=== PATIENT | male | born 1940 | race Caucasian/White ===

== ENCOUNTER 2023-05-05 18:29 | Emergency (ER) | payer MEDICARE, OTHER, SELFPAY ==
[2023-05-05 18:33] VITALS: BP 154/89; PULSE 79; RESP 18; TEMP 37.2; O2SAT 96; BMI 24.7
--- NOTE | 2023-05-05 18:52 | ED_ITS ---
HPI - General Adult General Time Seen by Provider: 18:52 Date Seen: 05/05/23 Chief complaint: Chest Pain Stated complaint: Burning in chest Time Seen by Provider: 05/05/23 18:51 Source: patient Mode of arrival: ambulatory Limitations: no limitations History of Present Illness HPI narrative: Frank is a 82 year old male with past history of heartburn, gout, hypertension and depression presents emergency department via private car with chest pain Related Data Home Medications Medication Instructions Recorded Confirmed allopurinol .ROUTE 05/05/23 famotidine PO 05/05/23 lisinopril .ROUTE 05/05/23 montelukast .ROUTE 05/05/23 rosuvastatin .ROUTE 05/05/23 sertraline .ROUTE 05/05/23 Allergies Allergy/AdvReac Type Severity Reaction Status Date / Time No Known Drug Allergies Allergy Verified 05/05/23 18:37 Exam Const: Vital Signs, click to edit/add: Vital Signs - 24 hr 05/05/23 18:33 Temperature 98.9 F Pulse Rate [Pulse Oximeter] 79 Respiratory Rate 18 Blood Pressure [Ri ght Upper Arm] 154/89 H Pulse Oximetry 96 Oxygen Delivery Me thod Room Air Course Vital Signs Vital signs: Initial Vital Signs Temperature 98.9 F 05/05/23 18:33 Temperature Source Temporal Artery Scan 05/05/23 18:33 Pulse Rate 79 05/05/23 18:33 Pulse Rhythm Regular 05/05/23 18:33 Respiratory Rate 18 05/05/23 18:33 Blood Pressure 154/89 H 05/05/23 18:33 Blood Pressure Mean 110 H 05/05/23 18:33 Blood Pressure Position Sitting 05/05/23 18:33 Pulse Oximetry 96 05/05/23 18:33 Oxygen Delivery Method Room Air 05/05/23 18:33 Vital Signs Temperature 98.9 F 05/05/23 18:33 Pulse Rate 79 05/05/23 18:33 Respiratory Rate 18 05/05/23 18:33 Blood Pressure 154/89 H 05/05/23 18:33 Pulse Oximetry 96 05/05/23 18:33 Oxygen Delivery Method Room Air 05/05/23 18:33 Temperature 98.9 F 05/05/23 18:33 Pulse Rate 79 05/05/23 18:33 Respiratory Rate 18 05/05/23 18:33 Blood Pressure 154/89 H 05/05/23 18:33 Pulse Oximetry 96 05/05/23 18:33 Oxygen Delivery Method Room Air 05/05/23 18:33 Discharge Plan Discharge Prescriptions: No Action rosuvastatin .ROUTE famotidine [Acid Strategic Partnership Specialist (famotidine)] PO allopurinol .ROUTE sertraline .ROUTE montelukast .ROUTE lisinopril .ROUTE
[2023-05-05 19:14] LABS: Hematocrit 42.5 % (37.0-53.0); Hemoglobin* 13.4 gm/dL (13.5-17.5); Lymphocytes Percent Auto 15.8 % (20-44); Mean Corpuscular HGB Conc 32 gm/dL (32-36); Mean Corpuscular Hemoglobin 29 pg (26-34); Mean Corpuscular Volume 91 fL (80-100); Neutrophils Percent Auto 70.3 % (42.0-72.0); Platelet Count* 224 K/uL (140-440); RDW Coefficient of Variation % 14.3 % (11.5-15.5); Red Blood Count 4.69 m/uL (4.30-5.90); White Blood Count* 5.05 K/uL (4.50-11.00)
[2023-05-05 19:15] LABS: Basophils Absolute Auto 0.01 K/uL (0.00-0.30); Basophils Percent Auto 0.2 % (0.0-3.0); Eosinophils Absolute Auto 0.14 K/uL (0.00-0.50); Eosinophils Percent Auto 2.8 % (0.0-7.0); Monocytes Percent Auto 10.9 % (0.0-11.0); Neutrophils Absolute Auto 3.55 K/uL (1.7-7.0)
[2023-05-05 19:17] LABS: Slide Review Reflex No
[2023-05-05 19:30] LABS: Albumin* 4.2 g/dL (3.3-5.0); Chloride* 106 mmol/L (96-114); Sodium* 140 mmol/L (135-149)
[2023-05-05 19:31] LABS: Potassium* 4.3 mmol/L (3.6-5.1)
[2023-05-05 19:33] LABS: Creatinine* 1.4 mg/dL (0.5-1.5); Est. Creatinine Clearance* 43.45; Estimated Glomerular Filt Rate 51 ml/min
[2023-05-05 19:34] LABS: Alanine Aminotransferase* 18 U/L (4-50); Alkaline Phosphatase* 140 U/L (40-150); Anion Gap 8 mEq/L (7-15); Aspartate Amino Transferase* 25 U/L (12-35); Bilirubin Total* 0.5 mg/dL (0.1-1.5); Blood Urea Nitrogen* 25 mg/dL (7-30); Calcium* 8.7 mg/dL (8.4-10.6); Carbon Dioxide* 26 mmol/L (20-32); Glucose* 118 mg/dL (60-115); Lipase* 66 U/L (23-300); Total Protein* 7.7 g/dL (6.0-8.3)
[2023-05-05 19:37] LABS: C Reactive Protein* 1.1 mg/dL (0.5-1.0)
--- NOTE | 2023-05-05 19:46 | ED_ITS ---
HPI - General Adult General Chief complaint: Chest Pain Stated complaint: Burning in chest Time Seen by Provider: 05/05/23 18:51 Source: patient Mode of arrival: ambulatory Limitations: no limitations History of Present Illness HPI narrative: This 82-year-old male comes in reporting an episode of intense burning type pain that extended to much of his body from his neck on down. This started about an hour prior to arrival and now has almost completely dissipated. He states that he has been having some much more mild similar symptoms over the past few weeks. He feels that he can trigger these symptoms if he happens to move into a certain position. He wonders if it might be coming from his back. He is a from the [place] and states that he had a low back injury that he continues to seek treatment from the [facility]. He states that he is very active and is not taking medication for this. He does incidentally report that he has an itchy back at times and has had some moles removed. He is applying a cream to his back and has generally dry skin. Related Data Home Medications Medication Instructions Recorded Confirmed allopurinol .ROUTE 05/05/23 famotidine PO 05/05/23 lisinopril .ROUTE 05/05/23 montelukast .ROUTE 05/05/23 rosuvastatin .ROUTE 05/05/23 sertraline .ROUTE 05/05/23 Previous Rx's Medication Instructions Recorded methylprednisolone 4 mg tablets in See Rx Instructions PO .COMPLEX 05/05/23 a dose pack (Medrol (Luis E)) #21 ea triamcinolone acetonide 0.1 % 1 applic topical BID #30 grams 05/05/23 topical cream Allergies Allergy/AdvReac Type Severity Reaction Status Date / Time No Known Drug Allergies Allergy Verified 05/05/23 18:37 Review of Systems Status of ROS: Reports: 10 or more systems reviewed and unremarkable except as noted in History and below Narrative: Constitutional: No fevers, no weight gain or loss. Eyes: No discharge. No vision changes. HENT: No congestion, no sore throat, no ear pain. Cardiovascular: No chest pain, no palpitations. Respiratory: No shortness of breath, no wheezes, no cough. Gastrointestinal: No abdominal pain, no vomiting, no diarrhea. Genitourinary: No dysuria, no hematuria. Musculoskeletal: Normal range of motion. Skin: No rashes. He reports dry skin which can be pruritic especially on his back. Neurological: No dizziness, weakness, sensory change, speech change. Endo/Heme/Allergies: No bruising or bleeding. No polydipsia. Pysch: no suicidality, no anxiety, no insomnia. All other systems reviewed and are negative. [facility] Social History Smoking Status: Former smoker How often do you have a drink containing alcohol: 2-3 times a week How many standard drinks containing alcohol do you have on a typical day: 1 or 2 How often do you have six or more drinks on one occasion: Never AUDIT-C Alcohol total score: 3 Non-prescribed substance use: denies use Exam Narrative: Exam Narrative: Constitutional: Well-developed, well-nourished, no acute distress. HEENT: Normocephalic, atraumatic. Neck: Normal range of motion. Nontender. Supple. Heart: Regular. No murmurs. Normal rate. Intact distal pulses. Lungs: Clear to auscultation. No chest discomfort. No wheezes, rhonchi, or rales. Abdomen: Normal bowel sounds. Nontender. No rebound tenderness. Genitalia: Deferred. Back: No midline tenderness. Normal range of motion. Extremities: Normal range of motion. No injury. Skin: Intact. No rash. Warm. No erythema or pallor. Neurologic: No altered sensation. No weakness. Alert and oriented. Psychiatric: No suicidality. No anxiety or depression. No insomnia. Nursing notes and vitals signs are reviewed. Const: Vital Signs, click to edit/add: Vital Signs - 24 hr 05/05/23 18:33 Temperature 98.9 F Pulse Rate [Pulse Oximeter] 79 Respiratory Rate 18 Blood Pressure [Ri ght Upper Arm] 154/89 H Pulse Oximetry 96 Oxygen Delivery Me thod Room Air Course Vital Signs Vital signs: Initial Vital Signs Temperature 98.9 F 05/05/23 18:33 Temperature Source Temporal Artery Scan 05/05/23 18:33 Pulse Rate 79 05/05/23 18:33 Pulse Rhythm Regular 05/05/23 18:33 Respiratory Rate 18 05/05/23 18:33 Blood Pressure 154/89 H 05/05/23 18:33 Blood Pressure Mean 110 H 05/05/23 18:33 Blood Pressure Position Sitting 05/05/23 18:33 Pulse Oximetry 96 05/05/23 18:33 Oxygen Delivery Method Room Air 05/05/23 18:33 Vital Signs Temperature 98.9 F 05/05/23 18:33 Pulse Rate 79 05/05/23 18:33 Respiratory Rate 18 05/05/23 18:33 Blood Pressure 154/89 H 05/05/23 18:33 Pulse Oximetry 96 05/05/23 18:33 Oxygen Delivery Method Room Air 05/05/23 18:33 Temperature 98.9 F 05/05/23 18:33 Pulse Rate 79 05/05/23 18:33 Respiratory Rate 18 05/05/23 18:33 Blood Pressure 154/89 H 05/05/23 18:33 Pulse Oximetry 96 05/05/23 18:33 Oxygen Delivery Method Room Air 05/05/23 18:33 Medical Decision Making MDM Narrative Medical decision making narrative: This patient comes in because of the sudden onset of an episode of burning type pain that extended through his arms and chest and down into his legs and groin, even to his feet. He has had much more mild symptoms like this in the past recently but this 1 was very intense such that he thought he better come into the hospital. Upon arrival here he is doing much better and at the time of my visit he is not showing any sign of distress or discomfort. He states that he feels that he can move in a certain position even with rolling over in bed or shifting his position when sitting in a chair and this can trigger some of these same symptoms. The patient did have an EKG and labs done here and these returned with reassuring findings. I did discuss other lab and imaging options but indicated that an emergency department is not likely to unpack sensory symptoms that are transient like this. I did throw up the possibility that he may be experiencing some spinal stenosis. I advised him to follow-up with his b k doctors in the [facility] facility. He was agreeable to this plan. He did receive a prescription for Medrol Dosepak and triamcinolone cream. Lab Data Labs: Lab Results 05/05/23 05/05/23 Range/Units 18:54 19:05 WBC 5.05 (4.50-11.00) K/uL RBC 4.69 (4.30-5.90) m/uL Hgb 13.4 L (13.5-17.5) gm/dL Hct 42.5 (37.0-53.0) % MCV 91 (80-100) fL MCH 29 (26-34) pg MCHC 32 (32-36) gm/dL RDW Coeff of Reji 14.3 (11.5-15.5) % Plt Count 224 (140-440) K/uL Neut % (Auto) 70.3 (42.0-72.0) % Lymph % (Auto) 15.8 L (20-44) % Branch % (Auto) 10.9 (0.0-11.0) % Eos % (Auto) 2.8 (0.0-7.0) % Baso % (Auto) 0.2 (0.0-3.0) % Neut # (Auto) 3.55 (1.7-7.0) K/uL Lymph # (Auto) 0.80 L (0.90-2.90) K/uL Branch # (Auto) 0.60 (0.00-0.90) K/UL Eos # (Auto) 0.14 (0.00-0.50) K/uL Baso # (Auto) 0.01 (0.00-0.30) K/uL Abs Immat Gran (auto) 0.00 (0.00-0.30) K/uL Imm/Tot Granulo (auto) 0.0 % Sodium 140 (135-149) mmol/L Potassium 4.3 (3.6-5.1) mmol/L Chloride 106 (96-114) mmol/L Carbon Dioxide 26 (20-32) mmol/L Anion Gap 8 (7-15) mEq/L BUN 25 (7-30) mg/dL Creatinine 1.4 (0.5-1.5) mg/dL Estimated Creat Clear 43.45 Estimated GFR 51 ml/min Glucose 118 H (60-115) mg/dL Calcium 8.7 (8.4-10.6) mg/dL Total Bilirubin 0.5 (0.1-1.5) mg/dL AST 25 (12-35) U/L ALT 18 (4-50) U/L Alkaline Phosphatase 140 (40-150) U/L C-Reactive Protein 1.1 H (0.5-1.0) mg/dL Total Protein 7.7 (6.0-8.3) g/dL Albumin 4.2 (3.3-5.0) g/dL Lipase 66 (23-300) U/L POC Troponin I 0.00 L (0.01-0.04) ng/ml ECG Data Attestation: I personally reviewed and interpreted this ECG as follows: Interpretation: Normal sinus rhythm. Rate is 75 beats per minute. There are no ST or T-wave abnormalities. Discharge Plan Discharge Clinical Impression: Generalized pain Patient Disposition: Home, Self-Care Condition: Improved Additional Instructions: Take medication as needed and indicated. Follow up with alternative financing specialist at the [place]. For dry skin consider using Amlactin. Return if worsening. Prescriptions: New triamcinolone acetonide 0.1 % cream 1 applic topical BID Qty: 30 0RF methylprednisolone [Medrol (Luis E)] 4 mg tablets,dose pack See Rx Instructions .ROUTE .COMPLEX Qty: 21 0RF Rx Instructions: orally per package directions No Action rosuvastatin .ROUTE famotidine [Acid General Production Manager (famotidine)] PO allopurinol .ROUTE sertraline .ROUTE montelukast .ROUTE lisinopril .ROUTE Stand Alone Forms: [facility] Info Instructions
== END 2023-05-05 20:05 | disposition home or self-care (01) ==
LOC: ED 20:05
PROVIDERS: Student in an Organized Health Care Education/Training Program; Emergency Provider Emergency Medicine Emergency Medical Services
DX: R52 Pain, unspecified (principal)
CPT/HCPCS: 36415; 80053; 83690; 84443; 84484; 85025; 86140; 99283; 99284

== ENCOUNTER 2024-08-05 04:31 | Emergency (ER) | payer MEDICARE, OTHER, SELFPAY ==
[2024-08-05] VITALS (7 sets, daily range): BP systolic 152–188; BP diastolic 74–111; PULSE 62–79; RESP 17–22; TEMP 36.6; O2SAT 93–97; BMI 23.7
--- NOTE | 2024-08-05 04:33 | ED.GENADULT ---
HPI - General Adult General Time Seen by Provider: 04:33 Date Seen: 08/05/24 Chief complaint: Chest Pain Stated complaint: chest pain, confusion Time Seen by Provider: 08/05/24 04:32 Source: patient and family Mode of arrival: ambulatory Limitations: no limitations History of Present Illness HPI narrative: 83-year-old male who presents today with chest pain. Patient's daughter provides additional history. Patient reports today was driving experience substernal chest pain, nonradiating, no shortness of breath, no nausea or vomiting. Unable to relate how long this lasted a becomes quite distressed when trying to figure out the answer the question. Also reports being unable to sleep tonight, vague about why this once. Poor appetite. No nausea, vomiting, abdominal pain, urinary symptoms. Says he feels confused but is vague about what this means. Related Data Home Medications ?Medication ?Instructions ?Recorded ?Confirmed allopurinol 100 mg PO DAILY 05/05/23 08/05/24 famotidine 20 mg PO DAILY 05/05/23 08/05/24 lisinopril 20 mg PO DAILY 05/05/23 08/05/24 montelukast 10 mg PO DAILY 05/05/23 08/05/24 rosuvastatin 40 mg PO DAILY 05/05/23 08/05/24 aspirin 81 mg capsule 81 mg PO DAILY 08/05/24 08/05/24 ferrous sulfate 325 mg (65 mg 325 mg PO DAILY 08/05/24 08/05/24 iron) tablet (iron) fluticasone propionate 50 1 spray intranasal BID PRN 08/05/24 08/05/24 mcg/actuation nasal spray,suspension (Allergy Relief (fluticasone)) loratadine 10 mg tablet (Allergy 10 mg PO DAILY 08/05/24 08/05/24 Relief (loratadine)) potassium 20 meq PO DAILY 08/05/24 08/05/24 vit C 250 mg-vit E 200 unit-zinc 1 cap PO DAILY 08/05/24 08/05/24 ox 12.5 uf-jaicuz-emoeah-zeax capsule Previous Rx's ?Medication ?Instructions ?Recorded trazodone 50 mg tablet 25 mg (1/2 x 50 mg) PO QHS PRN #10 08/05/24 tabs Allergies Allergy/AdvReac Type Severity Reaction Status Date / Time No Known Drug Allergies Allergy Verified 08/05/24 05:12 PFSH PFSH Social History Smoking Status: Former smoker Second hand tobacco smoke exposure: No How often do you have a drink containing alcohol: 2-3 times a week How many standard drinks containing alcohol do you have on a typical day: 1 or 2 How often do you have six or more drinks on one occasion: Never AUDIT-C Alcohol total score: 3 Non-prescribed substance use: denies use Exam Narrative: Exam Narrative: General: Well-developed and well-nourished, no acute distress Head: Atraumatic and normocephalic Eyes: Pupils are equal reactive, extraocular motions intact, conjunctiva clear ENT: External nose and ears are normal, posterior pharynx without erythema or exudate Neck: No midline cervical tenderness, full spontaneous range of motion the neck, trachea midline, no adenopathy Heart: Regular rate and rhythm no murmurs or thrills Lungs: Clear to auscultation bilaterally without wheezes or crackles Abdomen: Soft, nontender, nondistended with active bowel sounds Musculoskeletal: No tenderness, deformity, or edema Neurologic: Awake, alert, and oriented x3, no gross focal neurologic deficits, cranial nerves intact as tested. Occasional difficulty insert questions, becomes distracted easily. Psych: Occasionally tearful, appears distressed and anxious Skin: No rashes Const: Vital Signs, click to edit/add: Vital Signs - 24 hr 08/05/24 04:44 08/05/24 04:59 08/05/24 05:22 Temperature 97.8 F Pulse Rate 68 Pulse Rate [Pulse Oximeter] 77 Respiratory Rate 18 22 Blood Pressure 152/97 H Blood Pressure [Ri ght Upper Arm] 188/111 H Pulse Oximetry 97 97 95 Oxygen Delivery Me thod Room Air 08/05/24 05:32 08/05/24 06:02 08/05/24 06:23 Temperature 97.8 F Pulse Rate 65 62 Pulse Rate [Pulse Oximeter] 79 Respiratory Rate 19 17 17 Blood Pressure 160/108 H 155/90 H Blood Pressure [Ri ght Upper Arm] 154/74 H Pulse Oximetry 97 93 93 Oxygen Delivery Me thod Room Air Course Course ED Course: Reviewed prior emergency department visit from 05/05/2023, patient seen with generalized pain, no focal findings on exam a.m., limited emergency department evaluation was performed including CBC and basic panel, troponin and hepatic panel, all negative. Slight elevation in the CRP noted. EKG independently interpreted by me performed at 4:39 a.m. demonstrates sinus rhythm rate 73, left axis deviation, nonspecific ST changes with slight ST depression in V2, NV 140, QTC 471. Compared to prior April 2023, nonspecific ST changes are new. Patient presents today with a complaint of some chest pain yesterday afternoon, vague about duration, no associated symptoms. No history of coronary disease. Initial EKG with some nonspecific changes, labs are ordered along with chest x-ray. Patient also notes confusion poor sleep, no focal neurologic deficits, no numbness or tingling the arms or legs, no difficulty walking. This been going on for couple of days. Labs and head CT are ordered. Suspect there may be a component of anxiety and grief reaction, along with sleep deprivation. Reevaluation(s) Time of Reevaluation #1: 05:21 Reevaluation #1: Chest x-ray independently interpreted by me bibasilar scarring on the left, pleural effusion. Time of Reevaluation #2: 05:51 Reevaluation #2: Chest xray: 1. Left pleural thickening with significant left base distortion and opacification is probably chronic scarring. Suspect there are similar but less severe reticular/fibrotic opacities in the right lower lobe. 2. Comparison to any available prior exams would be helpful. CT scan of the head: Senescent changes. Prior left vertebral artery stenting. No acute appearing intracranial findings. Labs independently interpreted by me with normal CBC, normal basic panel, normal magnesium, negative troponin, positive COVID test, negative alcohol. Time of Reevaluation #3: 06:26 Reevaluation #3: Updated patient and family with findings and plan, stable for discharge. Symptoms today are likely multifactorial including grief, insomnia, COVID infection. Vital Signs Vital signs: Initial Vital Signs Temperature 97.8 F 08/05/24 04:44 Temperature Source Temporal Artery Scan 08/05/24 04:44 Pulse Rate 77 08/05/24 04:44 Respiratory Rate 18 08/05/24 04:44 Blood Pressure 188/111 H 08/05/24 04:44 Blood Pressure Mean 136 H 08/05/24 04:44 Blood Pressure Position Sitting 08/05/24 04:44 Pulse Oximetry 97 08/05/24 04:44 Oxygen Delivery Method Room Air 08/05/24 04:44 Vital Signs Temperature 97.8 F 08/05/24 04:44 Pulse Rate 77 08/05/24 04:44 Respiratory Rate 18 08/05/24 04:44 Blood Pressure 188/111 H 08/05/24 04:44 Pulse Oximetry 97 08/05/24 04:44 Oxygen Delivery Method Room Air 08/05/24 04:44 Temperature 97.8 F 08/05/24 06:23 Pulse Rate 79 08/05/24 06:23 Respiratory Rate 17 08/05/24 06:23 Blood Pressure 154/74 H 08/05/24 06:23 Pulse Oximetry 93 08/05/24 06:23 Oxygen Delivery Method Room Air 08/05/24 06:23 Medical Decision Making Lab Data Labs: Lab Results 08/05/24 08/05/24 08/05/24 Range/Units 05:02 05:03 05:15 WBC 4.68 (4.50-11.00) K/uL RBC 4.90 (4.30-5.90) m/uL Hgb 14.5 (13.5-17.5) gm/dL Hct 45.2 (37.0-53.0) % MCV 92 (80-100) fL MCH 30 (26-34) pg MCHC 32 (32-36) gm/dL RDW Coeff of Reji 14.2 (11.5-15.5) % Plt Count 174 (140-440) K/uL Neut % (Auto) 72.9 H (42.0-72.0) % Lymph % (Auto) 16.2 L (20-44) % [place] % (Auto) 8.8 (0.0-11.0) % Eos % (Auto) 1.5 (0.0-7.0) % Baso % (Auto) 0.6 (0.0-3.0) % Neut # (Auto) 3.40 (1.7-7.0) K/uL Lymph # (Auto) 0.80 L (0.90-2.90) K/uL [place] # (Auto) 0.40 (0.00-0.90) K/UL Eos # (Auto) 0.07 (0.00-0.50) K/uL Baso # (Auto) 0.03 (0.00-0.30) K/uL Abs Immat Gran (auto) 0.00 (0.00-0.30) K/uL Imm/Tot Granulo (auto) 0.0 % VBG pH 7.501 H (7.32-7.43) VBG pCO2 33 L (40-50) mmHG VBG pO2 37.4 (25-47) mmHG VBG HCO3 26 (21-28) mmol/L Sodium 137 (135-149) mmol/L Potassium 3.9 (3.6-5.1) mmol/L Chloride 105 (96-114) mmol/L Carbon Dioxide 24 (20-32) mmol/L Anion Gap 8 (7-15) mEq/L BUN 19 (7-30) mg/dL Creatinine 0.9 (0.5-1.5) mg/dL Estimated Creat Clear 63.59 Estimated GFR 86 ml/min Glucose 105 (60-115) mg/dL Calcium 9.5 (8.4-10.6) mg/dL Magnesium 2.0 (1.5-2.6) mg/dL NT-Pro-B Natriuret Pep 246 pg/mL Urine Color Yellow (Yellow) Urine Appearance Clear (Clear) Urine pH 7.5 (5.0-8.5) Ur Specific [place] 1.025 (1.000-1.030) Urine Protein 2+ A (Negative) Urine Glucose (UA) Negative (Negative) Urine Ketones Negative (Negative) Urine Blood Trace-lysed A (Negative) Urine Nitrite Negative (Negative) Urine Bilirubin Negative (Negative) Urine Urobilinogen 0.2 (0.2-1.0) Ur Leukocyte Esterase Negative (Negative) Urine RBC 0-2 (0-2) Urine WBC 0-2 (0-5) Ur Squamous Epith Cells Few (None-Few) Urine Bacteria None (None) Ethyl Alcohol < 0.00 L (0.01-0.03) % SARS-CoV-2 (PCR) POSITIVE SARS-CoV-2 A (Negative) Influenza Type A (PCR) Negative PCR FLU A (Negative) Influenza Type B (PCR) Negative PCR FLU B (Negative) RSV (PCR) Negative PCR RSV (Negative) Lab Acknowledgement Test Added POC Troponin I 0.00 L (0.01-0.04) ng/ml Discharge Plan Discharge Clinical Impression: COVID-19, Grief Patient Disposition: Home, Self-Care Condition: Stable Instructions: COVID-19 (Coronavirus Disease 2019) (ED) Additional Instructions: Continue current medication Make sure your getting plenty of fluids and rest Tylenol and ibuprofen as needed Activity Level: Activity as Tolerated Discharge Diet: Regular Prescriptions: New trazodone 50 mg tablet 25 mg PO QHS PRNQty: 10 0RF No Action aspirin 81 mg capsule 81 mg PO DAILY fluticasone propionate [Allergy Relief (fluticasone)] 50 mcg/actuation spray,suspension 1 spray intranasal BID PRN Rx Instructions: administer into each nostril ferrous sulfate [iron] 325 mg (65 mg iron) tablet 325 mg PO DAILY potassium 20 meq PO DAILY loratadine [Allergy Relief (loratadine)] 10 mg tablet 10 mg PO DAILY vit C-E-zinc dc-zhiw-esh-zeax 250 mg-200 unit -12.5 mg-1 mg capsule 1 cap PO DAILY rosuvastatin 40 mg PO DAILY famotidine [Acid [facility] (famotidine)] 20 mg PO DAILY allopurinol 100 mg PO DAILY montelukast 10 mg PO DAILY lisinopril 20 mg PO DAILY Follow Up/Referrals: Provider,Not a Local [Primary Care Provider] - Stand Alone Forms: [facility] Info Instructions
--- OUTSIDE RECORDS SUMMARY | 2024-08-05 04:34 | XMS_ITS | Encounter Summary ---
Author Name [facility] [place] [facility] [place] [facility] [facility] [place] Address [address] [place] [address] Care Team Providers Care Pr Manager Name Role Phone DARIN BURGESS Primary Care Provider Unav ailable FRIDA JO Primary Care Provider Unav ailable Insurance Providers: All historical and current Section Date Range: From patient's date of to the date document was created. This section includes the names of all active insurance providers for the patient. Insurance Provider Type of Coverage Plan Name Start of Policy Coverage End of Policy Coverage Group Number Member ID Insurance Provider's Telephone Number Policy Murillo's Name Patient's Relationship to Policy Murillo [employer] PRESCRIPT ION DODA Nov 13, 2004 DODA [id number] PARRISH LANGE PATIENT [employer] (WNR) PRESCRIPT ION TRICA RE (WNR) Nov 13, 2004 (WNR) [id number] PARRISH LANGE PATIENT MEDICARE (WNR) MEDICARE (M) PART A Sep 14, 2007 PART A [id number] NAZARIO,DA JUAN PATIENT MEDICARE (WNR) MEDICARE (M) PART B Sep 14, 2007 PART B [id number] NAZARIO,DA JUAN PATIENT MEDICARE (WNR) MEDICARE (M) PART A Sep 14, 2007 PART A [id number] [phone] NAZARIO,DA JUAN PATIENT MEDICARE (WNR) MEDICARE (M) PART B Sep 14, 2007 PART B [id number] NAZARIO,DA JUAN PATIENT MEDICARE (WNR) MEDICARE (M) PART A Sep 14, 2007 PART A [id number] [phone] NAZARIO,DA JUAN PATIENT MEDICARE (WNR) MEDICARE (M) PART B Sep 14, 2007 PART B [id number] NAZARIO,DA JUAN PATIENT MEDICARE (WNR) MEDICARE (M) PART A Sep 14, 2007 PART A [id number] NAZARIO,DA JUAN PATIENT MEDICARE (WNR) MEDICARE (M) PART B Sep 14, 2007 PART B [id number] NAZARIO,DA JUAN PATIENT MEDICARE (WNR) MEDICARE (M) PART A Sep 14, 2007 PART A [id number] [phone] NAZARIO,DA JUAN PATIENT MEDICARE (WNR) MEDICARE (M) PART B Sep 14, 2007 PART B [id number] [phone] NAZARIO,DA JUAN PATIENT FOR LIFE TRICA RE FOR LIFE Mar 15, 2004 FOR LIFE [id number] NAZARIO,DA JUAN PATIENT [facility] 2024 SELEC T WNR Jun 15, 2024 [facility] [id number] KOEING,DA JUAN PATIENT -FO R-LIFE TRICA RE FOR LIFE WNR Nov 27, 2015 FOR LIFE [id number] NAZARIO,DA JUAN PATIENT -FO R-LIFE TRICA RE FOR LIFE WNR Nov 23, 2015 FOR LIFE [id number] PARRISH LANGE PATIENT Selected Encounter This section includes the information on record at [place] for the Encounter. Date/Time Encounter Type Encounter Description Reason Pro vider Source Feb 10, 2024 01:00 PM OFFICE O/P EST MOD 30 MIN GASTROENTEROLOGY ICD-10-CM K86.2 Cyst of pancreas BILAL,ADÁN Teto Evelyn Encounter Template Text not used by [place] Assessments - Encounter Diagnoses This section includes the primary and secondary diagnoses documented for the Encounter. Date/Time Primary/Secondary Diagnosis Diagnosis Name Provider Source Feb 17, 2024 10:13 AM PRIMARY Cyst of pancreas COLTEN LEMUS [facility] Plan of Treatment: Future Appointments (+ 6 months) and Future Tests (+/- 45 days) The Plan of Treatment section includes future care activities for the patient [facility] [place] [facility] This section includes future appointments and future orders which are active, pending or scheduled. Future Appointments This section includes appointments that were scheduled to occur 6 months from the date of the Encounter, up to a maximum of 20 appointments. The data comes from all [place] treatment facilities. Appointment Date/Time Appointment Type Appointme nt Facility Name Apr 19, 2024 02:00 PM AMBULATORY - NONE [facility] Apr 26, 2024 02:00 PM AMBULATORY - SURGERY [facility] Apr 26, 2024 03:15 PM AMBULATORY - NONE [facility] Social History: Smoking Status (Most current) and Tobacco Use (All prior to encounter date) This section includes the most current, and the historical, smoking and tobacco- related health factors from the [place] facility where the Encounter took place. Current Smoking Status This section includes the most current smoking, or tobacco-related health factor, from the [place] facility where the Encounter took place. Date/Time Current Smoking Status Comment Facil ity May 19, 2023 02:30 PM [place]-TOBACCO FORMER USER [facility] Tobacco Use History This section includes a history of the smoking, or tobacco-related health factors, that were collected on or before the date of the Encounter. The data comes from the [place] facility where the Encounter took place. Date/Time Smoking Status/Tobacco Use Comment F acjerry May 19, 2023 02:30 PM [place]-TO[place] QU[place] 15 YRS OR MORE [facility] May 13, 2022 11:30 AM VA-TOBACCO FORMER USER [facility] May 13, 2022 11:30 AM VA-TOBACCO QUIT 15 YRS OR MORE [facility] Jun 17, 2021 02:00 PM VA-TOBACCO NEVER USED [facility] Advance Directives: All historical and current Section Date Range: From patient's date of to the date document was created. This section includes ALL of a patient's completed or amended [place] Advance and Rescinded Directives. The entries below indicate that a directive exists for the patient, but an actual copy is not included with this document. The data comes from all [place] facilities. Date Advance Directives Provider Source Dec 19, 2022 ADVANCE DIRECTIVE ABRIL BURCH E JARRETT [facility] Dec 19, 2022 ADVANCE DIRECTIVE DISCUSSION TIFF BURCH [facility] Encounter Notes: All associated encounter notes This section contains the clinical notes associated to the Encounter. Date/Time Encounter Note(s) Provider Source Feb 10, 2024 12:00 PM GASTROENTEROLOGY ATTENDING NOTE: LOCAL TITLE: GI CLINIC NOTE STANDARD TITLE: GASTROENTEROLOGY ATTENDING NOTE DATE OF NOTE: FEB 10, 2024@12:00 ENTRY DATE: FEB 10, 2024@12:00:51 AUTHOR: ANA LILIA LEMUS EXP COSIGNER: URGENCY: STATUS: COMPLETED GASTROENTEROLOGY CLINIC FELLOW NOTE HPI: This is a 83 yo who is evaluated in GI clinic through phone visit for pancreas cysts. Patient previously seen by Dr. Kan on 07/2021 for evaluation of chronic diarrhea. At that time, celiac disease ruled out, did not follow-up with stool studies. Recently, evaluated by Neurology, Endocrinology for generalized itching, neuropathic pain. 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 Chronic diarrhea Prior diarrhea work-up: Ttg normal, TSH normal, stool studies not done, 24-hr urine 5-HIAA 7,8. Patient denies any symptoms over the phone besides the chronic neuropathic pain and itching. Has some chronic diarrhea that is well controlled with Imodium. Denies unintentional weight loss. ROS: 10 point ROS otherwise negative, other than what is noted above. PAST MEDICAL HISTORY Active problems - Computerized Problem List is the source for the followin. HTN - Hypertension ([facility] [id number]) 2. Hyperlipidemia ([facility] [id number]) 3. Gout ([facility] [id number]) 4. Intracranial aneurysm - s/p stent/coil proceedure 5. GERD - Gastro-Esophageal Reflux Disease ([facility] [id number]) 6. Depression ([facility] [id number]) 7. Primary malignant neoplasm of prostate 8. Abdominal aortic aneurysm 9. Solitary nodule of lung 10. Insomnia 11. Chronic diarrhea 12. Chronic kidney disease stage 3A 13. COPD - Chronic obstructive pulmonary disease - Moderately severe 05/2022 PFTs 14. CAD - Coronary Artery Disease ([facility] [id number]) 15. History of myocardial infarction - STEMI 16. Low back pain 17. Neck pain 18. Exposure to potentially hazardous substance ([facility] [id number]) - Entered automatically through [facility] Problem List documentation program SURGICAL HISTORY --- SURGERIES - NONE FOUND MEDICATIONS (OUTPATIENT) -- Active Outpatient Medications (excluding Supplies): Outpatient Medications Status 1) ACETAMINOPHEN 500MG TAB TAKE TWO TABLETS BY MOUTH ACTIVE THREE TIMES A DAY NEEDED FOR PAIN 2) ALBUTEROL 90MCG (CFC-F) 200D ORAL INHL INHALE 2 PUFFS ACTIVE BY INHALATION EVERY 4 HOURS NEEDED FOR SHORTNESS OF BREATH 3) CAMPHOR 0.5/MENTHOL 0.5% LOTION APPLY THIN LAYER ACTIVE TOPICALLY THREE TIMES A DAY NEEDED FOR ITCHING 4) FAMOTIDINE 20MG TAB TAKE ONE TABLET BY MOUTH EVERY ACTIVE DAY FOR HEARTBURN 5) GABAPENTIN 300MG CAP TAKE TWO CAPSULES BY MOUTH THREE ACTIVE (S) TIMES A DAY FOR PAIN AND NUMBNESS MAXIMUM DOSE WITH CURRENT KIDNEY FUNCTION 6) KETOCONAZOLE 2% SHAMPOO SHAMPOO SCALP TOPICALLY 3 ACTIVE TIMES EVERY WEEK *LATHER FOR 5 MINUTES THEN RINSE* FOR SEBORRHEIC DERMATITIS 7) LOPERAMIDE HCL 2MG CAP TAKE ONE CAPSULE BY MOUTH ACTIVE THREE TIMES A DAY FOR DIARRHEA 8) LORATADINE 10MG TAB TAKE ONE TABLET BY MOUTH EVERY ACTIVE DAY NEEDED FOR ALLERGIES 9) POTASSIUM CL 20MEQ SA TAB (DISPERSIBLE) TAKE ONE ACTIVE TABLET BY MOUTH EVERY DAY POTASSIUM SUPPLEMENT 10) PRAMOXINE HCL 1% LOTION APPLY THIN LAYER TOPICALLY ACTIVE THREE TIMES A DAY NEEDED FOR ITCHING 11) ROSUVASTATIN CA 40MG TAB TAKE ONE TABLET BY MOUTH AT ACTIVE BEDTIME CHOLESTEROL MEDICATION 12) TRIAMCINOLONE ACETONIDE 0.1% CREAM APPLY A THIN LAYER ACTIVE TOPICALLY TWICE A DAY NEEDED RUB A SMALL AMOUNT INTO ITCHY SCARS 13) VANICREAM TOP CREAM APPLY THIN LAYER TOPICALLY TWICE ACTIVE A DAY FOR DRY SKIN Non-VA Medications Status 1) Non-VA ASPIRIN 81MG EC TAB 81MG MOUTH EVERY DAY ACTIVE 2) Non-VA CURCUMIN CAP 1 CAPSULE MOUTH NEEDED ACTIVE 15 Total Medications Allergies: AMLODIPINE (Jun 17, 2021) Physical Exam BP: 121/78 (12/04/2023 09:52) TEMP: 97.5 F [36.4 C] (12/04/2023 09:52) P: 83 (12/04/2023 09:52) R: 16 (12/04/2023 09:52) PAIN: 10 (12/04/2023 09:52) WT: 192.4 lb [87.27 kg] (12/04/2023 09:52) BMI: 27.7 HT: 70 in [177.8 cm] (12/04/2023 09:52) Gen: NAD, alert and conversant HEENT: anicteric conjunctivae CV: No edema Pulm: Comfortable on room air Abd: Soft, non-distended, non-tender, no hepatomegaly Ext/Skin: No Jaundice Labs: - Complete Blood Count White count: WBC 5.89 (12/04/23) Hemoglobin: HGB 13.4 L (12/04/23) Hematocrit: HCT 42.5 (12/04/23) Platelets: PLT 205 (12/04/23) - Complete Metabolic Panel UREA NITROGEN 21 (12/04/23) CREATININE 1.2 (12/04/23) EGFR (01/16) 06/17/2021@1534 49 L CREATININE EGFR (CKD-EPI) 12/04/2023@0931 61 AST/SGOT 24 (12/04/23) ALT/SGPT 18 (12/04/23) ALK PHOSPHATASE 179 H (12/04/23) ALBUMIN 3.7 (12/04/23) BILIRUBIN, TOTAL 0.6 (12/04/23) Imaging/Studies: PET w DOTATE scan 11/2023 Impression: 1. Small focus of intense tracer uptake pancreatic tail. This is suspicious for a potential small pancreatic neuroendocrine tumor. The differential diagnosis however would include a small accessory spleen within this region. If further imaging workup is desired, follow-up with a CT scan of the abdomen utilizing the pancreas protocol can be considered for further evaluation. 2. Small focus of tracer uptake involving the region of the right posterior elements associated with the L5 vertebral body. The significance of this finding is uncertain. This may represent inflammatory changes associated with an adjacent facet joint. The differential diagnosis would include a small osseous metastasis associated with the right L5 pedicle and transverse process. I would consider this to be less likely. No other potential osseous metastases visualized. If clinically desired, follow-up with MRI of the lumbar spine can be considered. CT abdomen/pelvis 12/2023 Impression: 1. 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 2. Decreased size of the left pleural effusion from the recent chest CT. Rounded atelectasis in the left lower lung and pleural parenchymal scarring bilaterally again noted. 3. Bilateral renal cysts. 4. Other incidental findings stable as above. Endoscopy: None Assessment & Plan This is a 83 yo who is evaluated in GI clinic through phone visit for pancreas cysts. #. Pancreatic tail mass, concern for NE tumor #. Chronic diarrhea Patient previously seen by Dr. Kan on 07/2021 for evaluation of chronic diarrhea. At that time, celiac disease ruled out, did not follow-up with stool studies. Recently, evaluated by Neurology, Endocrinology for generalized itching, neuropathic pain. 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 Chronic diarrhea Prior diarrhea work-up: Ttg normal, TSH normal, stool studies not done, 24-hr urine 5-HIAA 7,8. His chronic diarrhea is currently well controlled, so will hold off any work-up at this time. Consider EPI/Chronic pancreatitis as possible etiology vs IBS-D vs microscopic colitis. 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 5-HIAA levels are only minimally elevated and usually < 10 mg/24h is considered normal, would be > 25 mg/24h to be somewhat significant. RECOMMENDATIONS: - Will discuss possible EUS evaluation with Dr. Barnard. Discussed with staff attending, Dr. Evon Lemus PGY-4 Gastroenterology Fellow /eda/ ANA LILIA LEMUS Fellow Signed: 02/14/2024 07:34 ANA LILIA LEMUS [facility]
--- OUTSIDE RECORDS SUMMARY | 2024-08-05 04:34 | XMS_ITS | Encounter Summary ---
Author Name [facility] [facility] [place] Address [address] [place] [address] Care Team Providers Care Magnetic Healer Name Role Phone DARIN BURGESS Primary Care [...] PRESCRIPT ION DODA Nov 13, 2004 DODA [id number] PARRISH LANGE PATIENT EXPRESS SCRIPTS (WNR) PRESCRIPT ION TRICA RE (WNR) Nov 13, 2004 (WNR) [id number] PARRISH LANGE PATIENT MEDICARE (WNR) MEDICARE (M) PART A Sep 14, 2007 PART A [id number] NAZARIO,DA JUAN PATIENT MEDICARE (WNR) MEDICARE (M) PART B Sep 14, 2007 PART B [id number] NAZARIO,DA JUAN PATIENT MEDICARE (WNR) MEDICARE (M) PART A Sep 14, 2007 PART A [id number] [phone] NAZARIO,DA JUAN PATIENT MEDICARE (WNR) MEDICARE (M) PART B Sep 14, 2007 PART B [id number] [phone] NAZARIO,DA JUAN PATIENT MEDICARE (WNR) MEDICARE (M) PART A Sep 14, 2007 PART A [id number] NAZARIO,DA JUAN PATIENT MEDICARE (WNR) MEDICARE (M) PART B Sep 14, 2007 PART B [id number] NAZARIO,DA JUAN PATIENT MEDICARE (WNR) MEDICARE (M) PART A Sep 14, 2007 PART A [id number] NAZARIO,DA JUAN PATIENT MEDICARE (WNR) MEDICARE (M) PART B Sep 14, 2007 PART B [id number] NAZARIO,DA JUAN PATIENT MEDICARE (WNR) MEDICARE (M) PART A Sep 14, 2007 PART A [id number] NAZARIO,DA JUAN PATIENT MEDICARE (WNR) MEDICARE (M) PART B Sep 14, 2007 PART B [id number] [phone] NAZARIO,DA JUAN PATIENT FOR LIFE TRICA RE FOR LIFE Mar 15, 2004 FOR LIFE [id number] NAZARIO,DA JUAN PATIENT [facility] 2024 SELEC T WNR Jun 15, 2024 SELECT [id number] KOEING,DA JUAN PATIENT -FO R-LIFE TRICA RE FOR LIFE WNR Nov 27, 2015 FOR LIFE [id number] NAZARIO,DA JUAN PATIENT -FO R-LIFE TRICA RE FOR LIFE WNR Nov 23, 2015 FOR LIFE [id number] NAZARIO,DA JUAN PATIENT Selected Encounter This section includes the information on record at [place] for the Encounter. Date/Time Encounter Type Encounter Description Reason Provider Source Dec 04, 2023 10:30 AM OFFICE O/P EST MOD 30 MIN PRIMARY CARE/MEDICINE ICD-10-CM F32.A Depression, unspecified LAMONT JO Evelyn Encounter Template Text not used by [place] Assessments - Encounter Diagnoses This section includes the primary and secondary diagnoses documented for the Encounter. Date/Time Primary/Secondary Diagnosis Diagnosis Name Provider Source Dec 05, 2023 03:49 PM PRIMARY Depression, unspecified [facility] Dec 05, 2023 03:49 PM SECONDARY Athscl heart disease of [place] coronary artery w/o ang pctrs [facility] Dec 05, 2023 03:49 PM SECONDARY Chronic obstructive pulmonary disease, unspecified [facility] Dec 05, 2023 03:49 PM SECONDARY Encounter for immunization [facility] Dec 05, 2023 03:49 PM SECONDARY Essential (primary) [facility] Dec 05, 2023 03:49 PM SECONDARY Hyperlipidemia, unspecified STENSET,[facility] Dec 05, 2023 03:49 PM SECONDARY [facility] Plan of Treatment: Future Appointments (+ 6 months) and Future Tests (+/- 45 days) The Plan of Treatment section includes future care activities for the patient [facility] [place] [facility] This section includes future appointments and future orders which are active, pending or scheduled. Future Appointments This section includes appointments that were scheduled to occur 6 months from the date of the Encounter, up to a maximum of 20 appointments. The data comes from all [facility]. Appointment Date/Time Appointment Type Appointme nt Facility Name Dec 25, 2023 12:15 PM AMBULATORY - NONE [facility] Dec 31, 2023 01:00 PM AMBULATORY - REHAB MEDICIN E [facility] Dec 31, 2023 02:00 PM AMBULATORY - NONE [facility] Feb 10, 2024 01:00 PM AMBULATORY - MEDICINE JARRETT CARPIO [facility] Apr 19, 2024 02:00 PM [facility] Apr 26, 2024 02:00 PM AMBULATORY - SURGERY [place] [facility] Apr 26, 2024 03:15 PM [facility] Lab Results: +/- 30 days of the encounter This section includes the Chemistry and Hematology Lab Results on record with [facility] for the patient. Radiology Reports and Pathology Reports are provided separately, in subsequent sections. Lab Results This section contains the Chemistry/Hematology Results that were resulted 30 days before or 30 daysafter the date of the Encounter. Date/Time Source Result Type Result - Unit Interpretation Reference Range Comment Dec 04, 2023 09:31 AM [facility] TSH W/REFLEX TO FREE T4 Specimen Type: PLASMA No comment entered. Ordering Provider: DENG JO Report Released Date/Time: Nov 17, 2022 02:50 PM Reporting Lab: [facility] [id number] Performing Lab: [facility] [id number] TSH 3.26 u[IU]/mL 0.35-4.94 Dec 04, 2023 09:31 AM [facility] CBC Specimen Type: BLOOD No comment entered. Ordering Provider: DENG JO Report Released Date/Time: Nov 17, 2022 02:50 PM Reporting Lab: [facility] [id number] Performing Lab: [facility] [address] WBC 5.89 10*3/uL 4.0-11.0 RBC 4.66 10*6/uL 4.6-6.2 HGB 13.4 g/dL L 13.5-17.9 HCT 42.5 41-54 MCV 91.2 fL 80-100 MCH 28.8 pg 27-33 MCHC 31.5 g/dL L 32.0-37.5 PLT 205 10*3/uL 150-400 MPV 8.6 fL 7.4-10.4 RDW 15.3 H 11.5-14.5 Dec 04, 2023 09:31 AM [facility] COMPREHENSIVE METABOLIC PANEL+MG Specimen Type: PLASMA No comment entered. Ordering Provider: DENG JO Report Released Date/Time: Nov 17, 2022 02:50 PM Reporting Lab: [facility] [id number] Performing Lab: [facility] [address] CREATININE 1.2 mg/dL 0.7-1.2 UREA NITROGEN 21 mg/dL 8-26 GLUCOSE 86 mg/dL 70-100 SODIUM 142 mmol/L 136-145 POTASSIUM 4.0 mmol/L 3.5-5.1 CHLORIDE 109 mmol/L H 98-107 CO2 27 mmol/L 22-29 CALCIUM 9.2 mg/dL 8.4-10.2 PROTEIN,TOTAL 7.5 g/dL 6.0-8.3 ALBUMIN 3.7 g/dL 3.5-5.2 BILIRUBIN, TOTAL 0.6 mg/dL 0.2-1.2 MAGNESIUM 2.0 mg/dL 1.6-2.6 ANION GAP 6 mmol/L 5-15 ALKALINE PHOSPHATASE 179 U/L H 40-150 ALT/SGPT 18 U/L <55 AST/SGOT 24 U/L <34 .CREAT EGFR(CKD-EPI) 61 >60 Dec 04, 2023 09:31 AM [facility] URIC ACID Specimen Type: PLASMA No comment entered. Ordering Provider: DENG JO Report Released Date/Time: Nov 17, 2022 02:50 PM Reporting Lab: [facility] [id number] Performing Lab: [facility] [address] URIC ACID 4.9 mg/dL 3.5-7.2 Dec 04, 2023 09:31 AM [facility] LIPID PANEL,NON-FASTING Specimen Type: PLASMA No comment entered. Ordering Provider: DENG JO Report Released Date/Time: Nov 17, 2022 02:50 PM Reporting Lab: [facility] [phone] Performing Lab: [facility] [phone] CHOLESTEROL 129 mg/dL <199 .HDL 47 mg/dL >40 LDL CALCULATION 59 mg/dL <99 VLDL CALCULATION 23 mg/dL <29 NON HDL CHOLESTEROL 82 mg/dL <129 TRIG(NON FASTING) 114 mg/dL <149 Dec 04, 2023 09:31 AM [facility] PSA Specimen Type: SERUM No comment entered. Ordering Provider: DENG JO Report Released Date/Time: Nov 17, 2022 02:50 PM Reporting Lab: [facility] [address] Performing Lab: [facility] [phone] PSA 1.09 ng/mL <4.00 Vital Signs: All taken on the encounter date This section contains inpatient and outpatient Vital Signs collected on the date of the Encounter. Date/Time Temperature Pulse Blood Pressure Respiratory Rate SP02 Pain Height Weight Body Mass Index Source Dec 04, 2023 09:52 AM 97.5 83 121/78 16 94 10 70 192.4 28 [place] [facility] Immunizations: All administered on the encounter date This section contains immunizations associated to the Encounter. Immunization Series Date Issued Reaction Comments COVID-19 (PFIZER), MRNA, LNP -S, PF, KIMBER-SUCROSE, 30 MCG/0.3 ML (AGES 12+ YEARS) Dec 04, 2023 Social History: Smoking Status (Most current) and Tobacco Use (All prior to encounter date) This section includes the most current, and the historical, smoking and tobacco- related health factors from the [place] facility where the Encounter took place. Current Smoking Status This section includes the most current smoking, or tobacco-related health factor, from the [place] facility where the Encounter took place. Date/Time Current Smoking Status Comment Facil ity May 19, 2023 02:30 PM VA-TOBACCO FORMER USER [facility] Tobacco Use History This section includes a history of the smoking, or tobacco-related health factors, that were collected on or before the date of the Encounter. The data comes from the [place] facility where the Encounter took place. Date/Time Smoking Status/Tobacco Use Comment F acility May 19, 2023 02:30 PM VA-TOBACCO QUIT 15 YRS OR MORE [facility] May 13, 2022 11:30 AM VA-TOBACCO FORMER USER [facility] May 13, 2022 11:30 AM VA-TOBACCO QUIT 15 YRS OR MORE [facility] Jun 17, 2021 02:00 PM VA-TOBACCO NEVER USED [facility] Advance Directives: All historical and current Section Date Range: From patient's date of to the date document was created. This section includes ALL of a patient's completed or amended [place] Advance and Rescinded Directives. The entries below indicate that a directive exists for the patient, but an actual copy is not included with this document. The data comes from all [place] facilities. Date Advance Directives Provider Source Dec 19, 2022 ADVANCE DIRECTIVE ABRIL BURCH [facility] Dec 19, 2022 ADVANCE DIRECTIVE DISCUSSION TIFF BURHC [facility] Radiology Reports: +/- 30 days of the encounter Radiology Reports For cases when an order for radiology services may have been completed prior to the date of the Encounter, the report list includes the Radiology Reports that were completed up to 30 days before dateof the Encounter. For cases when an order for radiology services may have been completed after the date of the Encounter, the report list also includes the Radiology Reports that were completed up to30 days after date of the Encounter. The data comes from all [place] treatment facilities. Date/Time Radiology Report Provider Source Dec 31, 2023 02:[address] (CAP) CHEST/ABD /PELVIS (P): NENA LANGE [id number] -1940 M Exm Date: DEC 31, 2023@14:04 Req Phys: TRENT PRESCOTT Loc: [facility] N ERCAN-FANG [address] Img Loc: CT IMAGING Service: [place] [address] (Case [id number] COMPLETE) CT (CAP) CHEST W CONTRAST (CT Detailed) CPT:15594 Contrast Media : Non-ionic Iodinated Reason for Study: CT with pancreas protocol (Case [id number] COMPLETE) CT (CAP) ABDOMEN/PELVIS W/O & W C(CT Detailed) CPT:27853 Contrast Media : Non-ionic Iodinated Clinical History: Patient with increased uptake in pancreas at recent dotate PET.Likely PNET. Also has symptoms and signs of Carcionoid. Per Joint Commission Standards, by signing this diagnostic imaging request the ordering provider confirms they have considered patients age and recent imaging history. Defer to radiologist for final CT protocol. Contact number for responsible provider who can be reached for any questions or notifications of critical findings: [phone] Nacide Ercan-Fang LAST 3: Collection DT Specimen Test Name Result Units Ref Range 12/04/2023 09:31 PLASMA CREATININE 1.2 mg/dL 0.7 - 1.2 06/05/2023 11:52 PLASMA CREATININE 1.4 H mg/dL 0.7 - 1.2 05/19/2023 16:02 PLASMA CREATININE 1.2 mg/dL 0.7 - 1.2 12/04/2023 09:31 PLASMA .CREAT EGFR(CKD-E 61 Ref: >=60 06/05/2023 11:52 PLASMA .CREAT EGFR(CKD-E 51 L Ref: >=60 05/19/2023 16:02 PLASMA .CREAT EGFR(CKD-E 61 Ref: >=60 Allergies: (Reading only) AMLODIPINE (Jun 17, 2021) Report Status: Verified Date Reported: DEC 31, 2023 Date Verified: DEC 31, 2023 [employer] E-Sig:/ES/TASHA RICHARD MD Report: DATE/TIME REGISTERED: 12/31/2023 2:04 PM STUDY: CT (CAP) CHEST W CONTRAST, CT (CAP) ABDOMEN/PELVIS W/O & W CONTRAST HISTORY: CT with pancreas protocol Prior CT abdomen 04/16/2022. Prior CT chest 08/05/2022. TECHNIQUE: Helical CT scan of the chest, abdomen and pelvis was performed from the lung apices through the pelvis. IV contrast was administered per dynamic bolus technique. 99 ml of Omnipaque 300 were used. Noncontrast, arterial and venous phases were employed. No oral contrast was given. Sagittal and coronal reconstructions were also reviewed. DLP = 1264 mGy*m. FINDINGS: The current study reveals a 10 mm low-density mass in the tail the pancreas most consistent with a sidebranch IPMN. This is probably present on the prior CT dated 04/16/2022. 9 mm I p.m. and is also seen off the caudal margin of the pancreatic body. Again, this is probably present on the earlier study. There is moderate fatty replacement of the pancreas. The spleen is not enlarged. The liver enhances normally. No mass lesions are appreciated. The stomach is unremarkable. The left pleural effusion is considerably smaller. There are areas of rounded atelectasis posteriorly and laterally in the left lower lobe. Pleural parenchymal scarring in the right lower lung has not changed significantly. The 5 mm right upper lobe nodule is unchanged (series 7, image 82). No acute osseous abnormalities are detected. There is cardiomegaly. The pulmonary arteries and their central branches enhance normally. The aorta is mildly enlarged at 4.2 cm in diameter. There is no pathologic mediastinal or hilar adenopathy. Mild coronary artery calcifications are present. The thyroid gland is small. The kidneys enhance symmetrically. No renal stones or solid masses are identified and there is no evidence of hydronephrosis. There are multiple small bilateral simple cysts. The urinary bladder is normal. The prostate gland is normal size. The abdominal aorta is tortuous though of normal caliber. The adrenal glands are unremarkable. There is no pathologic adenopathy. 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 This has not changed. The large and small bowel are within normal limits. The appendix is normal. Degenerative changes are seen in the spine. Impression: 1. 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 2. Decreased size of the left pleural effusion from the recent chest CT. Rounded atelectasis in the left lower lung and pleural parenchymal scarring bilaterally again noted. 3. Bilateral renal cysts. 4. Other incidental findings stable as above. Primary Interpreting Staff: TASHA RICHARD MD, RADIOLOGIST ([employer]) /TASHA [facility] Dec 25, 2023 12:16 PM MRI-L-SPINE (P): NENA LANGE [id number] -1940 M Exm Date: DEC 25, 2023@12:16 Req Phys: ERCAN-FANG,NACIDE Pat Loc: [facility] N ERCAN-FANG 79 Img Loc: MRI IMAGING Service: [place] [address] (Case [id number] COMPLETE) MRI SPINE LUMBAR W & WITHOUT CONT(MRI Detailed) CPT:74714 Contrast Media : Gadolinium Reason for Study: To evaluate L5 hyperactivity Clinical History: Per Joint Commission Standards, by signing this diagnostic imaging request the ordering provider confirms they have considered patients age and recent imaging history. Patient with increasing low back pain. On doatate PET scan (done for ? NET) he has hyperactivity of L5. Responsible provider name and phone number to notify for critical findings if other than user placing the order and pager listed below: User placing orders pager: [phone] LAST CREATININE 1.4 H (06/05/23) Allergies: AMLODIPINE (Jun 17, 2021) Report Status: Verified Date Reported: DEC 25, 2023 Date Verified: DEC 25, 2023 [employer] E-Sig:/ES/STEVIE GUTIERREZ MD Report: MRI SPINE LUMBAR W & WITHOUT CONTRAST 12/25/2023 12:16 PM HISTORY: Increasing lower back pain; Dotatate PET/CT study performed on 12/01/2023 revealed focal radiotracer uptake in the right L5 posterior elements, raising the possibility of inflammatory changes associated with an adjacent facet joint versus less likely osseous metastasis. TECHNIQUE: MRI of the lumbar spine was performed before and after the administration of intravenous contrast. CONTRAST: Gadavist 7.5 mL. COMPARISON: No prior dedicated MR studies of the lumbar spine are available for comparison. Correlation is made to Dotatate PET/CT study dated 12/01/2023, and to CTA of the abdomen and pelvis dated 04/21/2023. FINDINGS: Mild dextroscoliosis remains centered at L2-L3. There has been no significant interval change in mild right lateral listhesis at L3-L4, and stepwise degenerative grade 1 retrolisthesis at L2-L3, L3-L4, L4-L5, and L5-S1. The vertebral body heights are maintained. Abnormal confluent T1 hypointensity, relative T2 isointensity, moderate STIR hyperintensity, and moderate enhancement are present in the right L5 pedicle, pars interarticularis, superior articular process, inferior articular process, and right transverse process. Minimal edema and enhancement are present in the adjacent right L5 lamina. There is no appreciable expansion of these structures. These areas of right L5 posterior element marrow signal abnormality correspond to focal increased radiotracer uptake on the Dotatate PET/CT study of 12/01/2023. Osseous metastatic disease could have this imaging appearance. Reactive marrow changes cannot be excluded, however, noting that the right L5 transverse process abuts the superior aspect of the adjacent right sacral ala, and osteoarthritis involves the adjacent right L5-S1 facet joint. There are mild to moderate degenerative endplate signal changes at L3-L4. Mild degenerative endplate signal changes are present at L2-L3, L4-L5, and L5-S1. There are minimal degenerative marrow signal changes in the L1 inferior endplate. The remaining visualized marrow signal is unremarkable. The conus medullaris terminates at L1, and appears normal. No abnormal intradural enhancement is identified. Level by level analysis of lumbar spinal degenerative changes: L1-L2: Mild diffuse disc bulge, and mild to moderate bilateral facet arthropathy. No significant central canal or foraminal stenosis. L2-L3: Moderate to severe diffuse disc bulge, moderate generalized endplate osteophytic ridging, moderate left degenerative facet hypertrophy, and mild to moderate right facet arthropathy. Mild to moderate central canal stenosis. Mild bilateral lateral recess stenosis. Left foraminal stenosis is between moderate and moderate to severe. No significant right foraminal stenosis. L3-L4: Moderate to severe diffuse disc bulge, moderate generalized endplate osteophytic ridging, and mild to moderate bilateral degenerative facet hypertrophy. Moderate central canal stenosis. Foraminal stenosis is moderate on the right, and mild on the left. L4-L5: Moderate to severe diffuse disc bulge eccentric to the right, moderate predominantly right-sided endplate osteophytic ridging, right degenerative facet hypertrophy between moderate and moderate to severe, and mild left degenerative facet hypertrophy. Moderate central canal stenosis. Probable slight impingement on the traversing right L5 nerve root in the stenotic right lateral recess. Mild left lateral recess stenosis. Moderate to severe right foraminal stenosis. Minimal left foraminal stenosis. L5-S1: Moderate to severe diffuse disc bulge, moderate generalized endplate osteophytic ridging, moderate degenerative facet hypertrophy, and mild to moderate left degenerative facet hypertrophy. Mild central canal stenosis. Moderate to severe left foraminal stenosis. Right foraminal stenosis is between moderate and moderate to severe. A T2 hyperintense, T1 hypointense, nonenhancing benign renal cyst is present in the anteromedial upper pole of the partially imaged left kidney. This has not significantly changed, previously measuring 3.0 cm on the CTA study of 04/21/2023. A partially calcified thin internal septation demonstrated on that CTA is not well appreciated on this MRI due to differences in imaging modality. Impression: 1. Abnormal marrow signal and enhancement in the right L5 posterior elements, as described, with minimal accompanying marrow edema and enhancement in the adjacent right L5 lamina. Focal increased radiotracer uptake was present in this location on the Dotatate PET/CT study of 12/01/2023. Osseous metastatic disease could have these imaging findings. Reactive marrow changes related to mechanical irritation of the right L5 transverse process by the immediately adjacent right superior sacral ala and to adjacent right L5-S1 facet osteoarthritis cannot be excluded, however. Follow-up lumbar spine MRI without and with contrast in 2 to 3 months should be considered to assess stability. 2. No evidence of metastatic disease elsewhere in the lumbar spinal region. 3. Multilevel spinal degenerative changes, as described in detail in the body of this report. Resulting multilevel central canal stenosis is greatest at L3-L4 and L4-L5 where it is moderate in degree. Probable slight impingement on the traversing right L5 nerve root in the stenotic right lateral recess at L4-L5. Multilevel foraminal stenosis is greatest on the right at L4-L5 and left at L5-S1 where it is moderate to severe. 4. No significant change in mild right lateral listhesis at L3-L4, and stepwise degenerative grade 1 retrolisthesis at L2-L3 through L5-S1 compared to 04/21/2023. 5. Persistent mild dextroscoliosis centered at L2-L3. 6. No evidence of lumbar vertebral compression fracture. THE REPORT OF THE PATIENT'S FINDINGS ENDS HERE. Please note that terms such as disc degeneration, disc bulges, and facet degeneration appear frequently in MRI reports, even in people who do not have back pain. Their presence must be carefully considered in the context of your physical examination and symptoms. MRI findings in people WITHOUT back pain (Olivia, 2015): Disc degeneration: * 5 in 10 people ~30 years old * 8 in 10 people ~50 years old * 9 in 10 people ~70 years old Disc bulge: * 4 in 10 people ~30 years old * 6 in 10 people ~50 years old * 8 in 10 people ~70 years old Facet degeneration: * 1 in 10 people ~30 years old * 3 in 10 people ~50 years old * 7 in 10 people ~70 years old Primary Interpreting Staff: STEVIE GUTIERREZ MD, RADIOLOGIST ([employer]) /[facility] STEVIE GUTIERREZ [facility] Dec 01, 2023 12:12 PM PET/CT SCAN W/ DOT ATATE (P): NAZARIONENA Tucker KELLE [id number] -1940 Ex Date: DEC 01, 2023@12:12 Req Phys: ELENO-RANDI ESCOBAR Pat Loc: [facility] N ERCAN-FANG 79 Img Loc: NUC MED Service: [place] [address] (Case [id number] COMPLETE) SKULL-THIGH PET DOTATATE W/CT (NM Detailed) CPT:50137 Reason for Study: Sarcoid? (Case [id number] COMPLETE) GA-68 DOTATATE (NETSPOT) (NM Detailed) CPT:A9587 Clinical History: Patien t with diarrhea, flushing, pulmonary nodule and elevated 5-hiaa. Report Status: Verified Date Reported: DEC 01, 2023 Date Verified: DEC 01, 2023 [employer] E-Sig:/ES/JESSENIA FELDER MD, FACR, CCD Report: PET/CT SCAN Ga-68 DOTATATE INDICATION: Diarrhea. Flushing. Pulmonary nodule. Elevated 5-HIAA. CLINICAL HISTORY ADDITIONAL: May 22, 2022 left pleural fluid cytology negative for malignancy. COMPARISON: CTA abdomen and pelvis April 21, 2023. CT scan chest August 05, 2022. CT scan chest May 30, 2022. CT scan chest January 30, 2022. TECHNIQUE: Total Exam DLP: 585 mGy-cm. Ga-68 DOTATATE dose: 4.8 mCi. Injection site: Left arm. Injection to scan time: 84 minutes. Contrast: Oral. Scan region: Top of skull to mid thigh. SUVs based on lean body mass. FINDINGS: HEAD AND NECK: No abnormal tracer uptake identified. CHEST: Mild tracer uptake appears to be associated with small bilateral hilar and mediastinal lymph nodes. I would favor that this likely secondary to mild degenerative changes. A small pulmonary nodule is again seen within the right upper lobe posteriorly. This is not as well characterized on the current CT images secondary to a larger 4 mm slice collimation. This pulmonary nodule measures approximately 4 mm on image 84 series 3. This pulmonary nodule appears grossly unchanged when comparison is made to previous CT scans of the chest. A chronic small left pleural effusion again seen at the left posterior costophrenic angle. This appears to have decreased in size from August 05, 2022. Associated areas of round atelectasis again appear to be associated with the left upper lobe and left lower lobe. ABDOMEN AND PELVIS: A small focus of intense tracer uptake is seen associated with the tail of the pancreas. A small calcification is seen within this region. Image 156. This is not well characterized without intravenous contrast. No abnormal tracer uptake identified within abdominal lymph nodes. No abnormal tracer uptake is seen associated with liver metastases. 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 Image 221. The exact location of the uptake is uncertain secondary to potential misregistration on the fused images associated with patient motion. Mild tracer uptake L3-4 disc space compatible with mild inflammatory changes. No other abnormal tracer uptake identified to suggest metastatic disease. Impression: 1. Small focus of intense tracer [...] of the lumbar spine can be considered. Primary Diagnostic Code: SIGNIFICANT ABNORMALITY, ATTN NEEDED Secondary Diagnostic Codes: POSSIBLE MALIGNANCY Primary Interpreting Staff: JESSENIA FELDER MD, FACR, STAFF RADIOLOGIST ([place]) /BSF JESSENIA FELDER [facility] Encounter Notes: All associated encounter notes This section contains the clinical notes associated to the Encounter. Date/Time Encounter Note(s) Provider Source Dec 07, 2023 09:57 AM ADDENDUM: LOCAL TITLE: Addendum STANDARD TITLE: ADDENDUM DATE OF NOTE: DEC 07, 2023@09:57:21 ENTRY DATE: DEC 07, 2023@09:57:23 AUTHOR: JESSENIA ROTHMAN EXP COSIGNER: URGENCY: STATUS: COMPLETED Please place GI consult for pancreatiobiliary service and Dr. Barnard and Trent Prescott NP will review and determine if imaging or EUS is the next step. I would imagine tissue would be desired prior to distal pancreatectomy and splenectomy by surg onc. /eda/ Jessenia Rothman MD Gastroenterology Refrigeration Lead Signed: 12/07/2023 09:58 Receipt Acknowledged By: 12/07/2023 16:18 /eda/ Lamont Jo APRN, MERLENE Family Nurse Practitioner --- Original Document --- 12/05/23 MEDICINE CLINIC NOTE: CC: f/u skin burning HPI: is following with dermatology, neurology, and endocrinology for his bothersome burning sensation in his skin. Has found some benefit with the scheduled twice daily Vanicream regimen, 3 times daily gabapentin 600 Mg regimen, and as needed use of Sarna. Underwent PET scanning from endocrinology with some incidental findings in his pancreatic tail and lumbar spine Denies any interim angina. Mood has been satisfactory of late. Comprehensive review of systems was otherwise negative General NAD WDWN Ambulatory Overweight Conversive, pleasant Cardiac: RRR with normal S1 and S2; without murmur, gallop, rub. Chest/Lungs: Bilaterally clear, Clear to auscultation Extremities: No edema accompanies Assessment/Plan: Endocrinology has requested input from gastroenterology for additional evaluation of incidental pancreatic tail finding Lumbar MRI ordered to further characterize incidental L5 finding PSA relatively similar to last year, marginally higher, ongoing observation Occasional use of as needed albuterol MDI [place] does not smoke cigarettes or use tobacco products. Occasional light alcohol, not exceeding recommended limits. Osteoarthritis-issued handicap parking permit per his request Plan: Return to Clinic in 1 year with labs Labs today Call as needed with problems Medications reconciled /eda/ Lamont Jo APRN, MERLENE Family Nurse Practitioner Signed: 12/05/2023 15:53 JESSENIA ROTHMAN [facility] Dec 05, 2023 03:50 PM INTERNAL MEDICINE NOTE: LOCAL TITLE: MEDICINE CLINIC NOTE STANDARD TITLE: INTERNAL MEDICINE NOTE DATE OF NOTE: DEC 05, 2023@15:50 ENTRY DATE: DEC 05, 2023@15:50:15 AUTHOR: ISABELLA JO EXP COSIGNER: URGENCY: STATUS: COMPLETED MEDICINE CLINIC NOTE Has ADDENDA CC: f/u skin burning HPI: [place] is following with dermatology, neurology, and endocrinology for his bothersome burning sensation in his skin. Has found some benefit with the scheduled twice daily Vanicream regimen, 3 times daily gabapentin 600 Mg regimen, and as needed use of Sarna. Underwent PET scanning from endocrinology with some incidental findings in his pancreatic tail and lumbar spine Denies any interim angina. Mood has been satisfactory of late. Comprehensive review of systems was otherwise negative General NAD WDWN Ambulatory Overweight Conversive, pleasant Cardiac: RRR with normal S1 and S2; without murmur, gallop, rub. Chest/Lungs: Bilaterally clear, Clear to auscultation Extremities: No edema accompanies Assessment/Plan: Endocrinology has requested input from gastroenterology for additional evaluation of incidental pancreatic tail finding Lumbar MRI ordered to further characterize incidental L5 finding PSA relatively similar to last year, marginally higher, ongoing observation Occasional use of as needed albuterol MDI does not smoke cigarettes or use tobacco products. Occasional light alcohol, not exceeding recommended limits. Osteoarthritis-issued handicap parking permit per his request Plan: Return to Clinic in 1 year with labs Labs today Call as needed with problems Medications reconciled /eda/ Lamont Jo APRN, CNP Family Nurse Practitioner Signed: 12/05/2023 15:53 12/07/2023 ADDENDUM STATUS: COMPLETED Please place GI consult for pancreatiobiliary service and Dr. Barnard and Trent Prescott, [place] will review and determine if imaging or EUS is the next step. I would imagine tissue would be desired prior to distal pancreatectomy and splenectomy by surg onc. /eda/ Jessenia Rothman MD Gastroenterology Refrigeration Lead Signed: 12/07/2023 09:58 Receipt Acknowledged By: * AWAITING SIGNATURE * FRIDA JO CHRISTOPHE R [facility] Dec 04, 2023 10:40 AM ADMINISTRATIVE NOTE: LOCAL TITLE: AFTER VISIT SUMMARY NOTE STANDARD TITLE: ADMINISTRATIVE NOTE DICT DATE: DEC 04, 2023@10:40:40 ENTRY DATE: DEC 04, 2023@10:40:40 DICTATED BY: ISABELLA JO EXP COSIGNER: URGENCY: STATUS: COMPLETED The patient was provided with a copy of an after-visit summary at the conclusion of the visit. A copy of the after-visit summary provided to the patient is available in [facility]. SCANNED DOCUMENT SIGNATURE NOT REQUIRED Electronically Filed: 12/04/2023 by: Lamont Jo APRN, CNP Family Nurse Practitioner ISABELLA JO [facility] Dec 04, 2023 09:57 AM INTERNAL MEDICINE OUTPATIENT NOTE: LOCAL TITLE: MEDICINE CLINIC NURSING NOTE STANDARD TITLE: INTERNAL MEDICINE OUTPATIENT NOTE DATE OF NOTE: DEC 04, 2023@09:57 ENTRY DATE: DEC 04, 2023@09:57:39 AUTHOR: OSWALDO TARIQ EXP COSIGNER: URGENCY: STATUS: COMPLETED TYPE OF VISIT: Appointment Check In Type of appointment: In-person appointment REASON FOR VISIT: Annual ALLERGIES: AMLODIPINE (Jun 17, 2021) VITAL SIGNS: Blood Pressure: 121/78 (12/04/2023 09:52) Pulse: 83 (12/04/2023 09:52) Respiration: 16 (12/04/2023 09:52) Temperature: 97.5 F [36.4 C] (12/04/2023 09:52) Weight: 192.4 lb [87.27 kg] (12/04/2023 09:52) Height: 70 in [177.8 cm] (12/04/2023 09:52) BMI: 27.7 O2 Sat: 94% (12/04/2023 09:52) Pain: 10 (12/04/2023 09:52) PAIN SCREEN: Patient is having significant pain that they would like to talk to their provider about today. Old (Chronic) (began more than 6 months ago) Patient states their average pain this past week is 10 Patient states the average number on how the chronic pain affects their enjoyment of life the past week is 10 Patient states during the past week the average number on how the pain has interfered with their general activity is 9 Depression Screening: Perform PHQ-2 A PHQ-2 screen was performed. The score was 0 which is a negative screen for depression. Over the past two weeks, how often have you been bothered by the following problems? 1. Little interest or pleasure in doing things Not at all 2. Feeling down, depressed, or hopeless Not at all Suicide Screen: C-SSRS Screening [place] Suicide Severity Rating Scale (C-SSRS) screener 1. Over the past month, have you wished you were or wished you could go to sleep and not wake up? No 2. Over the past month, have you had any actual thoughts of killing yourself? No 3. Over the past month, have you been thinking about how you might do this? Response not required due to responses to other questions. 4. Over the past month, have you had these thoughts and had some intention of acting on them? Response not required due to responses to other questions. 5. Over the past month, have you started to work out or worked out the details of how to kill yourself? Response not required due to responses to other questions. 6. If yes, at any time in the past month did you intend to carry out this plan? Response not required due to responses to other questions. 7. In your lifetime, have you ever done anything, started to do anything, or prepared to do anything to end your life (for example, collected pills, obtained a gun, gave away valuables, went to the roof but didn't jump)? No 8. If YES, was this within the past 3 months? Response not required due to responses to other questions. COVID-19 Immunization: Pfizer Monovalent (Comirnaty) Administered: COVID-19 (PFIZER), MRNA, LNP-S, PF, KIMBER-SUCROSE, 30 MCG/0.3 ML (AGES 12+ YEARS) Date Administered: Dec 04, 2023 10:02 Cover Mat Machine Operator: [employer] Lot: [id number] Exp Date: Feb 13, 2024 ND: [id number] Admin Route/Site: INTRAMUSCULAR/LEFT DELTOID Dosage: 0.3mL Vaccine Information Statement(s): COVID-19 MRNA VACCINE (12+ YRS) VACCINE VIS Apr 02, 2023 ([place]) Order By: Policy Administered By: Oswaldo Tariq Vaccine administered without complications. /eda/ OSWALDO TARIQ LPN Signed: 12/04/2023 10:02 OSWALDO TARIQ [facility]
--- OUTSIDE RECORDS SUMMARY | 2024-08-05 04:34 | XMS_ITS | Encounter Summary ---
Author Name [facility] Address [address] [place] [address] Care Team Providers Care Hand Buffer Name Role Phone DARIN BURGESS Primary Care [...] PRESCRIPT ION DODA Nov 13, 2004 DODA [id number] [phone] NAZARIO,DA JUAN PATIENT [employer] (WNR) PRESCRIPT ION TRICA RE (WNR) Nov 13, 2004 (WNR) [id number] [phone] NAZARIO,DA JUAN PATIENT MEDICARE (WNR) MEDICARE (M) PART A Sep 14, 2007 PART A [id number] NAZARIO,DA JUAN PATIENT MEDICARE (WNR) MEDICARE (M) PART B Sep 14, 2007 PART B [id number] NAZARIO,DA JUAN PATIENT MEDICARE (WNR) MEDICARE () PART A Sep 14, 2007 PART A [id number] [phone] NAZARIO,DA JUAN PATIENT MEDICARE (WNR) MEDICARE (M) PART B Sep 14, 2007 PART B [id number] [phone] NAZARIO,DA JUAN PATIENT MEDICARE (WNR) MEDICARE (M) PART A Sep 14, 2007 PART A [id number] NAZARIO,DA JUAN PATIENT MEDICARE (WNR) MEDICARE (M) PART B Sep 14, 2007 PART B [id number] NAZARIO,DA JUAN PATIENT MEDICARE (WNR) MEDICARE (M) PART A Sep 14, 2007 PART A [id number] NAZARIO,DA JUAN PATIENT MEDICARE (WNR) MEDICARE () PART B Sep 14, 2007 PART B [id number] NAZARIO,DA JUAN PATIENT MEDICARE (WNR) MEDICARE () PART A Sep 14, 2007 PART A [id number] NAZARIO,DA JUAN PATIENT MEDICARE (WNR) MEDICARE () PART B Sep 14, 2007 PART B [id number] [phone] NAZARIO,DA JUAN PATIENT FOR LIFE TRICA RE FOR LIFE Mar 15, 2004 FOR LIFE [id number] NAZARIO,DA JUAN PATIENT [facility] 2024 SELEC T WNR Jun 15, 2024 SELECT [id number] KOEING,DA JUAN PATIENT -FO R-LIFE TRICA RE FOR LIFE WNR Nov 27, 2015 FOR LIFE [id number] NAZARIO,DA JUAN PATIENT -FO R-LIFE TRICA RE FOR LIFE WNR Nov 23, 2015 FOR LIFE [id number] NAZARIO,DA JUAN PATIENT Selected Encounter This section includes the information on record at [place] for the Encounter. Date/Time Encounter Type Encounter Description Reason Pro vider Source IHE Encounter Template Text not used by [place] Advance Directives: All historical and current Section Date Range: From patient's date of to the date document was created. This section includes ALL of a patient's completed or amended [place] Advance and Rescinded Directives. The entries below indicate that a directive exists for the patient, but an actual copy is not included with this document. The data comes from all [place] facilities. Date Advance Directives Provider Source Dec 19, 2022 ADVANCE DIRECTIVE ABRIL B[facility]CH [facility] Dec 19, 2022 ADVANCE DIRECTIVE DISCUSSION TIFF B[facility]
--- OUTSIDE RECORDS SUMMARY | 2024-08-05 04:34 | XMS_ITS | Clinical Summary ---
Author Organization [facility] Address [address] [place] [address] Care Team Providers Care Bead Wire Taper Name Role Phone Unavailable Primary Care Provider Unavailabl e Source Comments Patient records contain information from all sites at [facility]. For routine questions regarding patient records, call [phone] during business hours, M-F 8:00 AM - 5:00 PM Central Time. Record requests for emergency care only can be directed to [phone] at any time.[facility] Allergies Active Allergy Reactions Criticality Noted Date Comments Amlodipine Edema (Reselect Reaction) 06/17/2021 Medications * This document contains information received from the source organization and may not represent a complete record from that organization. aspirin [address] tablet Take 1 tablet by mouth daily. 6 Active loperamide (IMODIUM A-D) 2 mg capsule 8 mg. 2 Active rosuvastatin (CRESTOR) 40 mg tablet 40 mg. 2 Active lisinopriL (PRINIVIL,ZESTR IL) 20 mg tablet Take 1 tablet by mouth daily. 3 Active albuterol 90 mcg/actuation inhaler INHALE 2 PUFFS BY INHALATION EVERY 4 HOURS NEEDED FOR SHORTNESS OF BREATH 3 Active metoprolol succinate (TOPROL-XL) 25 mg 24 hr tablet Take 1 tablet by mouth daily. 3 Active famotidine (PEPCID) 20 mg tablet 20 mg. 3 Active allopurinoL (ZYLOPRIM) 100 mg tablet 100 mg daily. 2 Active montelukast (SINGULAIR) 10 mg tablet 10 mg daily. 2 Active potassium chloride (KLOR-CON M/KDUR) 20 mEq ER tablet 20 mEq daily. 3 Active sertraline (ZOLOFT) 100 mg tablet 150 mg daily. 4 Active traZODone (DESYREL) 100 mg tablet Take 1 tablet by mouth at bedtime. 0 Active hydroCHLOROthia zide (HYDRODIURIL) 25 mg tablet 12.5 mg daily. Take 1/2 tab daily 3 Active ferrous sulfate (Iron, ferrous sulfate,) 325 mg (65 mg iron) tablet Take 325 mg by mouth daily. Active TURMERIC ORAL Take 1,000 mg by mouth. Turmeric 1000 mg with black pepper 10 mg Active vit C,L-Qt-hacrf-emory tein-zeaxan (PreserVision AREDS-2) 250-90-40-1 mg per capsule Take 1 capsule by mouth daily. Active budesonide (ENTOCORT EC) 3 mg 24 hr capsule Take 1 capsule (3 mg total) by mouth 3 (three) times a day. 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 Overview (08/14/2022): May 22, 2014 Entered By: ELVIS CHAPPELL Comment: Small reeval in 1 year Diarrhea 08/14/2022 Depression Major 08/14/2022 Chronic Kidney Disease (CKD) , Stage 3a Glomerular Filtration Rate (GFR) 45 To 59 08/14/2022 Hyperlipidemia 08/14/2022 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 Overview (08/14/2022): Feb 24, 2005 Entered By: AMEYA COBB Comment: s/p RT, completed on 02/13/05 Immunizations Immunization Administration Dates Next Due HZV (ZOSTAVAX) 08/13/2010 Influenza TIV (IM) 03/15/2019,03/15/2018, 017 Influenza Whole 03/24/2003 Influenza high dose QV(65 ye ars or older) (PF) 04/23/2022 Influenza, Quadrivalent, Adj uvanted, Preservative Free 03/14/2021 Influenza, Unspecified 04/25/2022,2020,05/27/2020,2015,05/22/2014,03/15/2013,02/03/2013,1 ,03/09/2010,02/13/2009, 009,05/09/2007,04/24/2005,03/15/2005, PPSV23 05/09/2020,07/16/2011,03/24/2003 Pneumococcal, Unspecified 06/19/2005 RZV (SHINGRIX) 03/12/2022,12/27/2021 SARS-COV-2 (COVID-19) - MODE RNA BIVALENT(Discontinued) 04/23/2022 SARS-COV-2 (COVID-19) - PFIZ ER (Discontinued)(12 years or older) 03/14/2021,07/31/2020,07/10/2020 Td, (Adult) Unspecified 06/15/2008,01/21,03/24/2003,2002 Td, Not Adsorbed (discontinued) 06/15/2008 Tdap 07/22/2022 Family History Medical History Relation Name Comments Alcohol abuse Father Manas Lange Coronary artery disease Father Manas Lange Dementia Father Manas Lange Prostate cancer Father Manas Lange Dementia Mother Christie Lange Depression Mother Christie Lange Relation Name Status Comments Father Manas Lange Mother Christie Lange Social History Tobacco Use Types Packs/Day Years Used Date Smoking Tobacco: Former Cigarettes 2 23.5 0 11/27/1960 - 06/15/1984 Smokeless Tobacco: Never Tobacco Cessation:Counseling Given: Not Answered Alcohol Use Standard Drinks/Week Comments Yes 7 (1 standard drink = 0.6 oz pur e alcohol) Humiliation, Afraid, Rape, and Kick questionnair e Answer Date Recorded Within the last year, have y ou been afraid of your partner or ex-partner? No 08/13/2022 Within the last year, have y ou been humiliated or emotionally abused in other ways by your partner or ex-partner? No Within the last year, have y ou been kicked, hit, slapped, or otherwise physically hurt by your partner or ex-partner? No 08/13/2022 Within the last year, have y ou been raped or forced to have any kind of sexual activity by your partner or ex-partner? No 08/13/2022 Social Connection and Isolat ion Panel [NHANES] Answer Date Recorded In a typical week, how many times do you talk on the phone with family, friends, or neighbors? More than three times a week 08/13/2022 How often do you get togethe r with friends or relatives? Twice a week 08/13/2022 How often do you attend [facility] or baptist services? Never 08/13/2022 Do you belong to any clubs o r organizations such as protestant groups, unions, fraternal or athletic groups, or school groups? Yes 08/13/2022 How often do you attend meet ings of the clubs or organizations you belong to? More than 4 times per year 08/13/2022 Are you , , di vorced, , never , or living with a partner? 08/13/2022 AUDIT-C Answer Date Recorded Q1: How often do you have a drink containing alc ohol? 2-3 times a week 08/13/2022 Q2: How many drinks containi ng alcohol do you have on a typical day when you are drinking? 1 or 2 08/13/2022 Q3: How often do you have si x or more drinks on one occasion? Never 08/13/2022 Overall Financial Resource Strain (CARDIA) Answe r Date Recorded How hard is it for you to pa y for the very basics like food, housing, medical care, and heating? Not hard at all 08/13/2022 PHQ-2 Answer Date Recorded PHQ-2 Score 0 10/02/2022 [facility] - Occupational Stress Questionnaire Answer Date Recorded Do you feel stress - tense, restless, nervous, or anxious, or unable to sleep at night because your mind is troubled all the time - these days? To some extent 08/13/2022 Exercise Vital Sign Answer Date Recorde d On average, how many days pe r week do you engage in moderate to strenuous exercise (like a brisk walk)? 0 days Minutes of Exercise per Session Not on file 08/13/2022 Hunger Vital Sign Answer Date Recorded Within the past 12 months, y ou worried that your food would run out before you got the money to buy more. Never true 08/14/19 23 Within the past 12 months, t he food you bought just didn't last and you didn't have money to get more. Never true 08/13/2022 PRAPARE - Transportation Answer Date Re corded In the past 12 months, has l ack of transportation kept you from medical appointments or from getting medications? No 06/2022 In the past 12 months, has l ack of transportation kept you from meetings, work, or from getting things needed for daily living? No 08/13/2022 Housing Stability Vital Sign Answer Omid e Recorded In the last 12 months, was t here a time when you were not able to pay the mortgage or rent on time? No 08/13/2022 In the last 12 months, how many places have you lived? 1 08/13/2022 In the last 12 months, was t here a time when you did not have a steady place to sleep or slept in a long-term (including now)? No 08/13/2022 Depression Answer Date Recor ded PHQ-9 Total Score (max 27) 1 10/02 Nutrition Answer Date Recorded Nutrition: EVOO Fat Source No 08/13 On average, how many serving s of fruits and vegetables do you eat per day (serving size is equal to 1 cup or approximately the size of a tennis ball)? 2-3 08/13/2022 Dental Answer Date Recorded Dental: Regular Dentist Yes 08/14/19 Employment Answer Date Recorded Employment status Retired 08/13/2022 Education Answer Date Recorded What is the highest level of school you have completed or the highest degree you have received? Bachelor's degree (e.g., BA, AB, BS) 08/13/2022 Sex and Gender Information Value Date Recorded Sex Assigned at Male 08/13/2022 6:23 PM DOCUMENTATION SUPERVISOR Legal Sex Male 7:03 PM DOCUMENTATION SUPERVISOR Gender Identity Male 08/13/2022 6:23 PM DOCUMENTATION SUPERVISOR Sexual Orientation Straight 08/13/2022 6: 23 PM DOCUMENTATION SUPERVISOR Last Filed Vital Signs Vital Sign Reading Time Taken Comments Blood Pressure 111/68 09/04/2022 2:29 PM CDT Pulse 90 09/04/2022 2:29 PM CDT Temperature 36.6 C (97.9 F) 09/04/2022 2:21 PM CDT Respiratory Rate 17 09/04/2022 2:29 PM CDT Oxygen Saturation 96% 09/04/2022 2:29 PM CDT Inhaled Oxygen Concentration - - Weight 78.3 kg (172 lb 9.9 oz) 09/04/2022 12:06 PM CDT Height 178.6 cm (5' 10.32) 09/04/2022 12:06 PM CDT Body Mass Index 24.55 09/04/2022 12:06 PM CDT Plan of Treatment Health Maintenance Due Date Last Done Comments RSV vaccine - (32-36 weeks) or 60+ years (1 - 1-dose 75+ series) 2017 Creatinine Level (Kidney Function Test) 08/16/2023 08/15/2022 Potassium Level 08/16/2023 08/15/2022 Sodium Level 08/16/2023 08/15/2022 COVID-19 Vaccine ( season) 2024 12/04/2023, 05/19/2023, 04/23/2022, Additional history exists Influenza Vaccine (#1) 2024 3, 04/25/2022, 04/23/2022, Additional history exists Fall Risk Screen (Annual) 06/15/2024 DTaP,Tdap,and Td Vaccines (2 - Td or Tdap) 07/22/2032 07/22/2022, 06/15/2008, 06/15/2008, Additional history exists Zoster Vaccines Completed 03/12/2022, 12/13, 08/13/2010 Pneumococcal vaccine (50+ years) Completed 11/17/2022, 05/09/2020, 07/16/2011, Additional history exists IPV Vaccines Aged Out No longer eligi ble based on patient's age to complete this topic Medical Devices Implanted Type Area Early Childhood Education Instructor Device Identifier Shelf Expiration Date Model / Serial / Lot Hardware E.G. Pins/Screws/R ods Hardware e.g. pins/screws/ rods Right: Mouth Stent Other Stent Other Brain Procedures Procedure Name Priority Date/Time Associated Diagnosis Comments COMPREHENSIVE METABOLIC PANEL, S/P Routine 08/15/2022 7:05 AM DOCUMENTATION SUPERVISOR Loss Memory Diarrhea from Last 3 Months or Most Recently Relevant to Health Maintenance Results * (ABNORMAL) Comprehensive Metabolic Panel (08/15/2022 7:05 AM DOCUMENTATION SUPERVISOR) Potassium, S 4.2 3.6 - 5.2 mmol/L 08/15/2022 8:11 AM DOCUMENTATION SUPERVISOR DTL Sodium, S 143 135 - 145 mmol/L 08/15/2022 8:11 AM DOCUMENTATION SUPERVISOR DTL Chloride, S 106 98 - 107 mmol/L 08/15/2022 8:11 AM DOCUMENTATION SUPERVISOR DTL Bicarbonate, S 28 22 - 29 mmol/L 08/15/2022 8:11 AM DOCUMENTATION SUPERVISOR DTL Anion Gap 9 7 - 15 08/15/2022 8:11 AM DOCUMENTATION SUPERVISOR DTL BUN (Blood Urea Nitrogen), S 26(H) 8 - 24 mg/dL 08/15/2022 8:11 AM DOCUMENTATION SUPERVISOR DTL Creatinine 1.39(H) 0.74 - 1.35 mg/dL 08/15/2022 8:11 AM DOCUMENTATION SUPERVISOR DTL Estimated GFR (eGFR) 52(L) >=60 mL/min/BS A 08/15/2022 8:11 AM DOCUMENTATION SUPERVISOR DTL Comment: Estimated GFR calculated using the 2020 CKD_EPI creatinine equation. Calcium, Total, S 9.4 8.8 - 10.2 mg/dL 08/15/2022 8:11 AM DOCUMENTATION SUPERVISOR DTL Glucose, S 101 70 - 140 mg/dL 08/15/2022 8:11 AM DOCUMENTATION SUPERVISOR DTL Protein, Total, S 7.3 6.3 - 7.9 g/dL 08/15/2022 8:11 AM DOCUMENTATION SUPERVISOR DTL Albumin, S 3.9 3.5 - 5.0 g/dL 08/15/2022 8:11 AM DOCUMENTATION SUPERVISOR DTL Aspartate Aminotransferase (AST), S 23 8 - 48 U/L 08/15/2022 8:11 AM DOCUMENTATION SUPERVISOR DTL Alkaline Phosphatase, S 162(H) 40 - 129 U/L 08/15/2022 8:11 AM DOCUMENTATION SUPERVISOR DTL Alanine Aminotransferase (ALT), S 21 7 - 55 U/L 08/15/2022 8:11 AM DOCUMENTATION SUPERVISOR DTL Bilirubin, Total, S 0.4 <=1.2 mg/dL 08/15/2022 8:11 AM DOCUMENTATION SUPERVISOR DTL Blood (Blood, Venous) 08/15/2022 7:05 AM DOCUMENTATION SUPERVISOR 08/15/2022 7:47 AM DOCUMENTATION SUPERVISOR Santosh Dnun M.D., M.S. LAB BLOOD ADD-ON F inal Result [facility] [address] [place] [address], [facility] DTL [facility] [address] [place] [address] from Last 3 Months or Most Recently Relevant to Health Maintenance Insurance MEDICARE [facility]
--- OUTSIDE RECORDS SUMMARY | 2024-08-05 04:35 | XMS_ITS | Encounter Summary ---
Author Name [facility] [place] [facility] [place] Address [address] [place] [address] Care Team Providers Care Spouting Installer Name Role Phone DARIN BURGESS Primary Care [...] PRESCRIPT ION DODA Nov 13, 2004 DODA [id number] NAZARIO,DA JUAN PATIENT EXPRESS SCRIPTS (WNR) PRESCRIPT ION TRICA RE (WNR) Nov 13, 2004 (WNR) [id number] [phone] NAZARIOPARRISH JUAN PATIENT MEDICARE (WNR) MEDICARE (M) PART A Sep 14, 2007 PART A [id number] NAZARIO,DA JUAN PATIENT MEDICARE (WNR) MEDICARE (M) PART B Sep 14, 2007 PART B [id number] NAZARIO,DA JUAN PATIENT MEDICARE (WNR) MEDICARE (M) PART A Sep 14, 2007 PART A [id number] [phone] NAZARIO,DA JUAN PATIENT MEDICARE (WNR) MEDICARE (M) PART B Sep 14, 2007 PART B [id number] NAZARIO,DA JUAN PATIENT MEDICARE (WNR) MEDICARE (M) PART A Sep 14, 2007 PART A [id number] NAZARIO,DA JUAN PATIENT MEDICARE (WNR) MEDICARE (M) PART B Sep 14, 2007 PART B [id number] NAZARIO,DA JUAN PATIENT MEDICARE (WNR) MEDICARE (M) PART A Sep 14, 2007 PART A [id number] NAZARIO,DA JUAN PATIENT MEDICARE (WNR) MEDICARE () PART B Sep 14, 2007 PART B [id number] NAZARIO,DA JUAN PATIENT MEDICARE (WNR) MEDICARE () PART A Sep 14, 2007 PART A [id number] NAZARIO,DA JUAN PATIENT MEDICARE (WNR) MEDICARE () PART B Sep 14, 2007 PART B [id number] NAZARIO,DA JUAN PATIENT FOR LIFE TRICA RE FOR LIFE Mar 15, 2004 FOR LIFE [id number] NAZARIO,DA JUAN PATIENT [facility] 2024 SELEC T WNR Jun 15, 2024 [facility] [id number] KOEING,DA JUAN PATIENT -FO R-LIFE TRICA RE FOR LIFE WNR Nov 27, 2015 FOR LIFE [id number] NAZARIO,DA JUAN PATIENT -FO R-LIFE TRICA RE FOR LIFE WNR Nov 23, 2015 FOR LIFE [id number] NAZARIO,DA JUAN PATIENT Selected Encounter This section includes the information on record at [place] for the Encounter. Date/Time Encounter Type Encounter Description Reason Pro vider Source Dec 10, 2023 08:26 AM Outpatient Encounter GASTROENTEROLOGY ICD-10-CM K86.9 Disease of pancreas, unspecified EYAD PRESCOTT NDA R IHE Encounter Template Text not used by [place] Assessments - Encounter Diagnoses This section includes the primary and secondary diagnoses documented for the Encounter. Date/Time Primary/Secondary Diagnosis Diagnosis Name Provider Source Dec 10, 2023 08:33 AM PRIMARY Disease of pancreas, unspecified RYLEY PRESCOTT A R [facility] Plan of Treatment: Future Appointments (+ 6 months) and Future Tests (+/- 45 days) The Plan of Treatment section includes future care activities for the patient [facility] This section includes future appointments and future orders which are active, pending or scheduled. Future Appointments This section includes appointments that were scheduled to occur 6 months from the date of the Encounter, up to a maximum of 20 appointments. The data comes from all [place] treatment facilities. Appointment Date/Time Appointment Type Appointme nt Facility Name Dec 25, 2023 12:15 PM AMBULATORY - NONE [facility] Dec 31, 2023 01:00 PM AMBULATORY - REHAB MEDICIN E [facility] Dec 31, 2023 02:00 PM AMBULATORY - NONE [facility] Feb 10, 2024 01:00 PM AMBULATORY - [place]ICINE [place] [facility] Apr 19, 2024 02:00 PM AMBULATORY - NONE [facility] Apr 26, 2024 02:00 PM AMBULATORY - SURGERY [place] [facility] Apr 26, 2024 03:15 PM AMBULATORY - NONE [facility] Lab Results: +/- 30 days of the encounter This section includes the Chemistry and Hematology Lab Results on record with [place] for the patient. Radiology Reports and Pathology Reports are provided separately, in subsequent sections. Lab Results This section contains the Chemistry/Hematology Results that were resulted 30 days before or 30 daysafter the date of the Encounter. Date/Time Source Result Type Result - Unit Interpretation Reference Range Comment Dec 04, 2023 09:31 AM [facility] TSH W/REFLEX TO FREE T4 Specimen Type: PLASMA No comment entered. Ordering Provider: DENG JO Report Released Date/Time: Nov 17, 2022 02:50 PM Reporting Lab: [facility] [id number] Performing Lab: [facility] [id number] TSH 3.26 u[IU]/mL 0.35-4.94 Dec 04, 2023 09:31 AM [facility] CBC Specimen Type: BLOOD No comment entered. Ordering Provider: DENG JO Report Released Date/Time: Nov 17, 2022 02:50 PM Reporting Lab: [facility] [id number] Performing Lab: [facility] [id number] WBC 5.89 10*3/uL 4.0-11.0 RBC 4.66 10*6/uL 4.6-6.2 HGB 13.4 g/dL L 13.5-17.9 HCT 42.5 41-54 MCV 91.2 fL 80-100 MCH 28.8 pg 27-33 MCHC 31.5 g/dL L 32.0-37.5 PLT 205 10*3/uL 150-400 MPV 8.6 fL 7.4-10.4 RDW 15.3 H 11.5-14.5 Dec 04, 2023 09:31 AM [facility] LIPID PANEL,NON-FASTING Specimen Type: PLASMA No comment entered. Ordering Provider: DENG JO Report Released Date/Time: Nov 17, 2022 02:50 PM Reporting Lab: [facility] [id number] Performing Lab: [facility] [id number] CHOLESTEROL 129 mg/dL <199 .HDL 47 mg/dL >40 LDL CALCULATION 59 mg/dL <99 VLDL CALCULATION 23 mg/dL <29 NON HDL CHOLESTEROL 82 mg/dL <129 TRIG(NON FASTING) 114 mg/dL <149 Dec 04, 2023 09:31 AM [facility] COMPREHENSIVE METABOLIC PANEL+MG Specimen Type: PLASMA No comment entered. Ordering Provider: DENG JO Report Released Date/Time: Nov 17, 2022 02:50 PM Reporting Lab: [facility] [id number] Performing Lab: [facility] [address] CREATININE 1.2 mg/dL 0.7-1.2 UREA NITROGEN 21 [...] 61 >60 Dec 04, 2023 09:31 AM [facility] URIC ACID Specimen Type: PLASMA No comment entered. Ordering Provider: DENG JO Report Released Date/Time: Nov 17, 2022 02:50 PM Reporting Lab: [facility] [phone] Performing Lab: [facility] [id number] URIC ACID 4.9 mg/dL 3.5-7.2 Dec 04, 2023 09:31 AM [facility] PSA Specimen Type: SERUM No comment entered. Ordering Provider: DENG JO Report Released Date/Time: Nov 17, 2022 02:50 PM Reporting Lab: [facility] [phone] Performing Lab: [facility] [address] PSA 1.09 ng/mL <4.00 Social History: Smoking Status (Most current) and Tobacco Use (All prior to encounter date) This section includes the most current, and the historical, smoking and tobacco- related health factors from the [facility] where the Encounter took place. Current Smoking Status This section includes the most current smoking, or tobacco-related health factor, from the [place] facility where the Encounter took place. Date/Time Current Smoking Status Comment Jack chavez May 19, 2023 02:30 PM VA-TOBACCO FORMER USER [facility] Tobacco Use History This section includes a history of the smoking, or tobacco-related health factors, that were collected on or before the date of the Encounter. The data comes from the [place] facility where the Encounter took place. Date/Time Smoking Status/Tobacco Use Comment F acility May 19, 2023 02:30 PM CO-TOBACCO QUIT 15 YRS OR MORE [facility] May 13, 2022 11:30 AM CO-TOBACCO FORMER USER [facility] May 13, 2022 11:30 AM CO-TOBACCO QUIT 15 YRS OR MORE [facility] Jun 17, 2021 02:00 PM VA-TOBACCO NEVER USED [facility] Advance Directives: All historical and current Section Date Range: From patient's date of to the date document was created. This section includes ALL of a patient's completed or amended [place] Advance and Rescinded Directives. The entries below indicate that a directive exists for the patient, but an actual copy is not included with this document. The data comes from all [place] facilities. Date Advance Directives Provider Source Dec 19, 2022 ADVANCE DIRECTIVE DISCUSSION TIFF BURCH [facility] Dec 19, 2022 ADVANCE DIRECTIVE ABRIL BURCH [facility] Radiology Reports: +/- 30 days of [...] the Encounter. The data comes from all [facility] facilities. Date/Time Radiology Report Provider Source Dec 31, 2023 02:[address] (CAP) CHEST/ABD /PELVIS (P): NENA LANGE [id number] -1940 M Exm Date: DEC 31, 2023@14:04 Req Phys: TRENT PRESCOTT Pat Loc: [facility] N ERCAN-FANG 81 Img Loc: CT IMAGING Service: [place] [address] (Case [id number] COMPLETE) CT (CAP) CHEST W CONTRAST (CT Detailed) CPT:78372 Contrast Media : Non-ionic Iodinated Reason for Study: CT with pancreas protocol (Case [id number] COMPLETE) CT (CAP) ABDOMEN/PELVIS W/O & W C(CT Detailed) CPT:97621 Contrast Media : Non-ionic Iodinated Clinical History: [...] any questions or notifications of critical findings: [id number] Nacreji Ercan-Fang LAST 3: Collection DT Specimen Test [...] PLASMA .CREAT EGFR(CKD-E 61 Ref: >=60 Allergies: ([place] only) AMLODIPINE (Jun 17, 2021) Report Status: Verified Date Reported: DEC 31, 2023 Date Verified: DEC 31, 2023 Crap Game Box Person E-Sig:/ES/TASHA RICHARD MD Report: DATE/TIME REGISTERED: 12/31/2023 [...] Primary Interpreting Staff: TASHA RICHARD MD, RADIOLOGIST (Crap Game Box Person) /TASHA MCCOY [facility] Dec 25, 2023 12:16 PM MRI-L-SPINE (P): NENA LANGE [id number] -1940 M Exm Date: DEC 25, 2023@12:16 Req Phys: RANDI RUFF Loc: [facility] ERCKIMBERLEY-LUZ 79 Img Loc: MRI IMAGING Service: [place] [address] (Case [id number] COMPLETE) MRI SPINE LUMBAR W & WITHOUT CONT(MRI Detailed) CPT:63896 Contrast Media : Gadolinium Reason for Study: [...] pager listed below: User placing orders pager: [phone] LAST CREATININE 1.4 H (06/05/23) Allergies: AMLODIPINE (Jun 17, 2021) Report Status: Verified Date Reported: DEC 25, 2023 Date Verified: DEC 25, 2023 Crap Game Box Person E-Sig:/ES/STEVIE GUTIERREZ MD Report: MRI SPINE LUMBAR [...] Primary Interpreting Staff: STEVIE GUTIERREZ MD, RADIOLOGIST (Crap Game Box Person) /[facility] STEVIE GUTIERREZ [facility] Dec 01, 2023 12:12 PM PET/CT SCAN W/ DOT ATATE (P): NENA LANGE [id number] -1940 M Exm Date: DEC 01, 2023@12:12 Req Phys: ERCAN-FANG,NACIDE Pat Loc: [facility] ERCAN[facility]FANG 79 Img Loc: NUC MED Service: [place] [address] (Case [id number] COMPLETE) SKULL-THIGH PET DOTATATE W/CT (NM Detailed) CPT:83298 Reason for Study: Sarcoid? (Case [id number] COMPLETE) GA-68 DOTATATE (NETSPOT) (NM Detailed) CPT:A9587 Clinical History: Patien t with diarrhea, flushing, pulmonary nodule and elevated 5-hiaa. Report Status: Verified Date Reported: DEC 01, 2023 Date Verified: DEC 01, 2023 Crap Game Box Person E-Sig:/ES/JESSENIA FELDER MD, FACR, CCD Report: PET/CT [...] Staff: JESSENIA FELDER MD, FACR, STAFF RADIOLOGIST (Crap Game Box Person) /[facility] JESSENIA FELDER [facility] Encounter Notes: All associated encounter notes This section contains the clinical notes associated to the Encounter. Date/Time Encounter Note(s) Provider Source Dec 10, 2023 08:26 AM GASTROENTEROLOGY C ONSULT: LOCAL TITLE: GASTROENTEROLOGY CONSULT STANDARD TITLE: GASTROENTEROLOGY CONSULT DATE OF NOTE: DEC 10, 2023@08:26 ENTRY DATE: DEC 10, 2023@08:26:10 AUTHOR: TRENT PRESCOTT EXP COSIGNER: URGENCY: STATUS: COMPLETED RFC: potential neuroendocrine tumor E- Consult response: 83 year old had PET CT Scan due to symptoms or diarrhea, flushing, pulmonary nodule and elevated 5-HIAA. The PET CT revealed a small focus of intense tracer uptake on the pancreatic tail. LFTs are WNL except mild elevation of alk phos. Assessment/Plan: Small focus of intense tracer uptake pancreatic tail, suspicious for neuroendocrine tumor - CT pancreas protocol - additional evaluation pending CT results Total time of 12 minutes spent reviewing patient's records, assessing patient, and documenting in patient's chart. /eda/ TRENT PRESCOTT ELECTRICAL PROSPECTING OPERATOR, AAHIVS Signed: 12/10/2023 08:33 TRENT PRESCOTT [facility]
--- OUTSIDE RECORDS SUMMARY | 2024-08-05 04:35 | XMS_ITS | Clinical Summary ---
Author Organization [facility] Address [address] [place] [id number] Care Team Providers Care Director Staffing Name Role Phone Unavailable Primary Care Provider Unavailabl e Social History Tobacco Use Types Packs/Day Years Used Date Smoking Tobacco: Never Assessed Adolescent Education Answer Date Record ed Getting School Help Needed Not on file 03/07 Sex and Gender Information Value Date Recorded Sex Assigned at Not on file Legal Sex Male 9:26 AM CDT Gender Identity Not on file Sexual Orientation Not on file Plan of Treatment Health Maintenance Due Date Last Done Comments ADVANCE CARE PLANNING 1940 ANNUAL REVIEW OF HM ORDERS 1940 FALL RISK ASSESSMENT 10/06/2007 MEDICARE ANNUAL WELLNESS VISIT 10/06/2007 RSV VACCINE (1 - 1-dose 75+ series) 2017 COVID-19 Vaccine ( season) 2024 05/19/2023, 04/23/2022, 03/14/2021, Additional history exists INFLUENZA VACCINE (#1) 2024 , 04/25/2022, 04/23/2022, Additional history exists PHQ-2 (once per calendar year) 2024 DTAP/TDAP/TD IMMUNIZATION (7 - Td or Tdap) 07/22/2032 07/22/2022, 06/15/2008, 06/15/2008, Additional history exists ZOSTER IMMUNIZATION Completed 03/12/2022, 12/27/2021, 08/13/2010 Pneumococcal Vaccine: 50+ Years Completed 11/17/2022, 05/09/2020, 07/16/2011, Additional history exists HPV IMMUNIZATION Aged Out No longer e ligible based on patient's age to complete this topic MENINGITIS IMMUNIZATION Aged Out No l onger eligible based on patient's age to complete this topic RSV MONOCLONAL ANTIBODY Aged Out No l onger eligible based on patient's age to complete this topic Insurance [facility]
--- OUTSIDE RECORDS SUMMARY | 2024-08-05 04:35 | XMS_ITS | Encounter Summary ---
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 Name Role Phone DARIN BURGESS Primary Care [...] PRESCRIPT ION DODA Nov 13, 2004 DODA [id number] PARRISH LANGE PATIENT EXPRESS SCRIPTS (WNR) PRESCRIPT ION TRICA RE (WNR) Nov 13, 2004 (WNR) [id number] [phone] PARRISH LANGE PATIENT MEDICARE (WNR) MEDICARE (M) PART A Sep 14, 2007 PART A [id number] NAZARIO,DA JUAN PATIENT MEDICARE (WNR) MEDICARE (M) PART B Sep 14, 2007 PART B [id number] NAZARIO,DA JUAN PATIENT MEDICARE (WNR) MEDICARE (M) PART A Sep 14, 2007 PART A [id number] [phone] NAZARIO,DA JUAN PATIENT MEDICARE (WNR) MEDICARE (M) PART B Sep 14, 2007 PART B [id number] [phone] NAZARIO,DA JUAN PATIENT MEDICARE (WNR) MEDICARE (M) PART A Sep 14, 2007 PART A [id number] NAZARIO,DA JUAN PATIENT MEDICARE (WNR) MEDICARE (M) PART B Sep 14, 2007 PART B [id number] NAZARIO,DA JUAN PATIENT MEDICARE (WNR) MEDICARE (M) PART A Sep 14, 2007 PART A [id number] [phone] NAZARIO,DA JUAN PATIENT MEDICARE (WNR) MEDICARE (M) PART B Sep 14, 2007 PART B [id number] [phone] NAZARIO,DA JUAN PATIENT MEDICARE (WNR) MEDICARE (M) PART A Sep 14, 2007 PART A [id number] [phone] NAZARIO,DA JUAN PATIENT MEDICARE (WNR) MEDICARE (M) PART B Sep 14, 2007 PART B [id number] [phone] NAZARIO,DA JUAN PATIENT FOR LIFE TRICA RE FOR LIFE Mar 15, 2004 FOR LIFE [id number] NAZARIO,DA JUAN PATIENT [facility] 2024 SELEC T WNR Jun 15, 2024 [facility] [id number] KOEING,DA JUAN PATIENT -FO R-LIFE TRICA RE FOR LIFE WNR Nov 27, 2015 FOR LIFE [id number] NAZARIO,DA JUAN PATIENT -FO R-LIFE TRICA RE FOR LIFE WNR Nov 23, 2015 FOR LIFE [id number] NAZARIO,DA JUAN PATIENT Selected Encounter This section includes the information on record at [place] for the Encounter. Date/Time Encounter Type Encounter Description Reason Provider Source November 11, 2023 03:30 PM OFFICE O/P EST MOD 30 MIN NEUROLOGY ICD-10-CM R94.7 Abnormal results of other endocrine function studies ALEKS GILBERT Evelyn Encounter Template Text not used by [place] Assessments - Encounter Diagnoses This section includes the primary and secondary diagnoses documented for the Encounter. Date/Time Primary/Secondary Diagnosis Diagnosis Name Provider Source November 12, 2023 01:01 PM PRIMARY Abnormal results of other endocrine function studies LAURE RYAN [facility] Plan of Treatment: Future Appointments (+ 6 months) and Future Tests (+/- 45 days) The Plan of Treatment section includes future care activities for the [facility] [place] [facility] This section includes future appointments and future orders which are active, pending or scheduled. Future Appointments This section includes appointments that were scheduled to occur 6 months from the date of the Encounter, up to a maximum of 20 appointments. The data comes from all [place] treatment facilities. Appointment Date/Time Appointment Type Appointme nt Facility Name Dec 01, 2023 12:00 PM [place]ONE [place] [facility] Dec 04, 2023 09:30 AM [place]ORY [place] [facility] Dec 04, 2023 10:30 AM [facility]ORY [facility] MED[facility]INE [facility] Dec 25, 2023 12:15 PM AMBUL[place]ORY - NONE [place] [facility] Dec 31, 2023 01:00 PM AMBULATORY - REHAB [facility] Dec 31, 2023 02:00 PM AMBULATORY - [place]ONE [place] [facility] Feb 10, 2024 01:00 PM AMBUL[place]ORY [place]IC[place] [facility] Apr 19, 2024 02:00 PM AMBULATORY - NONE [place] [facility] Apr 26, 2024 02:00 PM AMBUL[place]ORY [place] [facility] Apr 26, 2024 03:15 PM [facility] Lab Results: +/- 30 days of the encounter This section includes the Chemistry and Hematology Lab Results on record with [place] for the patient. Radiology Reports and Pathology Reports are provided separately, in subsequent sections. Lab Results This section contains the Chemistry/Hematology Results that were resulted 30 days before or 30 daysafter the date of the Encounter. Date/Time Source Result Type Result - Unit Interpretation Reference Range Comment Dec 04, 2023 09:31 AM [facility] TSH W/REFLEX TO FREE T4 Specimen Type: PLASMA No comment entered. Ordering Provider: DENG JO Report Released Date/Time: Nov 17, 2022 02:50 PM Reporting Lab: [facility] [id number] Performing Lab: [facility] [id number] TSH 3.26 u[IU]/mL 0.35-4.94 Dec 04, 2023 09:31 AM [facility] CBC Specimen Type: BLOOD No comment entered. Ordering Provider: DENG JO Report Released Date/Time: Nov 17, 2022 02:50 PM Reporting Lab: [facility] [id number] Performing Lab: [facility] [id number] WBC 5.89 10*3/uL 4.0-11.0 RBC 4.66 10*6/uL 4.6-6.2 HGB 13.4 g/dL L 13.5-17.9 HCT 42.5 41-54 MCV 91.2 fL 80-100 MCH 28.8 pg 27-33 MCHC 31.5 g/dL L 32.0-37.5 PLT 205 10*3/uL 150-400 MPV 8.6 fL 7.4-10.4 RDW 15.3 H 11.5-14.5 Dec 04, 2023 09:31 AM [facility] COMPREHENSIVE METABOLIC PANEL+MG Specimen Type: PLASMA No comment entered. Ordering Provider: DENG JO Report Released Date/Time: Nov 17, 2022 02:50 PM Reporting Lab: [facility] [id number] Performing Lab: [facility] [id number] CREATININE 1.2 mg/dL 0.7-1.2 UREA NITROGEN 21 [...] 61 >60 Dec 04, 2023 09:31 AM [facility] LIPID PANEL,NON-FASTING Specimen Type: PLASMA No comment entered. Ordering Provider: DENG JO Report Released Date/Time: Nov 17, 2022 02:50 PM Reporting Lab: [facility] [phone] Performing Lab: [facility] [phone] CHOLESTEROL 129 mg/dL <199 .HDL 47 mg/dL >40 LDL CALCULATION 59 mg/dL <99 VLDL CALCULATION 23 mg/dL <29 NON HDL CHOLESTEROL 82 mg/dL <129 TRIG(NON FASTING) 114 mg/dL <149 Dec 04, 2023 09:31 AM [facility] URIC ACID Specimen Type: PLASMA No comment entered. Ordering Provider: DENG JO Report Released Date/Time: Nov 17, 2022 02:50 PM Reporting Lab: [facility] [phone] Performing Lab: [facility] [phone] URIC ACID 4.9 mg/dL 3.5-7.2 Dec 04, 2023 09:31 AM [facility] PSA Specimen Type: SERUM No comment entered. Ordering Provider: DENG JO Report Released Date/Time: Nov 17, 2022 02:50 PM Reporting Lab: [facility] [id number] Performing Lab: [facility] [phone] PSA 1.09 ng/mL <4.00 Vital Signs: All taken on the encounter date This section contains inpatient and outpatient Vital Signs collected on the date of the Encounter. Date/Time Temperature Pulse Blood Pressure Respiratory Rate SP02 Pain Height Weight Body Mass Index Source November 11, 2023 03:19 PM 97.7 81 120/71 16 97 8 [facility] Social History: Smoking Status (Most current) and Tobacco Use (All prior to encounter date) This section includes the most current, and the historical, smoking and tobacco- related health factors from the [place] facility where the Encounter took place. Current Smoking Status This section includes the most current smoking, or tobacco-related health factor, from the [place] facility where the Encounter took place. Date/Time Current Smoking Status Comment Facil ity May 19, 2023 02:30 PM VA-TOBACCO QUIT 15 YRS OR MORE [facility] Tobacco Use History This section includes a history of the smoking, or tobacco-related health factors, that were collected on or before the date of the Encounter. The data comes from the [place] facility where the Encounter took place. Date/Time Smoking Status/Tobacco Use Comment F acility May 19, 2023 02:30 PM VA-TOBACCO QUIT 15 YRS OR MORE [facility] May 13, 2022 11:30 AM VA-TOBACCO FORMER USER [facility] May 13, 2022 11:30 AM VA-TOBACCO QUIT 15 YRS OR MORE [facility] Jun 17, 2021 02:00 PM VA-TOBACCO NEVER USED [facility] Advance Directives: All historical and current Section Date Range: From patient's date of to the date document was created. This section includes ALL of a patient's completed or amended [place] Advance and Rescinded Directives. The entries below indicate that a directive exists for the patient, but an actual copy is not included with this document. The data comes from all [facility]. Date Advance Directives Provider Source Dec 19, 2022 ADVANCE DIRECTIVE ABRIL BURCH [facility] Dec 19, 2022 ADVANCE DIRECTIVE DISCUSSION TIFF BURCH [facility] Radiology Reports: +/- 30 days of [...] the Encounter. The data comes from all [place] treatment facilities. Date/Time Radiology Report Provider Source Dec 01, 2023 12:12 PM PET/CT SCAN W/ DOT ATATE (P): NENA LANGE [id number] -[id number] M Exm Date: DEC 01, 2023@12:12 Req Phys: ERCAN-FANG,NACIDE Pat Loc: [facility] METABOLIC N ERCAN-FANG 79 Img Loc: NUC MED Service: [place] [address] (Case [id number] COMPLETE) SKULL-THIGH PET DOTATATE W/CT (NM Detailed) CPT:76647 Reason for Study: Sarcoid? (Case [id number] COMPLETE) GA-68 DOTATATE (NETSPOT) (NM Detailed) CPT:A9587 Clinical History: Patien t with diarrhea, flushing, pulmonary nodule and elevated 5-hiaa. Report Status: Verified Date Reported: DEC 01, 2023 Date Verified: DEC 01, 2023 Card Checker E-Sig:/ES/JESSENIA FELDER MD, FACR, CCD Report: PET/CT [...] Staff: JESSENIA FELDER MD, FACR, STAFF RADIOLOGIST (Card Checker) /BSF JESSENIA FELDER [facility] Encounter Notes: All associated encounter notes This section contains the clinical notes associated to the Encounter. 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 He presents to the neuromuscular clinic for follow up episodes of systemic pain and flushing. He presents with his , Mayte, who also helps provide history. Regimen: - Gabapentin 600mg TID In the setting of episodic nature of flushing, skin findings, and pain, he established care with the endocrinology department and was found to have elevated LH and FSH, and mildly elevated 5 HIAA. MRI of the brain did not suggest pituitary adenoma that would otherwise explain his elevated hormone levels, and he is undergoing a PET CT scan to evaluate for an ectopic source of hormone production. He is followed closely with endocrine department for this indication. He otherwise denies any changes to the pain, flushing, and skin findings that he described historically (see note from July 2023). All labs that were done to assess for small fiber neuropathies and/or systemic neuropathy were unremarkable. He also underwent EMG that actually showed no evidence of polyneuropathy and was essentially a normal study. ROS: 10-point ROS completed and negative unless stated in HPI PAST MEDICAL/SURGICAL HISTORY: Active problems - Computerized Problem List is the source for the followin. HTN - Hypertension (SCT [id number]) 2. Hyperlipidemia ([facility] [id number]) 3. Gout ([facility] [id number]) 4. Intracranial aneurysm - s/p stent/coil proceedure 5. GERD - Gastro-Esophageal Reflux Disease ([facility] [id number]) 6. Depression ([facility] [id number]) 7. Primary malignant neoplasm of prostate 8. Abdominal aortic aneurysm 9. Solitary nodule of lung 10. Insomnia 11. Chronic diarrhea 12. Chronic kidney disease stage 3A 13. COPD - Chronic obstructive pulmonary disease - Moderately severe 05/2022 PFTs 14. CAD - Coronary Artery Disease ([facility] [id number]) 15. History of myocardial infarction - STEMI 16. Low back pain 17. Neck pain 18. Exposure to potentially hazardous substance ([facility] [id number]) - Entered automatically through [facility]ON[facility] Problem List documentation program ALLERGIES: AMLODIPINE (Jun 17, 2021) EXAM General: Well-nourished, NAD, otherwise appropriate Head: Normocephalic, atraumatic Respiratory: No increased work of breathing, CTA b/l Cardiovascular: S1 & S2 heard with appropriate intensity, RRR; no murmurs, clicks, rubs; Carotids without bruits b/l MSK: Gynecomastia present bilaterally, tender Neurologic Exam: Mental status: Alert and oriented to person, place, time; Recalls remote and recent history with accuracy Speech/Language: Clear and fluent without paraphasic errors. No extinction or neglect. 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 Normal isometric saccadic movements. No ptosis, diplopia. V - Light touch full and symmetric in V1, V2, and V3; Massester bulk full on teeth clench VII - No facial asymmetry, strong orbicularis catrachito and oculi. VIII - Hearing is intact to conversation IX/X - Palate raises symmetrically, uvula is midline. Voice normal. XI - Sternocleidomastoid and trapezius muscles are strong and symmetric. XII - Tongue protrudes midline with full rapid lateral motion, normal bulk and without fasciculation or tremor Motor Strength: R L Should Abd 5 5 Bicep Flex 5 5 Tricep Ext 5 5 Wrist Flex 5 5 Wrist Ext 5 5 Finger Abd 5 5 Hip Flex 5 5 Knee Flex 5 5 Knee Ext 5 5 Dorsiflex 5 5 Plantarflex 5 5 Bulk - Appropriate, no atrophy or hypertrophy appreciated Tone - Spastic catch of the knees bilaterally Fasciculation - absent Pronator drift - absent Tremor - absent Sensory Light/general touch: Normal and symmetric throughout x4E's Pinprick: reduced globally, some mild preservation of PP in the proximal limbs and torso Vibratory: 6-7s in fingertips; 3s in big toes Proprioception: Normal and symmetric in BLE's Romberg: Negative Reflexes R L Triceps 2+ 2+ Biceps 2+ 2+ Brachioradialis 2+ 2+ Patellar 3+ 3+ Achilles 2+ 2+ Crossed adductors present bilaterally Toes down-going b/l Brooks's sign absent b/l Coordination/station/gait FNF: Precise and accurate, without tremor H2S: Accurate slide, without tremor Finger tapping: Normal speed, symmetric Heel tapping: Normal speed, symmetric Gait: Full stride, appropriate arm swing, upright posture. Patient is able to tandem and toe walk w/o difficulty SUMMARY OF PERTINENT INVESTIGATIONS Labs: Test Name Result Units Range --------- ------ ----- ----- SODIUM 141 mmol/L 136 - 145 POTASSIUM 4.0 mmol/L 3.5 - 5.1 CHLORIDE 108 H mmol/L 98 - 107 CO2 26 mmol/L 22 - 29 ANION GAP 7 mmol/L 5 - 15 GLUCOSE 86 mg/dL 70 - 100 UREA NITROGEN 24 mg/dL 8 - 26 CREATININE 1.4 H mg/dL 0.7 - 1.2 CALCIUM 9.2 mg/dL 8.4 - 10.2 MAGNESIUM 2.1 mg/dL 1.6 - 2.6 .CREAT EGFR(CKD-EPI) 51 L Ref: >=60 HEMOGLOBIN A1C 5.3 % 4.0 - 6.0 B 12 351 pg/mL 213 - 816 METHYLMALONIC ACID 299 nmol/L 0 - 400 SPEP: .INTERPRETATION NO MONOCLONALS DETECTED .ALBUMIN FRACTION 3.78 g/dL 3.66 - 4.78 .ALPHA 1 FRACTION 0.26 g/dL 0.14 - 0.38 .ALPHA 2 FRACTION 0.75 g/dL 0.50 - 0.90 .BETA 1 FRACTION 0.45 g/dL 0.33 - 0.55 .BETA 2 FRACTION 0.41 g/dL 0.20 - 0.52 .GAMMA FRACTION 1.45 g/dL 0.58 - 1.72 .TOTAL PROTEIN 7.1 g/dL 6.0 - 8.3 Test Name Result Units Range --------- ------ ----- ----- VITAMIN B-6 4.0 ng/mL 2.1 - 21.7 VITAMIN B-1,BLOOD 134 nmol/L 78 - 185 FOLATE 15.1 ng/mL Ref: >=7.0 ARSENIC,BLOOD <3 mcg/L Ref: SEE BELOW ANTI-NAYAK <1.0 ANTI-LOST AND FOUND CLERK <1.0 ANTI-SSA/RO <1.0 ANTI-SSB/[place] <1.0 ANTI-SCL-70 <1.0 ANTI-MANINDER-1 <1.0 .ANTI-DNA ANTIBODY NEGATIVE Ref: -neg- HIV AG/AB SCREEN NEGATIVE Ref: NEGATIVE TSH 1.98 uIU/mL 0.35 - 4.94 ANTI-NAYAK <1.0 ANTI-LOST AND FOUND CLERK <1.0 ANTI-SSA/RO <1.0 ANTI-SSB/LA <1.0 ANTI-SCL-70 <1.0 ANTI-MANINDER-1 <1.0 .CYTOPLASMIC ANCA NEGATIVE Ref: -neg- .PERINUCLEAR ANCA POSITIVE H Ref: -neg- .RADHA. ANCA TITER 1:320 Ref: <1:20 .ANTINUCLEAR HENRRY HOMOGENEOUS-POS Ref: Negative .ROMELIA TITER 1:160 Ref: TITER <1:80 Test Name Result Units Range --------- ------ ----- ----- .PROTEINASE-3 AB <1.0 AI Ref: SEE BELOW .MYELOPEROXIDASE AB <1.0 AI Ref: SEE BELOW ENS2: Test Name Result Units Range --------- ------ ----- ----- .ANTINEURO NUCL AB-1 Negative TITER Ref: <1:240 .ANTINEURO NUCL AB-2 Negative TITER Ref: <1:240 .ANTINEURO NUCL AB-3 Negative TITER Ref: <1:240 .ANTIGLIAL NUCL AB-1 Negative TITER Ref: <1:240 .PURKINJE CYTO AB-1 Negative TITER Ref: <1:240 .PURKINJE CYTO AB-2 Negative TITER Ref: <1:240 .PURKINJE CYTO-Tr Negative TITER Ref: <1:240 .AMPHIPHYSIN AB Negative TITER Ref: <1:240 .CRMP-5-IGG Negative TITER Ref: <1:240 .P/Q-TYPE CA PATINO AB NOT PERFORMED nmol/L Ref: <=0.02 .N-TYPE CA PATINO AB NOT PERFORMED nmol/L Ref: <=0.03 .AChR GANGL NEURO AB NOT PERFORMED nmol/L Ref: <=0.02 .NMDA-R AB CBA Negative Ref: Negative .GAD65 AB ASSAY 0.00 nmol/L Ref: <=0.02 .VIVI-B-R AB CBA Negative Ref: Negative .AMPA-R AB CBA Negative Ref: Negative .LGI-1-IGG CBA Negative Ref: Negative .CASPR2-IGG CBA Negative Ref: Negative .DPPX AB IFA Negative Ref: Negative .mGluR1 AB IFA Negative Ref: Negative .GFAP IFA Negative Ref: Negative .IGLON5 IFA, S Negative Ref: Negative .NIF IFA, S Negative Ref: Negative .NEUROCHDRN IFA, S Negative Ref: Negative .SEPTIN-7 IFA, S Negative Ref: Negative .ANTI-HU,IFA SEE NOTE .ANTI-HU,WESTERN BLOT NEGATIVE Ref: NEGATIVE .VASC ENDO GF, PASQUALE 98 H pg/mL 31 - 86 NCS/EMG (08/31/23; Dr. Contreras): IMPRESSION: 1. Normal study. 2. There is no electrodiagnostic evidence of large fiber polyneuropathy, left upper extremity mononeuropathy, or left lower extremity mononeuropathy. Imaging: Bilateral mammography (06/18/23): Impression: No evidence of malignancy. Bilateral gynecomastia, right greater than left. Fat corresponding to palpable lumps in the lateral breasts bilaterally. MRI brain w/wo contrast (09/10/23): Impression: 1. Empty sella, which can be associated with intracranial hypertension but is likely incidental in the clinical context of this patient. 2. Thin residual pituitary parenchyma along the periphery of the sella enhances homogeneously, without evidence of a discrete pituitary lesion. 3. No evidence of acute intracranial pathology or mass. 4. Minimal chronic microangiopathic change. 5. Mild to moderate generalized cerebral volume loss, in keeping with the patient's age. 6. Focus of old microhemorrhage in the right posterior frontal wakefield radiata. No evidence of acute intracranial hemorrhage. 7. Incidental capillary telangiectasia. MRI C & T-spine MRI wo contrast (09/12/23): Impression: 1. Degenerative disc changes throughout, greatest at C5-6. Multilevel advanced facet arthropathy. 2. No high-grade spinal canal stenosis. No cord signal changes. 3. High-grade foraminal stenosis on the right at C3-4 and C4-5, and bilaterally at C5-C6 and C7-T1. 4. Relatively minor thoracic degenerative changes. No high-grade spinal canal or foraminal stenosis at any level. 5. Asbestos-related changes in the lung bases, similar to prior. Endocrine consultation: LH and FSH are elevated with normal testesterone level. Tryptase, metanephrines and TSH are within normal limit. 5HIAA is pending. The elevated LH my explain the hot flashes. We need dedicated putuitary MRI to identify if he has gonadotroph putuitary adenoma. We will check free T4 too. MRI findings suggest no pituitary adenoma visible on MRI to explain the increased LF and FSH at this time. There is a possiblity that a nodule might appear in the future so yearly pituitary MRI is recommended. There is empty sella on MRI which is likely incidental and there is no evidence of associated hypopituitarism. Hot flashes he has been having are likely due to increaed LH and it is improving with gabapentin. If hot flashed are bothersome in the future, SSRIs like citalopram can be used. 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 He continues to have episodic pain, erythema, and flushing of the skin that has been symptomatically improved with gabapentin. Underlying cause is currently unknown, but highest on the differential is ectopic secretion of LH and FSH, hormones found by the endocrine team. Fortunately, from a neurologic perspective he essentially has no neuropathy is identified on EMG, and no worrisome findings on any lab work as performed above, including paraneoplastic evaluation. It is imperative that he continues to follow with endocrine department, and we strongly encouraged this today. He does not specifically need to follow with our department at this time because he does not have any evidence of neuropathy, but he is encouraged to come back if things change or worsen. PLAN: - Encouraged following closely with Endocrine team and performing PET CT as scheduled in a couple of weeks Return to clinic as needed Patient discussed with neurology attending, Dr. Odilia Ryan MD Neuromuscular Fellow, PGY-5 /es/ COSTA RYAN MD NEUROLOGY RESIDENT Signed: 11/12/2023 13:01 Receipt Acknowledged By: 12/03/2023 14:13 /eda/ LIAN GAYTAN MD STAFF NEUROLOGIST for [facility] November 11, 2023 03:27 PM NEUROLOGY NURSING OUTPATIENT NOTE: LOCAL TITLE: NEUROLOGY CLINIC NURSING NOTE STANDARD TITLE: NEUROLOGY NURSING OUTPATIENT NOTE DATE OF NOTE: NOVEMBER 11, 2023@15:27 ENTRY DATE: NOVEMBER 11, 2023@15:28:02 AUTHOR: LANE LOPEZ EXP COSIGNER: URGENCY: STATUS: COMPLETED Type of visit: Appointment Check In Reason for Visit: RTC Vital Signs: Blood Pressure: 120/71 (11/11/2023 15:19) Pulse: 81 (11/11/2023 15:19) Respiration: 16 (11/11/2023 15:19) Temperature: 97.7 F [36.5 C] (11/11/2023 15:19) Weight: 192.6 lb [87.36 kg] (08/21/2023 10:09) Height: 71 in [180.3 cm] (11/17/2022 13:41) BMI: 26.9 Pain: 8 (11/11/2023 15:19) Allergies: AMLODIPINE (Jun 17, 2021) Medications: Non-VA/Over the Counter/Herbal Medications: Patient reports taking outside and/or herbal medications. CPRS medication list has been updated to reflect changes and/or new medications. See list below. Active Outpatient Medications and Supplies: Active Outpatient Medications (including Supplies): Active Outpatient Medications Status 1) ALBUTEROL 90MCG (CFC-F) 200D ORAL INHL INHALE 2 PUFFS ACTIVE BY INHALATION EVERY 4 HOURS NEEDED FOR SHORTNESS OF BREATH 2) ALLOPURINOL 100MG TAB TAKE ONE TABLET BY MOUTH EVERY ACTIVE DAY GOUT PREVENTION/URIC ACID 3) CAMPHOR 0.5/MENTHOL 0.5% LOTION APPLY THIN LAYER ACTIVE TOPICALLY THREE TIMES A DAY NEEDED FOR ITCHING 4) FAMOTIDINE 20MG TAB TAKE ONE TABLET BY MOUTH EVERY ACTIVE DAY FOR HEARTBURN 5) GABAPENTIN 300MG CAP TAKE TWO CAPSULES BY MOUTH THREE ACTIVE (S) TIMES A DAY FOR PAIN AND NUMBNESS MAXIMUM DOSE WITH CURRENT KIDNEY FUNCTION 6) HYDROCHLOROTHIAZIDE 25MG TAB TAKE ONE-HALF TABLET BY ACTIVE MOUTH EVERY DAY BLOOD PRESSURE MEDICATION 7) KETOCONAZOLE 2% SHAMPOO SHAMPOO SCALP TOPICALLY 3 ACTIVE TIMES EVERY WEEK *LATHER FOR 5 MINUTES THEN RINSE* FOR SEBORRHEIC DERMATITIS 8) LIDOCAINE 5% PATCH APPLY ONE OR TWO PATCHES TOPICALLY ACTIVE EVERY DAY NEEDED FOR PAIN 9) LOPERAMIDE HCL 2MG CAP TAKE ONE CAPSULE BY MOUTH ACTIVE THREE TIMES A DAY FOR DIARRHEA 10) LORATADINE 10MG TAB TAKE ONE TABLET BY MOUTH EVERY ACTIVE DAY NEEDED FOR ALLERGIES 11) POTASSIUM CL 20MEQ SA TAB (DISPERSIBLE) TAKE ONE ACTIVE TABLET BY MOUTH EVERY DAY POTASSIUM SUPPLEMENT 12) PRAMOXINE HCL 1% LOTION APPLY THIN LAYER TOPICALLY ACTIVE THREE TIMES A DAY NEEDED FOR ITCHING 13) ROSUVASTATIN CA 40MG TAB TAKE ONE TABLET BY MOUTH AT ACTIVE (S) BEDTIME CHOLESTEROL MEDICATION 14) SERTRALINE HCL 25MG TAB TAKE ONE TABLET BY MOUTH ACTIVE EVERY DAY FOR DEPRESSION/ANXIETY 15) TRIAMCINOLONE ACETONIDE 0.1% CREAM APPLY A THIN LAYER ACTIVE TOPICALLY TWICE A DAY RUB A SMALL AMOUNT INTO ITCHY SCARS TWICE DAILY NEEDED 16) VANICREAM TOP CREAM APPLY THIN LAYER TOPICALLY TWICE ACTIVE A DAY FOR DRY SKIN Active Non-VA Medications Status 1) Non-VA ASPIRIN 81MG EC TAB 81MG MOUTH EVERY DAY ACTIVE 2) Non-VA CURCUMIN CAP 1 CAPSULE MOUTH NEEDED ACTIVE 18 Total Medications Patient reports the following changes regarding the current pharmacy list of medications: The above medication list confirmed with patient. A copy of the above medication list given to the MD for review and update. Provider will give printed copy of medication list to patient with any changes documented on printed medication list. /eda/ LANE [facility]OPE[facility] LPN LPN Signed: 11/11/2023 15:[address] [facility]
--- OUTSIDE RECORDS SUMMARY | 2024-08-05 04:35 | XMS_ITS ---
Author Organization [facility] Address [address] [place] [address] Care Team Providers Care Summer Intern Name Role Phone Unavailable Primary Care Provider Unavailabl e Active Problems * This document contains information received from the source organization and may not represent a complete record from that organization. 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 Past Treatment and Therapy Plans No past plan information found. Lifetime Dose Tracking * Chemical Lifetime Dose Automatic Entry Manual Entr y Radiation 26 mGy 26 mGy 0 mGy Fluoro Time 3.3 minutes 3.3 minutes 0 minutes
--- OUTSIDE RECORDS SUMMARY | 2024-08-05 04:35 | XMS_ITS | Encounter Summary ---
Author Name [facility] [place] [facility] [place] Address [address] [place] [address] Care Team Providers Care Digital Measurement Advisor Name Role Phone DARIN BURGESS Primary Care [...] PRESCRIPT ION DODA Nov 13, 2004 DODA [id number] [phone] PARRISH LANGE PATIENT EXPRESS SCRIPTS (WNR) PRESCRIPT ION TRICA RE (WNR) Nov 13, 2004 (WNR) [id number] PARRISH LANGE PATIENT MEDICARE (WNR) MEDICARE (M) PART A Sep 14, 2007 PART A [id number] NAZARIO,DA JUAN PATIENT MEDICARE (WNR) MEDICARE (M) PART B Sep 14, 2007 PART B [id number] NAZARIO,DA JUAN PATIENT MEDICARE (WNR) MEDICARE (M) PART A Sep 14, 2007 PART A [id number] NAZARIO,DA JUAN PATIENT MEDICARE (WNR) MEDICARE (M) PART B Sep 14, 2007 PART B [id number] NAZARIO,DA JUAN PATIENT MEDICARE (WNR) MEDICARE (M) PART A Sep 14, 2007 PART A [id number] NAZARIO,DA JUAN PATIENT MEDICARE (WNR) MEDICARE (M) PART B Sep 14, 2007 PART B [id number] NAZARIO,DA JUAN PATIENT MEDICARE (WNR) MEDICARE (M) PART A Sep 14, 2007 PART A [id number] NAZARIO,DA JUAN PATIENT MEDICARE (WNR) MEDICARE (M) PART B Sep 14, 2007 PART B [id number] NAZARIO,DA JUAN PATIENT MEDICARE (WNR) MEDICARE (M) PART A Sep 14, 2007 PART A [id number] NAZARIO,DA JUAN PATIENT MEDICARE (WNR) MEDICARE (M) PART B Sep 14, 2007 PART B [id number] NAZARIO,DA JUAN PATIENT FOR LIFE TRICA RE FOR LIFE Mar 15, 2004 FOR LIFE [id number] NAZARIO,DA JUAN PATIENT [facility] 2024 SELEC T WNR Jun 15, 2024 [facility] [id number] KOEING,DA JUAN PATIENT -FO R-LIFE TRICA RE FOR LIFE WNR Nov 27, 2015 FOR LIFE [id number] NAZARIO,DA JUAN PATIENT -FO R-LIFE TRICA RE FOR LIFE WNR Nov 23, 2015 FOR LIFE [id number] PARRISH LANGE PATIENT Selected Encounter This section includes the information on record at [place] for the Encounter. Date/Time Encounter Type Encounter Description Reason Provider Source Sep 08, 2023 03:00 PM OFFICE O/P EST MOD 30 MIN DERMATOLOGY ICD-10-CM D48.5 Neoplasm of uncertain behavior of skin JEAN MARIE LOPEZ Evelyn Encounter Template Text not used by [place] Assessments - Encounter Diagnoses This section includes the primary and secondary diagnoses documented for the Encounter. Date/Time Primary/Secondary Diagnosis Diagnosis Name Provider Source Sep 08, 2023 04:02 PM PRIMARY Neoplasm of uncertain behavior of skin MICHAEL DIXON [facility] Sep 08, 2023 04:02 PM SECONDARY Dermatitis, unspecified RENEFLORIDALMAMICHAEL Bach [facility] Plan of Treatment: Future Appointments (+ 6 months) and Future Tests (+/- 45 days) The Plan of Treatment section includes future care activities for the patient [facility] [place] [facility]. This section includes future appointments and future orders which are active, pending or scheduled. Future Appointments This section includes appointments that were scheduled to occur 6 months from the date of the Encounter, up to a maximum of 20 appointments. The data comes from all [place] treatment facilities. Appointment Date/Time Appointment Type Appointme nt Facility Name Sep 10, 2023 07:45 PM AMBULATORY - NONE [facility] Sep 12, 2023 04:45 PM AMBULATORY - NONE [facility] Sep 22, 2023 02:00 PM [facility]ATORY [facility]ICINE [facility] October 27, 2023 02:00 PM AMBULATORY - NONE [facility] November 11, 2023 03:30 PM AMBULATORY - RE[facility] Dec 01, 2023 12:00 PM [facility] Dec 04, 2023 09:30 AM AMBULATORY - NONE [facility] Dec 04, 2023 10:30 AM [facility] Dec 25, 2023 12:15 PM AMBULATORY - NONE [facility] Dec 31, 2023 01:00 PM AMBULATORY - REHAB MEDICIN [facility] Dec 31, 2023 02:00 PM AMBULATORY - NONE [facility] Feb 10, 2024 01:00 PM AMBULATORY - MEDICINE [facility] Active, Pending, and Scheduled Orders This section includes a listing of several types of active, pending, and scheduled orders, including clinic medications orders, diagnostic test orders, procedure orders and consult orders; where the start date of the order is 45 days before the date of the Encounter or 45 days after the date of theEncounter. The data comes from all [place] treatment facilities. Test Date/Time Test Type Test Details Facility Name Sep 07, 2023 12:00 AM Laboratory - Chemi stry Order TSH W/REFLEX TO FREE T4 PLASMA SP [facility] Sep 07, 2023 12:00 AM Laboratory - Chemi stry Order FREE-T4 PLASMA SP ONCE [facility] Lab Results: +/- 30 days of the encounter This section includes the Chemistry and Hematology Lab Results on record with [place] for the patient. Radiology Reports and Pathology Reports are provided separately, in subsequent sections. Lab Results This section contains the Chemistry/Hematology Results that were resulted 30 days before or 30 daysafter the date of the Encounter. Date/Time Source Result Type Result - Unit Interpretation Reference Range Comment Sep 25, 2023 01:44 PM [facility] 2-BJUK-EBDMP, TIMED Specimen Type: URINE Comment: This test was developed and its analytical performance characteristics have been determined by [facility]. It has not been cleared or approved by FDA. This assay has been validated pursuant to the CLIA regulations and is used for clinical purposes. Test performed by [facility] [address] [place] [address] Teacher Asst: Taylor Colon MD,PHD,SHUBHAM Test Reported by [facility], [facility], [address] [place] [address] Nacho De Leon M.D., Ph.D., Director of Laboratories , CLIA [id number] Ordering Provider: KAT LUCERO Report Released Date/Time: Sep 17, 2023 03:56 PM Reporting Lab: [facility] [id number] Performing Lab: [address] 5-HIAA 7.8 H <=6.0 .TOTAL VOLUME 1200 mL .CREATININE,24 HR UR 1.10 0.50-2.15 Aug 31, 2023 04:06 PM [facility] 4-ICKT-LUPRV, TIMED Specimen Type: URINE Comment: This test was developed and its analytical performance characteristics have been determined by [facility]. It has not been cleared or approved by FDA. This assay has been validated pursuant to the CLIA regulations and is used for clinical purposes. Test performed by [facility] [id number] [place] [address] Teacher Asst: Taylor Colon MD,PHD,SHUBHAM Test Reported by [facility] [place], [address] [place] [address] Nacho De Leon M.D., Ph.D., Director of Laboratories , [place] [id number] Ordering Provider: MILADIS GALINDO Report Released Date/Time: Aug 21, 2023 11:32 AM Reporting Lab: [facility] [id number] Performing Lab: [address] 5-HIAA 8.3 H <=6.0 .TOTAL VOLUME 1100 mL .CREATININE,24 HR UR 1.13 0.50-2.15 Aug 31, 2023 04:06 PM [facility] METANEPHRINES FRACTIONATED URINE Specimen Type: URINE, TIMED Comment: This test was developed and its analytical performance characteristics have been determined by [facility] [place]. It has not been cleared or approved by the U.S. Food and Drug Administration. This assay has been validated pursuant to the CLIA regulations and is used for clinical purposes. This test was developed and its analytical performance characteristics have been determined by [facility] [place] [place]. It has not been cleared or approved by the U.S. Food and Drug Administration. This assay has been validated pursuant to the CLIA regulations and is used for clinical purposes. A four fold elevation of urinary normetanephrines is extremely likely to be due to a tumor, while a four fold elevation of urinary metanephrines is highly suggestive, but not diagnostic of the tumor. Measurement of plasma Metanephrines and Chromogranin A is recommended for confirmation. Test Performed by [facility], [facility] [place], [address] [place] [address] Nacho De Leon M.D., Ph.D., Director of Laboratories , CLIA [id number] Ordering Provider: MILADIS GALINDO Report Released Date/Time: Aug 21, 2023 11:32 AM Reporting Lab: [facility] [id number] Performing Lab: [address] .NORMETANEPHRI NE,U [phone] .METANEPHRINE, U 37 L 90-315 .METANEPHRINES ,TOTAL 412 224-832 .TOTAL VOLUME 1100 mL Aug 21, 2023 11:54 AM [facility] TRYPTASE Specimen Type: SERUM Comment: REFERENCE RANGE: <11.0 mcg/L The Tryptase test, fluorescent enzyme immunoassay (FEIA), measures both the Alpha and Beta forms of Tryptase. Measuring both forms of Tryptase increases sensitivity for the diagnosis of mastocytosis, and mast cell degranulation as a cause of anaphylaxis. Test Performed by [facility], [facility], [address] [place] [address] Nacho De Leon M.D., Ph.D., Director of Laboratories , CLIA [id number] Ordering Provider: MILADIS GALINDO Report Released Date/Time: Aug 21, 2023 11:32 AM Reporting Lab: [facility] [phone] Performing Lab: [address] TRYPTASE 7.8 ug/L SEE BELOW Aug 21, 2023 11:54 AM [facility] TSH W/REFLEX TO FREE T4 Specimen Type: PLASMA No comment entered. Ordering Provider: MILADIS GALINDO Report Released Date/Time: Aug 21, 2023 11:32 AM Reporting Lab: [facility] [id number] Performing Lab: [facility] [phone] TSH 2.40 u[IU]/mL 0.35-4.94 Aug 21, 2023 11:53 AM [facility] TESTOSTERONE Specimen Type: SERUM No comment entered. Ordering Provider: MILADIS GALINDO Report Released Date/Time: Aug 21, 2023 11:32 AM Reporting Lab: [facility] [phone] Performing Lab: [facility] [phone] TESTOSTERONE 436 ng/dL 221-870 Aug 21, 2023 11:53 AM [facility] PROLACTIN Specimen Type: PLASMA No comment entered. Ordering Provider: MILADIS GALINDO Report Released Date/Time: Aug 21, 2023 11:32 AM Reporting Lab: [facility] [phone] Performing Lab: [facility] [address] PROLACTIN 10.02 ng/mL <19.40 Aug 21, 2023 11:53 AM [facility] LUTEINIZING HORMONE Specimen Type: SERUM No comment entered. Ordering Provider: MILADIS GALINDO Report Released Date/Time: Aug 21, 2023 11:32 AM Reporting Lab: [facility] [phone] Performing Lab: [facility] [phone] LUTEINIZING HORMONE 18.32 m[IU]/mL H 0.57-12.07 Aug 21, 2023 11:53 AM [facility] FSH Specimen Type: PLASMA No comment entered. Ordering Provider: MILADIS GALINDO Report Released Date/Time: Aug 21, 2023 02:29 PM Reporting Lab: [facility] [phone] Performing Lab: [facility] [phone] FSH 42.98 m[IU]/mL H 0.95-11.95 Social History: Smoking Status (Most current) and Tobacco Use (All prior to encounter date) This section includes the most current, and the historical, smoking and tobacco- related health factors from the [place] facility where the Encounter took place. Current Smoking Status This section includes the most current smoking, or tobacco-related health factor, from the [place] facility where the Encounter took place. Date/Time Current Smoking Status Comment Jack ity May 19, 2023 02:30 PM VA-TOBACCO FORMER USER [facility] Tobacco Use History This section includes a history of the smoking, or tobacco-related health factors, that were collected on or before the date of the Encounter. The data comes from the [place] facility where the Encounter took place. Date/Time Smoking Status/Tobacco Use Comment F acility May 19, 2023 02:30 PM VA-TOBACCO QUIT 15 YRS OR MORE [facility] May 13, 2022 11:30 AM VA-TOBACCO FORMER USER [facility] May 13, 2022 11:30 AM [place]-TOBACCO QUIT 15 YRS OR MORE [facility] [...] Dec 19, 2022 ADVANCE DIRECTIVE ABRIL BURCH [facility] Dec 19, 2022 ADVANCE DIRECTIVE DISCUSSION TIFF BURCH [facility] Radiology Reports: +/- 30 days [...] the Encounter. The data comes from all [place] treatment facilities. Date/Time Radiology Report Provider Source Sep 12, 2023 04:20 PM MRI-C-SPINE (P): NENA LANGE [id number] -1940 M Exm Date: SEP 12, 2023@16:20 Req Phys: COSTA COELHO Pat Loc: [facility] NE[facility]O MUSCULAR FELLOW (Req Img Loc: MRI IMAGING Service: Unknown (Case [id number] COMPLETE) MRI SPINE CERVICAL W/O CONTRAST (MRI Detailed) CPT:17456 Reason for Study: spine injury, hyperreflexia on exam Clinical History: Per Joint Commission Standards, by signing this diagnostic imaging request the ordering provider confirms they have considered patients age and recent imaging history. 82/M with spstic catch and hyperreflexic legs, old upper spine injury Responsible provider name and phone number to notify for critical findings if other than user placing the order and pager listed below: User placing orders pager: [phone] LAST CREATININE 1.4 H (06/05/23) Allergies: AMLODIPINE (Jun 17, 2021) Report Status: Verified Date Reported: SEP 14, 2023 Date Verified: SEP 14, 2023 Gaming Investigator E-Sig:/ES/FRIDA GONSALEZ MD Report: MRI SPINE CERVICAL W/O CONTRAST, MRI SPINE THORACIC W/O CONTRAST 09/12/2023 INDICATION: Neck and back pain. TECHNIQUE: Routine without intravenous contrast. CONTRAST: None. COMPARISON: Chest CT 08/05/2022 FINDINGS: Cervical spine: Slight straightening of the usual lordosis on a degenerative basis. Mild type III endplate change at C5-6. Other marrow signal is within normal limits. Cord signal is normal. Visible posterior fossa contents are unremarkable. Visible cervical soft tissues are unremarkable. Craniocervical junction: Mild ventral spurring and degenerative hypertrophy of cruciform ligaments. Spinal canal foramen magnum are adequate. C2-3: Normal disc height. Moderate facet arthropathy with some overgrowth. No spinal canal stenosis. Mild foraminal narrowing. C3-4: Mild disc height loss. Shallow broad-based disc herniation eccentric right. Right uncinate hypertrophy. 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 Tpmb-lv-gbehmmwb left facet arthropathy. No spinal canal stenosis. Moderately severe right foraminal stenosis. No left foraminal stenosis. C4-5: This level is fused. No spinal canal stenosis. Moderate right foraminal stenosis. Mild left foraminal narrowing. C5-6: Moderate to marked disc height loss. Yogw-tx-ajulzxpa bulge and interbody spur. Bilateral uncinate hypertrophy. Moderate right and mild left facet arthropathy. Elqu-ki-zrctxhbg spinal canal narrowing, without cord deformity. Moderate right foraminal stenosis. Severe left foraminal stenosis. C6-7: Degenerative anterolisthesis. Severe bilateral facet arthropathy. Mild spinal canal narrowing, still adequate. No foraminal stenosis. C7-T1: Degenerative anterolisthesis. Moderate to marked disc height loss. Severe bilateral facet arthropathy with overgrowth. Mild spinal canal narrowing, still adequate. Moderate right foraminal stenosis. Severe left foraminal stenosis. Thoracic spine: 12 rib-bearing thoracic-type vertebral bodies. Kyphosis generally preserved. Broad right convex asymmetry. Vertebral body heights are maintained. Marrow signal pattern is within normal limits. Cord signal is normal. Disc signal loss throughout. Disc height loss greatest in the upper to mid thoracic spine. Advanced facet arthropathy at T1-T2. The moderate lower thoracic facet arthropathy. No high-grade spinal canal stenosis. No high-grade foraminal stenosis. Asbestos-related lung findings, which have a similar pattern compared to the previous chest CT. No other significant ancillary finding. Impression: 1. Degenerative disc changes throughout, greatest [...] in the lung bases, similar to prior. Primary Interpreting Staff: FRIDA GONSALEZ MD, RADIOLOGIST (Gaming Investigator) /FRIDA PATTON [facility] Sep 12, 2023 04:19 PM MRI-T-SPINE (P): NENA LANGE [id number] -1940 M Exm Date: SEP 12, 2023@16:19 Req Phys: COSTA COELHO Pat Loc: [facility] NEURO MUSCULAR FELLOW (Req Img Loc: MRI IMAGING Service: Unknown (Case [id number] COMPLETE) MRI SPINE THORACIC W/O CONTRAST (MRI Detailed) CPT:05910 Reason for Study: Spine injury, hyperreflexia Clinical History: Per Joint Commission Standards, by signing this diagnostic imaging request the ordering provider confirms they have considered patients age and recent imaging history. 82/M with spstic catch and hyperreflexic legs, old upper spine injury Responsible provider name and phone number to notify for critical findings if other than user placing the order and pager listed below: User placing orders pager: [phone] LAST CREATININE 1.4 H (06/05/23) Allergies: AMLODIPINE (Jun 17, 2021) Report Status: Verified Date Reported: SEP 14, 2023 Date Verified: SEP 14, 2023 Gaming Investigator E-Sig:/ES/FRIDA GONSALEZ MD Report: MRI SPINE CERVICAL W/O CONTRAST, MRI SPINE THORACIC W/O CONTRAST 09/12/2023 INDICATION: Neck and back pain. TECHNIQUE: Routine without intravenous contrast. CONTRAST: None. COMPARISON: Chest CT 08/05/2022 FINDINGS: Cervical spine: Slight straightening of the usual lordosis on a degenerative basis. Mild type III endplate change at C5-6. Other marrow signal is within normal limits. Cord signal is normal. Visible posterior fossa contents are unremarkable. Visible cervical soft tissues are unremarkable. Craniocervical junction: Mild ventral spurring and degenerative hypertrophy of cruciform ligaments. Spinal canal foramen magnum are adequate. C2-3: Normal disc height. Moderate facet arthropathy with some overgrowth. No spinal canal stenosis. Mild foraminal narrowing. C3-4: Mild disc height loss. Shallow broad-based disc herniation eccentric right. Right uncinate hypertrophy. 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 Iiwf-pw-hchyqbdz left facet arthropathy. No spinal canal stenosis. Moderately severe right foraminal stenosis. No left foraminal stenosis. C4-5: This level is fused. No spinal canal stenosis. Moderate right foraminal stenosis. Mild left foraminal narrowing. C5-6: Moderate to marked disc height loss. Cuai-qr-azshvkoh bulge and interbody spur. Bilateral uncinate hypertrophy. Moderate right and mild left facet arthropathy. Fvap-ap-bgcynqas spinal canal narrowing, without cord deformity. Moderate right foraminal stenosis. Severe left foraminal stenosis. C6-7: Degenerative anterolisthesis. Severe bilateral facet arthropathy. Mild spinal canal narrowing, still adequate. No foraminal stenosis. C7-T1: Degenerative anterolisthesis. Moderate to marked disc height loss. Severe bilateral facet arthropathy with overgrowth. Mild spinal canal narrowing, still adequate. Moderate right foraminal stenosis. Severe left foraminal stenosis. Thoracic spine: 12 rib-bearing thoracic-type vertebral bodies. Kyphosis generally preserved. Broad right convex asymmetry. Vertebral body heights are maintained. Marrow signal pattern is within normal limits. Cord signal is normal. Disc signal loss throughout. Disc height loss greatest in the upper to mid thoracic spine. Advanced facet arthropathy at T1-T2. The moderate lower thoracic facet arthropathy. No high-grade spinal canal stenosis. No high-grade foraminal stenosis. Asbestos-related lung findings, which have a similar pattern compared to the previous chest CT. No other significant ancillary finding. Impression: 1. Degenerative disc changes throughout, greatest [...] in the lung bases, similar to prior. 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 Did the ordering provider speak with a beauty consultant regarding this imaging exam? Yes, Name of beauty consultant (resident or staff):Dr Marvin Alvarez Pt with hot flushes found to have elevated LH and FSH with normal testesterone level. 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 TECHNIQUE: MRI of the brain was performed before and after the administration of intravenous contrast. This study was conducted according to the standard departmental sella MR imaging protocol. CONTRAST: Gadavist 7 mL. COMPARISON: None. FINDINGS: Several of the sequences are mildly degraded by motion artifact. There is no expansion of the sella or asymmetric depression of the sellar floor. An empty sella is present, noting that the pituitary gland measures only 0.10 cm in midline height. The pituitary parenchyma enhances homogeneously, without evidence of a discrete pituitary lesion. There is no abnormal thickening or deviation of the pituitary infundibulum. No suprasellar lesion is identified. A somewhat tortuous left supraclinoid internal carotid artery is noted to touch and possibly minimally indents the left lateral aspect of the optic chiasm, although this is suspected to be incidental. The optic chiasm demonstrates normal T2-weighted signal intensity. The bilateral cavernous sinuses are unremarkable. No intracranial mass or suspicious abnormal enhancement is identified. Faint localized enhancement is centered in the right inferior caudate head and adjacent anterior limb of the internal capsule, measuring 1.1 cm craniocaudal x 1.3 cm anteroposterior x 1.9 cm transverse. There is mild corresponding hypointensity on the susceptibility weighted sequence. No signal abnormality is present at this site on the remaining sequences, however. There is no associated mass effect or parenchymal volume loss at this site. 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 A few subtle scattered FLAIR hyperintense foci in the bilateral supratentorial white matter are nonspecific, but likely reflect minimal chronic microangiopathic change in this 82-year-old patient. A small focus of susceptibility effect in the right posterior frontal wakefield radiata, without adjacent parenchymal edema, is consistent with a site of old microhemorrhage. The brain parenchyma otherwise demonstrates normal signal intensity. There is no evidence of an acute infarct. No acute intracranial hemorrhage is identified. There is mild to moderate generalized cerebral volume loss, in keeping with the patient's age. No superimposed hydrocephalus is evident. The major intracranial vascular flow voids are visualized. The mastoid air cells and paranasal sinuses are well aerated. Bilateral ocular lens implants are incidentally noted. Impression: 1. Empty sella, which can be [...] acute intracranial hemorrhage. 7. Incidental capillary telangiectasia. Primary Interpreting Staff: STEVIE GUTIERREZ MD, RADIOLOGIST (Gaming Investigator) /[facility] STEVIE GUTIERREZ [facility] Pathology Reports: +/- 30 days of the encounter Pathology Reports For cases when an order for pathology services may have been completed prior to the date of the Encounter, the report list includes the Pathology Reports that were completed up to 30 days before dateof the Encounter. For cases when an order for pathology services may have been completed after the date of the Encounter, the report list also includes the Pathology Reports that were completed up to30 days after date of the Encounter. The data comes from all [place] treatment facilities. Date/Time Pathology Report Provider Source Sep 11, 2023 11:37 AM LR SURGICAL PATHOL OGY REPORT: LOCAL TITLE: LR SURGICAL PATHOLOGY REPORT STANDARD TITLE: PATHOLOGY REPORT DATE OF NOTE: SEP 11, 2023@11:37:11 ENTRY DATE: SEP 11, 2023@11:37:11 AUTHOR: EDINSON SQUIRES EXP COSIGNER: URGENCY: STATUS: COMPLETED $APHDR Reporting Lab: [facility] [CLIA# [id number]] [place] [address] - - - - - - - - - - - - - - - - - - - - - - - - - - - - - - - - - - - - - - - - MEDICAL RECORD SURGICAL PATHOLOGY - - - - - - - - - - - - - - - - - - - - - - - - - - - - - - - - - - - - - - - - PATHOLOGY REPORT Accession No. [id number] - - - - - - - - - - - - - - - - - - - - - - - - - - - - - - - - - - - - - - - - $TEXT Submitted by: Date obtained: Sep 08, 2023 - - - - - - - - - - - - - - - - - - - - - - - - - - - - - - - - - - - - - - - - Specimen (Received Sep 09, 2023 08:58): VERTEX SCALP - - - - - - - - - - - - - - - - - - - - - - - - - - - - - - - - - - - - - - - - BRIEF CLINICAL HISTORY: Procedure: shave - - - - - - - - - - - - - - - - - - - - - - - - - - - - - - - - - - - - - - - - PREOPERATIVE DIAGNOSIS: R/O SCC - - - - - - - - - - - - - - - - - - - - - - - - - - - - - - - - - - - - - - - - OPERATIVE FINDINGS: - - - - - - - - - - - - - - - - - - - - - - - - - - - - - - - - - - - - - - - - POSTOPERATIVE DIAGNOSIS: Surgeon/physician: ISAIAH DIXON =-=-=-=-=-=-=-=-=-=-=-=-=- =-=-=-=-=-=-=-=-=-=-=-=-=- =-=-=-=-=-=-=-=-=-=-=-=-=- = - - - - - - - - - - - - - - - - - - - - - - - - - - - - - - - - - - - - - - - - PATHOLOGY REPORT Accession No. [id number] - - - - - - - - - - - - - - - - - - - - - - - - - - - - - - - - - - - - - - - - GROSS DESCRIPTION: The requisition form and specimen(s) identification is confirmed. The specimen is labeled as vertex scalp and consists of a shave biopsy of scaly ortiz skin measuring 0.7 x 0.6 x 0.1 cm. The specimen is inked. CE (D) [facility]/ MICROSCOPIC DESCRIPTION: Microscopic examination performed. Deeper levels were obtained. This case was seen in consultation by Dr. Aris Tanner, dermatopathologist. RS. 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 - No evidence of carcinoma /eda/ EDINSON SQUIRES STAFF PATHOLOGIST, PATHOLOGY & LABORATORY [facility] Signed Sep 11, 2023@11:37 Performing Laboratory: Surgical Pathology Report Performed By: [facility] [CLIA# [id number]] [place] [address] $FTR - - - - - - - - - - - - - - - - - - - - - - - - - - - - - - - - - - - - - - - - (End of report) EDINSON SQUIRES MD s Date Sep 10, 2023 - - - - - - - - - - - - - - - - - - - - - - - - - - - - - - - - - - - - - - - - NENA LANGE STANDARD FORM 515 ID:[id number] SEX:M :1940 AGE: 82 LOC:1068 PCP: Frida Jo NP /eda/ EDINSON SQUIRES STAFF PATHOLOGIST, PATHOLOGY & LABORATORY [facility] Signed: 09/11/2023 11:37 EDINSON SQUIRES [facility] Encounter Notes: All associated encounter notes This section contains the clinical notes associated to the Encounter. Date/Time Encounter Note(s) Provider Source Sep 11, 2023 01:01 PM [facility] NOTE: LOCAL TITLE: [facility] APPOINTMENT LETTER (AUTOPRINT) STANDARD TITLE: [facility] NOTE DATE OF NOTE: SEP 11, 2023@13:01 ENTRY DATE: SEP 11, 2023@13:01:24 AUTHOR: ISAIAH DIXON EXP COSIGNER: URGENCY: STATUS: [facility] [place] [address] Aug NENA LANGE [address] [facility] [address] [place]: I am writing to inform you of the results of the tests you had done at the [facility]. The tests below were performed and are satisfactory unless otherwise noted. The biopsy performed on your scalp was a benign lichenoid keratosis which is a benign thickening of the top layer of the skin. There is nothing else that needs to be done at this time. We will see you for you regularly scheduled skin exam, sooner with any new concerns or complaints. Dr. Dixon (Dermatology Resident) Staffed with Staff Recreation Engineer, Dr. Hill /eda/ ISAIAH DIXONDO RESIDENT, DERM Signed: 09/11/2023 13:02 ISAIAH DIXON [facility] Sep 08, 2023 04:11 PM DERMATOLOGY NURSIN G OUTPATIENT NOTE: LOCAL TITLE: DERMATOLOGY CLINIC NURSING NOTE STANDARD TITLE: DERMATOLOGY NURSING OUTPATIENT NOTE DATE OF NOTE: SEP 08, 2023@16:11 ENTRY DATE: SEP 08, 2023@16:11:07 AUTHOR: CONSUELO UNDERWOOD EXP COSIGNER: URGENCY: STATUS: COMPLETED Dermatology Clinic Nursing Note Allergies: AMLODIPINE (Jun 17, 2021) No new Allergies. Post Procedure Nursing Note Vaseline, band-aid applied to biospy site on the vertex scalp. This bandage should be kept clean and dry for 1 day. After 1 day the bandage can be removed and the biospy site should be gently cleaned once per day with mild soap and water, patted dry, then covered with vaseline and a bandage. Daily cleaning and dressing changes should be done until skin is fully healed. No other products should be used on the biopsy site i.e., hydrogen peroxide, rubbing alcohol, skin oils, creams, prescriptions until the area is completely healed. Educational Screening: Barriers to Learning/Special Needs: No Barriers Identified Preferred Style of Learning: No preference stated Teaching Strategy: 1:1 Written/printed material Instruction: Patient/family/caregiver instructed in standard Post-Biopsy wound care. Printed instruction sheet provided for home reference: Skin Biopsy Patient Instruction Understanding: Patient/family/caregiver: Able to verbalize understanding. 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 - patient has had itching worsening for about 9 months - reports trying various topicals with minimal relief - reports that menthol causes his to feel flushed - he also reports intermittent redness and flushing to skin which seems unprompted - PCP is working this up - also reports crusty pink spots to the back that are itching - Personal history of skin cancer: none known - Family history of skin cancer: no history of melanoma known - Denies other lesions that are tender, non-healing or bleeding. OBJECTIVE: GEN: A&O x3. No acute distress. SKIN: UBSE of the head, neck, chest, abdomen, back, bilateral upper extremities, and hands was performed and notable for the following significant findings: - On the vertex scalp there is a small excoriated papule, minimally tender to palpation, no obvious vasculature on dermoscopy - On the trunk and extremities, there are scattered flesh-colored to brown, waxy, stuck-on papules and plaques - many on back in areas of itching - On the trunk and extremities with accentuation in sun-exposed areas, there are light brown macules with uniform appearance. 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 - current tx: gabapentin, pramoxine topically, vanicream BID - prior tx: camphor, cerave antiitch # [facility] - ketoconazole shampoo TIW # NUB, vertex scalp, s/p shave as below 09/08/23 - rule out SCC vs trauma vs folliculitis # Benign skin findings - Seborrheic keratoses - Solar lentigines - Doyle hemangiomas - Clinically benign melanocytic nevi - Reassured of benign etiology - ABCDEs of melanoma discussed - Encouraged sunscreen and sun protective behaviors PROCEDURES SHAVE BIOPSY PRODEDURE NOTE: vertex scalp A time-out was taken prior to the procedure to verify correct patient, correct site(s) and correct procedure. After verifying patients identification and obtaining verbal informed consent, including discussions of the risks of bleeding, infection, and scarring, the lesion(s) was cleansed with an alcohol swab then injected with 1% lidocaine with epinephrine. A Ovi blade and/or Dermablade was used to shave the lesion(s). Specimen(s) was labeled and sent to pathology in formalin. Aluminum chloride was applied for chemical cauterization. Petrolatum and bandaid were applied to the biopsy site(s). Post-biopsy wound care was discussed in detail. RTC 3 months for follow up pruritis. Dr. Lopez saw and evaluated the patient with me, and agrees with the findings, assessment and plan as outlined. Dr. Lopez was available during the entire clinic visit, providing medically necessary supervision, and ready to perform any service required as the traveling accountant. 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
--- OUTSIDE RECORDS SUMMARY | 2024-08-05 04:36 | XMS_ITS | Encounter Summary ---
Author Name [facility] [place] [facility] [place] Address [address] [place] [address] Care Team Providers Care Adult Protective Caseworker Name Role Phone DARIN BURGESS Primary Care [...] PRESCRIPT ION DODA Nov 13, 2004 DODA [id number] PARRISH LANGE PATIENT EXPRESS SCRIPTS (WNR) PRESCRIPT ION TRICA RE (WNR) Nov 13, 2004 (WNR) [id number] [phone] PARRISH LANGE PATIENT MEDICARE (WNR) MEDICARE (M) PART A Sep 14, 2007 PART A [id number] NAZARIO,DA JUAN PATIENT MEDICARE (WNR) MEDICARE (M) PART B Sep 14, 2007 PART B [id number] NAZARIO,DA JUAN PATIENT MEDICARE (WNR) MEDICARE (M) PART A Sep 14, 2007 PART A [id number] NAZARIO,DA JUAN PATIENT MEDICARE (WNR) MEDICARE (M) PART B Sep 14, 2007 PART B [id number] NAZARIO,DA JUAN PATIENT MEDICARE (WNR) MEDICARE (M) PART B Sep 14, 2007 PART B [id number] NAZARIO,DA JUAN PATIENT MEDICARE (WNR) MEDICARE (M) PART A Sep 14, 2007 PART A [id number] NAZARIO,DA JUAN PATIENT MEDICARE (WNR) MEDICARE (M) PART A Sep 14, 2007 PART A [id number] NAZARIO,DA JUAN PATIENT MEDICARE (WNR) MEDICARE (M) PART B Sep 14, 2007 PART B [id number] NAZARIO,DA JUAN PATIENT MEDICARE (WNR) MEDICARE (M) PART A Sep 14, 2007 PART A [id number] NAZARIO,DA JUAN PATIENT MEDICARE (WNR) MEDICARE (M) PART B Sep 14, 2007 PART B [id number] NAZARIO,DA JUAN PATIENT FOR LIFE TRICA RE FOR LIFE Mar 15, 2004 FOR LIFE [id number] NAZARIO,DA JUAN PATIENT [facility] 2024 SELEC T WNR Jun 15, 2024 [facility] [id number] KOEING,DA JUAN PATIENT -FO R-LIFE TRICA RE FOR LIFE WNR Nov 27, 2015 FOR LIFE [id number] NAZARIO,DA JUAN PATIENT -FO R-LIFE TRICA RE FOR LIFE WNR Nov 23, 2015 FOR LIFE [id number] NAZARIO,DA JUAN PATIENT Selected Encounter This section includes the information on record at [place] for the Encounter. Date/Time Encounter Type Encounter Description Reason Provider Source Aug 05, 2023 02:30 PM OFFICE O/P [place] 60 MIN NEUROLOGY ICD-10-CM G60.3 Idiopathic progressive neuropathy ALEKS GILBERT Evelyn Encounter Template Text not used by [place] Assessments - Encounter Diagnoses This section includes the primary and secondary diagnoses documented for the Encounter. Date/Time Primary/Secondary Diagnosis Diagnosis Name Provider Source Aug 05, 2023 07:49 PM PRIMARY Idiopathic progressive neuropathy [facility] RY[facility] Aug 05, 2023 07:49 PM SECONDARY Athscl heart disease of [place] coronary artery w/o ang pctrs [facility] Aug 05, 2023 07:49 PM SECONDARY Cerebral aneurysm, nonruptured [facility] Aug 05, 2023 07:49 PM SECONDARY Chronic kidney disease, stage 3a [facility] Aug 05, 2023 07:49 PM SECONDARY Chronic obstructive pulmonary disease, unspecified [facility] Aug 05, 2023 07:49 PM SECONDARY Solitary pulmonary nodule [facility] Plan of Treatment: Future Appointments (+ 6 months) and Future Tests (+/- 45 days) The Plan of Treatment section includes future care activities for the patient from [facility] [place] [facility] This section includes future appointments and future orders which are active, pending or scheduled. Future Appointments This section includes appointments that were scheduled to occur 6 months from the date of the Encounter, up to a maximum of 20 appointments. The data comes from all [facility]. Appointment Date/Time Appointment Type Appointme nt Facility Name Aug 21, 2023 10:30 AM AMBULATORY - MEDICINE [facility] Aug 21, 2023 11:45 AM AMBULATORY - MEDICINE [facility] Aug 21, 2023 12:30 PM AMBULATORY - MEDICINE [facility] Aug 31, 2023 02:00 PM AMBULATORY - REHAB MEDICIN E [facility] Sep 08, 2023 03:00 PM AMBULATORY - SURGERY [place] [facility] Sep 10, 2023 07:45 PM AMBULATORY - NONE [place] [facility] Sep 12, 2023 04:45 PM [facility]BULATORY - NONE [place] [facility] Sep 22, 2023 02:00 PM [facility] October 27, 2023 02:00 PM [facility]ORY - NONE [place] [facility] November 11, 2023 03:30 PM AMBULATORY - REHAB MEDICIN E [facility] Dec 01, 2023 12:00 PM AMBULATORY - NONE [place] [facility] Dec 04, 2023 09:30 AM [place]ORY [place] NONE [place] [facility] Dec 04, 2023 10:30 AM [place]IC[place] [facility] Dec 25, 2023 12:15 PM AM[place]UL[place]ORY - NONE [place] [facility] Dec 31, 2023 01:00 PM AMBULATORY - REHAB MEDICIN E [facility] Dec 31, 2023 02:00 PM [facility] Active, Pending, and Scheduled Orders This section includes a listing of several types of active, pending, and scheduled orders, including clinic medications orders, diagnostic test orders, procedure orders and consult orders; where the start date of the order is 45 days before the date of the Encounter or 45 days after the date of theEncounter. The data comes from all [facility]. Test Date/Time Test Type Test Details Facility Name Jul 22, 2023 12:00 AM Laboratory - Chemistry Order COMPREHENSIVE METABOLIC PANEL+MG PLASMA [facility] Jul 22, 2023 12:00 AM Laboratory - Chemistry Order CBC BLOOD [facility] Jul 22, 2023 12:00 AM Laboratory - Chemistry Order PSA SERUM [facility] Jul 22, 2023 12:00 AM Laboratory - Chemistry Order TSH W/REFLEX TO FREE T4 PLASMA [facility] Jul 22, 2023 12:00 AM Laboratory - Chemistry Order LIPID PANEL,NON-FASTING PLASMA [facility] Jul 22, 2023 12:00 AM Laboratory - Chemistry Order URIC ACID PLASMA SP [facility] Sep 07, 2023 12:00 AM Laboratory - Chemistry Order TSH W/REFLEX TO FREE T4 PLASMA [facility] Sep 07, 2023 12:00 AM Laboratory - Chemistry Order FREE-T4 PLASMA [facility] Lab Results: +/- 30 days of [...] Result - Unit Interpretation Reference Range Comment Aug 31, 2023 04:06 PM [facility] 5-WCIL-UCZLE, TIMED Specimen Type: URINE Comment: This test was developed and its analytical performance characteristics have been determined by [employer]. It has not been cleared or approved by FDA. This assay has been validated pursuant to the CLIA regulations and is used for clinical purposes. Test performed by [employer] [address] [place] [address] Cooking Instructor: Taylor Colon MD,PHD,SHUBHAM Test Reported by [facility], [employer] [facility], [address] [place] [address] Nacho De Leon M.D., Ph.D., Director of Laboratories , CLIA [id number] Ordering Provider: MILADIS GALINDO Report Released Date/Time: Aug 21, 2023 11:32 AM Reporting Lab: [facility] ONE [facility] [address] Performing Lab: [address] 5-HIAA 8.3 H <=6.0 .TOTAL VOLUME 1100 mL .CREATININE,24H R UR 1.13 0.50-2.15 Aug 31, 2023 04:06 PM [facility] METANEPHRINES FRACTIONATED URINE Specimen Type: URINE, TIMED Comment: This test was developed and its analytical performance characteristics have been determined by [employer] [place], [place]. It has not been cleared or approved by the U.S. Food and Drug Administration. This assay has been validated pursuant to the CLIA regulations and is used for clinical purposes. This test was developed and its analytical performance characteristics have been determined by [employer] [place]. It has not been cleared or approved by the U.S. Food and Drug Administration. This assay has been validated pursuant to the CLIA regulations and is used for clinical purposes. A four fold elevation of urinary normetanephrine s is extremely likely to be due to a tumor, while a four fold elevation of urinary metanephrines is highly suggestive, but not diagnostic of the tumor. Measurement of plasma Metanephrines and Chromogranin A is recommended for confirmation. Test Performed by [employer] [place], [address] [place] [address] Nacho De Leon M.D., Ph.D., Director of Laboratories , CLIA [id number] Ordering Provider: MILADIS GALINDO Report Released Date/Time: Aug 21, 2023 11:32 AM Reporting Lab: [facility] [address] Performing Lab: [address] .NORMETANEPHRIN E,U 375 122-676 .METANEPHRINE,U 37 L 90-315 .METANEPHRINES, TOTAL 412 224-832 .TOTAL VOLUME 1100 mL Aug 21, 2023 11:54 AM [facility] TRYPTASE Specimen Type: SERUM Comment: REFERENCE RANGE: <11.0 mcg/L The Tryptase test, fluorescent enzyme immunoassay (FEIA), measures both the Alpha and Beta forms of Tryptase. Measuring both forms of Tryptase increases sensitivity for the diagnosis of mastocytosis, and mast cell degranulation as a cause of anaphylaxis. Test Performed by [employer] [facility], [address] [place] [address] Nacho De Leon M.D., Ph.D., Director of Laboratories , CLIA [id number] Ordering Provider: MILADIS GALINDO Report Released Date/Time: Aug 21, 2023 11:32 AM Reporting Lab: [facility] [phone] Performing Lab: [address] TRYPTASE 7.8 ug/L SEE BELOW Aug 21, 2023 11:54 AM [facility] TSH W/REFLEX TO FREE T4 Specimen Type: PLASMA No comment entered. Ordering Provider: MILADIS GALINDO Report Released Date/Time: Aug 21, 2023 11:32 AM Reporting Lab: [facility] [phone] Performing Lab: [facility] [address] TSH 2.40 u[IU]/mL 0.35-4.94 Aug 21, 2023 11:53 AM [facility] TESTOSTERONE Specimen Type: SERUM No comment entered. Ordering Provider: MILADIS GALINDO Report Released Date/Time: Aug 21, 2023 11:32 AM Reporting Lab: [facility] [phone] Performing Lab: [facility] [address] TESTOSTERONE 436 ng/dL [phone] Aug 21, 2023 11:53 AM [facility] PROLACTIN Specimen Type: PLASMA No comment entered. Ordering Provider: MILADIS GALINDO Report Released Date/Time: Aug 21, 2023 11:32 AM Reporting Lab: [facility] [phone] Performing Lab: [facility] [address] PROLACTIN 10.02 ng/mL <19.40 Aug 21, 2023 11:53 AM [facility] LUTEINIZING HORMONE Specimen Type: SERUM No comment entered. Ordering Provider: MILADIS GALINDO Report Released Date/Time: Aug 21, 2023 11:32 AM Reporting Lab: [facility] [address] Performing Lab: [facility] [address] LUTEINIZING HORMONE 18.32 m[IU]/mL H 0.57-12.07 Aug 21, 2023 11:53 AM [facility] FSH Specimen Type: PLASMA No comment entered. Ordering Provider: MILADIS GALINDO Report Released Date/Time: Aug 21, 2023 02:29 PM Reporting Lab: [facility] [phone] Performing Lab: [facility] [address] FSH 42.98 m[IU]/mL H 0.95-11.95 Aug 05, 2023 03:48 PM [facility] VASCULAR ENDOTHELIAL GROWTH FACTOR Specimen Type: PLASMA Comment: This test was performed using a kit that has not been cleared or approved by the FDA. The analytical performance characteristics of this test have been determined by [employer] [facility]. This test should not be used for diagnosis without confirmation by other medically established means. Test performed by [employer] [facility] [address] [facility] [place] [address] Cooking Instructor: Taylor Colon MD,PHD,SHUBHAM Test Rep[facility] by [facility] [employer] [facility], [address] [place], [place] Nacho De Leon M.D., Ph.D., Director of Laboratories , CLIA [id number] Ordering Provider: LEO RYAN Report Released Date/Time: Aug 05, 2023 03:22 PM Reporting Lab: [facility] ONE [facility] [address] Performing Lab: [address] .VASC ENDO GF, PASQUALE 98 pg/mL H -Aug 05, 2023 03:48 PM [facility] ANTI-HU,NEURONAL NUCLEAR AB Specimen Type: SERUM Comment: normalcy status - Abnormal NOTE: THIS RESULT IS FLAGGED ABNORMAL FLUORESCENCE NOTED Nuclear fluorescence noted on Anti-Hu Antibody screen. Hu Western Blot performed to confirm presence of Hu Antibody. Western Blot results were negative. No further testing performed. Neuronal nuclear (Hu) antibody is present in patients with various neurological symptoms including two paraneoplastic syndromes: sensory neuropathy (PSN) and encephalomyelit is (PEM). The presence of Hu antibody strongly suggests underlying small cell lung carcinoma (SCLC). Hu antibody is identified by IFA and confirmed by Western Blot. A negative result does not exclude the possibility of a SCLC or other malignant tumor. This test was developed and its analytical performance characteristics have been determined by [employer]. It has not been cleared or approved by FDA. This assay has been validated pursuant to the CLIA regulations and is used for clinical purposes. Test performed by [facility] [facility] [address] [place] [address] Cooking Instructor: Taylor Colon MD,PHD,SHUBHAM Test Reported by [facility] [employer] [place], [address] [place], [place] Nacho De Leon M.D., Ph.D., Director of Laboratories , CLIA [id number] This test was developed and its analytical performance characteristics have been determined by [employer]. It has not been cleared or approved by FDA. This assay has been validated pursuant to the CLIA regulations and is used for clinical purposes. Test performed by [employer] [facility] [address] [place] [address] Cooking Instructor: Taylor Colon MD,PHD,SHUBHAM Ordering Provider: LEO RYAN Report Released Date/Time: Aug 05, 2023 03:22 PM Reporting Lab: [facility] [phone] Performing Lab: [address] .ANTI-HU,IFA SEE NOTE .ANTI-HU,AKI N BLOT NEGATIVE NEGATIVE Aug 05, 2023 03:48 PM [facility] ENCEPHALOPATHY/PARANEOPLASTIC EVAL, S Specimen Type: SERUM Comment: No informative autoantibodies were detected in this evaluation. However, a negative result does not exclude autoimmune encephalopathy, idiopathic, or paraneoplastic. Sensitivity and specificity are enhanced by testing both serum and CSF. Ordering Provider: LEO RYAN Report Released Date/Time: Aug 05, 2023 03:22 PM Reporting Lab: [facility] [phone] Performing Lab: [facility] [address] [facility] [address] .N-TYPE CA PATINO AB NOT PERFORMED nmol/L <0.03 .P/Q-TYPE CA PATINO AB NOT PERFORMED nmol/L <0.02 .PURKINJE CYTO-Tr Negative {titer} .CRMP-5-IGG Negative {titer} .ANTINEURO NUCL AB-3 Negative {titer} .PURKINJE CYTO AB-2 Negative {titer} .ANTINEURO NUCL AB-1 Negative {titer} .ANTINEURO NUCL AB-2 Negative {titer} .PURKINJE CYTO AB-1 Negative {titer} .AMPHIPHYSIN AB Negative {titer} .AChR GANGL NEURO AB NOT PERFORMED nmol/L <0.02 .ANTIGLIAL NUCL AB-1 Negative {titer} .NMDA-R AB CBA Negative .GAD65 AB ASSAY 0.00 nmol/L <0.02 .VIVI-B-R AB CBA Negative .AMPA-R AB CBA Negative .LGI-1-IGG CBA Negative .CASPR2-IGG CBA Negative .DPPX AB IFA Negative .mGluR1 AB IFA Negative .GFAP IFA Negative .IGLON5 IFA, S Negative Negative .NIF IFA, S Negative Negative .NEUROCHDRN IFA, S Negative Negative .SEPTIN-7 IFA, S Negative Negative Aug 05, 2023 03:48 PM [facility] VITAMIN B-6 Specimen Type: PLASMA Comment: Vitamin supplementation within 24 hours prior to blood draw may affect the accuracy of the results. This test was developed and its analytical performance characteristics have been determined by [employer] [place]. It has not been cleared or approved by the U.S. Food and Drug Administration. This assay has been validated pursuant to the CLIA regulations and is used for clinical purposes. Test Performed by [facility] [place], [address] [place] [address] Nacho De Leon M.D., Ph.D., Director of Laboratories , CLIA [id number] Ordering Provider: LEO RYAN Report Released Date/Time: Aug 05, 2023 03:22 PM Reporting Lab: [place] [phone] Performing Lab: [address] VITAMIN B-6 4.0 ng/mL 2.1-21.7 Aug 05, 2023 03:48 PM [facility] CRYOGLOBULIN QUANT w REFLEX Specimen Type: SERUM No comment entered. Ordering Provider: LEO RYAN Report Released Date/Time: Aug 05, 2023 03:22 PM Reporting Lab: [facility] [phone] Performing Lab: [facility] [address] .CRYO INTERPRETATION NEGATIVE Negative Aug 05, 2023 03:48 PM [facility] ANTI-MOHSEN PANEL([employer]) Specimen Type: SERUM Comment: Reference Range: < 1.0 NEG AI Reference Range: < 1.0 NEG AI Reference Range: < 1.0 NEG AI Reference Range: < 1.0 NEG AI Reference Range: < 1.0 NEG AI Reference Range: < 1.0 NEG AI Test Performed by [employer] [place], [address] [place] [address] Nacho De Leon M.D., Ph.D., Director of Laboratories , CLIA [id number] Ordering Provider: LEO RYAN Report Released Date/Time: Aug 05, 2023 03:22 PM Reporting Lab: [facility] [phone] Performing Lab: [address] ANTI-NAYAK <1.0 ANTI-DRAFTER CIVIL (CAD) <1.0 ANTI-SSA/RO <1.0 ANTI-SSB/LA <1.0 ANTI-SCL-70 <1.0 ANTI-MANINDER-1 <1.0 Aug 05, 2023 03:48 PM [facility] INEZ WITH REFLEX TO MOHSEN/DNA Specimen Type: SERUM Comment: Anti-dsDNA testing by IFA was performed on this sample. [id number] Sample sent to reference laboratory for MOHSEN testing. QU [id number] Ordering Provider: LEO RYAN Report Released Date/Time: Aug 05, 2023 03:22 PM Reporting Lab: [facility] [phone] Performing Lab: [place] [id number] .ANTINUCLEAR HENRRY HOMOGENEOUS POSITIVE Negative .ROMELIA TITER 1:640 Aug 05, 2023 03:48 PM [facility] ARSENIC,BLOOD Specimen Type: BLOOD Comment: REFERENCE RANGE: <23 mcg/L Whole Blood Arsenic level >100 mcg/L is indicative of acute/chronic exposure. Urine is usually the best specimen for the analysis of arsenic in body fluids. Blood levels tend to be low even when urine concentrations are high This test was developed and its analytical performance characteristics have been determined by [employer] [place], [place]. It has not been cleared or approved by the U.S. Food and Drug Administration. This assay has been validated pursuant to the CLIA regulations and is used for clinical purposes. Test Performed by [employer], [employer] [facility] [place], [address] [place] [address] Nacho De Leon M.D., Ph.D., Director of Laboratories , CLIA [id number] Ordering Provider: LEO RYAN Report Released Date/Time: Aug 05, 2023 03:22 PM Reporting Lab: [facility] [address] Performing Lab: [address] [place] ARSENIC,BLOOD <3 ug/L SEE BELOW Aug 05, 2023 03:48 PM [facility] VITAMIN B-1,BLOOD Specimen Type: BLOOD Comment: Vitamin supplementation within 24 hours prior to blood draw may affect the accuracy of the results. This test was developed and its analytical performance characteristics have been determined by [employer] [place], [place]. It has not been cleared or approved by the U.S. Food and Drug Administration. This assay has been validated pursuant to the CLIA regulations and is used for clinical purposes. Test Performed by [facility], [employer] [facility], [address] [place] [address] Nacho De Leon M.D., Ph.D., Director of Laboratories , CLIA [id number] Ordering Provider: LEO RYAN Report Released Date/Time: Aug 05, 2023 03:22 PM Reporting Lab: [facility] [phone] Performing Lab: [address] VITAMIN B-1,BLOOD 134 nmol/L 78-185 Aug 05, 2023 03:48 PM [facility] ANCA Specimen Type: SERUM Comment: ANCA CONF QU 24 [id number] Ordering Provider: LEO RYAN Report Released Date/Time: Aug 05, 2023 03:22 PM Reporting Lab: [facility] [phone] Performing Lab: [facility] [address] .CYTOPLASMIC ANCA NEGATIVE .PERINUCLEAR ANCA POSITIVE H .RADHA. ANCA TITER 1:320 Aug 05, 2023 03:48 PM [facility] HIV AG/AB SCREEN Specimen Type: SERUM No comment entered. Ordering Provider: LEO RYAN Report Released Date/Time: Aug 05, 2023 03:22 PM Reporting Lab: [facility] [address] Performing Lab: [facility] [address] HIV AG/AB SCREEN NEGATIVE NEGATIVE Aug 05, 2023 03:48 PM [facility] FOLATE Specimen Type: PLASMA No comment entered. Ordering Provider: LEO RYAN Report Released Date/Time: Aug 05, 2023 03:22 PM Reporting Lab: [facility] [phone] Performing Lab: [facility] [address] FOLATE 15.1 ng/mL >7.0 Aug 05, 2023 03:48 PM [facility] ANCA CONFIRMATORY EIA Specimen Type: SERUM Comment: REFERENCE RANGE: <1.0 AI Value Interpretation <1.0 AI: No Antibody Detected >or=1.0 AI: Antibody Detected Autoantibodies to myeloperoxidase (MPO) are commonly associated with the following small-vessel vasculitides: microscopic polyangiitis, polyarteritis nodosa, Churg-Robyn syndrome, necrotizing and crescentic glomerulonephri tis and occasionally granulomatosis with polyangiitis (GPA, Ilia's). The perinuclear IFA pattern, (p-ANCA) is based largely on autoantibody to myeloperoxidase which serves as the primary antigen. These autoantibodies are present in active disease. REFERENCE RANGE: <1.0 AI Value Interpretation <1.0 AI: No Antibody Detected >or=1.0 AI: Antibody Detected Autoantibodies to proteinase-3 (IL-3) are accepted as characteristic for granulomatosis with polyangiitis (GPA, Ilia's), and are detectable in 95% of the histologically proven cases. The cytoplasmic IFA pattern, (c-ANCA), is based largely on autoantibody to IL-3 which serves as the primary antigen. These autoantibodies are present in active disease. Test Performed by [facility], [employer] [facility], [address] [place] [address] Nacho De Leon M.D., Ph.D., Director of Laboratories , [facility] [id number] Ordering Provider: LEO RYAN Report Released Date/Time: Aug 10, 2023 12:11 PM Reporting Lab: [facility] [phone] Performing Lab: [address] .MYELOPEROXIDAS E AB <1.0 SEE BELOW .PROTEINASE-3 AB <1.0 SEE BELOW Aug 05, 2023 03:48 PM [facility] ANTI-MOHSEN PANEL([employer]) Specimen Type: SERUM Comment: Reference Range: < 1.0 NEG AI Reference Range: < 1.0 NEG AI Reference Range: < 1.0 NEG AI Reference Range: < 1.0 NEG AI Reference Range: < 1.0 NEG AI Reference Range: < 1.0 NEG AI Test Performed by [facility], [employer] [facility], [id number] [place] [address] Nacho De Leon M.D., Ph.D., Director of Laboratories , [facility] [id number] Ordering Provider: LEO RYAN Report Released Date/Time: Aug 10, 2023 11:06 AM Reporting Lab: [facility] [address] Performing Lab: [facility] [id number] [place] [address] ANTI-NAYAK <1.0 ANTI-DRAFTER CIVIL (CAD) <1.0 ANTI-SSA/RO <1.0 ANTI-SSB/LA <1.0 ANTI-SCL-70 <1.0 ANTI-MANINDER-1 <1.0 Aug 05, 2023 03:48 PM [facility] ANTI-DNA ANTIBODY PANEL Specimen Type: SERUM No comment entered. Ordering Provider: LEO RYAN Report Released Date/Time: Aug 10, 2023 11:06 AM Reporting Lab: [facility] [phone] Performing Lab: [facility] [address] .ANTI-DNA ANTIBODY NEGATIVE Vital Signs: All taken on the encounter date This section contains inpatient and outpatient Vital Signs collected on the date of the Encounter. Date/Time Temperature Pulse Blood Pressure Respiratory Rate SP02 Pain Height Weight Body Mass Index Source Aug 05, 2023 02:21 PM 134/77 [facility] Aug 05, 2023 02:16 PM 97.3 79 151/79 16 92 [facility] Social History: Smoking Status (Most current) and Tobacco Use (All prior to encounter date) This section includes the most current, and the historical, smoking and tobacco- related health factors from the [place] facility where the Encounter took place. Current Smoking Status This section includes the most current smoking, or tobacco-related health factor, from the [place] facility where the Encounter took place. Date/Time Current Smoking Status Comment Jack chavez May 19, 2023 02:30 PM VA-TOBACCO FORMER USER [facility] Tobacco Use History This section includes a history of the smoking, or tobacco-related health factors, that were collected on or before the date of the Encounter. The data comes from the [place] facility where the Encounter took place. Date/Time Smoking Status/Tobacco Use Comment F acility May 19, 2023 02:30 PM VA-TOBACCO QUIT 15 YRS OR MORE [facility] May 13, 2022 11:30 AM VA-TOBACCO FORMER USER [facility] May 13, 2022 11:30 AM [place] 15 YRS OR MORE [facility] Jun 17, 2021 02:00 PM VA-TOBACCO NEVER USED [facility] Advance Directives: All historical and current Section Date Range: From patient's date of to the date document was created. This section includes ALL of a patient's completed or amended [place] Advance and Rescinded Directives. The entries below indicate that a directive exists for the patient, but an actual copy is not included with this document. The data comes from all [facility]. Date Advance Directives Provider Source Dec 19, 2022 ADVANCE DIRECTIVE DISCUSSION TIFF BURCH [facility] Dec 19, 2022 ADVANCE DIRECTIVE ABRIL BURCH [facility] Encounter Notes: All associated encounter notes This section contains the clinical notes associated to the Encounter. Date/Time Encounter Note(s) Provider Source Aug 05, 2023 02:23 PM PHYSICAL MEDICINE REHAB NURSING NOTE: LOCAL TITLE: REHAB MEDICINE CLINIC NURSING NOTE STANDARD TITLE: PHYSICAL MEDICINE REHAB NURSING NOTE DATE OF NOTE: AUG 05, 2023@14:23 ENTRY DATE: AUG 05, 2023@14:23:35 AUTHOR: ZEENAT PECK EXP COSIGNER: URGENCY: STATUS: COMPLETED Type of visit: Consultation Appointment Check In Reason for Visit: Neurology consultation Vital Signs: Blood Pressure: 134/77 (08/05/2023 14:21) Pulse: 79 (08/05/2023 14:16) Respiration: 16 (08/05/2023 14:16) Temperature: 97.3 F [36.3 C] (08/05/2023 14:16) Weight: 183.8 lb [83.37 kg] (06/05/2023 10:53) Height: 71 in [180.3 cm] (11/17/2022 13:41) BMI: 25.7 Pain: 0 (06/05/2023 10:53) Allergies: AMLODIPINE (Jun 17, 2021) Medications: Active Outpatient Medications and Supplies: Active Outpatient Medications (including Supplies): Active Outpatient Medications Status 1) ACETAMINOPHEN 500MG TAB TAKE TWO TABLETS BY MOUTH ACTIVE THREE TIMES A DAY NEEDED FOR PAIN 2) ALBUTEROL 90MCG (CFC-F) 200D ORAL INHL INHALE 2 PUFFS ACTIVE BY INHALATION EVERY 4 HOURS NEEDED FOR SHORTNESS OF BREATH 3) ALLOPURINOL 100MG TAB TAKE ONE TABLET BY MOUTH EVERY ACTIVE DAY GOUT PREVENTION/URIC ACID 4) CAMPHOR 0.5/MENTHOL 0.5% LOTION APPLY THIN LAYER ACTIVE TOPICALLY THREE TIMES A DAY NEEDED FOR ITCHING 5) FAMOTIDINE 20MG TAB TAKE ONE TABLET BY MOUTH EVERY ACTIVE DAY FOR HEARTBURN 6) GABAPENTIN 300MG CAP TAKE TWO CAPSULES BY MOUTH THREE ACTIVE (S) TIMES A DAY FOR PAIN AND NUMBNESS AFTER GRADUAL DOSE AUGMENTATION 7) HYDROCHLOROTHIAZIDE 25MG TAB TAKE ONE-HALF TABLET BY ACTIVE MOUTH EVERY DAY BLOOD PRESSURE MEDICATION 8) LIDOCAINE 5% PATCH APPLY ONE OR TWO PATCHES TOPICALLY ACTIVE EVERY DAY NEEDED FOR PAIN 9) LISINOPRIL 10MG TAB TAKE ONE TABLET BY MOUTH EVERY HOLD DAY FOR BLOOD PRESSURE DOSE DECREASED 08-21-22 10) LOPERAMIDE HCL 2MG CAP TAKE ONE CAPSULE BY MOUTH ACTIVE THREE TIMES A DAY FOR DIARRHEA 11) LORATADINE 10MG TAB TAKE ONE TABLET BY MOUTH EVERY ACTIVE DAY NEEDED FOR ALLERGIES 12) SERTRALINE HCL 25MG TAB TAKE ONE TABLET BY MOUTH ACTIVE EVERY DAY FOR DEPRESSION/ANXIETY 13) VANICREAM TOP CREAM APPLY THIN LAYER TOPICALLY TWICE ACTIVE A DAY FOR DRY SKIN Active Non-VA Medications Status 1) Non-VA ASPIRIN 81MG EC TAB 81MG MOUTH EVERY DAY ACTIVE 2) Non-VA CURCUMIN CAP 1 CAPSULE MOUTH NEEDED ACTIVE 15 Total Medications Patient reports the following changes regarding the current pharmacy list of medications: The above medication list confirmed with patient. A copy of the above medication list given to the MD for review and update. Provider will give printed copy of medication list to patient with any changes documented on printed medication list. /eda/ ZEENAT PECK LPN LICENSED PRACTICAL NURSE Signed: 08/05/2023 14:24 ZEENAT PECK [facility] Aug 05, 2023 12:41 PM NEUROLOGY CONSULT: LOCAL TITLE: NEUROLOGY CONSULT STANDARD TITLE: NEUROLOGY CONSULT DATE OF NOTE: AUG 05, 2023@12:41 ENTRY DATE: AUG 05, 2023@12:41:35 AUTHOR: COSTA RYAN COSIGNER: URGENCY: STATUS: COMPLETED NEUROLOGY CONSULT Has ADDENDA NEUROMUSCULAR CONSULT NOTE CC: Episodic pain and flushing of skin HISTORY OF PRESENT ILLNESS NENA LANGE is a 82yo MAN with PMH significant for hypertension, hyperlipidemia, [...] [place]. He presents to the neuromuscular clinic in consultation for episodes of systemic neuropathic pain associated with flushing. He presents with his , Mayte, who also helps provide history. As stated above, he had to intracranial aneurysms of his brain, the larger of the 2 was treated with an intracerebral stent with great relief and stability. He also has a known history of asbestos exposure but does not hold a diagnosis of mesothelioma at this time. Several CT scans show advanced pleural thickening, previously needing intervention in the right lung. He continues to have atelectasis and thickening of the pleura on CT scan. Finally, he also has significant history of thoracic spine injury from trauma during deployment in [place] with continued intermittent back spasms that have persisted throughout her life. He has chronic numbness on the bottoms of his feet, probably 6 to 7 years now and preceded the events below. Is new symptoms started about 2.5 years ago. His first episodic change occurred when he was watching television and otherwise resting when he started to get flushing throughout most of his skin including arms, legs, torso (including abdomen, chest, back) and neck, with rare involvement of the scalp. Almost immediately after this started, it would occur most days of the week. After a few months it was accompanied by itching and stinging or painful sensations of his skin. The sensation of clothes on his skin, especially wool, would make the stinging sensation worse. This was occasionally exacerbated by mood such as anxiety, anger, or being upset, but it certainly could happen independent of that. These episodes would last about 10 to 20 minutes before slowly resolving. He attempted to take aspirin, ibuprofen, or other ejek-ait-jctbgro analgesics without relief. Interestingly, his was taking gabapentin for neuropathic pain at that time and he took some of her medication and he had exquisite relief. He has since gotten his own prescription of gabapentin which has helped significantly. He now takes 600 mg TID which significantly helps prevent the intensity of the events although they can still happen most days. The flushing and painful sensations of his skin only happened and small patches on his torso usually if he remembers his gabapentin. Other new symptoms include spasms of both feet during small movements such as when going to bed or resting, this started about 6 months ago. This usually happens when he is stretching before after sleep and occurs almost all days. He now also has cramping of the calves and TA's bilaterally. 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 Other new symptoms include gynecomastia that is brand-new in the last 4 to 5 months and proven on recent mammography. The gynecomastia is also tender to touch. Otherwise, he denies any family history of sensory neuropathies or other painful syndromes. He denies history of chemotherapy, but has undergone radiation therapy to the pelvis for prostate cancer. Denies any known exposures to tuberculosis or leprosy. No history of diabetes. Denies taking excessive vitamins or multivitamins, did previously take 1 multivitamin daily but no longer does this. He thinks he eats a relatively well-balanced diet. No GI surgeries historically. Denies history of heavy metal exposure or welding. ROS: 10-point ROS completed and negative unless stated in HPI PAST MEDICAL/SURGICAL HISTORY: Active problems - Computerized Problem List is the source for the followin. HTN - Hypertension ([facility] [id number]) 2. Hyperlipidemia ([facility] [id number]) 3. Gout ([facility] [id number]) 4. Intracranial aneurysm - s/p stent/coil proceedure 5. GERD - Gastro-Esophageal Reflux Disease ([facility] [id number]) 6. Depression ([facility] [id number]) 7. Primary malignant neoplasm of prostate 8. Abdominal aortic aneurysm 9. Solitary nodule of lung 10. Insomnia 11. Chronic diarrhea 12. Chronic kidney disease stage 3A 13. COPD - Chronic obstructive pulmonary disease - Moderately severe 05/2022 PFTs 14. CAD - Coronary Artery Disease ([facility] [id number]) 15. History of myocardial infarction - STEMI 16. Low back pain 17. Neck pain ALLERGIES: AMLODIPINE (Jun 17, 2021) CURRENT MEDICATIONS: Active Outpatient Medications (including Supplies): Active Outpatient Medications Status 1) ACETAMINOPHEN 500MG TAB TAKE TWO TABLETS BY MOUTH ACTIVE THREE TIMES A DAY NEEDED FOR PAIN 2) ALBUTEROL 90MCG (CFC-F) 200D ORAL INHL INHALE 2 PUFFS ACTIVE BY INHALATION EVERY 4 HOURS NEEDED FOR SHORTNESS OF BREATH 3) ALLOPURINOL 100MG TAB TAKE ONE TABLET BY MOUTH EVERY ACTIVE DAY GOUT PREVENTION/URIC ACID 4) CAMPHOR 0.5/MENTHOL 0.5% LOTION APPLY THIN LAYER ACTIVE TOPICALLY THREE TIMES A DAY NEEDED FOR ITCHING 5) FAMOTIDINE 20MG TAB TAKE ONE TABLET BY MOUTH EVERY ACTIVE DAY FOR HEARTBURN 6) GABAPENTIN 300MG CAP TAKE TWO CAPSULES BY MOUTH THREE ACTIVE (S) TIMES A DAY FOR PAIN AND NUMBNESS AFTER GRADUAL DOSE AUGMENTATION 7) HYDROCHLOROTHIAZIDE 25MG TAB TAKE ONE-HALF TABLET BY ACTIVE MOUTH EVERY DAY BLOOD PRESSURE MEDICATION 8) LIDOCAINE 5% PATCH APPLY ONE OR TWO PATCHES TOPICALLY ACTIVE EVERY DAY NEEDED FOR PAIN 9) LISINOPRIL 10MG TAB TAKE ONE TABLET BY MOUTH EVERY HOLD DAY FOR BLOOD PRESSURE DOSE DECREASED 08-21-22 10) LOPERAMIDE HCL 2MG CAP TAKE ONE CAPSULE BY MOUTH ACTIVE THREE TIMES A DAY FOR DIARRHEA 11) LORATADINE 10MG TAB TAKE ONE TABLET BY MOUTH EVERY ACTIVE DAY NEEDED FOR ALLERGIES 12) SERTRALINE HCL 25MG TAB TAKE ONE TABLET BY MOUTH ACTIVE EVERY DAY FOR DEPRESSION/ANXIETY 13) VANICREAM TOP CREAM APPLY THIN LAYER TOPICALLY TWICE ACTIVE A DAY FOR DRY SKIN Active Non-VA Medications Status 1) Non-VA ASPIRIN 81MG EC TAB 81MG MOUTH EVERY DAY ACTIVE 2) Non-VA CURCUMIN CAP 1 CAPSULE MOUTH NEEDED ACTIVE 15 Total Medications EXAM General: Well-nourished, NAD, otherwise appropriate Head: [...] errors. No extinction or neglect. 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 box toe maker II - No visual field deficit III/IV/ [...] .TOTAL PROTEIN 7.1 g/dL 6.0 - 8.3 TSH 1.98 uIU/mL 0.35 - 4.94 ANTI-NAYAK <1.0 ANTI-DRAFTER CIVIL (CAD) <1.0 ANTI-SSA/RO <1.0 ANTI-SSB/LA <1.0 ANTI-SCL-70 <1.0 ANTI-MANINDER-1 <1.0 .CYTOPLASMIC ANCA NEGATIVE Ref: -neg- .PERINUCLEAR ANCA POSITIVE H Ref: -neg- .RADHA. ANCA TITER 1:320 Ref: <1:20 .ANTINUCLEAR HENRRY HOMOGENEOUS-POS Ref: Negative .ROMELIA TITER 1:160 Ref: TITER <1:80 Imaging: Bilateral mammography (06/18/23): Impression: No evidence of malignancy. Bilateral gynecomastia, right greater than left. Fat corresponding to palpable lumps in the lateral breasts bilaterally. ASSESSMENT & RECOMMENDATIONS IMPRESSION: NENA LANGE is a 82yo MAN with PMH significant for hypertension, hyperlipidemia, CKD, COPD, CAD complicated by STEMI, asbestos exposure with pleural thickening and severe atelectasis, intracranial aneurysm s/p stent in 2008 and has been stable since then, Prostate cancer s/p radiation therapy to the pelvis without need for chemotherapy, and history of chronic thoracic back pain 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 He presents with 2.5 years of episodic pain and flushing of the skin that is dramatically improved symptomatically with gabapentin. This can involve skin anywhere on the body but relatively spares palmar aspects of hands and feet, as well as scalp. New associated symptoms during this time include gynecomastia and cramping of his feet and ankles that he did not have previously. 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 He also has marked hyperreflexia of the knees, which may be attributable to his old thoracic injury. Differential diagnosis is broad, and may include other endocrine etiologies, such as serotonin syndrome. However from a neurologic standpoint we will consider things such as hereditary painful neuropathy, amyloidosis, metabolic, immune-mediated neuropathies, paraneoplasms, HIV, Sjogren's, POEMS, as well as others. PLAN: - Labs already completed include B12, MMA, SPEP/SUZIE, A1c, BMP, TSH - Labs today: Folate, B6, B1, HIV screen, cryoglobulin, ANCA, ROMELIA, ROMELIA, heavy metal arsenic screen, VEGF, anti-Hu, ENS2 Spencer panel to evaluate for CRMP5 and CSPR2. - Send out labs at a future date that would be very helpful include: - Autonomic antibodies (DYS2, Spencer), FGFR3, Trisulfated Heparin Disaccharide (TS-HDS) - MRI C and T-spine due to spastic catch and hyperreflexia - EMG of 1 arm and 1 leg to evaluate for large fiber neuropathy - Genetic consult to screen for TTR amyloidosis and hereditary sensory and autonomic neuropathies (HSANs) - Consider increasing gabapentin from 600 mg TID to 900 mg TID, although CKD may limit this titration - Consider endocrine consult due to gynecomastia and consideration of serotonin syndrome or other systemic reason for his symptoms Return to clinic in 3 months Patient discussed with neurology attending, Dr. Odilia Ryan MD Neuromuscular Fellow, PGY-5 /eda/ COSTA RYAN MD NEUROLOGY RESIDENT Signed: 08/05/2023 19:50 Receipt Acknowledged By: 09/15/2023 14:56 /eda/ ALEKS GILBERT STAFF NEUROLOGIST 08/12/2023 ADDENDUM STATUS: COMPLETED Test Name Result Units Range --------- ------ ----- ----- VITAMIN B-6 4.0 ng/mL 2.1 - 21.7 VITAMIN B-1,BLOOD 134 nmol/L 78 - 185 FOLATE 15.1 ng/mL Ref: >=7.0 ARSENIC,BLOOD <3 mcg/L Ref: SEE BELOW .CYTOPLASMIC ANCA NEGATIVE Ref: -neg- .PERINUCLEAR ANCA POSITIVE H Ref: -neg- .RADHA. ANCA TITER 1:320 Ref: <1:20 .CRYO INTERPRETATION NEGATIVE Ref: Negative .ANTINUCLEAR HENRRY HOMOGENEOUS-POS Ref: Negative .ROMELIA TITER 1:640 Ref: TITER <1:80 ANTI-NAYAK <1.0 ANTI-DRAFTER CIVIL (CAD) <1.0 ANTI-SSA/RO <1.0 ANTI-SSB/LA <1.0 ANTI-SCL-70 <1.0 ANTI-MANINDER-1 <1.0 .ANTI-DNA ANTIBODY NEGATIVE Ref: -neg- HIV AG/AB SCREEN NEGATIVE Ref: NEGATIVE *Pending labs include further MOHSEN testing, further ANCA testing, Paraneoplastic panel (ENS2), Anti-Hu, VEGF /es/ COSTA RYAN MD NEUROLOGY RESIDENT Signed: 08/12/2023 12:30 08/19/2023 ADDENDUM STATUS: COMPLETED Test Name Result Units Range --------- ------ [...] PASQUALE 98 H pg/mL 31 - 86 Plan: While the VEGF is elevated and could suggest a diagnosis of POEMS, in the absence of monoclonal gammopathy this is very unlikely. It may be related to the more systemic manifestations he is experiencing, but is not likely to be related to a neuromuscular diagnosis. I will await Endocrine referral to see if they have any other ideas, but the episodic nature and lack of persistent neuropathic findings suggests against a primary nerve problem. Another immune-mediated panel of dysautonomias through [facility] could be considered, but the yield is very low. /eda/ COSTA RYAN MD NEUROLOGY RESIDENT Signed: 08/19/2023 12:32 09/01/2023 ADDENDUM STATUS: COMPLETED NCS/EMG (08/31/23; Dr. Contreras): IMPRESSION: 1. Normal study. 2. There is no electrodiagnostic evidence of large fiber polyneuropathy, left upper extremity mononeuropathy, or left lower extremity mononeuropathy. /eda/ COSTA RYAN MD NEUROLOGY RESIDENT Signed: 09/01/2023 12:25 09/16/2023 ADDENDUM STATUS: COMPLETED MRI brain w/wo contrast (09/10/23): Impression: 1. [...] future, SSRIs like citalopram can be used. /eda/ COSTA RYAN MD NEUROLOGY RESIDENT Signed: 09/16/2023 11:48 COSTA RYAN [facility]
--- OUTSIDE RECORDS SUMMARY | 2024-08-05 04:36 | XMS_ITS | Encounter Summary ---
Author Name [facility] [place] [facility] [place] Address [address] [place] [address] Care Team Providers Care Chemical Process Engineer Name Role Phone DARIN BURGESS Primary Care [...] PRESCRIPT ION DODA Nov 13, 2004 DODA [id number] [phone] PARRISH LANGE PATIENT EXPRESS SCRIPTS (WNR) PRESCRIPT ION TRICA RE (WNR) Nov 13, 2004 (WNR) [id number] PARRISH LANGE PATIENT MEDICARE (WNR) MEDICARE (M) PART A Sep 14, 2007 PART A [id number] NAZARIO,DA JUAN PATIENT MEDICARE (WNR) MEDICARE (M) PART B Sep 14, 2007 PART B [id number] NAZARIO,DA JUAN PATIENT MEDICARE (WNR) MEDICARE (M) PART A Sep 14, 2007 PART A [id number] NAZARIO,DA JUAN PATIENT MEDICARE (WNR) MEDICARE (M) PART B Sep 14, 2007 PART B [id number] NAZARIO,DA JUAN PATIENT MEDICARE (WNR) MEDICARE (M) PART A Sep 14, 2007 PART A [id number] NAZARIO,DA JUAN PATIENT MEDICARE (WNR) MEDICARE (M) PART B Sep 14, 2007 PART B [id number] NAZARIO,DA JUAN PATIENT MEDICARE (WNR) MEDICARE (M) PART A Sep 14, 2007 PART A [id number] NAZARIO,DA JUAN PATIENT MEDICARE (WNR) MEDICARE (M) PART B Sep 14, 2007 PART B [id number] [phone] NAZARIO,DA JUAN PATIENT MEDICARE (WNR) MEDICARE (M) PART A Sep 14, 2007 PART A [id number] NAZARIO,DA JUAN PATIENT MEDICARE (WNR) MEDICARE (M) PART B Sep 14, 2007 PART B [id number] NAZARIO,DA JUAN PATIENT FOR LIFE TRICA RE FOR LIFE Mar 15, 2004 FOR LIFE [id number] NAZARIO,DA JUAN PATIENT [facility] 2024 SELEC T WNR Jun 15, 2024 [facility] [id number] KOEING,DA JUAN PATIENT -FO R-LIFE TRICA RE FOR LIFE WNR Nov 27, 2015 FOR LIFE [id number] NAZARIO,DA JUAN PATIENT -FO R-LIFE TRICA RE FOR LIFE WNR Nov 23, 2015 FOR LIFE [id number] PARRISH LANGE PATIENT Selected Encounter This section includes the information on record at [place] for the Encounter. 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 Date/Time Primary/Secondary Diagnosis Diagnosis Name Provider Source Sep 07, 2023 09:16 AM PRIMARY Benign neoplasm of unspecified breast FIDEL RUFF [facility] Sep 07, 2023 09:16 AM SECONDARY Generalized hyperhidrosis [facility] Plan of Treatment: Future Appointments (+ 6 months) and Future Tests (+/- 45 days) The Plan of Treatment section includes future care activities for the [facility] [place] [facility] This section includes future appointments and future orders which are active, pending or scheduled. Future Appointments This section includes appointments that were scheduled to occur 6 months from the date of the Encounter, up to a maximum of 20 appointments. The data comes from all [place] treatment facilities. Appointment Date/Time Appointment Type Appointme nt Facility Name Aug 31, 2023 02:00 PM AMBULATORY - REHAB MEDICIN E [facility] Sep 08, 2023 03:00 PM AMBULATORY - [place] [facility] Sep 10, 2023 07:45 PM AMBULATORY - NONE [place] [facility] Sep 12, 2023 04:45 PM AMBULATORY - NONE [place] [facility] Sep 22, 2023 02:00 PM AMBULATORY - [place]ICINE [place] [facility] October 27, 2023 02:00 PM AMBULATORY - NONE [place] [facility] November 11, 2023 03:30 PM AMBULATORY - REHAB MEDICIN E [facility] Dec 01, 2023 12:00 PM AMBULATORY - NONE [place] [facility] Dec 04, 2023 09:30 AM AMBULATORY - NONE [place] [facility] Dec 04, 2023 10:30 AM AMBULATORY - [place]ICINE [place] [facility] Dec 25, 2023 12:15 PM AMBULATORY - NONE [place] [facility] Dec 31, 2023 01:00 PM AMBULATORY - REHAB MEDICIN E [facility] Dec 31, 2023 02:00 PM AMBULATORY - NONE [place] [facility] Feb 10, 2024 01:00 PM AMBULATORY - MEDICINE JARRETT CARPIO [facility] Active, Pending, and Scheduled Orders This section includes a listing of several types of active, pending, and scheduled orders, including clinic medications orders, diagnostic test orders, procedure orders and consult orders; where the start date of the order is 45 days before the date of the Encounter or 45 days after the date of theEncounter. The data comes from all [place] treatment facilities. Test Date/Time Test Type Test Details Facility Name Jul 22, 2023 12:00 AM Laboratory - Chemistry Order COMPREHENSIVE METABOLIC PANEL+MG PLASMA [facility] Jul 22, 2023 12:00 AM Laboratory - Chemistry Order PSA SERUM [facility] Jul 22, 2023 12:00 AM Laboratory - Chemistry Order CBC BLOOD [facility] Jul 22, 2023 12:00 AM Laboratory - Chemistry Order TSH W/REFLEX TO FREE T4 PLASMA [facility] Jul 22, 2023 12:00 AM Laboratory - Chemistry Order LIPID PANEL,NON-FASTING PLASMA [facility] Jul 22, 2023 12:00 AM Laboratory - Chemistry Order URIC ACID PLASMA [facility] Sep 07, 2023 12:00 AM Laboratory - Chemistry Order TSH W/REFLEX TO FREE T4 PLASMA [facility] Sep 07, 2023 12:00 AM Laboratory - Chemistry Order FREE-T4 PLASMA [facility] Lab Results: +/- 30 days of the encounter This section includes the Chemistry and Hematology Lab Results on record with [place] for the patient. Radiology Reports and Pathology Reports are provided separately, in subsequent sections. Lab Results This section contains the Chemistry/Hematology Results that were resulted 30 days before or 30 daysafter the date of the Encounter. Date/Time Source Result Type Result - Unit Interpretation Reference Range Comment Aug 31, 2023 04:06 PM [facility] 6-[id number], TIMED Specimen Type: URINE Comment: This test was developed and its analytical performance characteristics have been determined by [facility]. It has not been cleared or approved by FDA. This assay has been validated pursuant to the CLIA regulations and is used for clinical purposes. Test performed by [facility] [address] [place] [address] Identifier Horse: Taylor Colon MD,PHD,SHUBHAM Test Reported by [facility] [employer], [address] [place] [address] Nacho De Leon M.D., Ph.D., Director of Laboratories , CLIA [id number] Ordering Provider: MILADIS GALINDO Report Released Date/Time: Aug 21, 2023 11:32 AM Reporting Lab: [facility] [phone] Performing Lab: [address] 5-HIAA 8.3 H <=6.0 .TOTAL VOLUME 1100 mL .CREATININE,24H R UR 1.13 0.50-2.15 Aug 31, 2023 04:06 PM [facility] METANEPHRINES FRACTIONATED URINE Specimen Type: URINE, TIMED Comment: This test was developed and its analytical performance characteristics have been determined by [facility] [place]. It has not been cleared or approved by the U.S. Food and Drug Administration. This assay has been validated pursuant to the CLIA regulations and is used for clinical purposes. This test was developed and its analytical performance characteristics have been determined by [facility] [place]. It has not been cleared or [...] is recommended for confirmation. Test Performed by [facility] [place], [employer], [address] [place] [address] Nacho De Leon M.D., Ph.D., Director of Laboratories , CLIA [id number] Ordering Provider: MILADIS GALINDO Report Released Date/Time: Aug 21, 2023 11:32 AM Reporting Lab: [facility] [address] Performing Lab: [address] .NORMETANEPHRIN E,U 375 122-676 .METANEPHRINE,U 37 L 90-315 .METANEPHRINES, TOTAL 412 224-832 .TOTAL VOLUME 1100 mL Aug 21, 2023 11:54 AM [facility] TRYPTASE Specimen Type: SERUM Comment: REFERENCE RANGE: <11.0 mcg/L The Tryptase test, fluorescent enzyme immunoassay (FEIA), measures both the Alpha and Beta forms of Tryptase. Measuring both forms of Tryptase increases sensitivity for the diagnosis of mastocytosis, and mast cell degranulation as a cause of anaphylaxis. Test Performed by [facility], [facility], [address] [place] [address] Nacho De Leon M.D., Ph.D., Director of Laboratories , [facility] [id number] Ordering Provider: MILADIS GALINDO Report Released Date/Time: Aug 21, 2023 11:32 AM Reporting Lab: [facility] [phone] Performing Lab: [address] TRYPTASE 7.8 ug/L SEE BELOW Aug 21, 2023 11:54 AM [facility] TSH W/REFLEX TO FREE T4 Specimen Type: PLASMA No comment entered. Ordering Provider: MILADIS GALINDO Report Released Date/Time: Aug 21, 2023 11:32 AM Reporting Lab: [facility] [address] Performing Lab: [facility] [address] TSH 2.40 u[IU]/mL 0.35-4.94 Aug 21, 2023 11:53 AM [facility] TESTOSTERONE Specimen Type: SERUM No comment entered. Ordering Provider: MILADIS GALINDO Report Released Date/Time: Aug 21, 2023 11:32 AM Reporting Lab: [facility] [address] Performing Lab: [facility] [address] TESTOSTERONE 436 ng/dL 221-870 Aug 21, 2023 11:53 AM [facility] LUTEINIZING HORMONE Specimen Type: SERUM No comment entered. Ordering Provider: MILADIS GALINDO Report Released Date/Time: Aug 21, 2023 11:32 AM Reporting Lab: [facility] [address] Performing Lab: [facility] [address] LUTEINIZING HORMONE 18.32 m[IU]/mL H 0.57-12.07 Aug 21, 2023 11:53 AM [facility] PROLACTIN Specimen Type: PLASMA No comment entered. Ordering Provider: MILADIS GALINDO Report Released Date/Time: Aug 21, 2023 11:32 AM Reporting Lab: [facility] [address] Performing Lab: [facility] [address] PROLACTIN 10.02 ng/mL <19.40 Aug 21, 2023 11:53 AM [facility] FSH Specimen Type: PLASMA No comment entered. Ordering Provider: MILADIS GALINDO Report Released Date/Time: Aug 21, 2023 02:29 PM Reporting Lab: [facility] [id number] Performing Lab: [facility] [address] FSH 42.98 m[IU]/mL H 0.95-11.95 Aug 05, 2023 03:48 PM [facility] ANTI-HU,NEURONAL NUCLEAR AB Specimen Type: SERUM Comment: [...] analytical performance characteristics have been determined by [facility]. It has not been cleared or approved by FDA. This assay has been validated pursuant to the CLIA regulations and is used for clinical purposes. Test performed by [employer] [address] [place] [address] Identifier Horse: Taylor Colon MD,PHD,SHUBHAM Test Reported by [facility], [facility], [address] [place] [address] Nacho De Leon M.D., Ph.D., Director of Laboratories , CLIA [id number] This test was developed and its analytical performance characteristics have been determined by [facility]. It has not been cleared or approved by FDA. This assay has been validated pursuant to the CLIA regulations and is used for clinical purposes. Test performed [place] [address] Identifier Horse: Taylor Colon MD,PHD,SHUBHAM Ordering Provider: LEO COLEHO Report Released Date/Time: Aug 05, 2023 03:22 PM Reporting Lab: [facility] [phone] Performing Lab: [address] .ANTI-HU,IFA SEE NOTE .ANTI-HU,AKI N BLOT NEGATIVE NEGATIVE Aug 05, 2023 03:48 PM [facility] VASCULAR ENDOTHELIAL GROWTH FACTOR Specimen Type: PLASMA Comment: This test was performed using a kit that has not been cleared or approved by the FDA. The analytical performance characteristics of this test have been determined by [facility]. This test should not be used for diagnosis without confirmation by other medically established means. Test performed by [facility] [address] [address] Identifier Horse: Taylor Colon MD,PHD,SHUBHAM Test Reported by [facility], [facility], [address] [place] [address] Nacho De Leon M.D., Ph.D., Director of Laboratories , CLIA [id number] Ordering Provider: LEO COELHO Report Released Date/Time: Aug 05, 2023 03:22 PM Reporting Lab: [facility] [phone] Performing Lab: [address] .VASC ENDO GF, PASQUALE 98 pg/mL H 31-86 Aug 05, 2023 03:48 PM [facility] ENCEPHALOPATHY/PARANEOPLASTIC EVAL, S Specimen Type: SERUM Comment: No informative autoantibodies were detected in this evaluation. However, a negative result does not exclude autoimmune encephalopathy, idiopathic, or paraneoplastic. Sensitivity and specificity are enhanced by testing both serum and CSF. Ordering Provider: LEO COELHO Report Released Date/Time: Aug 05, 2023 03:22 PM Reporting Lab: [facility] [phone] Performing Lab: [address] [address] .N-TYPE CA PATINO AB NOT PERFORMED nmol/L [...] Negative Negative Aug 05, 2023 03:48 PM [facility] CRYOGLOBULIN QUANT w REFLEX Specimen Type: SERUM No comment entered. Ordering Provider: LEO COELHO Report Released Date/Time: Aug 05, 2023 03:22 PM Reporting Lab: [facility] [address] Performing Lab: [facility] [address] .CRYO INTERPRETATION NEGATIVE Negative Aug 05, 2023 03:48 PM [facility] VITAMIN B-6 Specimen Type: PLASMA Comment: Vitamin supplementation within 24 hours prior to blood draw may affect the accuracy of the results. This test was developed and its analytical performance characteristics have been determined by [facility] [place]. It has not been cleared or approved by the U.S. Food and Drug Administration. This assay has been validated pursuant to the CLIA regulations and is used for clinical purposes. Test Performed by [facility], [address] [place] [address] Nacho De Leon M.D., Ph.D., Director of Laboratories , CLIA [id number] Ordering Provider: LEO COELHO Report Released Date/Time: Aug 05, 2023 03:22 PM Reporting Lab: [facility] [phone] Performing Lab: [address] VITAMIN B-6 4.0 ng/mL 2.1-21.7 Aug 05, 2023 03:48 PM [facility] ANTI-MOHSEN PANEL([employer]) Specimen Type: SERUM Comment: Reference Range: < 1.0 NEG AI Reference Range: < 1.0 NEG AI Reference Range: < 1.0 NEG AI Reference Range: < 1.0 NEG AI Reference Range: < 1.0 NEG AI Reference Range: < 1.0 NEG AI Test Performed by [facility], [address] [place] [address] Nacho De Leon M.D., Ph.D., Director of Laboratories , CLIA [id number] Ordering Provider: LEO COELHO Report Released Date/Time: Aug 05, 2023 03:22 PM Reporting Lab: [facility] [phone] Performing Lab: [address] ANTI-NAYAK <1.0 ANTI-CREDIT RISK OFFICER <1.0 ANTI-SSA/RO <1.0 ANTI-SSB/LA <1.0 ANTI-SCL-70 <1.0 ANTI-MANINDER-1 <1.0 Aug 05, 2023 03:48 PM [facility] INEZ WITH REFLEX TO MOHSEN/DNA Specimen Type: SERUM Comment: Anti-dsDNA testing by IFA was performed on this sample. IM [phone] Sample sent to reference laboratory for MOHSEN testing. QU 24 [id number] Ordering Provider: LEO COELHO Report Released Date/Time: Aug 05, 2023 03:22 PM Reporting Lab: [facility] [phone] Performing Lab: [facility] [address] .ANTINUCLEAR HENRRY HOMOGENEOUS POSITIVE Negative .ROMELIA TITER 1:640 Aug 05, 2023 03:48 PM [facility] ARSENIC,BLOOD Specimen Type: BLOOD Comment: REFERENCE RANGE: <23 mcg/L Whole Blood Arsenic level >100 mcg/L is indicative of acute/chronic exposure. Urine is usually the best specimen for the analysis of arsenic in body fluids. Blood levels tend to be low even when urine concentrations are high This test was developed and its analytical performance characteristics have been determined by [facility] [place]. It has not been cleared or approved by the U.S. Food and Drug Administration. This assay has been validated pursuant to the CLIA regulations and is used for clinical purposes. Test Performed by [facility], [facility], [address] [place] [address] Nacho De Leon M.D., Ph.D., Director of Laboratories , CLIA [id number] Ordering Provider: LEO COELHO Report Released Date/Time: Aug 05, 2023 03:22 PM Reporting Lab: [facility] [phone] Performing Lab: [address] ARSENIC,BLOOD <3 ug/L SEE BELOW Aug 05, 2023 03:48 PM [facility] ANCA Specimen Type: SERUM Comment: ANCA CONF QU 24 [id number] Ordering Provider: LEO COELHO Report Released Date/Time: Aug 05, 2023 03:22 PM Reporting Lab: [facility] [address] Performing Lab: [facility] [address] .CYTOPLASMIC ANCA NEGATIVE .PERINUCLEAR ANCA POSITIVE H .RADHA. ANCA TITER 1:320 Aug 05, 2023 03:48 PM [facility] VITAMIN B-1,BLOOD Specimen Type: BLOOD Comment: Vitamin supplementation within 24 hours prior to blood draw may affect the accuracy of the results. This test was developed and its analytical performance characteristics have been determined by [facility] [place]. It has not been cleared or approved by the U.S. Food and Drug Administration. This assay has been validated pursuant to the CLIA regulations and is used for clinical purposes. Test Performed by [facility], [facility], [address] [place] [address] Nacho De Leon M.D., Ph.D., Director of Laboratories , CLIA [id number] Ordering Provider: LEO COELHO Report Released Date/Time: Aug 05, 2023 03:22 PM Reporting Lab: [facility] [phone] Performing Lab: [address] VITAMIN B-1,BLOOD 134 nmol/L 78-185 Aug 05, 2023 03:48 PM [facility] HIV AG/AB SCREEN Specimen Type: SERUM No comment entered. Ordering Provider: LEO COELHO Report Released Date/Time: Aug 05, 2023 03:22 PM Reporting Lab: [facility] [address] Performing Lab: [facility] [address] HIV AG/AB SCREEN NEGATIVE NEGATIVE Aug 05, 2023 03:48 PM [facility] FOLATE Specimen Type: PLASMA No comment entered. Ordering Provider: LEO COELHO Report Released Date/Time: Aug 05, 2023 03:22 PM Reporting Lab: [facility] [address] Performing Lab: [facility] [address] FOLATE 15.1 ng/mL >7.0 Aug 05, 2023 03:48 PM [facility] ANCA CONFIRMATORY EIA Specimen Type: SERUM Comment: [...] >or=1.0 AI: Antibody Detected Autoantibodies to proteinase-3 (WV-3) are accepted as characteristic for granulomatosis with polyangiitis (GPA, Ilia's), and are detectable in 95% of the histologically proven cases. The cytoplasmic IFA pattern, (c-ANCA), is based largely on autoantibody to WV-3 which serves as the primary antigen. These autoantibodies are present in active disease. Test Performed by [facility], [address] [place] [address] Nacho De Leon M.D., Ph.D., Director of Laboratories , CLIA [id number] Ordering Provider: LEO COELHO Report Released Date/Time: Aug 10, 2023 12:11 PM Reporting Lab: [facility] [address] Performing Lab: [address] .MYELOPEROXIDAS E AB <1.0 SEE BELOW .PROTEINASE-3 AB <1.0 SEE BELOW Aug 05, 2023 03:48 PM [facility] ANTI-MOHSEN PANEL([employer]) Specimen Type: SERUM Comment: Reference Range: < 1.0 NEG AI Reference Range: < 1.0 NEG AI Reference Range: < 1.0 NEG AI Reference Range: < 1.0 NEG AI Reference Range: < 1.0 NEG AI Reference Range: < 1.0 NEG AI Test Performed by [facility], [address] [place] [address] Nacho De Leon M.D., Ph.D., Director of Laboratories , CLIA [id number] Ordering Provider: LEO COELHO Report Released Date/Time: Aug 10, 2023 11:06 AM Reporting Lab: [facility] [address] Performing Lab: [facility] [address] [facility] ANTI-NAYAK <1.0 ANTI-CREDIT RISK OFFICER <1.0 ANTI-SSA/RO <1.0 ANTI-SSB/LA <1.0 ANTI-SCL-70 <1.0 ANTI-MANINDER-1 <1.0 Aug 05, 2023 03:48 PM [facility] ANTI-DNA ANTIBODY PANEL Specimen Type: SERUM No comment entered. Ordering Provider: LEO COELHO Report Released Date/Time: Aug 10, 2023 11:06 AM Reporting Lab: [facility] [address] Performing Lab: [facility] [address] .ANTI-DNA ANTIBODY NEGATIVE Vital Signs: All taken on the encounter date This section contains inpatient and outpatient Vital Signs collected on the date of the Encounter. Date/Time Temperature Pulse Blood Pressure Respiratory Rate SP02 Pain Height Weight Body Mass Index Source Aug 21, 2023 12:12 PM 168/84 [facility] Aug 21, 2023 10:09 AM 98.7 72 155/76 16 92 7 192.6 27 [facility] Social History: Smoking Status (Most current) and Tobacco Use (All prior to encounter date) This section includes the most current, and the historical, smoking and tobacco- related health factors from the [place] facility where the Encounter took place. Current Smoking Status This section includes the most current smoking, or tobacco-related health factor, from the [place] facility where the Encounter took place. Date/Time Current Smoking Status Comment Facil ity May 19, 2023 02:30 PM VA-TOBACCO FORMER USER [facility] Tobacco Use History This section includes a history of the smoking, or tobacco-related health factors, that were collected on or before the date of the Encounter. The data comes from the [place] facility where the Encounter took place. Date/Time Smoking Status/Tobacco Use Comment F acility May 19, 2023 02:30 PM VA-TOBACCO QUIT 15 YRS OR MORE [facility] May 13, 2022 11:30 AM VA-TOBACCO FORMER USER [facility] May 13, 2022 11:30 AM VA-TOBACCO QUIT 15 YRS OR MORE [facility] Jun 17, 2021 02:00 PM VA-TOBACCO NEVER USED [facility] Advance Directives: All historical and current Section Date Range: From patient's date of to the date document was created. This section includes ALL of a patient's completed or amended [place] Advance and Rescinded Directives. The entries below indicate that a directive exists for the patient, but an actual copy is not included with this document. The data comes from all [place] facilities. Date Advance Directives Provider Source Dec 19, 2022 ADVANCE DIRECTIVE ABRIL BURCH [facility] Dec 19, 2022 ADVANCE DIRECTIVE DISCUSSION BURCHTIFF [facility] Radiology Reports: +/- 30 days of [...] the Encounter. The data comes from all [place] treatment facilities. Date/Time Radiology Report Provider Source Sep 12, 2023 04:20 PM MRI-C-SPINE (P): NENA LANGE KELLE [id number] -[id number] M Exm Date: SEP 12, 2023@16:20 Req Phys: COSTA COELHO Pat Loc: [facility] NEURO MUSCULAR FELLOW (Req Img Loc: MRI IMAGING Service: Unknown (Case [id number] COMPLETE) MRI SPINE CERVICAL W/O CONTRAST (MRI Detailed) CPT:57617 Reason for Study: spine injury, hyperreflexia on [...] pager listed below: User placing orders pager: [phone] LAST CREATININE 1.4 H (06/05/23) Allergies: AMLODIPINE (Jun 17, 2021) Report Status: Verified Date Reported: SEP 14, 2023 Date Verified: SEP 14, 2023 Organizational Effectiveness Director E-Sig:/ES/FRIDA GONSALEZ MD Report: MRI SPINE CERVICAL [...] Severe right facet arthropathy with foraminal overgrowth. [id number] left facet arthropathy. No spinal canal stenosis. Moderately severe right foraminal stenosis. No left foraminal stenosis. C4-5: This level is fused. No spinal canal stenosis. Moderate right foraminal stenosis. Mild left foraminal narrowing. C5-6: Moderate to marked disc height loss. Inco-fs-pooucxer bulge and interbody spur. Bilateral uncinate hypertrophy. Moderate right and mild left facet arthropathy. Gefg-il-xklpenvv spinal canal narrowing, without cord deformity. Moderate [...] Primary Interpreting Staff: FRIDA GONSALEZ MD, RADIOLOGIST (Organizational Effectiveness Director) /FRIDA PATTON [facility] Sep 12, 2023 04:19 PM MRI-T-SPINE (P): NENA LANGE [id number] -1940 M Ex Date: SEP 12, 2023@16:19 Req Phys: COSTA COELHO Loc: [facility] NEURO MUSCULAR FELLOW (Req Img Loc: MRI IMAGING Service: Unknown (Case [id number] COMPLETE) MRI SPINE THORACIC W/O CONTRAST (MRI Detailed) CPT:06162 Reason for Study: Spine injury, hyperreflexia Clinical [...] pager listed below: User placing orders pager: [phone] LAST CREATININE 1.4 H (06/05/23) Allergies: AMLODIPINE (Jun 17, 2021) Report Status: Verified Date Reported: SEP 14, 2023 Date Verified: SEP 14, 2023 Organizational Effectiveness Director E-Sig:/ES/FRIDA GONSALEZ MD Report: MRI SPINE CERVICAL [...] Severe right facet arthropathy with foraminal overgrowth. Ihjv-pu-imemygzh left facet arthropathy. No spinal canal stenosis. Moderately severe right foraminal stenosis. No left foraminal stenosis. C4-5: This level is fused. No spinal canal stenosis. Moderate right foraminal stenosis. Mild left foraminal narrowing. C5-6: Moderate to marked disc height loss. Lwcl-rv-qhxsorok bulge and interbody spur. Bilateral uncinate hypertrophy. Moderate right and mild left facet arthropathy. Nxmv-vk-xdokvfdi spinal canal narrowing, without cord deformity. 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 Did the ordering provider speak with a networks software consultant regarding this imaging exam? Yes, Name of networks software consultant (resident or staff):Dr Marvin Alvarez Pt with hot flushes found to have elevated LH and FSH with normal testesterone level. A DEDICATED PUTUITARY MRI IS DESIRED Responsible provider name and phone number to notify for critical findings if other than user placing the order and pager listed below: User placing orders pager: [phone] LAST CREATININE 1.4 H (06/05/23) Allergies: AMLODIPINE (Jun 17, 2021) Report Status: Verified Date Reported: SEP 11, 2023 Date Verified: SEP 11, 2023 Organizational Effectiveness Director E-Sig:/ES/STEVIE GUTIERREZ MD Report: MRI BRAINBRAINSTEM W [...] Primary Interpreting Staff: STEVIE GUTIERREZ MD, RADIOLOGIST (Organizational Effectiveness Director) /[facility] STEVIE GUTIERREZ [facility] Pathology Reports: +/- 30 days of the [...] the Encounter. The data comes from all [place] treatment facilities. Date/Time Pathology Report Provider Source Sep 11, 2023 11:37 AM LR SURGICAL PATHOL OGY REPORT: LOCAL TITLE: LR SURGICAL PATHOLOGY REPORT STANDARD TITLE: PATHOLOGY REPORT DATE OF NOTE: SEP 11, 2023@11:37:11 ENTRY DATE: SEP 11, 2023@11:37:11 AUTHOR: EDINSON SQURIES EXP COSIGNER: URGENCY: STATUS: COMPLETED $APHDR Reporting Lab: [facility] [CLIA# [id number]] [place] [address] - - - - - - - [...] cm. The specimen is inked. CE (D[facility]OSCOPIC DESCRIPTION: Microscopic examination performed. Deeper levels were obtained. This case was seen in consultation by Dr. Aris Tanner, dermatopathologist. RS. 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 - No evidence of carcinoma /eda/ EDINSON SQUIRES STAFF PATHOLOGIST, PATHOLOGY & LABORATORY [facility] [place] Signed Sep 11, 2023@11:37 Performing Laboratory: Surgical Pathology Report Performed By: [facility] [CLIA# [id number]] [facility] [place] [address] $FTR - - - - - - - - - - - - - - - - - - - - - - - - - - - - - - - - - - - - - - - - (End of report) EDINSON SQUIRES MD rks Date Sep 10, 2023 - - - - - - - - - - - - - - - - - - - - - - - - - - - - - - - - - - - - - - - - NENA LANGE STANDARD FORM 515 ID:[id number] SEX:M :1940 AGE: 82 LOC:1068 PCP: Frida Jo, [place] /eda/ EDINSON SQUIRES STAFF PATHOLOGIST, PATHOLOGY & LABORATORY [facility] [place] Signed: 09/11/2023 11:37 EDINSON SQUIRES [facility] Encounter Notes: All associated encounter notes This section contains the clinical notes associated to the Encounter. Date/Time Encounter Note(s) Provider Source Dec 27, 2023 05:10 PM ADDENDUM: LOCAL TITLE: Addendum STANDARD TITLE: ADDENDUM DATE OF NOTE: DEC 27, 2023@17:10:02 ENTRY DATE: DEC 27, 2023@17:10:03 AUTHOR: RANDI RUFF EXP COSIGNER: URGENCY: STATUS: COMPLETED Reviewed imaging studies: MRI of L5: Abnormal marrow signal and enhancement in the [...] months should be considered to assess stability. 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 A/P: 1) Regarging MRI of L5: Discussed with his PCP, MRI needs to be repeated in 2 months. I reached out to PCP to order MRI and follow up on this finding. I called patient and explained the plan. 2) Re IPMNs: Evaluated by GI. They will order follow up MRIs and follow patient. Patient aware of this plan. 3) Has increased 5-HIAA but I am not convinced his diarrhea is due to carcinoid. No liver involvement. Will seek GI input. Discussed above with patient and his over the phone and answere their questions. /eda/ RANDI RUFF M.D. STAFF FIRE PREVENTION CHIEF Signed: 01/04/2024 14:22 Receipt Acknowledged By: 01/05/2024 14:17 /es/ Lamont Jo APRN, CNP Family Nurse Practitioner 01/04/2024 14:28 /es/ TRENT PRESCOTT CNP, AAHIVS --- Original Document --- 08/21/23 METABOLIC/ENDOCRINE CONSULT: Endocrine/Metabolic Clinic Note Chief Complaint: 82 year old MALE referred for evaluation of hot flush, diarrhea and painful skin and gynecomastia History of Present Illness: This 82-year-old male patient was past medical history of hypertension, hyperlipidemia, GERD, depression, history of prostate cancer status postradiation therapy, COPD, solitary lung nodule, CAD who is here for evaluation of chronic diarrhea, hot flush, painful skin and Gynecomastia Patient had longstanding diarrhea since 2016. The cause of the diarrhea has not been identified and he has been taking loperamide. He has been on oral medications including sertraline predating the onset of diarrhea but he has discontinued sertraline but continued. For the past 6 months he has been suffering from pruritic skin rash (reddish papules and macules mostly affecting the back. He has also been getting hot flashes, especially when he gets angry. For the past 2 months he has noticed swelling of both his breasts. He has history of hypertension but no episodic high blood pressures. He occasionally gets headaches He has low energy which has been slowly progressive for the past 10 years. He has also lost [address] and libido after treatment for prostate cancer with radiation therapy in 2005 He has longstanding pulmonary issues including COPD, lung nodule and and exudative pleural effusion. There work-up including rheumatology work-up and had positive ROMELIA and p-ANCA. Past Medical History: Active problems - Computerized Problem List is the source for the followin. HTN - Hypertension ([facility] [id number]) 2. Hyperlipidemia ([facility] [id number]) 3. Gout ([facility] [id number]) 4. Intracranial aneurysm - s/p stent/coil proceedure 5. GERD - Gastro-Esophageal Reflux Disease ([facility] [id number]) 6. Depression ([facility] [id number]) 7. Primary malignant neoplasm of prostate 8. Abdominal aortic aneurysm 9. Solitary nodule of lung 10. Insomnia 11. Chronic diarrhea 12. Chronic kidney disease stage 3A 13. COPD - Chronic obstructive pulmonary disease - Moderately severe 05/2022 PFTs 14. CAD - Coronary Artery Disease ([facility] [id number]) 15. History of myocardial infarction - STEMI 16. Low back pain 17. Neck pain Allergies: AMLODIPINE (Jun 17, 2021) Active Outpatient Medications (including Supplies): ACETAMINOPHEN 500MG TAB TAKE TWO TABLETS BY MOUTH THREE ACTIVE TIMES A DAY NEEDED FOR PAIN ALBUTEROL 90MCG (CFC-F) 200D ORAL INHL INHALE 2 PUFFS BY ACTIVE INHALATION EVERY 4 HOURS NEEDED FOR SHORTNESS OF BREATH ALLOPURINOL 100MG TAB TAKE ONE TABLET BY MOUTH EVERY DAY ACTIVE GOUT PREVENTION/URIC ACID CAMPHOR 0.5/MENTHOL 0.5% LOTION APPLY THIN LAYER TOPICALLY ACTIVE THREE TIMES A DAY NEEDED FOR ITCHING FAMOTIDINE 20MG TAB TAKE ONE TABLET BY MOUTH EVERY DAY FOR ACTIVE HEARTBURN GABAPENTIN 300MG CAP TAKE TWO CAPSULES BY MOUTH THREE ACTIVE TIMES A DAY FOR PAIN AND NUMBNESS AFTER GRADUAL DOSE AUGMENTATION HYDROCHLOROTHIAZIDE 25MG TAB TAKE ONE-HALF TABLET BY MOUTH ACTIVE EVERY DAY BLOOD PRESSURE MEDICATION LIDOCAINE 5% PATCH APPLY ONE OR TWO PATCHES TOPICALLY ACTIVE EVERY DAY NEEDED FOR PAIN LISINOPRIL 10MG TAB TAKE ONE TABLET BY MOUTH EVERY DAY FOR HOLD BLOOD PRESSURE DOSE DECREASED 08-21-22 LOPERAMIDE HCL 2MG CAP TAKE ONE CAPSULE BY MOUTH THREE ACTIVE TIMES A DAY FOR DIARRHEA LORATADINE 10MG TAB TAKE ONE TABLET BY MOUTH EVERY DAY ACTIVE NEEDED FOR ALLERGIES SERTRALINE HCL 25MG TAB TAKE ONE TABLET BY MOUTH EVERY DAY ACTIVE FOR DEPRESSION/ANXIETY VANICREAM TOP CREAM APPLY THIN LAYER TOPICALLY TWICE A DAY ACTIVE FOR DRY SKIN Non-VA ASPIRIN 81MG EC TAB 81MG MOUTH EVERY DAY ACTIVE Non-VA CURCUMIN CAP 1 CAPSULE MOUTH NEEDED ACTIVE Review of Systems: See HPI Physical Exam: Vital Signs Temp: 97.3 F [36.3 C] (08/05/2023 14:16) B/P: 134/77 (08/05/2023 14:21) Pulse: 79 (08/05/2023 14:16) Ht: 71 in [180.3 cm] (11/17/2022 13:41) Wt: 183.8 lb [83.37 kg] (06/05/2023 10:53) Pain: 0 (06/05/2023 10:53) BMI: 25.7 General: Alert and conversant Skin: He has pink papular and macular lesions with area of patches in the back Eyes: PERRLA, EOMI Oral/Throat: Moist and clear. Neck/Thyroid: Not palpable Cardiac: RRR, No murmurs, gallops, rubs, S1 and S2 normal. Chest/Lungs: Fine crackles bilaterally in the lower half of the chest. Neurological: Alert and oriented x3 Labs and Imaging LAB RESULTS TODAY - NONE FOUND 05/19/2023 16:02 11/17/2022 12:53 07/22/2022 10:21 \ 13.7 / \ 13.3 / \ 13.8 / 6.18 ------ 201 5.03 ------ 238 7.72 ------ 247 / 44.1 \ / 43.1 \ / 43.6 \ LYMPH: 14.1% L A1c: 5.3 @ 06/05/2023 11:52 NEUT: 74.2 MONO: 9.1 EOSINO: 2.1 BASO: 0.3 @ 05/19/2023 16:02 IG(META,MYELO,PRO): 0.2 ABS NEUT: 4.59 @ 05/19/2023 16:02 ABS LYMPH: 0.87 L ABS MONO: 0.56 ABS EOS: 0.13 @ 05/19/2023 16:02 ABS BASO: 0.02 ABS IMMATURE GRAN: 0.01 @ 05/19/2023 16:02 POC CREATININE: 1.2 @ 04/21/2023 11:53 SED RATE: 115 H @ 10/09/2022 12:01 a K Cl CO2 AG BUN Cr Ca Mg = 141 4.0 108 26 7 24 1.4 9.2 2.1 @ 06/05/2023 11:52 143 4.3 111 24 8 26 1.2 9.2 2.1 @ 05/19/2023 16:02 143 4.0 111 27 5 18 1.3 9.4 2.1 @ 11/17/2022 12:53 141 3.9 105 28 8 26 1.3 10.0 2.1 @ 07/22/2022 10:21 139 4.2 108 24 7 25 1.1 9.3 2.2 @ 05/13/2022 13:05 141 4.4 112 23 6 24 1.3 9.4 2.2 @ 01/30/2022 11:42 141 4.3 109 26 6 24 1.4 9.7 2.2 @ 06/17/2021 15:34 Assessment and Plan This 82-year-old male patient was past medical history of hypertension, hyperlipidemia, GERD, depression, prostate s/p postradiation therapy, COPD, solitary lung nodule, CAD, who is here for evaluation of chronic diarrhea, hot flashes, painful and prutitic skin rash and Gynecomastia 1. Hot flashes 2. Chronic diarrhea 3. Pruritic skin rash 4 Gynecomastia Differential diagnosis of hot flashes, chronic diarrhea in particular she is broad. The characteristic of the pruritic erythematous macules and papules, hot flashes and chronic diarrhea is concerning for possible systemic mastocytosis we recommend obtaining serum tryptase and dermatology referral evaluation of the skin rash and possible for skin biopsy. Carcinoid syndrome could also have this features but skin rash is not characteristic. We will obtain 5-HIAA. Pheochromocytoma can have episodic hot flash, headache and hypertension but skin rash is not typical. We will do 24-hour urine metanephrines. Hypogonadism with high LH could also present with hot flashes, gynecomastia and low energy in the setting of past treatment for prostate cancer. We will obtain LH, FSH and testosterone. Thyrotoxicosis might have similar symptoms. As such, will check TSH. Other DDX include but not limited to renal cell carcinoma, or medullary thyroid CA but no evidence of mass was noted on recent chest and abdominal imaging Plan -24-hour urine 5-HIAA -24-hour urine metanephrines -Serum tryptase -Dermatology referral -LH, FSH, testosterone -TSH Over 50% of this 30 minute visit was spent counseling the patient. All labs completed at this time were discussed with the patient. Patient was discussed and examined with attending Dr. Agnes Alexandra, who agrees with the assessment and plan /lianet GALINDO RESIDENT PHYSICIAN Signed: 08/21/2023 16:46 Receipt Acknowledged By: 08/24/2023 08:20 /lianet RUFF M.D. STAFF FIRE PREVENTION CHIEF 09/07/2023 ADDENDUM STATUS: COMPLETED Called Mr Rockwell to let him know that his LH and FSH are elevated with normal testesterone level. Tryptase, metanephrines and TSH are within normal limit. 5HIAA is pending. The elevated LH my explain the hot flashes. We need dedicated putuitary MRI to identify if he has gonadotroph putuitary adenoma. We will check free T4 too. /lianet GALINDO RESIDENT PHYSICIAN Signed: 09/07/2023 15:45 Receipt Acknowledged By: 09/07/2023 17:22 /lianet RUFF M.D. STAFF FIRE PREVENTION CHIEF 09/11/2023 ADDENDUM STATUS: COMPLETED MRI results: Empty sella. Will ask Dr Galindo to discuss with me and notify patient /lianet RUFF M.D. STAFF FIRE PREVENTION CHIEF Signed: 09/11/2023 09:45 Receipt Acknowledged By: 09/11/2023 15:46 /lianet GALINDO RESIDENT PHYSICIAN 09/11/2023 ADDENDUM STATUS: COMPLETED Called Mr Lange to discuss the MRI findings that there is no pituitary adenoma visible on MRI to explain the increased LF and FSH at this time. There is a possiblity that a nodule might appear in the future so yearly pituitary MRI is recommended. There is empty sell on MRI which is likely incidental and there is no evidence of associated hypopituitarism. Hot flashes he has been having are likely due to increaed LH and it is improving with gabapentin. If hot flashed are bothersome in the future, SSRIs like citalopram can be used. /lianet GALINDO RESIDENT PHYSICIAN Signed: 09/11/2023 15:45 Receipt Acknowledged By: 09/11/2023 16:21 /lianet RUFF M.D. STAFF FIRE PREVENTION CHIEF 09/17/2023 ADDENDUM STATUS: COMPLETED 5-HIAA mildly elevated.Likely due to tryptofan rich foods. Kat, please educate patient re foods with low tryptofan: avacoados, pineapples, bananas, kiwi, plums, eggplants, walnuts, hickory nuts, pecans, tomatoes, plantains, butternut squash. Medications to avoid: acetaminophen, caffeine, tobacco for ideally 1 week, if possible, if not at least for 48 hrs.. Need to repeat 24 hr urine for 5-HIAA after he is on this diet for 1 week. If patient agrees, please send another jug. Thank you /lianet RUFF M.D. STAFF FIRE PREVENTION CHIEF Signed: 09/17/2023 15:14 Receipt Acknowledged By: 09/17/2023 15:55 /lianet LUCERO RN Metabolic Vice President Of Consulting Services 09/17/2023 ADDENDUM STATUS: COMPLETED Called and spoke with and his . Reviewed above information from Dr. Ruff regarding 24-hr urine collection and tryptophan foods and foods to avoid 1 week prior. Mailed then 24 urine supplies. Also included the above information to the in a secure message per their request. /lianet LUCERO RN Metabolic Vice President Of Consulting Services Signed: 09/17/2023 16:00 10/19/2023 ADDENDUM STATUS: COMPLETED Will alert provider to 24 hr urine results. /lianet LUCERO RN Metabolic Vice President Of Consulting Services Signed: 10/19/2023 07:33 Receipt Acknowledged By: 10/19/2023 09:30 /lianet RUFF M.D. STAFF FIRE PREVENTION CHIEF 10/19/2023 ADDENDUM STATUS: COMPLETED 5-HIAA minimally elevated at 7.[address] Hull: carcinoids only cause symptoms if they are in the liver. Really don't cause pleural effusions. Tend to be airway lesions. You could get a DOTATATE scan if you think he has carcinoid. I don't see a recent chest CT. His abd CT from Apr did not have a recurrence of his pleural effusion. Discussed also with Dr Kan: Agree that dotatate PET Ct is likely the best way forward for a definite diagnosis. Will order. Discussed with patient who is agreeable. /eda/ RANDI RUFF M.D. STAFF FIRE PREVENTION CHIEF Signed: 10/20/2023 14:31 12/01/2023 ADDENDUM STATUS: COMPLETED Doatate PET scan: Small focus of intense tracer uptake pancreatic [...] of the lumbar spine can be considered. Given above Doatate PET CT results I will ask Dr Kan for his input re next steps. May be carcinoid. Other hormonal work up negative. Should I get CT of abdomen with pancreas protocol or MRI? Surgery consult? Not sure what the L5 finding is.Doubt metastatsis but can order MRI of LS spine. Thanks /eda/ RANDI RUFF M.D. STAFF FIRE PREVENTION CHIEF Signed: 12/03/2023 12:24 Receipt Acknowledged By: 12/07/2023 09:56 /eda/ Luis A Kan MD Gastroenterology Youth Career Specialist 12/03/2023 15:12 /eda/ Lamont Jo APRN, SAP MOBILITY ARCHITECT Family Nurse Practitioner RANDI RUFF [facility] Dec 01, 2023 05:51 PM ADDENDUM: LOCAL TITLE: Addendum STANDARD TITLE: ADDENDUM DATE OF NOTE: DEC 01, 2023@17:51:33 ENTRY DATE: DEC 01, 2023@17:51:35 AUTHOR: RANDI RUFF EXP COSIGNER: URGENCY: STATUS: COMPLETED Doatate PET scan: Small focus of intense tracer uptake pancreatic [...] of the lumbar spine can be considered. Given above Doatate PET CT results I will ask Dr Kan for his input re next steps. May be carcinoid. Other hormonal work up negative. Should I get CT of abdomen with pancreas protocol or MRI? Surgery consult? Not sure what the L5 finding is.Doubt metastatsis but can order MRI of LS spine. Thanks /es/ RANDI RUFF M.D. STAFF FIRE PREVENTION CHIEF Signed: 12/03/2023 12:24 Receipt Acknowledged By: 12/07/2023 09:56 /es/ Luis A Kan MD Gastroenterology Youth Career Specialist 12/03/2023 15:12 /es/ Lamont Jo APRN, SAP MOBILITY ARCHITECT Family Nurse Practitioner --- Original Document --- 08/21/23 METABOLIC/ENDOCRINE CONSULT: Endocrine/Metabolic Clinic Note Chief Complaint: 82 year old MALE referred for evaluation of hot flush, diarrhea and painful skin and gynecomastia History of Present Illness: This 82-year-old male patient was past medical history of hypertension, hyperlipidemia, GERD, depression, history of prostate cancer status postradiation therapy, COPD, solitary lung nodule, CAD who is here for evaluation of chronic diarrhea, hot flush, painful skin and Gynecomastia Patient had longstanding diarrhea since 2016. The cause of the diarrhea has not been identified and he has been taking loperamide. He has been on oral medications including sertraline predating the onset of diarrhea but he has discontinued sertraline but continued. For the past 6 months he has been suffering from pruritic skin rash (reddish papules and macules mostly affecting the back. He has also been getting hot flashes, especially when he gets angry. For the past 2 months he has noticed swelling of both his breasts. He has history of hypertension but no episodic high blood pressures. He occasionally gets headaches He has low energy which has been slowly progressive for the past 10 years. He has also lost [address] and libido after treatment for prostate cancer with radiation therapy in 2005 He has longstanding pulmonary issues including COPD, lung nodule and and exudative pleural effusion. There work-up including rheumatology work-up and had positive ROMELIA and p-ANCA. Past Medical History: Active problems - Computerized Problem List is the source for the followin. HTN - Hypertension ([facility] [id number]) 2. Hyperlipidemia ([facility] [id number]) 3. Gout ([facility] [id number]) 4. Intracranial aneurysm - s/p stent/coil proceedure 5. GERD - Gastro-Esophageal Reflux Disease ([facility] [id number]) 6. Depression ([facility] [id number]) 7. Primary malignant neoplasm of prostate 8. Abdominal aortic aneurysm 9. Solitary nodule of lung 10. Insomnia 11. Chronic diarrhea 12. Chronic kidney disease stage 3A 13. COPD - Chronic obstructive pulmonary disease - Moderately severe 05/2022 PFTs 14. CAD - Coronary Artery Disease ([facility] [id number]) 15. History of myocardial infarction - STEMI 16. Low back pain 17. Neck pain Allergies: AMLODIPINE (Jun 17, 2021) Active Outpatient Medications (including Supplies): ACETAMINOPHEN 500MG TAB TAKE TWO TABLETS BY MOUTH THREE ACTIVE TIMES A DAY NEEDED FOR PAIN ALBUTEROL 90MCG (CFC-F) 200D ORAL INHL INHALE 2 PUFFS BY ACTIVE INHALATION EVERY 4 HOURS NEEDED FOR SHORTNESS OF BREATH ALLOPURINOL 100MG TAB TAKE ONE TABLET BY MOUTH EVERY DAY ACTIVE GOUT PREVENTION/URIC ACID CAMPHOR 0.5/MENTHOL 0.5% LOTION APPLY THIN LAYER TOPICALLY ACTIVE THREE TIMES A DAY NEEDED FOR ITCHING FAMOTIDINE 20MG TAB TAKE ONE TABLET BY MOUTH EVERY DAY FOR ACTIVE HEARTBURN GABAPENTIN 300MG CAP TAKE TWO CAPSULES BY MOUTH THREE ACTIVE TIMES A DAY FOR PAIN AND NUMBNESS AFTER GRADUAL DOSE AUGMENTATION HYDROCHLOROTHIAZIDE 25MG TAB TAKE ONE-HALF TABLET BY MOUTH ACTIVE EVERY DAY BLOOD PRESSURE MEDICATION LIDOCAINE 5% PATCH APPLY ONE OR TWO PATCHES TOPICALLY ACTIVE EVERY DAY NEEDED FOR PAIN LISINOPRIL 10MG TAB TAKE ONE TABLET BY MOUTH EVERY DAY FOR HOLD BLOOD PRESSURE DOSE DECREASED 08-21-22 LOPERAMIDE HCL 2MG CAP TAKE ONE CAPSULE BY MOUTH THREE ACTIVE TIMES A DAY FOR DIARRHEA LORATADINE 10MG TAB TAKE ONE TABLET BY MOUTH EVERY DAY ACTIVE NEEDED FOR ALLERGIES SERTRALINE HCL 25MG TAB TAKE ONE TABLET BY MOUTH EVERY DAY ACTIVE FOR DEPRESSION/ANXIETY VANICREAM TOP CREAM APPLY THIN LAYER TOPICALLY TWICE A DAY ACTIVE FOR DRY SKIN Non-VA ASPIRIN 81MG EC TAB 81MG MOUTH EVERY DAY ACTIVE Non-VA CURCUMIN CAP 1 CAPSULE MOUTH NEEDED ACTIVE Review of Systems: See HPI Physical Exam: Vital Signs Temp: 97.3 F [36.3 C] (08/05/2023 14:16) B/P: 134/77 (08/05/2023 14:21) Pulse: 79 (08/05/2023 14:16) Ht: 71 in [180.3 cm] (11/17/2022 13:41) Wt: 183.8 lb [83.37 kg] (06/05/2023 10:53) Pain: 0 (06/05/2023 10:53) BMI: 25.7 General: Alert and conversant Skin: He has pink papular and macular lesions with area of patches in the back Eyes: PERRLA, EOMI Oral/Throat: Moist and clear. Neck/Thyroid: Not palpable Cardiac: RRR, No murmurs, gallops, rubs, S1 and S2 normal. Chest/Lungs: Fine crackles bilaterally in the lower half of the chest. Neurological: Alert and oriented x3 Labs and Imaging LAB RESULTS TODAY - NONE FOUND 05/19/2023 16:02 11/17/2022 12:53 07/22/2022 10:21 \ 13.7 / \ 13.3 / \ 13.8 / 6.18 ------ 201 5.03 ------ 238 7.72 ------ 247 / 44.1 \ / 43.1 \ / 43.6 \ LYMPH: 14.1% L A1c: 5.3 @ 06/05/2023 11:52 NEUT: 74.2 MONO: 9.1 EOSINO: 2.1 BASO: 0.3 @ 05/19/2023 16:02 IG(META,MYELO,PRO): 0.2 ABS NEUT: 4.59 @ 05/19/2023 16:02 ABS LYMPH: 0.87 L ABS MONO: 0.56 ABS EOS: 0.13 @ 05/19/2023 16:02 ABS BASO: 0.02 ABS IMMATURE GRAN: 0.01 @ 05/19/2023 16:02 POC CREATININE: 1.2 @ 04/21/2023 11:53 SED RATE: 115 H @ 10/09/2022 12:01 a K Cl CO2 AG BUN Cr Ca Mg = 141 4.0 108 26 7 24 1.4 9.2 2.1 @ 06/05/2023 11:52 143 4.3 111 24 8 26 1.2 9.2 2.1 @ 05/19/2023 16:02 143 4.0 111 27 5 18 1.3 9.4 2.1 @ 11/17/2022 12:53 141 3.9 105 28 8 26 1.3 10.0 2.1 @ 07/22/2022 10:21 139 4.2 108 24 7 25 1.1 9.3 2.2 @ 05/13/2022 13:05 141 4.4 112 23 6 24 1.3 9.4 2.2 @ 01/30/2022 11:42 141 4.3 109 26 6 24 1.4 9.7 2.2 @ 06/17/2021 15:34 Assessment and Plan This 82-year-old male patient was past medical history of hypertension, hyperlipidemia, GERD, depression, prostate s/p postradiation therapy, COPD, solitary lung nodule, CAD, who is here for evaluation of chronic diarrhea, hot flashes, painful and prutitic skin rash and Gynecomastia 1. Hot flashes 2. Chronic diarrhea 3. Pruritic skin rash 4 Gynecomastia Differential diagnosis of hot flashes, chronic diarrhea in particular she is broad. The characteristic of the pruritic erythematous macules and papules, hot flashes and chronic diarrhea is concerning for possible systemic mastocytosis we recommend obtaining serum tryptase and dermatology referral evaluation of the skin rash and possible for skin biopsy. Carcinoid syndrome could also have this features but skin rash is not characteristic. We will obtain 5-HIAA. Pheochromocytoma can have episodic hot flash, headache and hypertension but skin rash is not typical. We will do 24-hour urine metanephrines. Hypogonadism with high LH could also present with hot flashes, gynecomastia and low energy in the setting of past treatment for prostate cancer. We will obtain LH, FSH and testosterone. Thyrotoxicosis might have similar symptoms. As such, will check TSH. Other DDX include but not limited to renal cell carcinoma, or medullary thyroid CA but no evidence of mass was noted on recent chest and abdominal imaging Plan -24-hour urine 5-HIAA -24-hour urine metanephrines -Serum tryptase -Dermatology referral -LH, FSH, testosterone -TSH Over 50% of this 30 minute visit was spent counseling the patient. All labs completed at this time were discussed with the patient. Patient was discussed and examined with attending Dr. Agnes Alexandra, who agrees with the assessment and plan /lianet GALINDO RESIDENT PHYSICIAN Signed: 08/21/2023 16:46 Receipt Acknowledged By: 08/24/2023 08:20 /lianet RUFF M.D. STAFF FIRE PREVENTION CHIEF 09/07/2023 ADDENDUM STATUS: COMPLETED Called Mr Rockwell to let him know that his LH and FSH are elevated with normal testesterone level. Tryptase, metanephrines and TSH are within normal limit. 5HIAA is pending. The elevated LH my explain the hot flashes. We need dedicated putuitary MRI to identify if he has gonadotroph putuitary adenoma. We will check free T4 too. /lianet GALINDO RESIDENT PHYSICIAN Signed: 09/07/2023 15:45 Receipt Acknowledged By: 09/07/2023 17:22 /lianet RUFF M.D. STAFF FIRE PREVENTION CHIEF 09/11/2023 ADDENDUM STATUS: COMPLETED MRI results: Empty sella. Will ask Dr Galindo to discuss with me and notify patient /lianet RUFF M.D. STAFF FIRE PREVENTION CHIEF Signed: 09/11/2023 09:45 Receipt Acknowledged By: 09/11/2023 15:46 /lianet GALINDO RESIDENT PHYSICIAN 09/11/2023 ADDENDUM STATUS: COMPLETED Called Mr Lange to discuss the MRI findings that there is no pituitary adenoma visible on MRI to explain the increased LF and FSH at this time. There is a possiblity that a nodule might appear in the future so yearly pituitary MRI is recommended. There is empty sell on MRI which is likely incidental and there is no evidence of associated hypopituitarism. Hot flashes he has been having are likely due to increaed LH and it is improving with gabapentin. If hot flashed are bothersome in the future, SSRIs like citalopram can be used. /lianet GALINDO RESIDENT PHYSICIAN Signed: 09/11/2023 15:45 Receipt Acknowledged By: 09/11/2023 16:21 /lianet RUFF M.D. STAFF FIRE PREVENTION CHIEF 09/17/2023 ADDENDUM STATUS: COMPLETED 5-HIAA mildly elevated.Likely due to tryptofan rich foods. Kat, please educate patient re foods with low tryptofan: avacoados, pineapples, bananas, kiwi, plums, eggplants, walnuts, hickory nuts, pecans, tomatoes, plantains, butternut squash. Medications to avoid: acetaminophen, caffeine, tobacco for ideally 1 week, if possible, if not at least for 48 hrs.. Need to repeat 24 hr urine for 5-HIAA after he is on this diet for 1 week. If patient agrees, please send another jug. Thank you /lianet RUFF M.D. STAFF FIRE PREVENTION CHIEF Signed: 09/17/2023 15:14 Receipt Acknowledged By: 09/17/2023 15:55 /eda/ AKT LUCERO RN Metabolic Vice President Of Consulting Services 09/17/2023 ADDENDUM STATUS: COMPLETED Called and spoke with and his . Reviewed above information from Dr. Ruff regarding 24-hr urine collection and tryptophan foods and foods to avoid 1 week prior. Mailed then 24 urine supplies. Also included the above information to the in a secure message per their request. /lianet LUCERO RN Metabolic Vice President Of Consulting Services Signed: 09/17/2023 16:00 10/19/2023 ADDENDUM STATUS: COMPLETED Will alert provider to 24 hr urine results. /lianet LUCERO RN Metabolic Vice President Of Consulting Services Signed: 10/19/2023 07:33 Receipt Acknowledged By: 10/19/2023 09:30 /lianet RUFF M.D. STAFF FIRE PREVENTION CHIEF 10/19/2023 ADDENDUM STATUS: COMPLETED 5-HIAA minimally elevated at 7.[address] and [address] Hull: carcinoids only cause symptoms if they are in the liver. Really don't cause pleural effusions. Tend to be airway lesions. You could get a DOTATATE scan if you think he has carcinoid. I don't see a recent chest CT. His abd CT from Apr did not have a recurrence of his pleural effusion. Discussed also with Dr Kan: Agree that dotatate PET Ct is likely the best way forward for a definite diagnosis. Will order. Discussed with patient who is agreeable. /lianet RUFF M.D. STAFF FIRE PREVENTION CHIEF Signed: 10/20/2023 14:31 RANDI RUFF [facility] October 19, 2023 07:33 AM ADDENDUM: LOCAL TITLE: Addendum STANDARD TITLE: ADDENDUM DATE OF NOTE: OCTOBER 19, 2023@07:33:14 ENTRY DATE: OCTOBER 19, 2023@07:33:15 AUTHOR: KAT LUCERO EXP COSIGNER: URGENCY: STATUS: COMPLETED Will alert provider to 24 hr urine results. /lianet LUCERO RN Metabolic Vice President Of Consulting Services Signed: 10/19/2023 07:33 Receipt Acknowledged By: 10/19/2023 09:30 /lianet RUFF M.D. STAFF FIRE PREVENTION CHIEF --- Original Document --- 08/21/23 METABOLIC/ENDOCRINE CONSULT: Endocrine/Metabolic Clinic Note Chief Complaint: 82 year old MALE referred for evaluation of hot flush, diarrhea and painful skin and gynecomastia History of Present Illness: This 82-year-old male patient was past medical history of hypertension, hyperlipidemia, GERD, depression, history of prostate cancer status postradiation therapy, COPD, solitary lung nodule, CAD who is here for evaluation of chronic diarrhea, hot flush, painful skin and Gynecomastia Patient had longstanding diarrhea since 2016. The cause of the diarrhea has not been identified and he has been taking loperamide. He has been on oral medications including sertraline predating the onset of diarrhea but he has discontinued sertraline but continued. For the past 6 months he has been suffering from pruritic skin rash (reddish papules and macules mostly affecting the back. He has also been getting hot flashes, especially when he gets angry. For the past 2 months he has noticed swelling of both his breasts. He has history of hypertension but no episodic high blood pressures. He occasionally gets headaches He has low energy which has been slowly progressive for the past 10 years. He has also lost [address] and libido after treatment for prostate cancer with radiation therapy in 2005 He has longstanding pulmonary issues including COPD, lung nodule and and exudative pleural effusion. There work-up including rheumatology work-up and had positive ROMELIA and p-ANCA. Past Medical History: Active problems - Computerized Problem List is the source for the followin. HTN - Hypertension ([facility] [id number]) 2. Hyperlipidemia ([facility] [id number]) 3. Gout ([facility] [id number]) 4. Intracranial aneurysm - s/p stent/coil proceedure 5. GERD - Gastro-Esophageal Reflux Disease ([facility] [id number]) 6. Depression ([facility] [id number]) 7. Primary malignant neoplasm of prostate 8. Abdominal aortic aneurysm 9. Solitary nodule of lung 10. Insomnia 11. Chronic diarrhea 12. Chronic kidney disease stage 3A 13. COPD - Chronic obstructive pulmonary disease - Moderately severe 05/2022 PFTs 14. CAD - Coronary Artery Disease ([facility] [id number]) 15. History of myocardial infarction - STEMI 16. Low back pain 17. Neck pain Allergies: AMLODIPINE (Jun 17, 2021) Active Outpatient Medications (including Supplies): ACETAMINOPHEN 500MG TAB TAKE TWO TABLETS BY MOUTH THREE ACTIVE TIMES A DAY NEEDED FOR PAIN ALBUTEROL 90MCG (CFC-F) 200D ORAL INHL INHALE 2 PUFFS BY ACTIVE INHALATION EVERY 4 HOURS NEEDED FOR SHORTNESS OF BREATH ALLOPURINOL 100MG TAB TAKE ONE TABLET BY MOUTH EVERY DAY ACTIVE GOUT PREVENTION/URIC ACID CAMPHOR 0.5/MENTHOL 0.5% LOTION APPLY THIN LAYER TOPICALLY ACTIVE THREE TIMES A DAY NEEDED FOR ITCHING FAMOTIDINE 20MG TAB TAKE ONE TABLET BY MOUTH EVERY DAY FOR ACTIVE HEARTBURN GABAPENTIN 300MG CAP TAKE TWO CAPSULES BY MOUTH THREE ACTIVE TIMES A DAY FOR PAIN AND NUMBNESS AFTER GRADUAL DOSE AUGMENTATION HYDROCHLOROTHIAZIDE 25MG TAB TAKE ONE-HALF TABLET BY MOUTH ACTIVE EVERY DAY BLOOD PRESSURE MEDICATION LIDOCAINE 5% PATCH APPLY ONE OR TWO PATCHES TOPICALLY ACTIVE EVERY DAY NEEDED FOR PAIN LISINOPRIL 10MG TAB TAKE ONE TABLET BY MOUTH EVERY DAY FOR HOLD BLOOD PRESSURE DOSE DECREASED 08-21-22 LOPERAMIDE HCL 2MG CAP TAKE ONE CAPSULE BY MOUTH THREE ACTIVE TIMES A DAY FOR DIARRHEA LORATADINE 10MG TAB TAKE ONE TABLET BY MOUTH EVERY DAY ACTIVE NEEDED FOR ALLERGIES SERTRALINE HCL 25MG TAB TAKE ONE TABLET BY MOUTH EVERY DAY ACTIVE FOR DEPRESSION/ANXIETY VANICREAM TOP CREAM APPLY THIN LAYER TOPICALLY TWICE A DAY ACTIVE FOR DRY SKIN Non-VA ASPIRIN 81MG EC TAB 81MG MOUTH EVERY DAY ACTIVE Non-VA CURCUMIN CAP 1 CAPSULE MOUTH NEEDED ACTIVE Review of Systems: See HPI Physical Exam: Vital Signs Temp: 97.3 F [36.3 C] (08/05/2023 14:16) B/P: 134/77 (08/05/2023 14:21) Pulse: 79 (08/05/2023 14:16) Ht: 71 in [180.3 cm] (11/17/2022 13:41) Wt: 183.8 lb [83.37 kg] (06/05/2023 10:53) Pain: 0 (06/05/2023 10:53) BMI: 25.7 General: Alert and conversant Skin: He has pink papular and macular lesions with area of patches in the back Eyes: PERRLA, EOMI Oral/Throat: Moist and clear. Neck/Thyroid: Not palpable Cardiac: RRR, No murmurs, gallops, rubs, S1 and S2 normal. Chest/Lungs: Fine crackles bilaterally in the lower half of the chest. Neurological: Alert and oriented x3 Labs and Imaging LAB RESULTS TODAY - NONE FOUND 05/19/2023 16:02 11/17/2022 12:53 07/22/2022 10:21 \ 13.7 / \ 13.3 / \ 13.8 / 6.18 ------ 201 5.03 ------ 238 7.72 ------ 247 / 44.1 \ / 43.1 \ / 43.6 \ LYMPH: 14.1% L A1c: 5.3 @ 06/05/2023 11:52 NEUT: 74.2 MONO: 9.1 EOSINO: 2.1 BASO: 0.3 @ 05/19/2023 16:02 IG(META,MYELO,PRO): 0.2 ABS NEUT: 4.59 @ 05/19/2023 16:02 ABS LYMPH: 0.87 L ABS MONO: 0.56 ABS EOS: 0.13 @ 05/19/2023 16:02 ABS BASO: 0.02 ABS IMMATURE GRAN: 0.01 @ 05/19/2023 16:02 POC CREATININE: 1.2 @ 04/21/2023 11:53 SED RATE: 115 H @ 10/09/2022 12:01 a K Cl CO2 AG BUN Cr Ca Mg = 141 4.0 108 26 7 24 1.4 9.2 2.1 @ 06/05/2023 11:52 143 4.3 111 24 8 26 1.2 9.2 2.1 @ 05/19/2023 16:02 143 4.0 111 27 5 18 1.3 9.4 2.1 @ 11/17/2022 12:53 141 3.9 105 28 8 26 1.3 10.0 2.1 @ 07/22/2022 10:21 139 4.2 108 24 7 25 1.1 9.3 2.2 @ 05/13/2022 13:05 141 4.4 112 23 6 24 1.3 9.4 2.2 @ 01/30/2022 11:42 141 4.3 109 26 6 24 1.4 9.7 2.2 @ 06/17/2021 15:34 Assessment and Plan This 82-year-old male patient was past medical history of hypertension, hyperlipidemia, GERD, depression, prostate s/p postradiation therapy, COPD, solitary lung nodule, CAD, who is here for evaluation of chronic diarrhea, hot flashes, painful and prutitic skin rash and Gynecomastia 1. Hot flashes 2. Chronic diarrhea 3. Pruritic skin rash 4 Gynecomastia Differential diagnosis of hot flashes, chronic diarrhea in particular she is broad. The characteristic of the pruritic erythematous macules and papules, hot flashes and chronic diarrhea is concerning for possible systemic mastocytosis we recommend obtaining serum tryptase and dermatology referral evaluation of the skin rash and possible for skin biopsy. Carcinoid syndrome could also have this features but skin rash is not characteristic. We will obtain 5-HIAA. Pheochromocytoma can have episodic hot flash, headache and hypertension but skin rash is not typical. We will do 24-hour urine metanephrines. Hypogonadism with high LH could also present with hot flashes, gynecomastia and low energy in the setting of past treatment for prostate cancer. We will obtain LH, FSH and testosterone. Thyrotoxicosis might have similar symptoms. As such, will check TSH. Other DDX include but not limited to renal cell carcinoma, or medullary thyroid CA but no evidence of mass was noted on recent chest and abdominal imaging Plan -24-hour urine 5-HIAA -24-hour urine metanephrines -Serum tryptase -Dermatology referral -LH, FSH, testosterone -TSH Over 50% of this 30 minute visit was spent counseling the patient. All labs completed at this time were discussed with the patient. Patient was discussed and examined with attending Dr. Agnes Alexandra, who agrees with the assessment and plan /eda/ MILADIS GALINDO RESIDENT PHYSICIAN Signed: 08/21/2023 16:46 Receipt Acknowledged By: 08/24/2023 08:20 /lianet RUFF M.D. STAFF FIRE PREVENTION CHIEF 09/07/2023 ADDENDUM STATUS: COMPLETED Called Mr Rockwell to let him know that his LH and FSH are elevated with normal testesterone level. Tryptase, metanephrines and TSH are within normal limit. 5HIAA is pending. The elevated LH my explain the hot flashes. We need dedicated putuitary MRI to identify if he has gonadotroph putuitary adenoma. We will check free T4 too. /lianet GALINDO RESIDENT PHYSICIAN Signed: 09/07/2023 15:45 Receipt Acknowledged By: 09/07/2023 17:22 /lainet RUFF M.D. STAFF FIRE PREVENTION CHIEF 09/11/2023 ADDENDUM STATUS: COMPLETED MRI results: Empty sella. Will ask Dr Galindo to discuss with me and notify patient /lianet RUFF M.D. STAFF FIRE PREVENTION CHIEF Signed: 09/11/2023 09:45 Receipt Acknowledged By: 09/11/2023 15:46 /lianet GALINDO RESIDENT PHYSICIAN 09/11/2023 ADDENDUM STATUS: COMPLETED Called Mr Lange to discuss the MRI findings that there is no pituitary adenoma visible on MRI to explain the increased LF and FSH at this time. There is a possiblity that a nodule might appear in the future so yearly pituitary MRI is recommended. There is empty sell on MRI which is likely incidental and there is no evidence of associated hypopituitarism. Hot flashes he has been having are likely due to increaed LH and it is improving with gabapentin. If hot flashed are bothersome in the future, SSRIs like citalopram can be used. /lianet GALINDO RESIDENT PHYSICIAN Signed: 09/11/2023 15:45 Receipt Acknowledged By: 09/11/2023 16:21 /lianet RUFF M.D. STAFF FIRE PREVENTION CHIEF 09/17/2023 ADDENDUM STATUS: COMPLETED 5-HIAA mildly elevated.Likely due to tryptofan rich foods. Kat, please educate patient re foods with low tryptofan: avacoados, pineapples, bananas, kiwi, plums, eggplants, walnuts, hickory nuts, pecans, tomatoes, plantains, butternut squash. Medications to avoid: acetaminophen, caffeine, tobacco for ideally 1 week, if possible, if not at least for 48 hrs.. Need to repeat 24 hr urine for 5-HIAA after he is on this diet for 1 week. If patient agrees, please send another jug. Thank you /lianet RUFF M.D. STAFF FIRE PREVENTION CHIEF Signed: 09/17/2023 15:14 Receipt Acknowledged By: 09/17/2023 15:55 /lianet LUCERO RN Metabolic Vice President Of Consulting Services 09/17/2023 ADDENDUM STATUS: COMPLETED Called and spoke with and his . Reviewed above information from Dr. Ruff regarding 24-hr urine collection and tryptophan foods and foods to avoid 1 week prior. Mailed then 24 urine supplies. Also included the above information to the in a secure message per their request. /lianet LUCERO RN Metabolic Vice President Of Consulting Services Signed: 09/17/2023 16:00 10/19/2023 ADDENDUM STATUS: UNSIGNED You may not VIEW this UNSIGNED Addendum. KAT LUCERO [facility] Sep 17, 2023 03:05 PM ADDENDUM: LOCAL TITLE: Addendum STANDARD TITLE: ADDENDUM DATE OF NOTE: SEP 17, 2023@15:05:17 ENTRY DATE: SEP 17, 2023@15:05:18 AUTHOR: RANDI RUFF EXP COSIGNER: URGENCY: STATUS: COMPLETED 5-HIAA mildly elevated.Likely due to tryptofan rich foods. Kat, please educate patient re foods with low tryptofan: avacoados, pineapples, bananas, kiwi, plums, eggplants, walnuts, hickory nuts, pecans, tomatoes, plantains, butternut squash. Medications to avoid: acetaminophen, caffeine, tobacco for ideally 1 week, if possible, if not at least for 48 hrs.. Need to repeat 24 hr urine for 5-HIAA after he is on this diet for 1 week. If patient agrees, please send another jug. Thank you /lianet RUFF M.D. STAFF FIRE PREVENTION CHIEF Signed: 09/17/2023 15:14 Receipt Acknowledged By: 09/17/2023 15:55 /lianet LUCERO RN Metabolic Vice President Of Consulting Services --- Original Document --- 08/21/23 METABOLIC/ENDOCRINE CONSULT: Endocrine/Metabolic Clinic Note Chief Complaint: 82 year old MALE referred for evaluation of hot flush, diarrhea and painful skin and gynecomastia History of Present Illness: This 82-year-old male patient was past medical history of hypertension, hyperlipidemia, GERD, depression, history of prostate cancer status postradiation therapy, COPD, solitary lung nodule, CAD who is here for evaluation of chronic diarrhea, hot flush, painful skin and Gynecomastia Patient had longstanding diarrhea since 2016. The cause of the diarrhea has not been identified and he has been taking loperamide. He has been on oral medications including sertraline predating the onset of diarrhea but he has discontinued sertraline but continued. For the past 6 months he has been suffering from pruritic skin rash (reddish papules and macules mostly affecting the back. He has also been getting hot flashes, especially when he gets angry. For the past 2 months he has noticed swelling of both his breasts. He has history of hypertension but no episodic high blood pressures. He occasionally gets headaches He has low energy which has been slowly progressive for the past 10 years. He has also lost [address] and libido after treatment for prostate cancer with radiation therapy in 2005 He has longstanding pulmonary issues including COPD, lung nodule and and exudative pleural effusion. There work-up including rheumatology work-up and had positive ROMELIA and p-ANCA. Past Medical History: Active problems - Computerized Problem List is the source for the followin. HTN - Hypertension ([facility] [id number]) 2. Hyperlipidemia ([facility] [id number]) 3. Gout ([facility] [id number]) 4. Intracranial aneurysm - s/p stent/coil proceedure 5. GERD - Gastro-Esophageal Reflux Disease ([facility] [id number]) 6. Depression ([facility] [id number]) 7. Primary malignant neoplasm of prostate 8. Abdominal aortic aneurysm 9. Solitary nodule of lung 10. Insomnia 11. Chronic diarrhea 12. Chronic kidney disease stage 3A 13. COPD - Chronic obstructive pulmonary disease - Moderately severe 05/2022 PFTs 14. CAD - Coronary Artery Disease ([facility] [id number]) 15. History of myocardial infarction - STEMI 16. Low back pain 17. Neck pain Allergies: AMLODIPINE (Jun 17, 2021) Active Outpatient Medications (including Supplies): ACETAMINOPHEN 500MG TAB TAKE TWO TABLETS BY MOUTH THREE ACTIVE TIMES A DAY NEEDED FOR PAIN ALBUTEROL 90MCG (CFC-F) 200D ORAL INHL INHALE 2 PUFFS BY ACTIVE INHALATION EVERY 4 HOURS NEEDED FOR SHORTNESS OF BREATH ALLOPURINOL 100MG TAB TAKE ONE TABLET BY MOUTH EVERY DAY ACTIVE GOUT PREVENTION/URIC ACID CAMPHOR 0.5/MENTHOL 0.5% LOTION APPLY THIN LAYER TOPICALLY ACTIVE THREE TIMES A DAY NEEDED FOR ITCHING FAMOTIDINE 20MG TAB TAKE ONE TABLET BY MOUTH EVERY DAY FOR ACTIVE HEARTBURN GABAPENTIN 300MG CAP TAKE TWO CAPSULES BY MOUTH THREE ACTIVE TIMES A DAY FOR PAIN AND NUMBNESS AFTER GRADUAL DOSE AUGMENTATION HYDROCHLOROTHIAZIDE 25MG TAB TAKE ONE-HALF TABLET BY MOUTH ACTIVE EVERY DAY BLOOD PRESSURE MEDICATION LIDOCAINE 5% PATCH APPLY ONE OR TWO PATCHES TOPICALLY ACTIVE EVERY DAY NEEDED FOR PAIN LISINOPRIL 10MG TAB TAKE ONE TABLET BY MOUTH EVERY DAY FOR HOLD BLOOD PRESSURE DOSE DECREASED 08-21-22 LOPERAMIDE HCL 2MG CAP TAKE ONE CAPSULE BY MOUTH THREE ACTIVE TIMES A DAY FOR DIARRHEA LORATADINE 10MG TAB TAKE ONE TABLET BY MOUTH EVERY DAY ACTIVE NEEDED FOR ALLERGIES SERTRALINE HCL 25MG TAB TAKE ONE TABLET BY MOUTH EVERY DAY ACTIVE FOR DEPRESSION/ANXIETY VANICREAM TOP CREAM APPLY THIN LAYER TOPICALLY TWICE A DAY ACTIVE FOR DRY SKIN Non-VA ASPIRIN 81MG EC TAB 81MG MOUTH EVERY DAY ACTIVE Non-VA CURCUMIN CAP 1 CAPSULE MOUTH NEEDED ACTIVE Review of Systems: See HPI Physical Exam: Vital Signs Temp: 97.3 F [36.3 C] (08/05/2023 14:16) B/P: 134/77 (08/05/2023 14:21) Pulse: 79 (08/05/2023 14:16) Ht: 71 in [180.3 cm] (11/17/2022 13:41) Wt: 183.8 lb [83.37 kg] (06/05/2023 10:53) Pain: 0 (06/05/2023 10:53) BMI: 25.7 General: Alert and conversant Skin: He has pink papular and macular lesions with area of patches in the back Eyes: PERRLA, EOMI Oral/Throat: Moist and clear. Neck/Thyroid: Not palpable Cardiac: RRR, No murmurs, gallops, rubs, S1 and S2 normal. Chest/Lungs: Fine crackles bilaterally in the lower half of the chest. Neurological: Alert and oriented x3 Labs and Imaging LAB RESULTS TODAY - NONE FOUND 05/19/2023 16:02 11/17/2022 12:53 07/22/2022 10:21 \ 13.7 / \ 13.3 / \ 13.8 / 6.18 ------ 201 5.03 ------ 238 7.72 ------ 247 / 44.1 \ / 43.1 \ / 43.6 \ LYMPH: 14.1% L A1c: 5.3 @ 06/05/2023 11:52 NEUT: 74.2 MONO: 9.1 EOSINO: 2.1 BASO: 0.3 @ 05/19/2023 16:02 IG(META,MYELO,PRO): 0.2 ABS NEUT: 4.59 @ 05/19/2023 16:02 ABS LYMPH: 0.87 L ABS MONO: 0.56 ABS EOS: 0.13 @ 05/19/2023 16:02 ABS BASO: 0.02 ABS IMMATURE GRAN: 0.01 @ 05/19/2023 16:02 POC CREATININE: 1.2 @ 04/21/2023 11:53 SED RATE: 115 H @ 10/09/2022 12:01 a K Cl CO2 AG BUN Cr Ca Mg = 141 4.0 108 26 7 24 1.4 9.2 2.1 @ 06/05/2023 11:52 143 4.3 111 24 8 26 1.2 9.2 2.1 @ 05/19/2023 16:02 143 4.0 111 27 5 18 1.3 9.4 2.1 @ 11/17/2022 12:53 141 3.9 105 28 8 26 1.3 10.0 2.1 @ 07/22/2022 10:21 139 4.2 108 24 7 25 1.1 9.3 2.2 @ 05/13/2022 13:05 141 4.4 112 23 6 24 1.3 9.4 2.2 @ 01/30/2022 11:42 141 4.3 109 26 6 24 1.4 9.7 2.2 @ 06/17/2021 15:34 Assessment and Plan This 82-year-old male patient was past medical history of hypertension, hyperlipidemia, GERD, depression, prostate s/p postradiation therapy, COPD, solitary lung nodule, CAD, who is here for evaluation of chronic diarrhea, hot flashes, painful and prutitic skin rash and Gynecomastia 1. Hot flashes 2. Chronic diarrhea 3. Pruritic skin rash 4 Gynecomastia Differential diagnosis of hot flashes, chronic diarrhea in particular she is broad. The characteristic of the pruritic erythematous macules and papules, hot flashes and chronic diarrhea is concerning for possible systemic mastocytosis we recommend obtaining serum tryptase and dermatology referral evaluation of the skin rash and possible for skin biopsy. Carcinoid syndrome could also have this features but skin rash is not characteristic. We will obtain 5-HIAA. Pheochromocytoma can have episodic hot flash, headache and hypertension but skin rash is not typical. We will do 24-hour urine metanephrines. Hypogonadism with high LH could also present with hot flashes, gynecomastia and low energy in the setting of past treatment for prostate cancer. We will obtain LH, FSH and testosterone. Thyrotoxicosis might have similar symptoms. As such, will check TSH. Other DDX include but not limited to renal cell carcinoma, or medullary thyroid CA but no evidence of mass was noted on recent chest and abdominal imaging Plan -24-hour urine 5-HIAA -24-hour urine metanephrines -Serum tryptase -Dermatology referral -LH, FSH, testosterone -TSH Over 50% of this 30 minute visit was spent counseling the patient. All labs completed at this time were discussed with the patient. Patient was discussed and examined with attending Dr. Agnes Alexandra, who agrees with the assessment and plan /eda/ MILADIS GALINDO RESIDENT PHYSICIAN Signed: 08/21/2023 16:46 Receipt Acknowledged By: 08/24/2023 08:20 /lianet RUFF M.D. STAFF FIRE PREVENTION CHIEF 09/07/2023 ADDENDUM STATUS: COMPLETED Called Mr Rockwell to let him know that his LH and FSH are elevated with normal testesterone level. Tryptase, metanephrines and TSH are within normal limit. 5HIAA is pending. The elevated LH my explain the hot flashes. We need dedicated putuitary MRI to identify if he has gonadotroph putuitary adenoma. We will check free T4 too. /lianet GALINDO RESIDENT PHYSICIAN Signed: 09/07/2023 15:45 Receipt Acknowledged By: 09/07/2023 17:22 /lianet RUFF M.D. STAFF FIRE PREVENTION CHIEF 09/11/2023 ADDENDUM STATUS: COMPLETED MRI results: Empty sella. Will ask Dr Galindo to discuss with me and notify patient /lianet RUFF M.D. STAFF FIRE PREVENTION CHIEF Signed: 09/11/2023 09:45 Receipt Acknowledged By: 09/11/2023 15:46 /lianet GALINDO RESIDENT PHYSICIAN 09/11/2023 ADDENDUM STATUS: COMPLETED Called Mr Lange to discuss the MRI findings that there is no pituitary adenoma visible on MRI to explain the increased LF and FSH at this time. There is a possiblity that a nodule might appear in the future so yearly pituitary MRI is recommended. There is empty sell on MRI which is likely incidental and there is no evidence of associated hypopituitarism. Hot flashes he has been having are likely due to increaed LH and it is improving with gabapentin. If hot flashed are bothersome in the future, SSRIs like citalopram can be used. /eda/ MILADIS GALINDO RESIDENT PHYSICIAN Signed: 09/11/2023 15:45 Receipt Acknowledged By: 09/11/2023 16:21 /lianet RUFF M.D. STAFF FIRE PREVENTION CHIEF RANDI RUFF [facility] Sep 11, 2023 03:38 PM ADDENDUM: LOCAL TITLE: Addendum STANDARD TITLE: ADDENDUM DATE OF NOTE: SEP 11, 2023@15:38:45 ENTRY DATE: SEP 11, 2023@15:38:47 AUTHOR: MILADIS GALINDO EXP COSIGNER: URGENCY: STATUS: COMPLETED Called Mr Lange to discuss the MRI findings that there is no pituitary adenoma visible on MRI to explain the increased LF and FSH at this time. There is a possiblity that a nodule might appear in the future so yearly pituitary MRI is recommended. There is empty sell on MRI which is likely incidental and there is no evidence of associated hypopituitarism. Hot flashes he has been having are likely due to increaed LH and it is improving with gabapentin. If hot flashed are bothersome in the future, SSRIs like citalopram can be used. /eda/ MILADIS GALINDO RESIDENT PHYSICIAN Signed: 09/11/2023 15:45 Receipt Acknowledged By: 09/11/2023 16:21 /es/ RANDI RUFF M.D. STAFF FIRE PREVENTION CHIEF --- Original Document --- 08/21/23 METABOLIC/ENDOCRINE CONSULT: Endocrine/Metabolic Clinic Note Chief Complaint: 82 year old MALE referred for evaluation of hot flush, diarrhea and painful skin and gynecomastia History of Present Illness: This 82-year-old male patient was past medical history of hypertension, hyperlipidemia, GERD, depression, history of prostate cancer status postradiation therapy, COPD, solitary lung nodule, CAD who is here for evaluation of chronic diarrhea, hot flush, painful skin and Gynecomastia Patient had longstanding diarrhea since 2016. The cause of the diarrhea has not been identified and he has been taking loperamide. He has been on oral medications including sertraline predating the onset of diarrhea but he has discontinued sertraline but continued. For the past 6 months he has been suffering from pruritic skin rash (reddish papules and macules mostly affecting the back. He has also been getting hot flashes, especially when he gets angry. For the past 2 months he has noticed swelling of both his breasts. He has history of hypertension but no episodic high blood pressures. He occasionally gets headaches He has low energy which has been slowly progressive for the past 10 years. He has also lost [address] and libido after treatment for prostate cancer with radiation therapy in 2005 He has longstanding pulmonary issues including COPD, lung nodule and and exudative pleural effusion. There work-up including rheumatology work-up and had positive ROMELIA and p-ANCA. Past Medical History: Active problems - Computerized Problem List is the source for the followin. HTN - Hypertension ([facility] [id number]) 2. Hyperlipidemia ([facility] [id number]) 3. Gout ([facility] [id number]) 4. Intracranial aneurysm - s/p stent/coil proceedure 5. GERD - Gastro-Esophageal Reflux Disease ([facility] [id number]) 6. Depression ([facility] [id number]) 7. Primary malignant neoplasm of prostate 8. Abdominal aortic aneurysm 9. Solitary nodule of lung 10. Insomnia 11. Chronic diarrhea 12. Chronic kidney disease stage 3A 13. COPD - Chronic obstructive pulmonary disease - Moderately severe 05/2022 PFTs 14. CAD - Coronary Artery Disease ([facility] [id number]) 15. History of myocardial infarction - STEMI 16. Low back pain 17. Neck pain Allergies: AMLODIPINE (Jun 17, 2021) Active Outpatient Medications (including Supplies): ACETAMINOPHEN 500MG TAB TAKE TWO TABLETS BY MOUTH THREE ACTIVE TIMES A DAY NEEDED FOR PAIN ALBUTEROL 90MCG (CFC-F) 200D ORAL INHL INHALE 2 PUFFS BY ACTIVE INHALATION EVERY 4 HOURS NEEDED FOR SHORTNESS OF BREATH ALLOPURINOL 100MG TAB TAKE ONE TABLET BY MOUTH EVERY DAY ACTIVE GOUT PREVENTION/URIC ACID CAMPHOR 0.5/MENTHOL 0.5% LOTION APPLY THIN LAYER TOPICALLY ACTIVE THREE TIMES A DAY NEEDED FOR ITCHING FAMOTIDINE 20MG TAB TAKE ONE TABLET BY MOUTH EVERY DAY FOR ACTIVE HEARTBURN GABAPENTIN 300MG CAP TAKE TWO CAPSULES BY MOUTH THREE ACTIVE TIMES A DAY FOR PAIN AND NUMBNESS AFTER GRADUAL DOSE AUGMENTATION HYDROCHLOROTHIAZIDE 25MG TAB TAKE ONE-HALF TABLET BY MOUTH ACTIVE EVERY DAY BLOOD PRESSURE MEDICATION LIDOCAINE 5% PATCH APPLY ONE OR TWO PATCHES TOPICALLY ACTIVE EVERY DAY NEEDED FOR PAIN LISINOPRIL 10MG TAB TAKE ONE TABLET BY MOUTH EVERY DAY FOR HOLD BLOOD PRESSURE DOSE DECREASED 08-21-22 LOPERAMIDE HCL 2MG CAP TAKE ONE CAPSULE BY MOUTH THREE ACTIVE TIMES A DAY FOR DIARRHEA LORATADINE 10MG TAB TAKE ONE TABLET BY MOUTH EVERY DAY ACTIVE NEEDED FOR ALLERGIES SERTRALINE HCL 25MG TAB TAKE ONE TABLET BY MOUTH EVERY DAY ACTIVE FOR DEPRESSION/ANXIETY VANICREAM TOP CREAM APPLY THIN LAYER TOPICALLY TWICE A DAY ACTIVE FOR DRY SKIN Non-VA ASPIRIN 81MG EC TAB 81MG MOUTH EVERY DAY ACTIVE Non-VA CURCUMIN CAP 1 CAPSULE MOUTH NEEDED ACTIVE Review of Systems: See HPI Physical Exam: Vital Signs Temp: 97.3 F [36.3 C] (08/05/2023 14:16) B/P: 134/77 (08/05/2023 14:21) Pulse: 79 (08/05/2023 14:16) Ht: 71 in [180.3 cm] (11/17/2022 13:41) Wt: 183.8 lb [83.37 kg] (06/05/2023 10:53) Pain: 0 (06/05/2023 10:53) BMI: 25.7 General: Alert and conversant Skin: He has pink papular and macular lesions with area of patches in the back Eyes: PERRLA, EOMI Oral/Throat: Moist and clear. Neck/Thyroid: Not palpable Cardiac: RRR, No murmurs, gallops, rubs, S1 and S2 normal. Chest/Lungs: Fine crackles bilaterally in the lower half of the chest. Neurological: Alert and oriented x3 Labs and Imaging LAB RESULTS TODAY - NONE FOUND 05/19/2023 16:02 11/17/2022 12:53 07/22/2022 10:21 \ 13.7 / \ 13.3 / \ 13.8 / 6.18 ------ 201 5.03 ------ 238 7.72 ------ 247 / 44.1 \ / 43.1 \ / 43.6 \ LYMPH: 14.1% L A1c: 5.3 @ 06/05/2023 11:52 NEUT: 74.2 MONO: 9.1 EOSINO: 2.1 BASO: 0.3 @ 05/19/2023 16:02 IG(META,MYELO,PRO): 0.2 ABS NEUT: 4.59 @ 05/19/2023 16:02 ABS LYMPH: 0.87 L ABS MONO: 0.56 ABS EOS: 0.13 @ 05/19/2023 16:02 ABS BASO: 0.02 ABS IMMATURE GRAN: 0.01 @ 05/19/2023 16:02 POC CREATININE: 1.2 @ 04/21/2023 11:53 SED RATE: 115 H @ 10/09/2022 12:01 a K Cl CO2 AG BUN Cr Ca Mg = 141 4.0 108 26 7 24 1.4 9.2 2.1 @ 06/05/2023 11:52 143 4.3 111 24 8 26 1.2 9.2 2.1 @ 05/19/2023 16:02 143 4.0 111 27 5 18 1.3 9.4 2.1 @ 11/17/2022 12:53 141 3.9 105 28 8 26 1.3 10.0 2.1 @ 07/22/2022 10:21 139 4.2 108 24 7 25 1.1 9.3 2.2 @ 05/13/2022 13:05 141 4.4 112 23 6 24 1.3 9.4 2.2 @ 01/30/2022 11:42 141 4.3 109 26 6 24 1.4 9.7 2.2 @ 06/17/2021 15:34 Assessment and Plan This 82-year-old male patient was past medical history of hypertension, hyperlipidemia, GERD, depression, prostate s/p postradiation therapy, COPD, solitary lung nodule, CAD, who is here for evaluation of chronic diarrhea, hot flashes, painful and prutitic skin rash and Gynecomastia 1. Hot flashes 2. Chronic diarrhea 3. Pruritic skin rash 4 Gynecomastia Differential diagnosis of hot flashes, chronic diarrhea in particular she is broad. The characteristic of the pruritic erythematous macules and papules, hot flashes and chronic diarrhea is concerning for possible systemic mastocytosis we recommend obtaining serum tryptase and dermatology referral evaluation of the skin rash and possible for skin biopsy. Carcinoid syndrome could also have this features but skin rash is not characteristic. We will obtain 5-HIAA. Pheochromocytoma can have episodic hot flash, headache and hypertension but skin rash is not typical. We will do 24-hour urine metanephrines. Hypogonadism with high LH could also present with hot flashes, gynecomastia and low energy in the setting of past treatment for prostate cancer. We will obtain LH, FSH and testosterone. Thyrotoxicosis might have similar symptoms. As such, will check TSH. Other DDX include but not limited to renal cell carcinoma, or medullary thyroid CA but no evidence of mass was noted on recent chest and abdominal imaging Plan -24-hour urine 5-HIAA -24-hour urine metanephrines -Serum tryptase -Dermatology referral -LH, FSH, testosterone -TSH Over 50% of this 30 minute visit was spent counseling the patient. All labs completed at this time were discussed with the patient. Patient was discussed and examined with attending Dr. Agnes Alexandra, who agrees with the assessment and plan /lianet GALINDO RESIDENT PHYSICIAN Signed: 08/21/2023 16:46 Receipt Acknowledged By: 08/24/2023 08:20 /lianet RUFF M.D. STAFF FIRE PREVENTION CHIEF 09/07/2023 ADDENDUM STATUS: COMPLETED Called Mr Rockwell to let him know that his LH and FSH are elevated with normal testesterone level. Tryptase, metanephrines and TSH are within normal limit. 5HIAA is pending. The elevated LH my explain the hot flashes. We need dedicated putuitary MRI to identify if he has gonadotroph putuitary adenoma. We will check free T4 too. /lianet GALINDO RESIDENT PHYSICIAN Signed: 09/07/2023 15:45 Receipt Acknowledged By: 09/07/2023 17:22 /lianet RUFF M.D. STAFF FIRE PREVENTION CHIEF 09/11/2023 ADDENDUM STATUS: COMPLETED MRI results: Empty sella. Will ask Dr Galindo to discuss with me and notify patient /lianet RUFF M.D. STAFF FIRE PREVENTION CHIEF Signed: 09/11/2023 09:45 Receipt Acknowledged By: 09/11/2023 15:46 /lianet GALINDO RESIDENT PHYSICIAN MILADIS GALINDO [facility] Sep 11, 2023 09:45 AM ADDENDUM: LOCAL TITLE: Addendum STANDARD TITLE: ADDENDUM DATE OF NOTE: SEP 11, 2023@09:45:23 ENTRY DATE: SEP 11, 2023@09:45:24 AUTHOR: RANDI RUFF EXP COSIGNER: URGENCY: STATUS: COMPLETED MRI results: Empty sella. Will ask Dr Galindo to discuss with me and notify patient /eda/ RANDI RUFF M.D. STAFF FIRE PREVENTION CHIEF Signed: 09/11/2023 09:45 Receipt Acknowledged By: 09/11/2023 15:46 /lianet GALINDO RESIDENT PHYSICIAN --- Original Document --- 08/21/23 METABOLIC/ENDOCRINE CONSULT: Endocrine/Metabolic Clinic Note Chief Complaint: 82 year old MALE referred for evaluation of hot flush, diarrhea and painful skin and gynecomastia History of Present Illness: This 82-year-old male patient was past medical history of hypertension, hyperlipidemia, GERD, depression, history of prostate cancer status postradiation therapy, COPD, solitary lung nodule, CAD who is here for evaluation of chronic diarrhea, hot flush, painful skin and Gynecomastia Patient had longstanding diarrhea since 2016. The cause of the diarrhea has not been identified and he has been taking loperamide. He has been on oral medications including sertraline predating the onset of diarrhea but he has discontinued sertraline but continued. For the past 6 months he has been suffering from pruritic skin rash (reddish papules and macules mostly affecting the back. He has also been getting hot flashes, especially when he gets angry. For the past 2 months he has noticed swelling of both his breasts. He has history of hypertension but no episodic high blood pressures. He occasionally gets headaches He has low energy which has been slowly progressive for the past 10 years. He has also lost [address] and libido after treatment for prostate cancer with radiation therapy in 2005 He has longstanding pulmonary issues including COPD, lung nodule and and exudative pleural effusion. There work-up including rheumatology work-up and had positive ROMELIA and p-ANCA. Past Medical History: Active problems - Computerized Problem List is the source for the followin. HTN - Hypertension ([facility] [id number]) 2. Hyperlipidemia ([facility] [id number]) 3. Gout ([facility] [id number]) 4. Intracranial aneurysm - s/p stent/coil proceedure 5. GERD - Gastro-Esophageal Reflux Disease ([facility] [id number]) 6. Depression ([facility] [id number]) 7. Primary malignant neoplasm of prostate 8. Abdominal aortic aneurysm 9. Solitary nodule of lung 10. Insomnia 11. Chronic diarrhea 12. Chronic kidney disease stage 3A 13. COPD - Chronic obstructive pulmonary disease - Moderately severe 05/2022 PFTs 14. CAD - Coronary Artery Disease ([facility] [id number]) 15. History of myocardial infarction - STEMI 16. Low back pain 17. Neck pain Allergies: AMLODIPINE (Jun 17, 2021) Active Outpatient Medications (including Supplies): ACETAMINOPHEN 500MG TAB TAKE TWO TABLETS BY MOUTH THREE ACTIVE TIMES A DAY NEEDED FOR PAIN ALBUTEROL 90MCG (CFC-F) 200D ORAL INHL INHALE 2 PUFFS BY ACTIVE INHALATION EVERY 4 HOURS NEEDED FOR SHORTNESS OF BREATH ALLOPURINOL 100MG TAB TAKE ONE TABLET BY MOUTH EVERY DAY ACTIVE GOUT PREVENTION/URIC ACID CAMPHOR 0.5/MENTHOL 0.5% LOTION APPLY THIN LAYER TOPICALLY ACTIVE THREE TIMES A DAY NEEDED FOR ITCHING FAMOTIDINE 20MG TAB TAKE ONE TABLET BY MOUTH EVERY DAY FOR ACTIVE HEARTBURN GABAPENTIN 300MG CAP TAKE TWO CAPSULES BY MOUTH THREE ACTIVE TIMES A DAY FOR PAIN AND NUMBNESS AFTER GRADUAL DOSE AUGMENTATION HYDROCHLOROTHIAZIDE 25MG TAB TAKE ONE-HALF TABLET BY MOUTH ACTIVE EVERY DAY BLOOD PRESSURE MEDICATION LIDOCAINE 5% PATCH APPLY ONE OR TWO PATCHES TOPICALLY ACTIVE EVERY DAY NEEDED FOR PAIN LISINOPRIL 10MG TAB TAKE ONE TABLET BY MOUTH EVERY DAY FOR HOLD BLOOD PRESSURE DOSE DECREASED 08-21-22 LOPERAMIDE HCL 2MG CAP TAKE ONE CAPSULE BY MOUTH THREE ACTIVE TIMES A DAY FOR DIARRHEA LORATADINE 10MG TAB TAKE ONE TABLET BY MOUTH EVERY DAY ACTIVE NEEDED FOR ALLERGIES SERTRALINE HCL 25MG TAB TAKE ONE TABLET BY MOUTH EVERY DAY ACTIVE FOR DEPRESSION/ANXIETY VANICREAM TOP CREAM APPLY THIN LAYER TOPICALLY TWICE A DAY ACTIVE FOR DRY SKIN Non-VA ASPIRIN 81MG EC TAB 81MG MOUTH EVERY DAY ACTIVE Non-VA CURCUMIN CAP 1 CAPSULE MOUTH NEEDED ACTIVE Review of Systems: See HPI Physical Exam: Vital Signs Temp: 97.3 F [36.3 C] (08/05/2023 14:16) B/P: 134/77 (08/05/2023 14:21) Pulse: 79 (08/05/2023 14:16) Ht: 71 in [180.3 cm] (11/17/2022 13:41) Wt: 183.8 lb [83.37 kg] (06/05/2023 10:53) Pain: 0 (06/05/2023 10:53) BMI: 25.7 General: Alert and conversant Skin: He has pink papular and macular lesions with area of patches in the back Eyes: PERRLA, EOMI Oral/Throat: Moist and clear. Neck/Thyroid: Not palpable Cardiac: RRR, No murmurs, gallops, rubs, S1 and S2 normal. Chest/Lungs: Fine crackles bilaterally in the lower half of the chest. Neurological: Alert and oriented x3 Labs and Imaging LAB RESULTS TODAY - NONE FOUND 05/19/2023 16:02 11/17/2022 12:53 07/22/2022 10:21 \ 13.7 / \ 13.3 / \ 13.8 / 6.18 ------ 201 5.03 ------ 238 7.72 ------ 247 / 44.1 \ / 43.1 \ / 43.6 \ LYMPH: 14.1% L A1c: 5.3 @ 06/05/2023 11:52 NEUT: 74.2 MONO: 9.1 EOSINO: 2.1 BASO: 0.3 @ 05/19/2023 16:02 IG(META,MYELO,PRO): 0.2 ABS NEUT: 4.59 @ 05/19/2023 16:02 ABS LYMPH: 0.87 L ABS MONO: 0.56 ABS EOS: 0.13 @ 05/19/2023 16:02 ABS BASO: 0.02 ABS IMMATURE GRAN: 0.01 @ 05/19/2023 16:02 POC CREATININE: 1.2 @ 04/21/2023 11:53 SED RATE: 115 H @ 10/09/2022 12:01 a K Cl CO2 AG BUN Cr Ca Mg = 141 4.0 108 26 7 24 1.4 9.2 2.1 @ 06/05/2023 11:52 143 4.3 111 24 8 26 1.2 9.2 2.1 @ 05/19/2023 16:02 143 4.0 111 27 5 18 1.3 9.4 2.1 @ 11/17/2022 12:53 141 3.9 105 28 8 26 1.3 10.0 2.1 @ 07/22/2022 10:21 139 4.2 108 24 7 25 1.1 9.3 2.2 @ 05/13/2022 13:05 141 4.4 112 23 6 24 1.3 9.4 2.2 @ 01/30/2022 11:42 141 4.3 109 26 6 24 1.4 9.7 2.2 @ 06/17/2021 15:34 Assessment and Plan This 82-year-old male patient was past medical history of hypertension, hyperlipidemia, GERD, depression, prostate s/p postradiation therapy, COPD, solitary lung nodule, CAD, who is here for evaluation of chronic diarrhea, hot flashes, painful and prutitic skin rash and Gynecomastia 1. Hot flashes 2. Chronic diarrhea 3. Pruritic skin rash 4 Gynecomastia Differential diagnosis of hot flashes, chronic diarrhea in particular she is broad. The characteristic of the pruritic erythematous macules and papules, hot flashes and chronic diarrhea is concerning for possible systemic mastocytosis we recommend obtaining serum tryptase and dermatology referral evaluation of the skin rash and possible for skin biopsy. Carcinoid syndrome could also have this features but skin rash is not characteristic. We will obtain 5-HIAA. Pheochromocytoma can have episodic hot flash, headache and hypertension but skin rash is not typical. We will do 24-hour urine metanephrines. Hypogonadism with high LH could also present with hot flashes, gynecomastia and low energy in the setting of past treatment for prostate cancer. We will obtain LH, FSH and testosterone. Thyrotoxicosis might have similar symptoms. As such, will check TSH. Other DDX include but not limited to renal cell carcinoma, or medullary thyroid CA but no evidence of mass was noted on recent chest and abdominal imaging Plan -24-hour urine 5-HIAA -24-hour urine metanephrines -Serum tryptase -Dermatology referral -LH, FSH, testosterone -TSH Over 50% of this 30 minute visit was spent counseling the patient. All labs completed at this time were discussed with the patient. Patient was discussed and examined with attending Dr. Agnes Alexandra, who agrees with the assessment and plan /lianet GALINDO RESIDENT PHYSICIAN Signed: 08/21/2023 16:46 Receipt Acknowledged By: 08/24/2023 08:20 /lianet RUFF M.D. STAFF FIRE PREVENTION CHIEF 09/07/2023 ADDENDUM STATUS: COMPLETED Called Mr Rockwell to let him know that his LH and FSH are elevated with normal testesterone level. Tryptase, metanephrines and TSH are within normal limit. 5HIAA is pending. The elevated LH my explain the hot flashes. We need dedicated putuitary MRI to identify if he has gonadotroph putuitary adenoma. We will check free T4 too. /lianet GALINDO RESIDENT PHYSICIAN Signed: 09/07/2023 15:45 Receipt Acknowledged By: 09/07/2023 17:22 /lianet RUFF M.D. STAFF FIRE PREVENTION CHIEF 09/11/2023 ADDENDUM STATUS: COMPLETED Called Mr Lange to discuss the MRI findings that there is no pituitary adenoma visible on MRI to explain the increased LF and FSH at this time. There is a possiblity that a nodule might appear in the future so yearly pituitary MRI is recommended. There is empty sell on MRI which is likely incidental and there is no evidence of associated hypopituitarism. Hot flashes he has been having are likely due to increaed LH and it is improving with gabapentin. If hot flashed are bothersome in the future, SSRIs like citalopram can be used. /lianet GALINDO RESIDENT PHYSICIAN Signed: 09/11/2023 15:45 Receipt Acknowledged By: * AWAITING SIGNATURE * RANDI RUFF NACIDE [facility] Sep 07, 2023 03:40 PM ADDENDUM: LOCAL TITLE: Addendum STANDARD TITLE: ADDENDUM DATE OF NOTE: SEP 07, 2023@15:40:13 ENTRY DATE: SEP 07, 2023@15:40:14 AUTHOR: MILADIS GALINDO EXP COSIGNER: URGENCY: STATUS: COMPLETED Called Mr Rockwell to let him know that his LH and FSH are elevated with normal testesterone level. Tryptase, metanephrines and TSH are within normal limit. 5HIAA is pending. The elevated LH my explain the hot flashes. We need dedicated putuitary MRI to identify if he has gonadotroph putuitary adenoma. We will check free T4 too. /es/ MILADIS GALINDO RESIDENT PHYSICIAN Signed: 09/07/2023 15:45 Receipt Acknowledged By: 09/07/2023 17:22 /es/ RANDI RUFF M.D. STAFF FIRE PREVENTION CHIEF --- Original Document --- 08/21/23 METABOLIC/ENDOCRINE CONSULT: Endocrine/Metabolic Clinic Note Chief Complaint: 82 year old MALE referred for evaluation of hot flush, diarrhea and painful skin and gynecomastia History of Present Illness: This 82-year-old male patient was past medical history of hypertension, hyperlipidemia, GERD, depression, history of prostate cancer status postradiation therapy, COPD, solitary lung nodule, CAD who is here for evaluation of chronic diarrhea, hot flush, painful skin and Gynecomastia Patient had longstanding diarrhea since 2016. The cause of the diarrhea has not been identified and he has been taking loperamide. He has been on oral medications including sertraline predating the onset of diarrhea but he has discontinued sertraline but continued. For the past 6 months he has been suffering from pruritic skin rash (reddish papules and macules mostly affecting the back. He has also been getting hot flashes, especially when he gets angry. For the past 2 months he has noticed swelling of both his breasts. He has history of hypertension but no episodic high blood pressures. He occasionally gets headaches He has low energy which has been slowly progressive for the past 10 years. He has also lost [address] and libido after treatment for prostate cancer with radiation therapy in 2005 He has longstanding pulmonary issues including COPD, lung nodule and and exudative pleural effusion. There work-up including rheumatology work-up and had positive ROMELIA and p-ANCA. Past Medical History: Active problems - Computerized Problem List is the source for the followin. HTN - Hypertension ([facility] [id number]) 2. Hyperlipidemia ([facility] [id number]) 3. Gout ([facility] [id number]) 4. Intracranial aneurysm - s/p stent/coil proceedure 5. GERD - Gastro-Esophageal Reflux Disease ([facility] [id number]) 6. Depression ([facility] [id number]) 7. Primary malignant neoplasm of prostate 8. Abdominal aortic aneurysm 9. Solitary nodule of lung 10. Insomnia 11. Chronic diarrhea 12. Chronic kidney disease stage 3A 13. COPD - Chronic obstructive pulmonary disease - Moderately severe 05/2022 PFTs 14. CAD - Coronary Artery Disease ([facility] [id number]) 15. History of myocardial infarction - STEMI 16. Low back pain 17. Neck pain Allergies: AMLODIPINE (Jun 17, 2021) Active Outpatient Medications (including Supplies): ACETAMINOPHEN 500MG TAB TAKE TWO TABLETS BY MOUTH THREE ACTIVE TIMES A DAY NEEDED FOR PAIN ALBUTEROL 90MCG (CFC-F) 200D ORAL INHL INHALE 2 PUFFS BY ACTIVE INHALATION EVERY 4 HOURS NEEDED FOR SHORTNESS OF BREATH ALLOPURINOL 100MG TAB TAKE ONE TABLET BY MOUTH EVERY DAY ACTIVE GOUT PREVENTION/URIC ACID CAMPHOR 0.5/MENTHOL 0.5% LOTION APPLY THIN LAYER TOPICALLY ACTIVE THREE TIMES A DAY NEEDED FOR ITCHING FAMOTIDINE 20MG TAB TAKE ONE TABLET BY MOUTH EVERY DAY FOR ACTIVE HEARTBURN GABAPENTIN 300MG CAP TAKE TWO CAPSULES BY MOUTH THREE ACTIVE TIMES A DAY FOR PAIN AND NUMBNESS AFTER GRADUAL DOSE AUGMENTATION HYDROCHLOROTHIAZIDE 25MG TAB TAKE ONE-HALF TABLET BY MOUTH ACTIVE EVERY DAY BLOOD PRESSURE MEDICATION LIDOCAINE 5% PATCH APPLY ONE OR TWO PATCHES TOPICALLY ACTIVE EVERY DAY NEEDED FOR PAIN LISINOPRIL 10MG TAB TAKE ONE TABLET BY MOUTH EVERY DAY FOR HOLD BLOOD PRESSURE DOSE DECREASED 08-21-22 LOPERAMIDE HCL 2MG CAP TAKE ONE CAPSULE BY MOUTH THREE ACTIVE TIMES A DAY FOR DIARRHEA LORATADINE 10MG TAB TAKE ONE TABLET BY MOUTH EVERY DAY ACTIVE NEEDED FOR ALLERGIES SERTRALINE HCL 25MG TAB TAKE ONE TABLET BY MOUTH EVERY DAY ACTIVE FOR DEPRESSION/ANXIETY VANICREAM TOP CREAM APPLY THIN LAYER TOPICALLY TWICE A DAY ACTIVE FOR DRY SKIN Non-VA ASPIRIN 81MG EC TAB 81MG MOUTH EVERY DAY ACTIVE Non-VA CURCUMIN CAP 1 CAPSULE MOUTH NEEDED ACTIVE Review of Systems: See HPI Physical Exam: Vital Signs Temp: 97.3 F [36.3 C] (08/05/2023 14:16) B/P: 134/77 (08/05/2023 14:21) Pulse: 79 (08/05/2023 14:16) Ht: 71 in [180.3 cm] (11/17/2022 13:41) Wt: 183.8 lb [83.37 kg] (06/05/2023 10:53) Pain: 0 (06/05/2023 10:53) BMI: 25.7 General: Alert and conversant Skin: He has pink papular and macular lesions with area of patches in the back Eyes: PERRLA, EOMI Oral/Throat: Moist and clear. Neck/Thyroid: Not palpable Cardiac: RRR, No murmurs, gallops, rubs, S1 and S2 normal. Chest/Lungs: Fine crackles bilaterally in the lower half of the chest. Neurological: Alert and oriented x3 Labs and Imaging LAB RESULTS TODAY - NONE FOUND 05/19/2023 16:02 11/17/2022 12:53 07/22/2022 10:21 \ 13.7 / \ 13.3 / \ 13.8 / 6.18 ------ 201 5.03 ------ 238 7.72 ------ 247 / 44.1 \ / 43.1 \ / 43.6 \ LYMPH: 14.1% L A1c: 5.3 @ 06/05/2023 11:52 NEUT: 74.2 MONO: 9.1 EOSINO: 2.1 BASO: 0.3 @ 05/19/2023 16:02 IG(META,MYELO,PRO): 0.2 ABS NEUT: 4.59 @ 05/19/2023 16:02 ABS LYMPH: 0.87 L ABS MONO: 0.56 ABS EOS: 0.13 @ 05/19/2023 16:02 ABS BASO: 0.02 ABS IMMATURE GRAN: 0.01 @ 05/19/2023 16:02 POC CREATININE: 1.2 @ 04/21/2023 11:53 SED RATE: 115 H @ 10/09/2022 12:01 a K Cl CO2 AG BUN Cr Ca Mg = 141 4.0 108 26 7 24 1.4 9.2 2.1 @ 06/05/2023 11:52 143 4.3 111 24 8 26 1.2 9.2 2.1 @ 05/19/2023 16:02 143 4.0 111 27 5 18 1.3 9.4 2.1 @ 11/17/2022 12:53 141 3.9 105 28 8 26 1.3 10.0 2.1 @ 07/22/2022 10:21 139 4.2 108 24 7 25 1.1 9.3 2.2 @ 05/13/2022 13:05 141 4.4 112 23 6 24 1.3 9.4 2.2 @ 01/30/2022 11:42 141 4.3 109 26 6 24 1.4 9.7 2.2 @ 06/17/2021 15:34 Assessment and Plan This 82-year-old male patient was past medical history of hypertension, hyperlipidemia, GERD, depression, prostate s/p postradiation therapy, COPD, solitary lung nodule, CAD, who is here for evaluation of chronic diarrhea, hot flashes, painful and prutitic skin rash and Gynecomastia 1. Hot flashes 2. Chronic diarrhea 3. Pruritic skin rash 4 Gynecomastia Differential diagnosis of hot flashes, chronic diarrhea in particular she is broad. The characteristic of the pruritic erythematous macules and papules, hot flashes and chronic diarrhea is concerning for possible systemic mastocytosis we recommend obtaining serum tryptase and dermatology referral evaluation of the skin rash and possible for skin biopsy. Carcinoid syndrome could also have this features but skin rash is not characteristic. We will obtain 5-HIAA. Pheochromocytoma can have episodic hot flash, headache and hypertension but skin rash is not typical. We will do 24-hour urine metanephrines. Hypogonadism with high LH could also present with hot flashes, gynecomastia and low energy in the setting of past treatment for prostate cancer. We will obtain LH, FSH and testosterone. Thyrotoxicosis might have similar symptoms. As such, will check TSH. Other DDX include but not limited to renal cell carcinoma, or medullary thyroid CA but no evidence of mass was noted on recent chest and abdominal imaging Plan -24-hour urine 5-HIAA -24-hour urine metanephrines -Serum tryptase -Dermatology referral -LH, FSH, testosterone -TSH Over 50% of this 30 minute visit was spent counseling the patient. All labs completed at this time were discussed with the patient. Patient was discussed and examined with attending Dr. Agnes Alexandra, who agrees with the assessment and plan /eda/ MILADIS GALINDO RESIDENT PHYSICIAN Signed: 08/21/2023 16:46 Receipt Acknowledged By: 08/24/2023 08:20 /eda/ RANDI RUFF M.D. STAFF FIRE PREVENTION CHIEF MILADIS GALINDO [facility] Aug 21, 2023 02:32 PM ADDENDUM: LOCAL TITLE: Addendum STANDARD TITLE: ADDENDUM DATE OF NOTE: AUG 21, 2023@14:32:54 ENTRY DATE: AUG 21, 2023@14:32:54 AUTHOR: KEYLA HUDSON EXP COSIGNER: URGENCY: STATUS: COMPLETED RTC placed for RN phone clinic r/t BP f/u, FYI MSA please contact vet to schedule. /eda/ KEYLA HUDSON REGISTERED NURSE Signed: 08/21/2023 14:33 Receipt Acknowledged By: 08/31/2023 10:22 /eda/ ANNETTE ZUÑIGA no --- Original Document --- 08/21/23 MEDICINE CLINIC NURSING NOTE: TYPE OF VISIT: Appointment Check In Type of appointment: In-person appointment REASON FOR VISIT: Consultation ALLERGIES: AMLODIPINE (Jun 17, 2021) VITAL SIGNS: Blood Pressure: 155/76 (08/21/2023 10:09) Repeat B/P 145/83 Pulse: 72 (08/21/2023 10:09) Respiration: 16 (08/21/2023 10:09) Temperature: 98.7 F [37.1 C] (08/21/2023 10:09) Weight: 192.6 lb [87.36 kg] (08/21/2023 10:09) Height: 71 in [180.3 cm] (11/17/2022 13:41) BMI: 26.9 O2 Sat: 92% (08/21/2023 10:09) Pain: 7 (08/21/2023 10:09) PAIN SCREEN: Patient is having significant pain that they would like to talk to their provider about today. Old (Chronic) (began more than 6 months ago) Patient states their average pain this past week is 7 Patient states the average number on how the chronic pain affects their enjoyment of life the past week is 7 Patient states during the past week the average number on how the pain has interfered with their general activity is 9 MEDICATION Active Outpatient Medications (including Supplies): ACETAMINOPHEN 500MG TAB TAKE TWO TABLETS BY MOUTH THREE ACTIVE TIMES A DAY NEEDED FOR PAIN ALBUTEROL 90MCG (CFC-F) 200D ORAL INHL INHALE 2 PUFFS BY ACTIVE INHALATION EVERY 4 HOURS NEEDED FOR SHORTNESS OF BREATH ALLOPURINOL 100MG TAB TAKE ONE TABLET BY MOUTH EVERY DAY ACTIVE GOUT PREVENTION/URIC ACID CAMPHOR 0.5/MENTHOL 0.5% LOTION APPLY THIN LAYER TOPICALLY ACTIVE THREE TIMES A DAY NEEDED FOR ITCHING FAMOTIDINE 20MG TAB TAKE ONE TABLET BY MOUTH EVERY DAY FOR ACTIVE HEARTBURN GABAPENTIN 300MG CAP TAKE TWO CAPSULES BY MOUTH THREE ACTIVE TIMES A DAY FOR PAIN AND NUMBNESS AFTER GRADUAL DOSE AUGMENTATION HYDROCHLOROTHIAZIDE 25MG TAB TAKE ONE-HALF TABLET BY MOUTH ACTIVE EVERY DAY BLOOD PRESSURE MEDICATION LIDOCAINE 5% PATCH APPLY ONE OR TWO PATCHES TOPICALLY ACTIVE EVERY DAY NEEDED FOR PAIN LISINOPRIL 10MG TAB TAKE ONE TABLET BY MOUTH EVERY DAY FOR HOLD BLOOD PRESSURE DOSE DECREASED 08-21-22 LOPERAMIDE HCL 2MG CAP TAKE ONE CAPSULE BY MOUTH THREE ACTIVE TIMES A DAY FOR DIARRHEA LORATADINE 10MG TAB TAKE ONE TABLET BY MOUTH EVERY DAY ACTIVE NEEDED FOR ALLERGIES SERTRALINE HCL 25MG TAB TAKE ONE TABLET BY MOUTH EVERY DAY ACTIVE FOR DEPRESSION/ANXIETY VANICREAM TOP CREAM APPLY THIN LAYER TOPICALLY TWICE A DAY ACTIVE FOR DRY SKIN Non-VA ASPIRIN 81MG EC TAB 81MG MOUTH EVERY DAY ACTIVE Non-VA CURCUMIN CAP 1 CAPSULE MOUTH NEEDED ACTIVE Over the Counter/Herbal Medications: The patient states that they take some outside medications and/or herbals. /eda/ NINA CHURCH LPN LICENSED PRACTICAL NURSE Signed: 08/21/2023 10:18 08/21/2023 ADDENDUM STATUS: COMPLETED Fur Dry Cleaner Hand rechecked veterans BP before he left clinic today 168/84. EDUCATION: PARTICIPANT(s): Patient Home Blood Pressure Monitoring Has home Blood Pressure monitor. Verified Technique. Advised to check home blood pressure daily for two weeks and follow up with Primary Care Provider. PACT RN TL and Provider alerted to note for follow up planning. /eda/ MOY HICKS LPN LICENSE PRACTICAL NURSE Signed: 08/21/2023 12:14 Receipt Acknowledged By: 08/21/2023 14:54 /eda/ MATHEW JARAMILLO RN RN, BSN for AGATA DAVIS 08/21/2023 13:15 /eda/ Lamont Jo APRN, CNP Family Nurse Practitioner KEYLA HUDSON [facility] Aug 21, 2023 12:13 PM ADDENDUM: LOCAL TITLE: Addendum STANDARD TITLE: ADDENDUM DATE OF NOTE: AUG 21, 2023@12:13:17 ENTRY DATE: AUG 21, 2023@12:13:18 AUTHOR: MOY HICKS EXP COSIGNER: URGENCY: STATUS: COMPLETED Fur Dry Cleaner Hand rechecked veterans BP before he left clinic today 168/84. EDUCATION: PARTICIPANT(s): Patient Home Blood Pressure Monitoring Has home Blood Pressure monitor. Verified Technique. Advised to check home blood pressure daily for two weeks and follow up with Primary Care Provider. PACT AMAN TL and Provider alerted to note for follow up planning. /eda/ MOY HICKS LPN LICENSE PRACTICAL NURSE Signed: 08/21/2023 12:14 Receipt Acknowledged By: 08/21/2023 14:54 /eda/ MATHEW JARAMILLO RN RN, BSN for AGATA Vu SUSAN 08/21/2023 13:15 /eda/ Lamont Jo APRN, CNP Family Nurse Practitioner --- Original Document --- 08/21/23 MEDICINE CLINIC NURSING NOTE: TYPE OF VISIT: Appointment Check In Type of appointment: In-person appointment REASON FOR VISIT: Consultation ALLERGIES: AMLODIPINE (Jun 17, 2021) VITAL SIGNS: Blood Pressure: 155/76 (08/21/2023 10:09) Repeat B/P 145/83 Pulse: 72 (08/21/2023 10:09) Respiration: 16 (08/21/2023 10:09) Temperature: 98.7 F [37.1 C] (08/21/2023 10:09) Weight: 192.6 lb [87.36 kg] (08/21/2023 10:09) Height: 71 in [180.3 cm] (11/17/2022 13:41) BMI: 26.9 O2 Sat: 92% (08/21/2023 10:09) Pain: 7 (08/21/2023 10:09) PAIN SCREEN: Patient is having significant pain that they would like to talk to their provider about today. Old (Chronic) (began more than 6 months ago) Patient states their average pain this past week is 7 Patient states the average number on how the chronic pain affects their enjoyment of life the past week is 7 Patient states during the past week the average number on how the pain has interfered with their general activity is 9 MEDICATION Active Outpatient Medications (including Supplies): ACETAMINOPHEN 500MG TAB TAKE TWO TABLETS BY MOUTH THREE ACTIVE TIMES A DAY NEEDED FOR PAIN ALBUTEROL 90MCG (CFC-F) 200D ORAL INHL INHALE 2 PUFFS BY ACTIVE INHALATION EVERY 4 HOURS NEEDED FOR SHORTNESS OF BREATH ALLOPURINOL 100MG TAB TAKE ONE TABLET BY MOUTH EVERY DAY ACTIVE GOUT PREVENTION/URIC ACID CAMPHOR 0.5/MENTHOL 0.5% LOTION APPLY THIN LAYER TOPICALLY ACTIVE THREE TIMES A DAY NEEDED FOR ITCHING FAMOTIDINE 20MG TAB TAKE ONE TABLET BY MOUTH EVERY DAY FOR ACTIVE HEARTBURN GABAPENTIN 300MG CAP TAKE TWO CAPSULES BY MOUTH THREE ACTIVE TIMES A DAY FOR PAIN AND NUMBNESS AFTER GRADUAL DOSE AUGMENTATION HYDROCHLOROTHIAZIDE 25MG TAB TAKE ONE-HALF TABLET BY MOUTH ACTIVE EVERY DAY BLOOD PRESSURE MEDICATION LIDOCAINE 5% PATCH APPLY ONE OR TWO PATCHES TOPICALLY ACTIVE EVERY DAY NEEDED FOR PAIN LISINOPRIL 10MG TAB TAKE ONE TABLET BY MOUTH EVERY DAY FOR HOLD BLOOD PRESSURE DOSE DECREASED 3-09-23 LOPERAMIDE HCL 2MG CAP TAKE ONE CAPSULE BY MOUTH THREE ACTIVE TIMES A DAY FOR DIARRHEA LORATADINE 10MG TAB TAKE ONE TABLET BY MOUTH EVERY DAY ACTIVE NEEDED FOR ALLERGIES SERTRALINE HCL 25MG TAB TAKE ONE TABLET BY MOUTH EVERY DAY ACTIVE FOR DEPRESSION/ANXIETY VANICREAM TOP CREAM APPLY THIN LAYER TOPICALLY TWICE A DAY ACTIVE FOR DRY SKIN Non-VA ASPIRIN 81MG EC TAB 81MG MOUTH EVERY DAY ACTIVE Non-VA CURCUMIN CAP 1 CAPSULE MOUTH NEEDED ACTIVE Over the Counter/Herbal Medications: The patient states that they take some outside medications and/or herbals. /eda/ NINA CHURCH LPN LICENSED PRACTICAL NURSE Signed: 08/21/2023 10:18 08/21/2023 ADDENDUM STATUS: COMPLETED RTC placed for RN phone clinic r/t BP f/u, FYI MSA please contact vet to schedule. /eda/ KEYLA HUDSON REGISTERED NURSE Signed: 08/21/2023 14:33 Receipt Acknowledged By: * AWAITING SIGNATURE * ANNETTE ZUÑIGA ANGELA M [facility] Aug 21, 2023 10:13 AM INTERNAL MEDICINE OUTPATIENT NOTE: LOCAL TITLE: MEDICINE CLINIC NURSING NOTE STANDARD TITLE: INTERNAL MEDICINE OUTPATIENT NOTE DATE OF NOTE: AUG 21, 2023@10:13 ENTRY DATE: AUG 21, 2023@10:13:38 AUTHOR: NINA CHURCH EXP COSIGNER: URGENCY: STATUS: COMPLETED MEDICINE CLINIC NURSING NOTE Has ADDENDA TYPE OF VISIT: Appointment Check In Type of appointment: In-person appointment REASON FOR VISIT: Consultation ALLERGIES: AMLODIPINE (Jun 17, 2021) VITAL SIGNS: Blood Pressure: 155/76 (08/21/2023 10:09) Repeat B/P 145/83 Pulse: 72 (08/21/2023 10:09) Respiration: 16 (08/21/2023 10:09) Temperature: 98.7 F [37.1 C] (08/21/2023 10:09) Weight: 192.6 lb [87.36 kg] (08/21/2023 10:09) Height: 71 in [180.3 cm] (11/17/2022 13:41) BMI: 26.9 O2 Sat: 92% (08/21/2023 10:09) Pain: 7 (08/21/2023 10:09) PAIN SCREEN: Patient is having significant pain that they would like to talk to their provider about today. Old (Chronic) (began more than 6 months ago) Patient states their average pain this past week is 7 Patient states the average number on how the chronic pain affects their enjoyment of life the past week is 7 Patient states during the past week the average number on how the pain has interfered with their general activity is 9 MEDICATION Active Outpatient Medications (including Supplies): ACETAMINOPHEN 500MG TAB TAKE TWO TABLETS BY MOUTH THREE ACTIVE TIMES A DAY NEEDED FOR PAIN ALBUTEROL 90MCG (CFC-F) 200D ORAL INHL INHALE 2 PUFFS BY ACTIVE INHALATION EVERY 4 HOURS NEEDED FOR SHORTNESS OF BREATH ALLOPURINOL 100MG TAB TAKE ONE TABLET BY MOUTH EVERY DAY ACTIVE GOUT PREVENTION/URIC ACID CAMPHOR 0.5/MENTHOL 0.5% LOTION APPLY THIN LAYER TOPICALLY ACTIVE THREE TIMES A DAY NEEDED FOR ITCHING FAMOTIDINE 20MG TAB TAKE ONE TABLET BY MOUTH EVERY DAY FOR ACTIVE HEARTBURN GABAPENTIN 300MG CAP TAKE TWO CAPSULES BY MOUTH THREE ACTIVE TIMES A DAY FOR PAIN AND NUMBNESS AFTER GRADUAL DOSE AUGMENTATION HYDROCHLOROTHIAZIDE 25MG TAB TAKE ONE-HALF TABLET BY MOUTH ACTIVE EVERY DAY BLOOD PRESSURE MEDICATION LIDOCAINE 5% PATCH APPLY ONE OR TWO PATCHES TOPICALLY ACTIVE EVERY DAY NEEDED FOR PAIN LISINOPRIL 10MG TAB TAKE ONE TABLET BY MOUTH EVERY DAY FOR HOLD BLOOD PRESSURE DOSE DECREASED 08-21-22 LOPERAMIDE HCL 2MG CAP TAKE ONE CAPSULE BY MOUTH THREE ACTIVE TIMES A DAY FOR DIARRHEA LORATADINE 10MG TAB TAKE ONE TABLET BY MOUTH EVERY DAY ACTIVE NEEDED FOR ALLERGIES SERTRALINE HCL 25MG TAB TAKE ONE TABLET BY MOUTH EVERY DAY ACTIVE FOR DEPRESSION/ANXIETY VANICREAM TOP CREAM APPLY THIN LAYER TOPICALLY TWICE A DAY ACTIVE FOR DRY SKIN Non-VA ASPIRIN 81MG EC TAB 81MG MOUTH EVERY DAY ACTIVE Non-VA CURCUMIN CAP 1 CAPSULE MOUTH NEEDED ACTIVE Over the Counter/Herbal Medications: The patient states that they take some outside medications and/or herbals. /eda/ NINA CHURCH LPN LICENSED PRACTICAL NURSE Signed: 08/21/2023 10:18 08/21/2023 ADDENDUM STATUS: COMPLETED Fur Dry Cleaner Hand rechecked veterans BP before he left clinic today 168/84. EDUCATION: PARTICIPANT(s): Patient Home Blood Pressure Monitoring Has home Blood Pressure monitor. Verified Technique. Advised to check home blood pressure daily for two weeks and follow up with Primary Care Provider. PACT RN TL and Provider alerted to note for follow up planning. /es/ MOY HICKS LPN LICENSE PRACTICAL NURSE Signed: 08/21/2023 12:14 Receipt Acknowledged By: * AWAITING SIGNATURE * AGATA DAVIS 08/21/2023 13:15 /es/ Lamont Jo APRN, SAP MOBILITY ARCHITECT Family Nurse Practitioner 08/21/2023 ADDENDUM STATUS: COMPLETED RTC placed for RN phone clinic r/t BP f/u, FYI MSA please contact vet to schedule. /es/ KEYLA HUDSON REGISTERED NURSE Signed: 08/21/2023 14:33 Receipt Acknowledged By: * AWAITING SIGNATURE * ANNETTE ZUÑIGA JOHN D [facility] Aug 21, 2023 10:05 AM ENDOCRINOLOGY CONS ULT: LOCAL TITLE: METABOLIC/ENDOCRINE CONSULT STANDARD TITLE: ENDOCRINOLOGY CONSULT DATE OF NOTE: AUG 21, 2023@10:05 ENTRY DATE: AUG 21, 2023@10:06:07 AUTHOR: MILADIS GALINDO EXP COSIGNER: URGENCY: STATUS: COMPLETED METABOLIC/ENDOCRINE CONSULT Has ADDENDA Endocrine/Metabolic Clinic Note Chief Complaint: 82 year old MALE referred for evaluation of hot flush, diarrhea and painful skin and gynecomastia History of Present Illness: This 82-year-old male patient was past medical history of hypertension, hyperlipidemia, GERD, depression, history of prostate cancer status postradiation therapy, COPD, solitary lung nodule, CAD who is here for evaluation of chronic diarrhea, hot flush, painful skin and Gynecomastia Patient had longstanding diarrhea since 2016. The cause of the diarrhea has not been identified and he has been taking loperamide. He has been on oral medications including sertraline predating the onset of diarrhea but he has discontinued sertraline but continued. For the past 6 months he has been suffering from pruritic skin rash (reddish papules and macules mostly affecting the back. He has also been getting hot flashes, especially when he gets angry. For the past 2 months he has noticed swelling of both his breasts. He has history of hypertension but no episodic high blood pressures. He occasionally gets headaches He has low energy which has been slowly progressive for the past 10 years. He has also lost [address] and libido after treatment for prostate cancer with radiation therapy in 2005 He has longstanding pulmonary issues including COPD, lung nodule and and exudative pleural effusion. There work-up including rheumatology work-up and had positive ROMELIA and p-ANCA. Past Medical History: Active problems - Computerized Problem List is the source for the followin. HTN - Hypertension ([facility] [id number]) 2. Hyperlipidemia ([facility] [id number]) 3. Gout ([facility] [id number]) 4. Intracranial aneurysm - s/p stent/coil proceedure 5. GERD - Gastro-Esophageal Reflux Disease ([facility] [id number]) 6. Depression ([facility] [id number]) 7. Primary malignant neoplasm of prostate 8. Abdominal aortic aneurysm 9. Solitary nodule of lung 10. Insomnia 11. Chronic diarrhea 12. Chronic kidney disease stage 3A 13. COPD - Chronic obstructive pulmonary disease - Moderately severe 05/2022 PFTs 14. CAD - Coronary Artery Disease ([facility] [id number]) 15. History of myocardial infarction - STEMI 16. Low back pain 17. Neck pain Allergies: AMLODIPINE (Jun 17, 2021) Active Outpatient Medications (including Supplies): ACETAMINOPHEN 500MG TAB TAKE TWO TABLETS BY MOUTH THREE ACTIVE TIMES A DAY NEEDED FOR PAIN ALBUTEROL 90MCG (CFC-F) 200D ORAL INHL INHALE 2 PUFFS BY ACTIVE INHALATION EVERY 4 HOURS NEEDED FOR SHORTNESS OF BREATH ALLOPURINOL 100MG TAB TAKE ONE TABLET BY MOUTH EVERY DAY ACTIVE GOUT PREVENTION/URIC ACID CAMPHOR 0.5/MENTHOL 0.5% LOTION APPLY THIN LAYER TOPICALLY ACTIVE THREE TIMES A DAY NEEDED FOR ITCHING FAMOTIDINE 20MG TAB TAKE ONE TABLET BY MOUTH EVERY DAY FOR ACTIVE HEARTBURN GABAPENTIN 300MG CAP TAKE TWO CAPSULES BY MOUTH THREE ACTIVE TIMES A DAY FOR PAIN AND NUMBNESS AFTER GRADUAL DOSE AUGMENTATION HYDROCHLOROTHIAZIDE 25MG TAB TAKE ONE-HALF TABLET BY MOUTH ACTIVE EVERY DAY BLOOD PRESSURE MEDICATION LIDOCAINE 5% PATCH APPLY ONE OR TWO PATCHES TOPICALLY ACTIVE EVERY DAY NEEDED FOR PAIN LISINOPRIL 10MG TAB TAKE ONE TABLET BY MOUTH EVERY DAY FOR HOLD BLOOD PRESSURE DOSE DECREASED 08-21-22 LOPERAMIDE HCL 2MG CAP TAKE ONE CAPSULE BY MOUTH THREE ACTIVE TIMES A DAY FOR DIARRHEA LORATADINE 10MG TAB TAKE ONE TABLET BY MOUTH EVERY DAY ACTIVE NEEDED FOR ALLERGIES SERTRALINE HCL 25MG TAB TAKE ONE TABLET BY MOUTH EVERY DAY ACTIVE FOR DEPRESSION/ANXIETY VANICREAM TOP CREAM APPLY THIN LAYER TOPICALLY TWICE A DAY ACTIVE FOR DRY SKIN Non-VA ASPIRIN 81MG EC TAB 81MG MOUTH EVERY DAY ACTIVE Non-VA CURCUMIN CAP 1 CAPSULE MOUTH NEEDED ACTIVE Review of Systems: See HPI Physical Exam: Vital Signs Temp: 97.3 F [36.3 C] (08/05/2023 14:16) B/P: 134/77 (08/05/2023 14:21) Pulse: 79 (08/05/2023 14:16) Ht: 71 in [180.3 cm] (11/17/2022 13:41) Wt: 183.8 lb [83.37 kg] (06/05/2023 10:53) Pain: 0 (06/05/2023 10:53) BMI: 25.7 General: Alert and conversant Skin: He has pink papular and macular lesions with area of patches in the back Eyes: PERRLA, EOMI Oral/Throat: Moist and clear. Neck/Thyroid: Not palpable Cardiac: RRR, No murmurs, gallops, rubs, S1 and S2 normal. Chest/Lungs: Fine crackles bilaterally in the lower half of the chest. Neurological: Alert and oriented x3 Labs and Imaging LAB RESULTS TODAY - NONE FOUND 05/19/2023 16:02 11/17/2022 12:53 07/22/2022 10:21 \ 13.7 / \ 13.3 / \ 13.8 / 6.18 ------ 201 5.03 ------ 238 7.72 ------ 247 / 44.1 \ / 43.1 \ / 43.6 \ LYMPH: 14.1% L A1c: 5.3 @ 06/05/2023 11:52 NEUT: 74.2 MONO: 9.1 EOSINO: 2.1 BASO: 0.3 @ 05/19/2023 16:02 IG(META,MYELO,PRO): 0.2 ABS NEUT: 4.59 @ 05/19/2023 16:02 ABS LYMPH: 0.87 L ABS MONO: 0.56 ABS EOS: 0.13 @ 05/19/2023 16:02 ABS BASO: 0.02 ABS IMMATURE GRAN: 0.01 @ 05/19/2023 16:02 POC CREATININE: 1.2 @ 04/21/2023 11:53 SED RATE: 115 H @ 10/09/2022 12:01 a K Cl CO2 AG BUN Cr Ca Mg = 141 4.0 108 26 7 24 1.4 9.2 2.1 @ 06/05/2023 11:52 143 4.3 111 24 8 26 1.2 9.2 2.1 @ 05/19/2023 16:02 143 4.0 111 27 5 18 1.3 9.4 2.1 @ 11/17/2022 12:53 141 3.9 105 28 8 26 1.3 10.0 2.1 @ 07/22/2022 10:21 139 4.2 108 24 7 25 1.1 9.3 2.2 @ 05/13/2022 13:05 141 4.4 112 23 6 24 1.3 9.4 2.2 @ 01/30/2022 11:42 141 4.3 109 26 6 24 1.4 9.7 2.2 @ 06/17/2021 15:34 Assessment and Plan This 82-year-old male patient was past medical history of hypertension, hyperlipidemia, GERD, depression, prostate s/p postradiation therapy, COPD, solitary lung nodule, CAD, who is here for evaluation of chronic diarrhea, hot flashes, painful and prutitic skin rash and Gynecomastia 1. Hot flashes 2. Chronic diarrhea 3. Pruritic skin rash 4 Gynecomastia Differential diagnosis of hot flashes, chronic diarrhea in particular she is broad. The characteristic of the pruritic erythematous macules and papules, hot flashes and chronic diarrhea is concerning for possible systemic mastocytosis we recommend obtaining serum tryptase and dermatology referral evaluation of the skin rash and possible for skin biopsy. Carcinoid syndrome could also have this features but skin rash is not characteristic. We will obtain 5-HIAA. Pheochromocytoma can have episodic hot flash, headache and hypertension but skin rash is not typical. We will do 24-hour urine metanephrines. Hypogonadism with high LH could also present with hot flashes, gynecomastia and low energy in the setting of past treatment for prostate cancer. We will obtain LH, FSH and testosterone. Thyrotoxicosis might have similar symptoms. As such, will check TSH. Other DDX include but not limited to renal cell carcinoma, or medullary thyroid CA but no evidence of mass was noted on recent chest and abdominal imaging Plan -24-hour urine 5-HIAA -24-hour urine metanephrines -Serum tryptase -Dermatology referral -LH, FSH, testosterone -TSH Over 50% of this 30 minute visit was spent counseling the patient. All labs completed at this time were discussed with the patient. Patient was discussed and examined with attending Dr. Agnes Alexandra, who agrees with the assessment and plan /lianet GALINDO RESIDENT PHYSICIAN Signed: 08/21/2023 16:46 Receipt Acknowledged By: 08/24/2023 08:20 /lianet RUFF M.D. STAFF FIRE PREVENTION CHIEF 09/07/2023 ADDENDUM STATUS: COMPLETED Called Mr Rockwell to let him know that his LH and FSH are elevated with normal testesterone level. Tryptase, metanephrines and TSH are within normal limit. 5HIAA is pending. The elevated LH my explain the hot flashes. We need dedicated putuitary MRI to identify if he has gonadotroph putuitary adenoma. We will check free T4 too. /lianet GALINDO RESIDENT PHYSICIAN Signed: 09/07/2023 15:45 Receipt Acknowledged By: 09/07/2023 17:22 /lianet RUFF M.D. STAFF FIRE PREVENTION CHIEF 09/11/2023 ADDENDUM STATUS: COMPLETED MRI results: Empty sella. Will ask Dr Galindo to discuss with me and notify patient /lianet RUFF M.D. STAFF FIRE PREVENTION CHIEF Signed: 09/11/2023 09:45 Receipt Acknowledged By: 09/11/2023 15:46 /lianet GALINDO RESIDENT PHYSICIAN 09/11/2023 ADDENDUM STATUS: COMPLETED Called Mr Lange to discuss the MRI findings that there is no pituitary adenoma visible on MRI to explain the increased LF and FSH at this time. There is a possiblity that a nodule might appear in the future so yearly pituitary MRI is recommended. There is empty sell on MRI which is likely incidental and there is no evidence of associated hypopituitarism. Hot flashes he has been having are likely due to increaed LH and it is improving with gabapentin. If hot flashed are bothersome in the future, SSRIs like citalopram can be used. /eda/ MILADIS GALINDO RESIDENT PHYSICIAN Signed: 09/11/2023 15:45 Receipt Acknowledged By: 09/11/2023 16:21 /lianet RUFF M.D. STAFF FIRE PREVENTION CHIEF 09/17/2023 ADDENDUM STATUS: COMPLETED 5-HIAA mildly elevated.Likely due to tryptofan rich foods. Kat, please educate patient re foods with low tryptofan: avacoados, pineapples, bananas, kiwi, plums, eggplants, walnuts, hickory nuts, pecans, tomatoes, plantains, butternut squash. Medications to avoid: acetaminophen, caffeine, tobacco for ideally 1 week, if possible, if not at least for 48 hrs.. Need to repeat 24 hr urine for 5-HIAA after he is on this diet for 1 week. If patient agrees, please send another jug. Thank you /lianet RUFF M.D. STAFF FIRE PREVENTION CHIEF Signed: 09/17/2023 15:14 Receipt Acknowledged By: 09/17/2023 15:55 /lianet LUCERO RN Metabolic Vice President Of Consulting Services 09/17/2023 ADDENDUM STATUS: COMPLETED Called and spoke with and his . Reviewed above information from Dr. Ruff regarding 24-hr urine collection and tryptophan foods and foods to avoid 1 week prior. Mailed then 24 urine supplies. Also included the above information to the in a secure message per their request. /lianet LUCERO RN Metabolic Vice President Of Consulting Services Signed: 09/17/2023 16:00 10/19/2023 ADDENDUM STATUS: COMPLETED Will alert provider to 24 hr urine results. /lianet LUCERO RN Metabolic Vice President Of Consulting Services Signed: 10/19/2023 07:33 Receipt Acknowledged By: 10/19/2023 09:30 /lianet RUFF M.D. STAFF FIRE PREVENTION CHIEF 10/19/2023 ADDENDUM STATUS: COMPLETED 5-HIAA minimally elevated at 7.8 [address] Hull: carcinoids only cause symptoms if they are in the liver. Really don't cause pleural effusions. Tend to be airway lesions. You could get a DOTATATE scan if you think he has carcinoid. I don't see a recent chest CT. His abd CT from Apr did not have a recurrence of his pleural effusion. Discussed also with Dr Kan: Agree that dotatate PET Ct is likely the best way forward for a definite diagnosis. Will order. Discussed with patient who is agreeable. /lianet RUFF M.D. STAFF FIRE PREVENTION CHIEF Signed: 10/20/2023 14:31 12/01/2023 ADDENDUM STATUS: COMPLETED Doatate PET scan: Small focus of intense tracer uptake pancreatic [...] of the lumbar spine can be considered. Given above Doatate PET CT results I will ask Dr Kan for his input re next steps. May be carcinoid. Other hormonal work up negative. Should I get CT of abdomen with pancreas protocol or MRI? Surgery consult? Not sure what the L5 finding is.Doubt metastatsis but can order MRI of LS spine. Thanks /lianet RUFF M.D. STAFF FIRE PREVENTION CHIEF Signed: 12/03/2023 12:24 Receipt Acknowledged By: 12/07/2023 09:56 /eda/ Luis A Kan MD Gastro[facility] [employer] 12/03/2023 15:12 /eda/ Lamont Jo APRN, [employer] M[employer]ILITY ARCHITECT Family Nurse Practitioner 12/27/2023 ADDENDUM STATUS: COMPLETED Reviewed imaging studies: MRI of L5: Abnormal marrow signal and enhancement in the [...] months should be considered to assess stability. 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 A/P: 1) Regarging MRI of L5: Discussed with his PCP, MRI needs to be repeated in 2 months. I reached out to PCP to order MRI and follow up on this finding. I called patient and explained the plan. 2) Re IPMNs: Evaluated by GI. They will order follow up MRIs and follow patient. Patient aware of this plan. 3) Has increased 5-HIAA but I am not convinced his diarrhea is due to carcinoid. No liver involvement. Will seek GI input. Discussed above with patient and his over the phone and answere their questions. /eda/ RANDI RUFF M.D. STAFF FIRE PREVENTION CHIEF Signed: 01/04/2024 14:22 Receipt Acknowledged By: * AWAITING SIGNATURE * FRIDA JO 01/04/2024 14:28 /eda/ TRENT PRESCOTT [employer] ARCHITECT, AAMILADIS DESAI [facility]
--- OUTSIDE RECORDS SUMMARY | 2024-08-05 04:36 | XMS_ITS | Encounter Summary ---
Author Name [facility] [place] [facility] [place] Address [address] [place] [address] Care Team Providers Care Medical Dir Name Role Phone DARIN BURGESS Primary Care [...] PRESCRIPT ION DODA Nov 13, 2004 DODA [id number] PARRISH LANGEL PATIENT EXPRESS SCRIPTS (WNR) PRESCRIPT ION TRICA RE (WNR) Nov 13, 2004 (WNR) [id number] PARRISH LANGEL PATIENT MEDICARE (WNR) MEDICARE (M) PART B Sep 14, 2007 PART B [id number] NAZARIO,DA JUAN PATIENT MEDICARE (WNR) MEDICARE (M) PART A Sep 14, 2007 PART A [id number] NAZARIO,DA JUAN PATIENT MEDICARE (WNR) MEDICARE (M) PART A Sep 14, 2007 PART A [id number] NAZARIO,DA JUAN PATIENT MEDICARE (WNR) MEDICARE (M) PART B Sep 14, 2007 PART B [id number] NAZARIO,DA JUAN PATIENT MEDICARE (WNR) MEDICARE (M) PART A Sep 14, 2007 PART A [id number] NAZARIO,DA JUAN PATIENT MEDICARE (WNR) MEDICARE (M) PART B Sep 14, 2007 PART B [id number] NAZARIO,DA JUAN PATIENT MEDICARE (WNR) MEDICARE (M) PART A Sep 14, 2007 PART A [id number] NAZARIO,DA JUAN PATIENT MEDICARE (WNR) MEDICARE (M) PART B Sep 14, 2007 PART B [id number] NAZARIO,DA JUAN PATIENT MEDICARE (WNR) MEDICARE (M) PART A Sep 14, 2007 PART A [id number] NAZARIO,DA JUAN PATIENT MEDICARE (WNR) MEDICARE (M) PART B Sep 14, 2007 PART B [id number] NAZARIO,DA JUAN PATIENT FOR LIFE TRICA RE FOR LIFE Mar 15, 2004 FOR LIFE [id number] NAZARIO,DA JUAN PATIENT [facility] 2024 SELEC T WNR Jun 15, 2024 [facility] [id number] KOEING,DA JUAN PATIENT -FO R-LIFE TRICA RE FOR LIFE WNR Nov 27, 2015 FOR LIFE [id number] NAZARIO,DA JUAN PATIENT -FO R-LIFE TRICA RE FOR LIFE WNR Nov 23, 2015 FOR LIFE [id number] PARRISH LANGE PATIENT Selected Encounter This section includes the information on record at [place] for the Encounter. Date/Time Encounter Type Encounter Description Reason Provider Source Aug 31, 2023 02:00 PM NRV CNDJ TEST 7-8 STUDIES EMG - ELECTROMYOGRAM ICD-10-CM R20.2 Paresthesia of skin BRITTANI HENLEY Evelyn Encounter Template Text not used by [place] Assessments - Encounter Diagnoses This section includes the primary and secondary diagnoses documented for the Encounter. Date/Time Primary/Secondary Diagnosis Diagnosis Name Provider Source Aug 31, 2023 04:44 PM PRIMARY Paresthesia of skin GABBIE TENORIO [facility] Plan of Treatment: Future Appointments (+ 6 months) and Future Tests (+/- 45 days) The Plan of Treatment section includes future care activities for the patient from all [place] [facility]. This section includes future appointments and future orders which are active, pending or scheduled. Future Appointments This section includes appointments that were scheduled to occur 6 months from the date of the Encounter, up to a maximum of 20 appointments. The data comes from all [place] treatment facilities. Appointment Date/Time Appointment Type Appointme nt Facility Name Sep 08, 2023 03:00 PM AMBULATORY - [place] [facility] Sep 10, 2023 07:45 PM AMBULATORY - NONE [place] [facility] Sep 12, 2023 04:45 PM AMBULATORY - NONE [place] [facility] Sep 22, 2023 02:00 PM [facility] October 27, 2023 02:00 PM AMBULATORY - NONE [place] [facility] November 11, 2023 03:30 PM AMBULATORY - REHAB MEDICIN E [facility] Dec 01, 2023 12:00 PM AMBULATORY - NONE [place] [facility] Dec 04, 2023 09:30 AM AMBULATORY - NONE [place] [facility] Dec 04, 2023 10:30 AM AMBUL[place]ORY - [place]IC[place] [facility] Dec 25, 2023 12:15 PM AMBULATORY - NONE [place] [facility] Dec 31, 2023 01:00 PM AMBULATORY - REHAB MEDICIN E [facility] Dec 31, 2023 02:00 PM AMBULATORY - NONE [place] [facility] Feb 10, 2024 01:00 PM [facility] Active, Pending, and [...] of theEncounter. The data comes from all [facility] facilities. Test Date/Time Test Type Test Details Facility Name Jul 22, 2023 12:00 AM Laboratory - Chemistry Order PSA SERUM SP [facility] Jul 22, 2023 12:00 AM Laboratory - Chemistry Order COMPREHENSIVE METABOLIC PANEL+MG PLASMA SP ONCE [facility] Jul 22, 2023 12:00 AM Laboratory - Chemistry Order CBC BLOOD SP [facility] Jul 22, 2023 12:00 AM Laboratory - Chemistry Order TSH W/REFLEX TO FREE T4 PLASMA [facility] Jul 22, 2023 12:00 AM Laboratory - Chemistry Order URIC ACID PLASMA SP [facility] Jul 22, 2023 12:00 AM Laboratory - Chemistry Order LIPID PANEL,NON-FASTING PLASMA SP [facility] Sep 07, 2023 12:00 AM Laboratory - Chemistry Order TSH W/REFLEX TO FREE T4 PLASMA [facility] Sep 07, 2023 12:00 AM Laboratory - Chemistry Order FREE-T4 PLASMA SP [facility] Lab Results: +/- 30 days of the encounter This section includes the Chemistry and Hematology Lab Results on record with [place] for the patient. Radiology Reports and Pathology Reports are provided separately, in subsequent sections. Lab Results This section contains the Chemistry/Hematology Results that were resulted 30 days before or 30 daysafter the date of the Encounter. Date/Time Source Result Type Result - Unit Interpretation Reference Range Comment Sep 25, 2023 01:44 PM [facility] 4-QVMM-RLOTN, TIMED Specimen Type: URINE Comment: This test was developed and its analytical performance characteristics have been determined by [employer]. It has not been cleared or approved by FDA. This assay has been validated pursuant to the CLIA regulations and is used for clinical purposes. Test performed by [employer] [address] [place] [address] Tile Layer Drainage: Taylor Colon MD,PHD,SHUBHAM Test Reported by [facility], [facility], [address] [place], [place] Nacho De Leon M.D., Ph.D., Director of Laboratories , CLIA [id number] Ordering Provider: KAT LUCERO Report Released Date/Time: Sep 17, 2023 03:56 PM Reporting Lab: [facility] [address] Performing Lab: [address] 5-HIAA 7.8 H <=6.0 .TOTAL VOLUME 1200 mL .CREATININE,24H R UR 1.10 0.50-2.15 Aug 31, 2023 04:06 PM [facility] 4-AQRG-IGPPI, TIMED Specimen Type: URINE Comment: This test was developed and its analytical performance characteristics have been determined by [employer]. It has not been cleared or approved by FDA. This assay has been validated pursuant to the CLIA regulations and is used for clinical purposes. Test performed by [employer] [place] [address] [address] Tile Layer Drainage: Taylor Colon MD,PHD,SHUBHAM Test Reported by [facility], [employer] [facility], [address] [place] [address] Nacho De Leon M.D., Ph.D., Director of Laboratories , CLIA [id number] Ordering Provider: MILADIS GALINDO Report Released Date/Time: Aug 21, 2023 11:32 AM Reporting Lab: [facility] [address] Performing Lab: [address] 5-HIAA 8.3 H <=6.0 .TOTAL VOLUME 1100 mL .CREATININE,24H R UR 1.13 0.50-2.15 Aug 31, 2023 04:06 PM [facility] METANEPHRINES FRACTIONATED URINE Specimen Type: URINE, TIMED Comment: This test was developed and its analytical performance characteristics have been determined by [employer] [place], [place]. It has not been cleared or approved by the U.S. Food and Drug Administration. This assay has been validated pursuant to the CLIA regulations and is used for clinical purposes. This test was developed and its analytical performance characteristics have been determined by [facility] [place]. It has not been cleared or [...] is recommended for confirmation. Test Performed by [employer], [employer], [address] [place] [address] Nacho De Leon M.D., Ph.D., Director of Laboratories , CLIA [id number] Ordering Provider: MILADIS GALINDO Report Released Date/Time: Aug 21, 2023 11:32 AM Reporting Lab: [facility] [address] Performing Lab: [address] .NORMETANEPHRIN E,U 375 122-676 .METANEPHRINE,U 37 L 90-315 .METANEPHRINES, TOTAL 412 224-832 .TOTAL VOLUME 1100 mL Aug 21, 2023 11:54 AM [facility] TRYPTASE Specimen Type: SERUM Comment: REFERENCE RANGE: <11.0 mcg/L The Tryptase test, fluorescent enzyme immunoassay (FEIA), measures both the Alpha and Beta forms of Tryptase. Measuring both forms of Tryptase increases sensitivity for the diagnosis of mastocytosis, and mast cell degranulation as a cause of anaphylaxis. Test Performed by [employer] [facility], [facility], [address] [place] [address] Nacho De Leon M.D., Ph.D., Director of Laboratories , CLIA [id number] Ordering Provider: MILADIS GALINDO Report Released Date/Time: Aug 21, 2023 11:32 AM Reporting Lab: [facility] [address] Performing Lab: [address] TRYPTASE 7.8 ug/L SEE BELOW Aug 21, 2023 11:54 AM [facility] TSH W/REFLEX TO FREE T4 Specimen Type: PLASMA No comment entered. Ordering Provider: MILADIS GALINDO Report Released Date/Time: Aug 21, 2023 11:32 AM Reporting Lab: [facility] [address] Performing Lab: [facility] [address] TSH 2.40 u[IU]/mL 0.35-4.94 Aug 21, 2023 11:53 AM [facility] TESTOSTERONE Specimen Type: SERUM No comment entered. Ordering Provider: MILADIS GALINDO Report Released Date/Time: Aug 21, 2023 11:32 AM Reporting Lab: [facility] [address] Performing Lab: [facility] [address] TESTOSTERONE 436 ng/dL 221-870 Aug 21, 2023 11:53 AM [facility] PROLACTIN Specimen Type: PLASMA No comment entered. Ordering Provider: MILADIS GALINDO Report Released Date/Time: Aug 21, 2023 11:32 AM Reporting Lab: [facility] [address] Performing Lab: [facility] [address] PROLACTIN 10.02 ng/mL <19.40 Aug 21, 2023 11:53 AM [facility] LUTEINIZING HORMONE Specimen Type: SERUM No comment entered. Ordering Provider: MILADIS GALINDO Report Released Date/Time: Aug 21, 2023 11:32 AM Reporting Lab: [facility] [address] Performing Lab: [facility] [address] LUTEINIZING HORMONE 18.32 m[IU]/mL H 0.57-12.07 Aug 21, 2023 11:53 AM [facility] FSH Specimen Type: PLASMA No comment entered. Ordering Provider: MILADIS GALINDO Report Released Date/Time: Aug 21, 2023 02:29 PM Reporting Lab: [facility] [address] Performing Lab: [facility] [address] FSH 42.98 m[IU]/mL H 0.95-11.95 Aug 05, 2023 03:48 PM [facility] ANTI-HU,NEURONAL NUCLEAR AB Specimen Type: [...] analytical performance characteristics have been determined by [employer]. It has not been cleared or approved by FDA. This assay has been validated pursuant to the CLIA regulations and is used for clinical purposes. Test [place] [address] Tile Layer Drainage: Taylor Colon MD,PHD,SHUBHAM Test Reported by [facility], [address] [place] [address] Nacho De Leon M.D., Ph.D., Director of Laboratories , CLIA [id number] This test was developed and its analytical performance characteristics have been determined by [employer]. It has not been cleared or approved by [facility]. This assay has been validated pursuant to the CLIA regulations and is used for clinical purposes. Test [place] [address] Tile Layer Drainage: Taylor Colon MD,PHD,SHUBHAM Ordering Provider: LEO RYAN Report Released Date/Time: Aug 05, 2023 03:22 PM Reporting Lab: [facility] [address] [facility] [address] Performing Lab: [address] .ANTI-HU,IFA SEE NOTE .ANTI-HU,AKI N BLOT NEGATIVE NEGATIVE Aug 05, 2023 03:48 PM [facility] VASCULAR ENDOTHELIAL GROWTH FACTOR Specimen Type: PLASMA Comment: This test was performed using a kit that has not been cleared or approved by the FDA. The analytical performance characteristics of this test have been determined by [employer]. This test should not be used for diagnosis without confirmation by other medically established means. Test performed by [employer] [address] [place] [address] Tile Layer Drainage: Taylor Colon MD,PHD,SHBUHAM Test Reported by [facility], [employer] [facility], [address] [place] [address] Nacho De Leon M.D., Ph.D., Director of Laboratories , CLIA [id number] Ordering Provider: LEO RYAN Report Released Date/Time: Aug 05, 2023 03:22 PM Reporting Lab: [facility] [address] Performing Lab: [address] .[facility] ENDO GF, PASQUALE 98 pg/mL H Aug 05, 2023 03:48 PM [facility] ENCEPHALOPATHY/PARANEOPLASTIC EVAL, S Specimen Type: SERUM Comment: No informative autoantibodies were detected in this evaluation. However, a negative result does not exclude autoimmune encephalopathy, idiopathic, or paraneoplastic. Sensitivity and specificity are enhanced by testing both serum and CSF. Ordering Provider: LEO RYAN Report Released Date/Time: Aug 05, 2023 03:22 PM Reporting Lab: [facility] [address] Performing Lab: [facility] [address] [facility] [address] .N-TYPE CA PATINO AB NOT PERFORMED nmol/L [...] Negative Negative Aug 05, 2023 03:48 PM [facility] CRYOGLOBULIN QUANT w REFLEX Specimen Type: SERUM No comment entered. Ordering Provider: LEO RYAN Report Released Date/Time: Aug 05, 2023 03:22 PM Reporting Lab: [facility] [address] Performing Lab: [facility] [address] .CRYO INTERPRETATION NEGATIVE Negative Aug 05, 2023 03:48 PM [facility] VITAMIN B-6 Specimen Type: PLASMA Comment: Vitamin supplementation within 24 hours prior to blood draw may affect the accuracy of the results. This test was developed and its analytical performance characteristics have been determined by [employer] [place], [place]. It has not been cleared or approved by the U.S. Food and Drug Administration. This assay has been validated pursuant to the CLIA regulations and is used for clinical purposes. Test Performed by [facility], [employer] [facility], [address] [place] [address] Nacho De Leon M.D., Ph.D., Director of Laboratories , CLIA [id number] Ordering Provider: LEO RYAN Report Released Date/Time: Aug 05, 2023 03:22 PM Reporting Lab: [facility] [address] Performing Lab: [address] VITAMIN B-6 4.0 ng/mL 2.1-21.7 Aug 05, 2023 03:48 PM [facility] ANTI-MOHSEN PANEL(Endorse.me) Specimen Type: SERUM Comment: Reference Range: < 1.0 NEG AI Reference Range: < 1.0 NEG AI Reference Range: < 1.0 NEG AI Reference Range: < 1.0 NEG AI Reference Range: < 1.0 NEG AI Reference Range: < 1.0 NEG AI Test Performed by [employer] [facility], [employer], [address] [place] [address] Nacho De Leon M.D., Ph.D., Director of Laboratories , CLIA [id number] Ordering Provider: LEO RYAN Report Released Date/Time: Aug 05, 2023 03:22 PM Reporting Lab: [facility] [address] Performing Lab: [address] ANTI-NAYAK <1.0 ANTI-GEOLOGICAL TECHNICAL OFFICER <1.0 ANTI-SSA/RO <1.0 ANTI-SSB/LA <1.0 ANTI-SCL-70 <1.0 ANTI-MANINDER-1 <1.0 Aug 05, 2023 03:48 PM [facility] INEZ WITH REFLEX TO MOHSEN/DNA Specimen Type: SERUM Comment: Anti-dsDNA testing by I[facility] was performed on this sample. IM [phone] Sample sent to reference laboratory for MOHSEN testing. QU [id number] Ordering Provider: LEO RYAN Report Released Date/Time: Aug 05, 2023 03:22 PM Reporting Lab: [facility] [address] Performing Lab: [facility] [address] .ANTINUCLEAR HENRRY HOMOGENEOUS POSITIVE Negative .ROMELIA TITER 1:640 Aug 05, 2023 03:48 PM [facility] ARSENIC,BLOOD Specimen Type: BLOOD Comment: REFERENCE RANGE: <23 mcg/L Whole Blood Arsenic level >100 mcg/L is indicative of acute/chronic exposure. Urine is usually the best specimen for the analysis of arsenic in body fluids. Blood levels tend to be low even when urine concentrations are high This test was developed and its analytical performance characteristics have been determined by [facility]. It has not been cleared or approved by the U.S. Food and Drug Administration. This assay has been validated pursuant to the CLIA regulations and is used for clinical purposes. Test Performed by [employer], [employer], [address] [place], [place] Nacho De Leon M.D., Ph.D., Director of Laboratories , CLIA [id number] Ordering Provider: LEO RYAN Report Released Date/Time: Aug 05, 2023 03:22 PM Reporting Lab: [facility] [address] Performing Lab: [address] ARSENIC,BLOOD <3 ug/L SEE BELOW Aug 05, 2023 03:48 PM [facility] ANCA Specimen Type: SERUM Comment: ANCA CONF QU 24 [id number] Ordering Provider: LEO RYAN Report Released Date/Time: Aug 05, 2023 03:22 PM Reporting Lab: [facility] [address] Performing Lab: [place] [address] .CYTOPLASMIC ANCA NEGATIVE .PERINUCLEAR ANCA POSITIVE H .RADHA. ANCA TITER 1:320 Aug 05, 2023 03:48 PM [facility] VITAMIN B-1,BLOOD Specimen Type: BLOOD Comment: Vitamin supplementation within 24 hours prior to blood draw may affect the accuracy of the results. This test was developed and its analytical performance characteristics have been determined by [employer] [place], [place]. It has not been cleared or approved by the U.S. Food and Drug Administration. This assay has been validated pursuant to the CLIA regulations and is used for clinical purposes. Test Performed by [facility], [employer] [facility], [address] [place] [address] Nacho De Leon M.D., Ph.D., Director of Laboratories , CLIA [id number] Ordering Provider: LEO RYAN Report Released Date/Time: Aug 05, 2023 03:22 PM Reporting Lab: [facility] [address] Performing Lab: [address] VITAMIN B-1,BLOOD 134 nmol/L 78-185 Aug 05, 2023 03:48 PM [facility] HIV AG/AB SCREEN Specimen Type: SERUM No comment entered. Ordering Provider: LEO RYAN Report Released Date/Time: Aug 05, 2023 03:22 PM Reporting Lab: [facility] [address] Performing Lab: [facility] [address] HIV AG/AB SCREEN NEGATIVE NEGATIVE Aug 05, 2023 03:48 PM [facility] FOLATE Specimen Type: PLASMA No comment entered. Ordering Provider: LEO RYAN Report Released Date/Time: Aug 05, 2023 03:22 PM Reporting Lab: [facility] [address] Performing Lab: [facility] [address] FOLATE 15.1 ng/mL >7.0 Aug 05, 2023 03:48 PM [facility] ANCA CONFIRMATORY EIA Specimen Type: [...] >or=1.0 AI: Antibody Detected Autoantibodies to proteinase-3 (HI-3) are accepted as characteristic for granulomatosis with polyangiitis (GPA, Ilia's), and are detectable in 95% of the histologically proven cases. The cytoplasmic IFA pattern, (c-ANCA), is based largely on autoantibody to HI-3 which serves as the primary antigen. These autoantibodies are present in active disease. Test Performed by [facility], [facility] [facility], [address] [place], [place] Nacho De Leon M.D., Ph.D., Director of Laboratories , CLIA [id number] Ordering Provider: LEO RAYN Report Released Date/Time: Aug 10, 2023 12:11 PM Reporting Lab: [facility] [address] Performing Lab: [facility] [id number] [place] [address] .MYELOPEROXIDAS E AB <1.0 SEE BELOW .PROTEINASE-3 AB <1.0 SEE BELOW Aug 05, 2023 03:48 PM [facility] ANTI-MOHSEN PANEL(QUEST) Specimen Type: SERUM Comment: Reference Range: < 1.0 NEG AI Reference Range: < 1.0 NEG AI Reference Range: < 1.0 NEG AI Reference Range: < 1.0 NEG AI Reference Range: < 1.0 NEG AI Reference Range: < 1.0 NEG AI Test Performed by [facility], [facility], [address] [place] [address] Nacho De Leon M.D., Ph.D., Director of Laboratories , [facility] [id number] Ordering Provider: LEO RYAN Report Released Date/Time: Aug 10, 2023 11:06 AM Reporting Lab: [facility] [address] Performing Lab: [facility] [address] [facility] ANTI-NAYAK <1.0 ANTI-GEOLOGICAL TECHNICAL OFFICER <1.0 ANTI-SSA/RO <1.0 ANTI-SSB/LA <1.0 ANTI-SCL-70 <1.0 ANTI-MANINDER-1 <1.0 Aug 05, 2023 03:48 PM [facility] ANTI-DNA ANTIBODY PANEL Specimen Type: SERUM No comment entered. Ordering Provider: LEO RYAN Report Released Date/Time: Aug 10, 2023 11:06 AM Reporting Lab: [facility] [address] Performing Lab: [facility] [address] .ANTI-DNA ANTIBODY NEGATIVE Vital Signs: All taken on the encounter date This section contains inpatient and outpatient Vital Signs collected on the date of the Encounter. Date/Time Temperature Pulse Blood Pressure Respiratory Rate SP02 Pain Height Weight Body Mass Index Source Aug 31, 2023 01:57 PM 97.2 75 143/86 18 94 8 [facility] Social History: Smoking Status (Most current) and Tobacco Use (All prior to encounter date) This section includes the most current, and the historical, smoking and tobacco- related health factors from the [place] facility where the Encounter took place. Current Smoking Status This section includes the most current smoking, or tobacco-related health factor, from the [place] facility where the Encounter took place. Date/Time Current Smoking Status Comment Jack ity May 19, 2023 02:30 PM [place]-TOBACCO FORMER USER [facility] Tobacco Use History This section includes a history of the smoking, or tobacco-related health factors, that were collected on or before the date of the Encounter. The data comes from the [place] facility where the Encounter took place. Date/Time Smoking Status/Tobacco Use Comment F acility May 19, 2023 02:30 PM VA-TOBACCO QUIT 15 YRS OR MORE [facility] May 13, 2022 11:30 AM VA-TOBACCO FORMER USER [facility] May 13, 2022 11:30 AM VA-TOBACCO QUIT 15 YRS OR MORE [facility] Jun 17, 2021 02:00 PM VA-TOBACCO NEVER USED [facility] Advance Directives: All historical and current Section Date Range: From patient's date of to the date document was created. This section includes ALL of a patient's completed or amended [place] Advance and Rescinded Directives. The entries below indicate that a directive exists for the patient, but an actual copy is not included with this document. The data comes from all [facility]. Date Advance Directives Provider Source Dec 19, 2022 ADVANCE DIRECTIVE DISCUSSION TIFF BURCH [facility] Dec 19, 2022 ADVANCE DIRECTIVE ABRIL BURCH [facility] Radiology Reports: +/- 30 days of the [...] the Encounter. The data comes from all [place] treatment facilities. Date/Time Radiology Report Provider Source Sep 12, 2023 04:20 PM MRI-C-SPINE (P): NENA LANEG KELLE [id number] [phone] M Exm Date: SEP 12, 2023@16:20 Req Phys: COSTA RYAN Pat Loc: [facility] NEURO MUSCULAR FELLOW (Req Img Loc: MRI IMAGING Service: Unknown (Case [id number] COMPLETE) MRI SPINE CERVICAL W/O CONTRAST (MRI Detailed) CPT:23453 Reason for Study: spine injury, hyperreflexia on [...] pager listed below: User placing orders pager: [phone] LAST CREATININE 1.4 H (06/05/23) Allergies: AMLODIPINE (Jun 17, 2021) Report Status: Verified Date Reported: SEP 14, 2023 Date Verified: SEP 14, 2023 Pottery Machine Operator E-Sig:/ES/FRIDA GONSALEZ MD Report: MRI SPINE CERVICAL [...] 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 [id number] left facet arthropathy. No spinal canal stenosis. Moderately severe right foraminal stenosis. No left foraminal stenosis. C4-5: This level is fused. No spinal canal stenosis. Moderate right foraminal stenosis. Mild left foraminal narrowing. C5-6: Moderate to marked disc height loss. Bfec-fc-madfskqf bulge and interbody spur. Bilateral uncinate hypertrophy. Moderate right and mild left facet arthropathy. Mpoa-en-pazhvgrl spinal canal narrowing, without cord deformity. Moderate [...] Primary Interpreting Staff: FRIDA GONSALEZ MD, RADIOLOGIST (Pottery Machine Operator) /[facility] PATTON [facility] Sep 12, 2023 04:19 PM MRI-T-SPINE (P): NENA LANGE [id number] [facility]1940 [facility] Date: SEP 12, 2023@16:19 Req Phys: COSTA RYAN Loc: [facility] NEURO MUSCULAR FELLOW (Req [facility] Loc: MRI IMAGING Service: Unknown (Case [id number] COMPLETE) MRI SPINE THORACIC W/O CONTRAST (MRI Detailed) CPT:75013 Reason for Study: Spine injury, hyperreflexia Clinical [...] pager listed below: User placing orders pager: [phone] LAST CREATININE 1.4 H (06/05/23) Allergies: AMLODIPINE (Jun 17, 2021) Report Status: Verified Date Reported: SEP 14, 2023 Date Verified: SEP 14, 2023 Pottery Machine Operator E-Sig:/ES/FRIDA GONSALEZ MD Report: MRI SPINE CERVICAL [...] 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 Oifi-ge-mdukfpim left facet arthropathy. No spinal canal stenosis. Moderately severe right foraminal stenosis. No left foraminal stenosis. C4-5: This level is fused. No spinal canal stenosis. Moderate right foraminal stenosis. Mild left foraminal narrowing. C5-6: Moderate to marked disc height loss. Ndqp-se-oscecejz bulge and interbody spur. Bilateral uncinate hypertrophy. Moderate right and mild left facet arthropathy. Wakx-gi-swvyqofq spinal canal narrowing, without cord deformity. 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 Did the ordering provider speak with a admissions consultant regarding this imaging exam? Yes, Name of admissions consultant (resident or staff):Dr Marvin Alvarez Pt with hot flushes found to have elevated LH and FSH with normal testesterone level. A DEDICATED PUTUITARY MRI IS DESIRED Responsible provider name and phone number to notify for critical findings if other than user placing the order and pager listed below: User placing orders pager: [phone] LAST CREATININE 1.4 H (06/05/23) Allergies: AMLODIPINE (Jun 17, 2021) Report Status: Verified Date Reported: SEP 11, 2023 Date Verified: SEP 11, 2023 Pottery Machine Operator E-Sig:/ES/STEVIE GUTIERREZ MD Report: MRI BRAINBRAINSTEM W [...] Primary Interpreting Staff: STEVIE GUTIERREZ MD, RADIOLOGIST (Pottery Machine Operator) /[facility] STEVIE GUTIERREZ [facility] Pathology Reports: +/- 30 days [...] the Encounter. The data comes from all [place] treatment facilities. Date/Time Pathology Report Provider Source Sep 11, 2023 11:37 AM LR SURGICAL PATHOL OGJenise REPORT: LOCAL TITLE: LR SURGICAL PATHOLOGY REPORT STANDARD TITLE: PATHOLOGY REPORT DATE OF NOTE: SEP 11, 2023@11:37:11 ENTRY DATE: SEP 11, 2023@11:37:11 AUTHOR: EDINSON SQUIRES EXP COSIGNER: URGENCY: STATUS: COMPLETED $APHDR Reporting Lab: [facility] [CLIA# [id number]] [place] [address] - - - - - - - [...] cm. The specimen is inked. CE (D) [facility]/ MICROSCOPIC DESCRIPTION: Microscopic examination performed. Deeper levels were obtained. This case was seen in consultation by Dr. Aris Tanner, dermatopathologist. RS. 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 - No evidence of carcinoma /es/ EDINSON SQUIRES STAFF PATHOLOGIST, PATHOLOGY & LABORATORY [facility] Signed Sep 11, 2023@11:37 Performing Laboratory: Surgical Pathology Report Performed By: [facility] [CLIA# [id number]] [place] [address] $FTR - - - - - - - - - - - - - - - - - - - - - - - - - - - - - - - - - - - - - - - - (End of report) EDINSON SQUIRES MD [facility] Date Sep 10, 2023 - - - - - - - - - - - - - - - - - - - - - - - - - - - - - - - - - - - - - - - - NENA LANGE STANDARD FORM 515 ID:[id number] SEX:M :1940 AGE: 82 LOC:1068 PCP: Frida Jo NP /eda/ EDINSON SQUIRES STAFF PATHOLOGIST, PATHOLOGY & LABORATORY [facility] Signed: 09/11/2023 11:37 EDINSON SQUIRES [facility] Encounter Notes: All associated encounter notes This section contains the clinical notes associated to the Encounter. Date/Time Encounter Note(s) Provider Source Aug 31, 2023 04:17 PM NEUROLOGY CONSULT: LOCAL TITLE: EMG CONSULT STANDARD TITLE: NEUROLOGY CONSULT DATE OF NOTE: AUG 31, 2023@16:17 ENTRY DATE: AUG 31, 2023@16:17:40 AUTHOR: VAUGHN TENORIO COSIGNER: URGENCY: STATUS: COMPLETED SUBJECT: EMG Consult Note EMG CONSULT Has ADDENDA Aug NENA LANGE Sep Referring Provider: Dr. Ryan History & Physical Exam Mr. 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 It presents as nearly symmetric lower extremity pain, which is constant. He denies low back pain or neck pain that appears to be connected to his symptoms. He additionally has some burning pain in a band-like fashion over his mid-thoracic area. He reports right upper extremity chronic numbness secondary to a previous injury and unchanged since the injury, but no other numbness or weakness over his bilateral upper extremity. 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 Pt denies history of thyroid disease, diabetes, heavy EtOH use, or chemotherapy. A brief general examination was unremarkable for atrophy, scarring, or edema. A brief neurological examination demonstrated normal strength over bilateral upper and lower extremities. Sensation was intact to light touch over bilateral upper and lower extremities except for except for patchy numbness over the bilateral lower extremities over the middle knee to the arch, right worse than left-side. Deep tendon reflexes in both upper and lower extremities were symmetric 2+/4 over biceps, brachioradialis, triceps, bilateral patella's, and [place]'s. Has not had a prior EMG. Xray of thoracic spine from 09/22/22 showed: 4 views of the lumbosacral spine reveal straightening of the normal lumbar lordosis. There is complete disc space loss from L2 through S1. There are anterior and posterior osteophytes at all levels. 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 No fractures or destructive lesions are identified. The pubic rami and hips are unremarkable. These findings are stable from the earlier study. The electrodiagnostic studies were performed to evaluate for polyneuropathy. Risks and benefits of testing explained to the patient including risk of bleeding, bruising and discomfort. Verbal consent obtained prior to testing Nerve Conduction Studies (NCS) Examination: For sensory NCS, the amplitude is measured sbft-ln-embl, the latency reported is the distal peak latency, and the conduction velocity, if measured, is determined from onset latencies and is over the forearm or lower limb. For motor NCS, the amplitude is measured baseline to peak, the latency reported is the distal onset latency, the conduction velocity is calculated over the forearm for median studies and over the forearm and elbow segment for ulnar studies. The conduction velocity is calculated over the lower leg for tibial studies and over the lower leg and knee segments for fibular studies, and the F wave latency is the minimum latency. Unless otherwise noted, the hand temperature was monitored continuously and remained between 32-36 degrees C during the performance of the nerve conduction studies. Unless otherwise noted, the foot temperature was monitored continuously and remained greater than 30 degrees C during the performance of the nerve conduction studies. For tabular NCS data, please see scanned study in [email or web address]. EMG Examination: The study was performed with a concentric needle electrode. Fibrillation and fasciculation activity is graded from none (0) to continuous (4+). The configuration and recruitment pattern of motor unit action potentials under voluntary control, if not normal, are described below. For tabular EMG data, please see scanned study in [email or web address]. MNCS: 1. Left median motor nerve was normal. 2. Left ulnar motor nerve was normal. 3. Left fibular motor nerve was normal. 4. Left tibial motor nerve was normal. SNCS: 1. Left median sensory nerve was normal. 2. Left ulnar sensory nerve was normal. 3. Left radial sensory nerve was normal. 4. Left sural sensory nerve was normal. EMG: Concentric needle exam of the following muscles was performed on the left lower extremity: 1. Tibialis anterior (Deep fibular L4-5) - normal 2. Medial Gastrocnemius (Tibial S1-2) - normal IMPRESSION: 1. Normal study. 2. There is no electrodiagnostic evidence of large fiber polyneuropathy, left upper extremity mononeuropathy, or left lower extremity mononeuropathy. Results were discussed with the patient. Please see [facility] for complete study data. Thank you for the consult. Vaughn Tenorio DO PGY-3 Rehabilitation Medicine [facility] Patient seen and discussed with the PM&R attending, Dr. Henley. /eda/ VAUGHN TENORIO Resident Physician Signed: 09/01/2023 07:35 Receipt Acknowledged By: 09/01/2023 08:27 /eda/ BRITTANI HENLEY MD STAFF PHYSICIAN 09/01/2023 ADDENDUM STATUS: COMPLETED - Patient seen with the resident. I reviewed with the resident the nerve conduction study and was present for the EMG portion of the study. Agree with the findings and impression as described in the resident note. - Medication list was reviewed by FRESH WORK INSPECTOR. - Patient indicated readiness to learn about NCS/EMG. Education was provided to patient during this encounter. - Results of NCS/EMG were discussed with the patient /eda/ BRITTANI HENLEY MD STAFF PHYSICIAN Signed: 09/01/2023 08:28 VAUGHN TENORIO [facility] Aug 31, 2023 02:09 PM NEUROLOGY NURSING OUTPATIENT NOTE: LOCAL TITLE: NEUROLOGY CLINIC NURSING NOTE STANDARD TITLE: NEUROLOGY NURSING OUTPATIENT NOTE DATE OF NOTE: AUG 31, 2023@14:09 ENTRY DATE: AUG 31, 2023@14:09:18 AUTHOR: JUAN CARLOS GRIMES COSIGNER: URGENCY: STATUS: COMPLETED Type of visit: Appointment Check In Reason for Visit: EMG REHAB DR HENLEY Vital Signs: Blood Pressure: 143/86 (08/31/2023 13:57) Pulse: 75 (08/31/2023 13:57) Respiration: 18 (08/31/2023 13:57) Temperature: 97.2 F [36.2 C] (08/31/2023 13:57) Weight: 192.6 lb [87.36 kg] (08/21/2023 10:09) Height: 71 in [180.3 cm] (11/17/2022 13:41) BMI: 26.9 Pain: 8 (08/31/2023 13:57) Allergies: AMLODIPINE (Jun 17, 2021) Medications: Active [...] EVERY ACTIVE DAY NEEDED FOR ALLERGIES 11) SERTRALINE HCL 25MG TAB TAKE ONE TABLET BY MOUTH ACTIVE EVERY DAY FOR DEPRESSION/ANXIETY 12) VANICREAM TOP CREAM APPLY THIN LAYER TOPICALLY TWICE ACTIVE A DAY FOR DRY SKIN Active Non-VA Medications Status 1) Non-VA ASPIRIN 81MG EC TAB 81MG MOUTH EVERY DAY ACTIVE 2) Non-VA CURCUMIN CAP 1 CAPSULE MOUTH NEEDED ACTIVE 14 Total Medications Patient reports the following changes regarding the current pharmacy list of medications: The above medication list confirmed with patient. A copy of the above medication list given to the MD for review and update. Provider will give printed copy of medication list to patient with any changes documented on printed medication list. /eda/ JUAN CARLOS GRIMES LPN LPN Signed: 08/31/2023 14:10 JUAN CARLOS GRIMES [facility]
--- OUTSIDE RECORDS SUMMARY | 2024-08-05 04:36 | XMS_ITS | Encounter Summary ---
Author Name [facility] [place] [facility] [place] Address [address] [place] [address] Care Team Providers Care Plugman Name Role Phone DARIN BURGESS Primary Care [...] PRESCRIPT ION DODA Nov 13, 2004 DODA [id number] PARRISH LANGE PATIENT EXPRESS SCRIPTS (WNR) PRESCRIPT ION TRICA RE (WNR) Nov 13, 2004 (WNR) [id number] PARRISH LANGE PATIENT MEDICARE (WNR) MEDICARE (M) PART B Sep 14, 2007 PART B [id number] NAZARIO,DA JUAN PATIENT MEDICARE (WNR) MEDICARE (M) PART A Sep 14, 2007 PART A [id number] NAZARIO,DA JUAN PATIENT MEDICARE (WNR) MEDICARE (M) PART A Sep 14, 2007 PART A [id number] NAZARIO,DA JUAN PATIENT MEDICARE (WNR) MEDICARE (M) PART B Sep 14, 2007 PART B [id number] NAZARIO,DA JUAN PATIENT MEDICARE (WNR) MEDICARE (M) PART A Sep 14, 2007 PART A [id number] NAZARIO,DA JUAN PATIENT MEDICARE (WNR) MEDICARE (M) PART B Sep 14, 2007 PART B [id number] NAZARIO,DA JUAN PATIENT MEDICARE (WNR) MEDICARE (M) PART A Sep 14, 2007 PART A [id number] NAZARIO,DA JUAN PATIENT MEDICARE (WNR) MEDICARE (M) PART B Sep 14, 2007 PART B [id number] NAZARIO,DA JUAN PATIENT MEDICARE (WNR) MEDICARE (M) PART A Sep 14, 2007 PART A [id number] NAZARIO,DA JUAN PATIENT MEDICARE (WNR) MEDICARE (M) PART B Sep 14, 2007 PART B [id number] NAZARIO,DA JUAN PATIENT FOR LIFE TRICA RE FOR LIFE Mar 15, 2004 FOR LIFE [id number] NAZARIO,DA JUAN PATIENT [facility] 2024 SELEC T WNR Jun 15, 2024 SELECT [id number] KOEING,DA JUAN PATIENT -FO R-LIFE TRICA RE FOR LIFE WNR Nov 27, 2015 FOR LIFE [id number] NAZARIO,DA JUAN PATIENT -FO R-LIFE TRICA RE FOR LIFE WNR Nov 23, 2015 FOR LIFE [id number] PARRISH LANGE PATIENT Selected Encounter This section includes the information on record at CT for the Encounter. 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 Date/Time Primary/Secondary Diagnosis Diagnosis Name Provider Source Apr 26, 2024 04:16 PM PRIMARY Aneurysm of other specified arteries JOSE J NEFF [facility] Apr 26, 2024 04:16 PM SECONDARY Aneurysm of iliac artery JOSE J NEFF [facility] Apr 26, 2024 04:16 PM SECONDARY Aneurysm of renal artery JOSE J NEFF [facility] Lab Results: +/- 30 days of the encounter This section includes the Chemistry and Hematology Lab Results on record with CT for the patient. Radiology Reports and Pathology Reports are provided separately, in subsequent sections. Lab Results This section contains the Chemistry/Hematology Results that were resulted 30 days before or 30 daysafter the date of the Encounter. Date/Time Source Result Type Result - Unit Interpretation Reference Range Comment Apr 19, 2024 02:09 PM [facility] POC CREATININE Specimen Type: BLOOD No comment entered. Ordering Provider: DENG JO Report Released Date/Time: Apr 19, 2024 02:14 PM Reporting Lab: [facility] [id number] Performing Lab: [facility] [id number] POC CREATININE 1.2 mg/dL 0.6-1.3 Social History: Smoking Status (Most current) and Tobacco Use (All prior to encounter date) This section includes the most current, and the historical, smoking and tobacco- related health factors from the CT facility where the Encounter took place. Current Smoking Status This section includes the most current smoking, or tobacco-related health factor, from the CT facility where the Encounter took place. Date/Time Current Smoking Status Comment Jack chavez May 19, 2023 02:30 PM VA-TOBACCO FORMER USER [facility] Tobacco Use History This section includes a history of the smoking, or tobacco-related health factors, that were collected on or before the date of the Encounter. The data comes from the CT facility where the Encounter took place. Date/Time Smoking Status/Tobacco Use Comment F acility May 19, 2023 02:30 PM VA-TOBACCO QUIT 15 YRS OR MORE [facility] May 13, 2022 11:30 AM VA-TOBACCO FORMER USER [facility] May 13, 2022 11:30 AM VA-TOBACCO QUIT 15 YRS OR MORE [facility] Jun 17, 2021 02:00 PM VA-TOBACCO NEVER USED [facility] Advance Directives: All historical and current Section Date Range: From patient's date of to the date document was created. This section includes ALL of a patient's completed or amended CT Advance and Rescinded Directives. The entries below indicate that a directive exists for the patient, but an actual copy is not included with this document. The data comes from all CT facilities. Date Advance Directives Provider Source Dec 19, 2022 ADVANCE DIRECTIVE DISCUSSION TIFF BURCH [facility] Dec 19, 2022 ADVANCE DIRECTIVE ABRIL BURCH [facility] Radiology Reports: +/- 30 days of [...] the Encounter. The data comes from all CT treatment facilities. Date/Time Radiology Report Provider Source Apr 26, 2024 03:25 PM MRI-L-SPINE (P): NENA LANGE KELLE [id number] -[id number] Ex Date: APR 26, 2024@15:25 Req Phys: FRIDA JO Loc: [facility] PACT FLAME 4D (Req'g Loc) Img Loc: MRI IMAGING Service: [place] [address] (Case [id number] COMPLETE) MRI SPINE LUMBAR W & WITHOUT CONT(MRI Detailed) CPT:55710 Contrast Media : Gadolinium Reason for Study: L5 abnormality Clinical History: Per Joint Commission Standards, by signing this diagnostic imaging request the ordering provider confirms they have considered patients age and recent imaging history. 1. Abnormal marrow signal and enhancement in the right L5 posterior elements Follow-up lumbar spine MRI without and with contrast in 2 to 3 months should be considered to assess stability. please evaluate, thanks Responsible provider name and phone number to notify for critical findings if other than user placing the order and pager listed below: User placing orders pager: [phone] KRISTI Jo [phone] LAST CREATININE 1.2 (12/04/23) Allergies: AMLODIPINE (Jun 17, 2021) Report Status: Verified Date Reported: APR 27, 2024 Date Verified: APR 27, 2024 Jde Developer E-Sig:/ES/VERNA TAYLOR MD Report: MRI Lumbar Spine without Contrast 04/26/2024 3:25 PM Indication: L5 abnormality on previous MRI. Technique: Performed without IV contrast. Comparison: 12/25/2023. Findings: Alignment: Low-grade degenerative retrolisthesis is present from L2-3 through L5-S1. Alignment is unchanged from 12/25/2023. Bones: The abnormally increased T2 signal previously noted in the right posterior elements at L5 as resolved. There is some persistent Modic type I reactive marrow signal change along segments of the vertebral endplates, particularly at L3-4, appearance unchanged. No evidence for stress reaction, pars defect, recent fracture or worrisome bone lesion. The visualized portions of the sacrum, innominate bones and proximal femora are unremarkable. Central Canal and Thecal Sac: No high-grade central canal stenosis . The conus medullaris and cauda equina are unremarkable, with the tip of the conus at the L1 level. Paraspinal Tissues: The paravertebral soft tissues and abdominal aorta are grossly negative. Minor degenerative changes in both sacroiliac joints. T12-L1: Mild disc degeneration. The foramina are patent. No change from 12/25/2023. L1-2: Mild disc degeneration. Mild facet osteoarthritis. Mild foraminal narrowing. Stable. L2-3: Advanced disc and facet degenerative changes. Mild to moderate effacement of the thecal sac. Low-grade foraminal narrowing. Stable. L3-4: Advanced disc degeneration. Moderate facet osteoarthritis. Moderate right foraminal narrowing. Mild effacement of the thecal sac. Stable. L4-5: Severe disc degeneration with prominent posterior bulging. Severe right and moderate left facet osteoarthritis. Moderate right foraminal narrowing. Stable. L5-S1: Severe disc degeneration. Severe right and moderate left facet osteoarthritis. Moderate foraminal narrowing. Stable. Impression: 1. The abnormal T2 signal noted in the right posterior elements at L5 on the previous study has regressed. This likely represented transient reactive marrow edema related to osteoarthritis in the right L5-S1 facet joint. 2. No other interval change. Stable widespread lumbar spondylosis. THE REPORT OF THE PATIENT'S FINDINGS ENDS [...] people ~70 years old Primary Interpreting Staff: VERNA TAYLOR MD, RADIOLOGIST (Jde Developer) /VERNA ACEVEDO [facility] Apr 19, 2024 01:52 PM CTA (AP) ABDOMEN & PELVIS (P): NENA LANGE [id number] -[id number] M Ex Date: APR 19, 2024@13:52 Req Phys: NINA CR Loc: DYLAN NEFF (Req'g Loc) [facility] [place]: CT IMAGING Service: [place] [address] (Case [id number] COMPLETE) CTA (AP) ABDOMEN/PELVIS W/ & W/O (CT Detailed) CPT:89954 Contrast Media : Non-ionic Iodinated Reason for Study: Annual suviellance of celiac artery aneursym Clinical History: Per Joint Commission Standards, by signing this diagnostic imaging request the ordering provider confirms they have considered patients age and recent imaging history. Defer to radiologist for final CT protocol. List the name and contact number of the responsible provider that can be reached for any questions regarding this exam or notification of critical findings.Jose J Neff MD Note -If ordering provider is a trainee, enter the name and contact information of the responsible staff darnell below. If not, type in N/A.Nina Cr MD LAST 3: Collection DT Specimen Test Name Result Units Ref Range 11/17/2022 12:53 PLASMA CREATININE 1.3 H mg/dL 0.7 - 1.2 07/22/2022 10:21 PLASMA CREATININE 1.3 H mg/dL 0.7 - 1.2 05/13/2022 13:05 PLASMA CREATININE 1.1 mg/dL 0.7 - 1.2 11/17/2022 12:53 PLASMA .CREAT EGFR(CKD-E 56 L Ref: >=60 07/22/2022 10:21 PLASMA .CREAT EGFR(CKD-E 56 L Ref: >=60 05/13/2022 13:05 PLASMA .CREAT EGFR(CKD-E 68 Ref: >=60 06/17/2021 15:34 PLASMA ESTIMATED GFR(eGF 49 L Ref: >=60 Allergies: ([place] only) AMLODIPINE (Jun 17, 2021) Report Status: Verified Date Reported: APR 19, 2024 Date Verified: APR 19, 2024 Jde Developer E-Sig:/ES/JIM CH MD Report: ABDOMINAL and PELVIC CTA History: Reason for Study: Annual suviellance of celiac artery aneursym Per Joint Commission Standards, by signing this diagnostic imaging request the ordering provider confirms they have considered patients age and recent imaging history. Defer to radiologist for final CT protocol. List the name and contact number of the responsible provider that can be reached for any questions regarding this Comparisons: CT abdomen and pelvis 01/01/2024. CTA abdomen and pelvis 04/21/2023 Multiple priors. Technique: Non-contrast images were obtained of the abdomen and pelvis. Following the administration of intravenous contrast, CT of the abdomen and pelvis was performed in the early arterial phase. Data was formatted into axial images of 1 and 5 mm thickness. 3-D and multiplanar reconstructions were reviewed. Contrast: Administered 118.0 ml of OMNI 350 mg/ml Omnipaque Dose: 894 mg/cm Findings: VASCULAR: Abdominal aorta is normal in contour and caliber. Moderate calcific plaque of the aortoiliac system. 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 Aneurysm is near the bifurcation without involvement of the splenic artery or the common hepatic artery, similar to prior. Unchanged coarse calcification along the anteromedial aspect of the aneurysm (image 243). No new aneurysm. No focal stenosis at the celiac artery ostium. SMA: Patent, no focal stenosis or aneurysm.. CHRIS: Patent, no focal stenosis or aneurysm. Right renal artery: Patent, without focal stenosis or aneurysm. Left renal artery: Patent, no focal stenosis or aneurysm. RCIA: Patent and no stenosis. RIIA: Patent and no stenosis. REIA: Patent and no stenosis. Right proximal femoral arteries: Patent and no stenosis. LCIA: Patent and no stenosis. LIIA: Patent and no stenosis. AYDEE: Patent and no stenosis. Left proximal femoral arteries: Patent and no stenosis. Incidentally noted, reflux of contrast into the IVC and proximal hepatic vasculature. Scattered atherosclerotic calcifications of the abdominal vasculature. ABDOMEN/PELVIS: Hepatobiliary: No intrahepatic biliary dilation. No focal hepatic masses. Gallbladder: Unremarkable Spleen: The spleen is not enlarged. Pancreas: Fatty atrophy, no mass. Unremarkable. Adrenal glands: Unremarkable. Kidneys/ureters: Mildly atrophic appearance of the bilateral kidneys, multiple water attenuating renal cysts. GI Tract: No dilated loops of small bowel or colon. The appendix is unremarkable. Colonic diverticulosis is seen without CT evidence of diverticulitis. Peritoneum/retroperitoneum : No extraluminal bowel gas. No free fluid in the abdomen or pelvis. Fat-containing left inguinal hernia. Lymph nodes: No enlarged retroperitoneal or pelvic lymph nodes by short axis criteria. LUNG BASES: No new focal consolidations, similar multiple areas of rounded atelectasis within the left lung base. Scattered bronchiectasis. No definitively suspicious masses. Scattered subpleural reticular fibrotic changes.. Musculoskeletal: Multilevel degenerative changes of the lumbar spine, most prominent L2-L4. Multiple levels of vacuum disc phenomenon, prominent posterior spondylosis. No acute fractures or high-grade appearing osseous lesions. Impression: 1. 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 No new arterial aneurysms. 2. Incidentally noted, moderate reflux of contrast into the IVC and hepatic vasculature. Can be seen with poor antegrade flow and poor right heart function. Correlate with patient cardiac history. 3. No acute findings within the abdomen or pelvis. 4. Unchanged basilar rounded atelectasis, fibrotic changes, and bronchiectasis. I, Jim Ch, have reviewed the images and report. Primary Interpreting Staff: JIM CH MD, RADIOLOGIST (Jde Developer) Primary Interpreting Resident: FRIDA COLEMAN, , SUPERVISOR MACHINE SETTER /JIM PATRICIA [facility] Encounter Notes: All associated encounter notes This section contains the clinical notes associated to the Encounter. Date/Time Encounter Note(s) Provider Source Apr 26, 2024 04:11 PM VASCULAR SURGERY A TTENDING NOTE: LOCAL TITLE: VASCULAR SURGERY CLINIC NOTE STANDARD TITLE: VASCULAR SURGERY ATTENDING NOTE DATE OF NOTE: APR 26, 2024@16:11 ENTRY DATE: APR 26, 2024@16:11:47 AUTHOR: JOSE J NEFF EXP COSIGNER: URGENCY: STATUS: COMPLETED Mr. 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 He presents with his son, as he told me today that his recently . His biggest complaint is pruritus, but this is being managed by dermatology and his PCP. 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 Given that he is asymptomatic from these, and given the stability, I recommend repeat imaging in 1 year. 15 minutes spent on this encounter. /eda/ JOSE J NEFF MD VASCULAR SURGERY STAFF Signed: 04/26/2024 16:16 JOSE J NEFF [facility]
--- OUTSIDE RECORDS SUMMARY | 2024-08-05 04:36 | XMS_ITS | Continuity of Care Document ---
Author Name [facility] Organization [facility] Care Team Providers Care Sumo Wrestler Name Role Phone [facility] Unavailable Unavailable Problems Combined list of problems from Department of Defense and Veterans Affairs facilities. It does not include entries that were removed or entered in error. Problem Status Onset Date Problem Type Date of Resolution Comments Source Prostate Cancer Active 005 Condition Feb 24, 2005 Entered By: AMEYA COBB Comment: s/p RT, completed on 02/13/05 JOSE EDUARDO QUINTANILLA [facility] joint pain, localized in the knee Active Condition DoD osteoarthritis Active Condition DoD aortic regurgitation Active Condition DoD allergic rhinitis Active Condition DoD prostate cancer Active Condition DoD routine history and physical adult (18 - 64 yrs) Active Condition DoD Need For Vaccination Influenza + Streptococcus Pneumoniae Active Condition Influenza 0.5ml IM given to L Deltoid. Paramedical Aide: [employer], Lot# [id number], Exp: 2007.Pnuemovax 0.5ml IM placed to L Deltoid. Paramedical Aide: [place] [employer], Lot# [id number], Exp: 03/27/08. DoD volume depletion Inactive Condition BP and hx c/w hypovolemia secondary to volume depletion from diarrhea and vomiting. Will Start IV and give LR along with medication for vomiting. 2 1/5 L LR yarsani of BP to 128/84 P 81 Throat culture taken results pending. F/U in AM.Problem list and medications reconcilled. Medication list printed out. Patient not primary to [facility] CXR Lungs Solitary Pulmonary Nodule (___ cm) Inactive Condition DoD abnormal electrocardiogram Active Condition WILL REFER TO CARDIOLOGY FOR ABNL EKG AND H/O LEAVITT. POSSIBLE UNDERLYING OCCULT CV DISEASE. RTC NEEDED. [facility] seborrheic keratosis Active Condition [facility] visit for: administrative purpose Active Condition [facility] Physical Examination Inactive Condition [facility] Laboratory Studies Inactive Condition Do D skin disorders Inactive Condition [facility] Administrative Evaluation Services Inactive Condition Nursing General completed. DoD visit for: issue repeat prescription for medication Active Condition DoD allergies Active Condition DoD teeth erosion Active Condition DoD palpitations Inactive Condition DoD esophageal reflux Active Condition DoD actinic keratosis Inactive Condition RT HELIX OF EAR. [address] 10 S FTC APPLIED WITHOUT PROBLEMS DoD neuritis lumbar Active Condition DoD benign prostatic hyperplasia Inactive Condition DoD malignant prostate neoplasm stage I Active Condition DoD hyperlipidemia Active Condition DoD hypertension systemic Active Condition [facility] Abdominal aortic aneurysm Active Condition May 10, 2014 Entered By: ELVIS CHAPPELL Comment: Bifurcation <3cm [facility] Abdominal aortic aneurysm Active Condition [facility] Allergy * (ICD-9-CM 995.3) Active Condition JOSE EDUARDO Genao [facility] 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, 2014 Entered By: ELVIS CHAPPELL Comment: Small reeval in 1 year [facility] Anxiety State Active Condition TETO R EX [facility] Benign hypertension Active Condition [facility] Benign hypertension Active Condition [facility] CAD - Coronary Artery Disease (SCT [id number]) Active Condition [facility] Cancer, prostate, primary Active Condition [facility] Carcinoma of prostate Active Condition [facility] Cerebral aneurysm, nonruptured (ICD-9-CM 437.3) Active Condition TETO R [facility] Cervical Radiculopathy (ICD-9-CM 723.4) Active Condition JOSE EDUARDO Isreal Julienne QUINTANILLA [facility] Chronic Back Pain (ICD-9-CM 724.5) Active Condition TETO R EX [facility] Chronic diarrhea Active Condition [facility] [place] [facility] Chronic kidney disease stage 3A Active Condition [facility] COPD - Chronic obstructive pulmonary disease Active Condition Jun 02 Entered By: JIE JO Comment: Moderately severe 05/2022 PFTs [facility] Depression (SCT [id number]) Active Condition [facility] Depression * (ICD-9-CM 311.) Active Condition TETO MATHEWS X [facility] Depressive disorder Active Condition [facility] Diarrhea Active Condition [facility] Exposure to potentially hazardous substance Active Condition [facility] Exposure to potentially hazardous substance (SCT [id number]) Active Condition Sep 15 4 Entered By: KIT FARRELL Comment: Entered automatically through SONYA Problem List documentation program [facility] Gastroesophageal Reflux Disease Active Condition [facility] Gastroesophageal Reflux Disorder * (ICD-9-CM 530.81) Active Condition JOSE EDUARDO IsrealJulienne QUINTANILLA [facility] GERD - Gastro-Esophageal Reflux Disease (SCT [id number]) Active Condition [facility] Gout Active Condition [facility] Gout ([facility] [id number]) Active Condition [place] [facility] Hemospermia Active Condition [facility] History of myocardial infarction Active Condition October 17, 2022 Entered By: JIE JO Comment: STEMI [facility] HTN - Hypertension ([facility] [id number]) Active Condition [facility] Hyperlipidemia Active Condition [facility] Hyperlipidemia ([facility] [id number]) Active Condition [facility] Hyperlipidemia * (ICD-9-CM 272.4) Active Condition JOSE EDUARDO Bach [facility] Hyperplasia of Prostate, unspecified, with Urinary obstruction (ICD-9-CM 600.91) Active Condition [facility] Birgit [facility] Insomnia Active Condition [facility] Intracranial aneurysm Active Condition [facility] Intracranial aneurysm Active Condition Jun 18, 2021 Entered By: JIE JO Comment: s/p stent/coil proceedure [facility] Low back pain Active Condition [place] [facility] Low Back Pain * (ICD-9-CM 724.2) Active Condition JOSE EDUARDO QUINTANILLA [facility] MDD, Single, Moderate Active Condition [facility] MDD, Single, Part Remiss Active Condition [facility] Muscle Spasm (ICD-9-CM 728.85) Active Condition [facility] Neck pain Active Condition [facility] Osteoarthritis * (ICD-9-CM 715.90) Active Condition [facility] Pain in male perineum Active Condition [facility] Primary malignant neoplasm of prostate Active Condition [facility] RE - Retrograde ejaculation Active Condition [facility] Solitary nodule of lung Active Condition May 10, 2014 Entered By: ELVIS CHAPPELL Comment: Left Lower Lobe [facility] Solitary nodule of lung Active Condition [facility] Tinnitus * (ICD-9-CM 388.30) Active Condition [facility] Tremor * (ICD-9-CM 781.0) Active Condition [facility] Hearing loss Inactive Condition 02/26/2017 [facility] Hematuria, Gross Inactive Condition 02/26/2017 R [facility] - Lower urinary tract symptoms Inactive Condition 02/26/2017 [facility] Male perineal pain Inactive Condition 02/26/2017 [facility] Shoulder pain Inactive Condition 02/26/2017 [facility] Diagnosis: ICD-10-CM I72.8 Aneurysm of other specified arteries Active Diagnosis REBECCA RAMIREZ [facility] Diagnosis: ICD-10-CM 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 [facility] Diagnosis: ICD-10-CM D48.5 Neoplasm of uncertain behavior of skin Active Diagnosis [facility] Diagnosis: ICD-10-CM R20.2 Paresthesia of skin Active Diagnosis [facility] [place] [facility] Diagnosis: ICD-10-CM D24.9 Benign neoplasm of unspecified breast Active Diagnosis [facility]ATION[facility]lla RAM[facility] Diagnosis: ICD-10-CM I10 Essential (primary) hypertension Active Diagnosis [facility] Diagnosis: ICD-10-CM Z23 Encounter for immunization Active Diagnosis [facility] Diagnosis: ICD-10-CM G90.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 Medication Details Route Status Patient Instructions Prescription Expires Prescription Number Last Dispense Date Ordering Provider Order Date Order Qty Source ACETAMINOPH EN 500MG TAB TAKE TWO TABLETS BY MOUTH THREE TIMES A DAY NEEDED FOR PAIN ORAL ACTIVE 11/30/2024 [id number] BETTINA JO ER 2023 200 [facility] [place] [facility] ACETAMINOPH EN 500MG TAB TAKE TWO TABLETS BY MOUTH THREE TIMES A DAY NEEDED FOR PAIN ORAL DISCONT INUED 09/23/2023 [id number] BETTINA JO ER 2022 200 [facility] [place] [facility] ALBUTEROL 90MCG/ACTUA T (CFC-F) INHL,ORAL,8 .5GM DOSE COUNTER INHALE 2 PUFFS BY INHALATI ON EVERY 4 HOURS NEEDED FOR SHORTNES S OF BREATH RESPIR ATORY (INHAL ATION) ACTIVE 12/04/[id number] [facility] 2023 2 [facility] ALBUTEROL 90MCG/ACTUA T (CFC-F) INHL,ORAL,8 .5GM DOSE COUNTER INHALE 2 PUFFS BY INHALATI ON EVERY 4 HOURS NEEDED FOR SHORTNES S OF BREATH RESPIR ATORY (INHAL ATION) DISCONT INUED 11/18/2023 [id number] [facility] 2022 2 [facility] ALLOPURINOL 100MG TAB TAKE ONE TABLET BY MOUTH DAILY ORAL ACTIVE MATHEW JOSE 2011 [facility] ALLOPURINOL 100MG TAB TAKE ONE TABLET BY MOUTH DAILY ORAL ACTIVE ELVIS GUSMAN 2013 [facility] AMLODIPINE BESYLATE 5MG TAB TAKE ONE TABLET BY MOUTH DAILY ORAL ACTIVE SOCKOL- EST,FELIC IA 2019 [facility] ASCORBIC ACID 500MG TAB TAKE TWO TABLETS BY MOUTH QDAY ORAL ACTIVE ELVIS GUSMAN 2013 [facility] ASPIRIN 325MG TAB TAKE ONE TABLET BY MOUTH DAILY ORAL ACTIVE MATHEW JOSE 2011 [facility] ASPIRIN 81MG TAB,EC TAKE ONE TABLET BY MOUTH DAILY ORAL ACTIVE SOCKOL- EST,FELIC IA 2015 [facility] ASPIRIN 81MG TAB,EC TAKE ONE TABLET BY MOUTH EVERY DAY ORAL ACTIVE BETTINA JO 2021 [facility] CAMPHOR 0.5%/MENTHO L 0.5% LOTION APPLY THIN LAYER TOPICALL Y THREE TIMES A DAY NEEDED FOR ITCHING TOPICA L ACTIVE 12/04/2024 [id number] BETTINA JO 2023 450 [facility] CAMPHOR 0.5%/MENTHO L 0.5% LOTION APPLY THIN LAYER TOPICALL Y THREE TIMES A DAY NEEDED FOR ITCHING TOPICA L [facility] 06/05/2024 [id number] BETTINA JO 2022 450 [facility] CHOLECALCIF MARCUS (VITAMIN D3) TAB TAKE 1000UNIT BY MOUTH TWICE A DAY ORAL ACTIVE MATHEW JOSE 2011 [facility] CHOLECALCIF MARCUS 25MCG (1,000UNIT) TAB TAKE ONE TABLET BY MOUTH DAILY ORAL ACTIVE ELVIS GUSMAN 2013 [facility] COLESTIPOL HCL 1GM TAB TAKE THREE TABLETS BY MOUTH TWICE A DAY ORAL ACTIVE SOCKOL- EST,FELIC IA 2019 [facility] CURCUMA CAP/TAB TAKE 1 CAPSULE BY MOUTH PRN ORAL ACTIVE ANUSHA CURRAN E 2022 [facility] CYANOCOBALA MIN 1000MCG TAB TAKE ONE TABLET BY MOUTH DAILY ORAL ACTIVE ELVIS GUSMAN 2013 [facility] DOXAZOSIN MESYLATE 2MG TAB TAKE ONE TABLET BY MOUTH AT BEDTIME ORAL ACTIVE MATHEW JOSE 2011 [facility] ESOMEPRAZOL E MAGNESIUM 40MG CAP,EC TAKE 1 CAPSULE BY MOUTH TWICE A DAY ORAL ACTIVE MATHEW JOSE 2011 [facility] FAMOTIDINE 20MG TAB TAKE ONE TABLET BY MOUTH EVERY DAY FOR HEARTBUR N ORAL ACTIVE 10/08/2024 [id number] BETTINA JO 2023 90 [facility] FAMOTIDINE 20MG TAB TAKE ONE TABLET BY MOUTH EVERY DAY FOR HEARTBUR N ORAL DISCONT INUED 11/18/2023 [id number] BETTINA JO 2022 90 [facility] FAMOTIDINE 40MG TAB TAKE ONE TABLET BY MOUTH DAILY ORAL ACTIVE SOCKOL- EST,FELIC IA 2019 [facility] FLUTICASONE PROPIONATE 50MCG/SPRAY SOLN,NASAL, 16GM INSTILL 2 SPRAYS IN EACH NOSTRIL NASAL ACTIVE PATEL ELMORE 2015 [facility] GABAPENTIN 100MG CAP TAKE ONE CAPSULE BY MOUTH THREE TIMES A DAY FOR 3 DAYS, THEN TAKE TWO CAPSULES THREE TIMES A DAY FOR 3 DAYS IN ADDITION TO 300 MG CAP TOTAL FINAL DAILY DOSE 600 MG OR TWO 300 MG CAPS IN ADDITION TO 300 MG CAP TOTAL FINAL DAILY DOSE 600 MG OR TWO 300 MG CAPS ORAL 07/05/2023 [id number] BETTINA JO 2022 27 [facility] [place] [facility] GABAPENTIN 300MG CAP TAKE TWO CAPSULES BY MOUTH THREE TIMES A DAY FOR PAIN AND NUMBNESS MAXIMU M DOSE WITH CURRENT KIDNEY FUNCTION ORAL ACTIVE 12/04/2024 [id number] BETTINA JO 2023 540 [facility] GABAPENTIN 300MG CAP TAKE TWO CAPSULES BY MOUTH THREE TIMES A DAY FOR PAIN AND NUMBNESS MAXIMU M DOSE WITH CURRENT KIDNEY FUNCTION ORAL DISCONT INUED 09/22/2024 [id number] BETTINA JO 2023 540 [facility] GABAPENTIN 300MG CAP TAKE TWO CAPSULES BY MOUTH THREE TIMES A DAY FOR PAIN AND NUMBNESS AFTER GRADUAL DOSE AUGMENTA TION ORAL DISCONT INUED BY PROVIDE R 06/05/2024 [id number] BETTINA JO 2022 180 [facility] GABAPENTIN 300MG CAP TAKE ONE CAPSULE BY MOUTH EVERY DAY FOR 1 DAY, THEN TAKE ONE CAPSULE TWICE A DAY FOR 1 DAY, THEN TAKE ONE CAPSULE THREE TIMES A DAY FOR PAIN ORAL DISCONT INUED (EDIT) 06/18/2023 [id number] ANUSHA CURRAN 2022 87 [facility] HYDROCHLORO THIAZIDE 25MG TAB TAKE ONE-HALF TABLET BY MOUTH EVERY DAY BLOOD PRESSURE MEDICATI ON ORAL 11/18/2023 [id number] BETTINA JO [address] [place] [facility] KETOCONAZOL E 2% SHAMPOO SHAMPOO SCALP TOPICALL Y 3 TIMES EVERY WEEK *LATHER FOR 5 MINUTES THEN RINSE* FOR SEBORRHE IC DERMATIT IS TOPICA L ACTIVE 09/08/2024 [id number] JUSTYNA WelchISAIAH J [address] [place] [facility] LEVOCETIRIZ INE DIHYDROCHLO RIDE 5MG TAB TAKE ONE TABLET BY MOUTH DAILY ORAL ACTIVE MATHEW JOSE 2011 [facility] LISINOPRIL 40MG TAB TAKE ONE TABLET BY MOUTH DAILY ORAL ACTIVE PATEL ELMORE 2019 [facility] LOPERAMIDE HCL 2MG CAP TAKE ONE CAPSULE BY MOUTH THREE TIMES A DAY FOR DIARRHEA ORAL ACTIVE 04/30/2025 [id number] JAQUIBETTINA ER 2023 90 [facility] LOPERAMIDE HCL 2MG CAP TAKE ONE CAPSULE BY MOUTH THREE TIMES A DAY FOR DIARRHEA ORAL DISCONT INUED 09/16/2024 [id number] JAQUIBETTINA [address] [place] [facility] LOPERAMIDE HCL 2MG CAP TAKE ONE CAPSULE BY MOUTH THREE TIMES A DAY FOR DIARRHEA ORAL DISCONT INUED 11/18/2023 [id number] JAQUIBETTINA ER 2022 90 [facility] LORATADINE 10MG TAB TAKE ONE TABLET BY MOUTH EVERY DAY NEEDED FOR ALLERGIE S ORAL ACTIVE 12/04/2024 [id number] JAQUIBETTINA ER [address] [place] [facility] LORATADINE 10MG TAB TAKE ONE TABLET BY MOUTH EVERY DAY NEEDED FOR ALLERGIE S ORAL DISCONT INUED 03/30/2024 [id number] JAQUIBETTINA ER 2022 30 [facility] MELOXICAM 15MG TAB TAKE ONE TABLET BY MOUTH DAILY ORAL ACTIVE MATHEW JOSE 2011 [facility] METOPROLOL SUCCINATE 50MG TAB,SA TAKE ONE-HALF TABLET BY MOUTH DAILY ORAL ACTIVE SOCKOL- EST,FELIC IA 2016 [facility] MONTELUKAST NA 10MG TAB TAKE ONE TABLET BY MOUTH DAILY ORAL ACTIVE MATHEW JOSE [address] [place] [facility] MONTELUKAST NA 10MG TAB TAKE ONE TABLET BY MOUTH DAILY ORAL ACTIVE MELINDAUSFEELVIS Hay[place] 2013 [facility] MULTIVITS W/MINERALS TAB/CAP (NO VIT K) TAKE ONE TABLET BY MOUTH DAILY ORAL ACTIVE MARKUSFEL ELVIS Irene 2013 [facility] POTASSIUM CHLORIDE 20MEQ TAB,SA (DISPERSIBL E) TAKE ONE TABLET BY MOUTH EVERY DAY JUDITHIU M SUPPLEME NT ORAL ACTIVE 10/08/2024 [id number] BETTINA JO ER 2023 90 [place] [facility] POTASSIUM CHLORIDE 20MEQ TAB,SA (DISPERSIBL E) TAKE ONE TABLET BY MOUTH EVERY DAY JUDITHYuriU M SUPPLEME NT ORAL DISCONT INUED 07/23/2023 [id number] PABLITOSETBETTINA Stewart ER [address] [place] [facility] PRAMOXINE HCL 1% LOTION APPLY THIN LAYER TOPICALL Y THREE TIMES A DAY NEEDED FOR ITCHING TOPICA L ACTIVE 09/08/2024 [id number] ISAIAH GALVEZ 2023 240 [facility] PRAZOSIN HCL 1MG CAP TAKE 1 CAPSULE BY MOUTH ORAL ACTIVE SOCKOL- EST,FELIC IA 2019 [facility] ROSUVASTATI N CA 40MG TAB TAKE ONE TABLET BY MOUTH AT BEDTIME CHOLESTE ROL MEDICATI ON ORAL ACTIVE 12/04/2024 [id number] STENSETBETTINA Stewart ER [address] [place] [facility] ROSUVASTATI N CA 40MG TAB TAKE ONE TABLET BY MOUTH AT BEDTIME CHOLESTE ROL MEDICATI ON ORAL DISCONT INUED 10/08/2024 [id number] BETTINA JO 2023 90 [facility] ROSUVASTATI N CA 40MG TAB TAKE ONE TABLET BY MOUTH AT BEDTIME CHOLESTE ROL MEDICATI ON ORAL DISCONT INUED 07/23/2023 [id number] 4 BETTINA JO 2022 90 [facility] ROSUVASTATI N CA 40MG TAB TAKE ONE TABLET BY MOUTH AT BEDTIME ORAL ACTIVE ELVIS GUSMAN 2013 [facility] ROSUVASTATI N CA 40MG TAB TAKE ONE TABLET BY MOUTH DAILY ORAL ACTIVE DURANDINGMATHEW SOSA 2011 [facility] SERTRALINE HCL 100MG TAB TAKE ONE TABLET BY MOUTH DAILY ORAL ACTIVE ELVIS GUSMAN 2013 [facility] SINUS RINSE NEILMED PKT 1 (REFILL) DIRECTED NOT APPLIC ABLE ACTIVE ELVIS GUSMAN 2013 [facility] SINUS RINSE NEILMED REGULAR KIT 1 (STARTER KIT) DIRECTED DIRECTED NOT APPLIC ABLE ACTIVE SOCKOL- EST,FELIC IA 2019 [facility] TRAZODONE HCL 100MG TAB TAKE ONE TABLET BY MOUTH ORAL ACTIVE SOCKOL- EST,FELIC IA 2019 [facility] TRIAMCINOLO NE ACETONIDE 0.1% CREAM,TOP APPLY A THIN LAYER TOPICALL Y TWICE A DAY NEEDED RUB A SMALL AMOUNT INTO ITCHY SCARS TOPICA L ACTIVE 12/04/2024 [id number] BETTINA JO 2023 80 [facility] TRIAMCINOLO NE ACETONIDE 0.1% CREAM,TOP APPLY A THIN LAYER TOPICALL Y TWICE A DAY RUB A SMALL AMOUNT INTO ITCHY SCARS TWICE DAILY NEEDED TOPICA L DISCONT INUED (EDIT) 09/08/2024 [id number] ISAIAH GALVEZ 2023 30 [facility] [facility] VANICREAM APPLY THIN LAYER TOPICALL Y TWICE A DAY FOR DRY SKIN TOPICA L 06/05/2024 [id number] PABLITOJENNIFERPat BETTINA ER 2022 454 [facility] VITAMIN E 200UNT CAP TAKE 2 CAPSULES BY MOUTH TWICE A DAY ORAL ACTIVE MATHEW JOSE S 2011 [facility] Allergies, Adverse Reactions, Alerts Combined list of allergies from Department of Defense and Veterans Affairs facilities. It does not include entries that were removed or entered in error. Substance Category Reaction Severity Reaction type Status Date Reported Comments Source AMLODIPINE Propensity to adverse reactions to drug (finding) Edema active 2 [facility] No Known Allergies Drug allergy (disorder) active 8 22 Med Gp Lissett ISABEL [facility] Immunizations Combined list of available immunizations from the Department of [facility] and Veterans Affairs facilities. Immunization Series Date Given Administered By Site Reaction Lot Number CVX Code Drug Paramedical Aide Status Comments Source COVID-19 (PFIZER), MRNA, LNP-S, PF, KIMBER-SUCROSE, 30 MCG/0.3 ML (AGES 12+ YEARS) 2023 BUD MERIDA LEFT DELTO ID [id number] 309 complet ed [facility] COVID-19 (PFIZER), MRNA, LNP-S, PF, KIMBER-SUCROSE, 30 MCG/0.3 ML (AGES 12+ YEARS) 1 2022 RICA LEWIS SE E LEFT DELTO ID [id number] 309 complet ed [facility] INFLUENZA, HIGH-DOSE, QUADRIVALENT 2022 RICA LEWIS SE E LEFT DELTO ID [id number] 197 complet ed [facility] PNEUMOCOCCAL CONJUGATE PCV20, POLYSACCHARID E [id number] CONJUGATE, ADJUVANT, PF 2022 STEPAN ESPINOZA TH M LEFT DELTO ID [id number] 216 complet ed [facility] TDAP 2022 GELA BEARD E LEFT DELTO ID [id number] 115 complet ed [facility] COVID-19 (MODERNA), MRNA, LNP-S, BIVALENT BOOSTER, PF, 50 MCG/0.5 ML OR 25MCG/0.25 ML DOSE 1 2021 229 complet [facility] INFLUENZA, UNSPECIFIED FORMULATION 2021 88 complet [facility] COVID-19 (MODERNA), MRNA, LNP-S, BIVALENT, PF, 50 MCG/0.5 ML OR 25MCG/0.25 ML DOSE 2021 229 complet [facility] INFLUENZA, HIGH-DOSE, QUADRIVALENT 2021 197 complet [facility] ZOSTER RECOMBINANT 1 2021 187 complet [facility] ZOSTER RECOMBINANT 2 2021 187 complet [facility] INFLUENZA VACCINE, QUADRIVALENT, ADJUVANTED 2020 205 complet [facility] COVID-19 (PFIZER), MRNA, LNP-S, PF, 30 MCG/0.3 ML DOSE 3 2020 208 complet [facility] INFLUENZA, UNSPECIFIED FORMULATION 2020 88 complet [facility] COVID-19 (PFIZER), MRNA, LNP-S, PF, 30 MCG/0.3 ML DOSE 2 2020 208 complet [facility] COVID-19 (PFIZER), MRNA, LNP-S, PF, 30 MCG/0.3 ML DOSE 1 2020 208 complet [facility] INFLUENZA, UNSPECIFIED FORMULATION 2019 88 complet [facility] PNEUMOCOCCAL POLYSACCHARID E [id number] 2019 33 complet [facility] Influenza vaccine, quadrivalent, adjuvanted 2019 JUANA CHU, () Not Given Influenza vaccine, quadrival ent, adjuvante d [facility] influenza, trivalent, adjuvanted 2018 JUANA CHU, () Not Given influenza , trivalent , adjuvante d [facility] INFLUENZA, SEASONAL, INJECTABLE 2018 141 complet [facility] zoster recombinant 2018 GERMÁN, () Not Given zoster recombina nt [facility] zoster recombinant 2018 SHILPA AREVALO, () Not Given zoster recombina nt [facility] INFLUENZA, SEASONAL, INJECTABLE 2017 141 complet [facility] INFLUENZA, SEASONAL, INJECTABLE 2016 141 complet ed MEL Terell AKILQUENTIN [facility] INFLUENZA, UNSPECIFIED FORMULATION 2015 88 complet ed His outside provider. [facility] INFLUENZA, UNSPECIFIED FORMULATION 2013 88 complet ed MEL PaytonJulienne AKILQUENTIN [facility] INFLUENZA, UNSPECIFIED FORMULATION 2012 88 complet ed [facility] INFLUENZA, UNSPECIFIED FORMULATION 2012 88 complet ed [facility] INFLUENZA, UNSPECIFIED FORMULATION 2011 88 complet ed [facility] PNEUMOVAX (HISTORICAL) 2011 33 complet ed [facility] ZOSTER LIVE 2010 JACINTA NIEVES 121 complet ed [facility] INFLUENZA, UNSPECIFIED FORMULATION 2009 88 complet ed [facility] INFLUENZA, UNSPECIFIED FORMULATION 2008 88 complet ed [facility] INFLUENZA, UNSPECIFIED FORMULATION 2008 88 complet ed [facility] TD (ADULT) 2008 138 complet ed [facility] TD(ADULT) UNSPECIFIED FORMULATION 2008 139 complet ed [facility] INFLUENZA, UNSPECIFIED FORMULATION 2006 88 complet ed [facility] TD(ADULT) UNSPECIFIED FORMULATION 2005 139 complet ed [facility] PNEUMOCOCCAL, UNSPECIFIED FORMULATION 2005 109 complet ed [facility] INFLUENZA, UNSPECIFIED FORMULATION 2004 88 complet ed JOSE EDUARDO QUINTANILLA [facility] INFLUENZA, UNSPECIFIED FORMULATION 2004 88 complet ed [facility] INFLUENZA, UNSPECIFIED FORMULATION 2004 88 complet ed KERRIE [employer] tetanus and diphtheria toxoids, adsorbed, preservative free, for adult use (2 Lf of tetanus toxoid and 2 Lf of diphtheria toxoid) 1 2002 Unknown, Provider [id number] Sanofi Pasteur ([facility]) complet ed tetanus and diphtheri a toxoids, adsorbed, preservat gary free, for adult use (2 Lf of tetanus toxoid and 2 Lf of diphtheri a toxoid) [facility] influenza virus vaccine, whole virus 1 2002 Unknown, Provider [id number] [employer] ([employer]) complet ed influenza virus vaccine, whole virus DoD pneumococcal polysaccharid e vaccine, 23 valent 1 2002 Unknown, Provider 33 Merck (MSD) complet ed pneumococ elly polysacch aride vaccine, 23 valent DoD TD(ADULT) UNSPECIFIED FORMULATION 2002 139 complet ed [employer] Results Combined list of recent chemistry, hematology and other laboratory results from Department of Defense and Veterans Affairs, ranging from 15 months to all on record, depending upon the facility. Order Name Results Value Reference Range Date Interpretation Specimen Comments Source POC CREATININ E CREATININE [MASS/VOLUM E] IN BLOOD 1.2 mg/dL 0.6 - 1.3 04/19 Specimen Type: BLOOD No comment entered. Ordering Provider: DEBBIE JO Report Released Date/Time: Apr 19, 2024 02:14 PM Reporting Lab: [facility] [address] Performing Lab: [facility] [address] [place] [facility] TSH W/REFLEX TO FREE T4 THYROTROPIN [UNITS/VOLU ME] IN SERUM OR PLASMA 3.26 u[IU]/ mL 0.35 - 4.94 12/03 Specimen Type: PLASMA No comment entered. Ordering Provider: DEBBIE JO Report Released Date/Time: Nov 17, 2022 02:50 PM Reporting Lab: [facility] [address] Performing Lab: [facility] [address] [facility] IS [facility] CBC LEUKOCYTES [#/VOLUME] IN BLOOD BY AUTOMATED COUNT 5.89 10*3/u L 4.0 - 11.0 12/03 Specimen Type: BLOOD No comment entered. Ordering Provider: DEBBIE JO Report Released Date/Time: Nov 17, 2022 02:50 PM Reporting Lab: [facility] [address] Performing Lab: [facility] [address] [place] [facility] CBC ERYTHROCYTE S [#/VOLUME] IN BLOOD BY AUTOMATED COUNT 4.66 10*6/u L 4.6 - 6.2 12/03 Specimen Type: BLOOD No comment entered. Ordering Provider: DEBBIE JO Report Released Date/Time: Nov 17, 2022 02:50 PM Reporting Lab: [facility] [address] Performing Lab: [facility] [address] [place] [facility] CBC HEMOGLOBIN [MASS/VOLUM E] IN BLOOD 13.4 g/dL 13.5 - 17.9 12/03 L Specimen Type: BLOOD No comment entered. Ordering Provider: DEBBIE JO Report Released Date/Time: Nov 17, 2022 02:50 PM Reporting Lab: [facility] [address] Performing Lab: [facility] [address] [place] [facility] CBC HEMATOCRIT [VOLUME FRACTION] OF BLOOD BY AUTOMATED COUNT 42.5 41 - 54 12/03 Specimen Type: BLOOD No comment entered. Ordering Provider: DEBBIE JO Report Released Date/Time: Nov 17, 2022 02:50 PM Reporting Lab: [facility] [address] Performing Lab: [facility] [address] [place] [facility] CBC MCV [ENTITIC VOLUME] BY AUTOMATED COUNT 91.2 fL 80 - 100 12/03 Specimen Type: BLOOD No comment entered. Ordering Provider: DEBBIE JO Report Released Date/Time: Nov 17, 2022 02:50 PM Reporting Lab: [facility] [address] Performing Lab: [facility] [address] [place] [facility] CBC MCH [ENTITIC MASS] BY AUTOMATED COUNT 28.8 pg 27 - 33 12/03 Specimen Type: BLOOD No comment entered. Ordering Provider: DEBBIE JO Report Released Date/Time: Nov 17, 2022 02:50 PM Reporting Lab: [facility] [address] Performing Lab: [facility] [address] [place] [facility] CBC MCHC [MASS/VOLUM E] BY AUTOMATED COUNT 31.5 g/dL 32.0 - 37.5 12/03 L Specimen Type: BLOOD No comment entered. Ordering Provider: DEBBIE JO Report Released Date/Time: Nov 17, 2022 02:50 PM Reporting Lab: [facility] [address] Performing Lab: [facility] [address] [facility] IS [facility] CBC PLATELETS [#/VOLUME] IN BLOOD BY AUTOMATED COUNT 205 10*3/u L 150 - 400 12/03 Specimen Type: BLOOD No comment entered. Ordering Provider: DEBBIE JO Report Released Date/Time: Nov 17, 2022 02:50 PM Reporting Lab: [facility] [address] Performing Lab: [facility] [address] [facility] CBC PLATELET MEAN VOLUME [ENTITIC VOLUME] IN BLOOD BY AUTOMATED COUNT 8.6 fL 7.4 - 10.4 12/03 Specimen Type: BLOOD No comment entered. Ordering Provider: DEBBIE JO Report Released Date/Time: Nov 17, 2022 02:50 PM Reporting Lab: [facility] [address] Performing Lab: [facility] [address] [facility] CBC ERYTHROCYTE DISTRIBUTIO N WIDTH [RATIO] BY AUTOMATED COUNT 15.3 11.5 - 14.5 12/03 H Specimen Type: BLOOD No comment entered. Ordering Provider: DEBBIE JO Report Released Date/Time: Nov 17, 2022 02:50 PM Reporting Lab: [facility] [address] Performing Lab: [facility] [address] [facility] IS [facility] COMPREHEN SIVE METABOLIC PANEL+MG CREATININE [MASS/VOLUM E] IN SERUM OR PLASMA 1.2 mg/dL 0.7 - 1.2 12/03 Specimen Type: PLASMA No comment entered. Ordering Provider: DEBBIE JO Report Released Date/Time: Nov 17, 2022 02:50 PM Reporting Lab: [facility] [address] Performing Lab: [facility] [address] [facility] IS [facility] COMPREHEN SIVE METABOLIC PANEL+MG UREA NITROGEN [MASS/VOLUM E] IN SERUM OR PLASMA 21 mg/dL 8 - 26 12/03 Specimen Type: PLASMA No comment entered. Ordering Provider: DEBBIE JO Report Released Date/Time: Nov 17, 2022 02:50 PM Reporting Lab: [facility] [address] Performing Lab: [facility] [address] [place] [facility] COMPREHEN SIVE METABOLIC PANEL+MG GLUCOSE [MASS/VOLUM E] IN SERUM OR PLASMA 86 mg/dL 70 - 100 12/03 Specimen Type: PLASMA No comment entered. Ordering Provider: DEBBIE JO Report Released Date/Time: Nov 17, 2022 02:50 PM Reporting Lab: [facility] [address] Performing Lab: [facility] [address] [place] [facility] COMPREHEN SIVE METABOLIC PANEL+MG SODIUM [MOLES/VOLU ME] IN SERUM OR PLASMA 142 mmol/L 136 - 145 12/03 Specimen Type: PLASMA No comment entered. Ordering Provider: DEBBIE JO Report Released Date/Time: Nov 17, 2022 02:50 PM Reporting Lab: [facility] [address] Performing Lab: [facility] [address] [place] [facility] COMPREHEN SIVE METABOLIC PANEL+MG POTASSIUM [MOLES/VOLU ME] IN SERUM OR PLASMA 4.0 mmol/L 3.5 - 5.1 12/03 Specimen Type: PLASMA No comment entered. Ordering Provider: DEBBIE JO Report Released Date/Time: Nov 17, 2022 02:50 PM Reporting Lab: [facility] [address] Performing Lab: [facility] [address] [place] [facility] COMPREHEN SIVE METABOLIC PANEL+MG CHLORIDE [MOLES/VOLU ME] IN SERUM OR PLASMA 109 mmol/L 98 - 107 12/03 H Specimen Type: PLASMA No comment entered. Ordering Provider: DEBBIE JO Report Released Date/Time: Nov 17, 2022 02:50 PM Reporting Lab: [facility] [address] Performing Lab: [facility] [address] [place] [facility] COMPREHEN SIVE METABOLIC PANEL+MG CARBON DIOXIDE, TOTAL [MOLES/VOLU ME] IN SERUM OR PLASMA 27 mmol/L 22 - 29 12/03 Specimen Type: PLASMA No comment entered. Ordering Provider: DEBBIE JO Report Released Date/Time: Nov 17, 2022 02:50 PM Reporting Lab: [facility] [address] Performing Lab: [facility] [address] [place] [facility] COMPREHEN SIVE METABOLIC PANEL+MG CALCIUM [MASS/VOLUM E] IN SERUM OR PLASMA 9.2 mg/dL 8.4 - 10.2 12/03 Specimen Type: PLASMA No comment entered. Ordering Provider: DEBBIE JO Report Released Date/Time: Nov 17, 2022 02:50 PM Reporting Lab: [facility] [address] Performing Lab: [facility] [address] [place] [facility] COMPREHEN SIVE METABOLIC PANEL+MG PROTEIN [MASS/VOLUM E] IN SERUM OR PLASMA 7.5 g/dL 6.0 - 8.3 12/03 Specimen Type: PLASMA No comment entered. Ordering Provider: DEBBIE JO Report Released Date/Time: Nov 17, 2022 02:50 PM Reporting Lab: [facility] [address] Performing Lab: [facility] [address] [place] [facility] COMPREHEN SIVE METABOLIC PANEL+MG ALBUMIN [MASS/VOLUM E] IN SERUM OR PLASMA 3.7 g/dL 3.5 - 5.2 12/03 Specimen Type: PLASMA No comment entered. Ordering Provider: DEBBIE JO Report Released Date/Time: Nov 17, 2022 02:50 PM Reporting Lab: [facility] [address] Performing Lab: [facility] [address] [place] [facility] COMPREHEN SIVE METABOLIC PANEL+MG BILIRUBIN.T OTAL [MASS/VOLUM E] IN SERUM OR PLASMA 0.6 mg/dL 0.2 - 1.2 12/03 Specimen Type: PLASMA No comment entered. Ordering Provider: DEBBIE JO Report Released Date/Time: Nov 17, 2022 02:50 PM Reporting Lab: [facility] [address] Performing Lab: [facility] [address] [place] [facility] COMPREHEN SIVE METABOLIC PANEL+MG MAGNESIUM [MASS/VOLUM E] IN SERUM OR PLASMA 2.0 mg/dL 1.6 - 2.6 12/03 Specimen Type: PLASMA No comment entered. Ordering Provider: DEBBIE JO Report Released Date/Time: Nov 17, 2022 02:50 PM Reporting Lab: [facility] [address] Performing Lab: [facility] [address] [place] [facility] COMPREHEN SIVE METABOLIC PANEL+MG ANION GAP IN SERUM OR PLASMA 6 mmol/L 5 - 15 12/03 Specimen Type: PLASMA No comment entered. Ordering Provider: DEBBIE JO Report Released Date/Time: Nov 17, 2022 02:50 PM Reporting Lab: [facility] [address] Performing Lab: [facility] [address] [place] [facility] COMPREHEN SIVE METABOLIC PANEL+MG ALKALINE PHOSPHATASE [ENZYMATIC ACTIVITY/VO LUME] IN SERUM OR PLASMA 179 U/L 40 - 150 12/03 H Specimen Type: PLASMA No comment entered. Ordering Provider: DEBBIE JO Report Released Date/Time: Nov 17, 2022 02:50 PM Reporting Lab: [facility] [address] Performing Lab: [facility] [address] [place] [facility] COMPREHEN SIVE METABOLIC PANEL+MG ALANINE AMINOTRANSF ERASE [ENZYMATIC ACTIVITY/VO LUME] IN SERUM OR PLASMA 18 U/L <55 - 55 12/03 Specimen Type: PLASMA No comment entered. Ordering Provider: DEBBIE JO Report Released Date/Time: Nov 17, 2022 02:50 PM Reporting Lab: [facility] [address] Performing Lab: [facility] [address] [place] [facility] COMPREHEN SIVE METABOLIC PANEL+MG ASPARTATE AMINOTRANSF ERASE [ENZYMATIC ACTIVITY/VO LUME] IN SERUM OR PLASMA 24 U/L <34 - 34 12/03 Specimen Type: PLASMA No comment entered. Ordering Provider: DEBBIE JO Report Released Date/Time: Nov 17, 2022 02:50 PM Reporting Lab: [facility] [address] Performing Lab: [facility] [address] [place] [facility] COMPREHEN SIVE METABOLIC PANEL+MG GLOMERULAR FILTRATION RATE/1.73 SQ M.PREDICTED [VOLUME RATE/AREA] IN SERUM, PLASMA OR BLOOD BY CREATININE- BASED FORMULA (CKD-EPI 2020) 61 60 12/03 Specimen Type: PLASMA No comment entered. Ordering Provider: DEBBIE JO Report Released Date/Time: Nov 17, 2022 02:50 PM Reporting Lab: [facility] [address] Performing Lab: [facility] [address] [place] [facility] LIPID PANEL,NON -FASTING CHOLESTEROL [MASS/VOLUM E] IN SERUM OR PLASMA 129 mg/dL <199 - 199 12/03 Specimen Type: PLASMA No comment entered. Ordering Provider: DEBBIE JO Report Released Date/Time: Nov 17, 2022 02:50 PM Reporting Lab: [facility] [address] Performing Lab: [facility] [address] [place] [facility] LIPID PANEL,NON -FASTING CHOLESTEROL IN HDL [MASS/VOLUM E] IN SERUM OR PLASMA 47 mg/dL 40 12/03 Specimen Type: PLASMA No comment entered. Ordering Provider: DEBBIE JO Report Released Date/Time: Nov 17, 2022 02:50 PM Reporting Lab: [facility] [address] Performing Lab: [facility] [address] [place] [facility] LIPID PANEL,NON -FASTING CHOLESTEROL IN LDL [MASS/VOLUM E] IN SERUM OR PLASMA BY CALCULATION 59 mg/dL <99 - 99 12/03 Specimen Type: PLASMA No comment entered. Ordering Provider: DEBBIE JO Report Released Date/Time: Nov 17, 2022 02:50 PM Reporting Lab: [facility] [address] Performing Lab: [facility] [address] [place] [facility] LIPID PANEL,NON -FASTING CHOLESTEROL IN VLDL [MASS/VOLUM E] IN SERUM OR PLASMA BY CALCULATION 23 mg/dL <29 - 29 12/03 Specimen Type: PLASMA No comment entered. Ordering Provider: DEBBIE JO Report Released Date/Time: Nov 17, 2022 02:50 PM Reporting Lab: [facility] [address] Performing Lab: [facility] [address] [place] [facility] LIPID PANEL,NON -FASTING CHOLESTEROL NON HDL [MASS/VOLUM E] IN SERUM OR PLASMA 82 mg/dL <129 - 129 12/03 Specimen Type: PLASMA No comment entered. Ordering Provider: DEBBIE JO Report Released Date/Time: Nov 17, 2022 02:50 PM Reporting Lab: [facility] [address] Performing Lab: [facility] [address] [place] [facility] LIPID PANEL,NON -FASTING TRIGLYCERID E [MASS/VOLUM E] IN SERUM OR PLASMA 114 mg/dL <149 - 149 12/03 Specimen Type: PLASMA No comment entered. Ordering Provider: DEBBIE JO Report Released Date/Time: Nov 17, 2022 02:50 PM Reporting Lab: [facility] [address] Performing Lab: [facility] [address] [place] [facility] URIC ACID URATE [MASS/VOLUM E] IN SERUM OR PLASMA 4.9 mg/dL 3.5 - 7.2 12/03 Specimen Type: PLASMA No comment entered. Ordering Provider: DEBBIE JO Report Released Date/Time: Nov 17, 2022 02:50 PM Reporting Lab: [facility] [address] Performing Lab: [facility] [address] [place] [facility] PSA PROSTATE SPECIFIC AG [MASS/VOLUM E] IN SERUM OR PLASMA 1.09 ng/mL <4.00 - 4.00 12/03 Specimen Type: SERUM No comment entered. Ordering Provider: DEBBIE JO Report Released Date/Time: Nov 17, 2022 02:50 PM Reporting Lab: [facility] [address] Performing Lab: [facility] [address] [place] [facility] 5-HIAA-UR INE, TIMED 5-HYDROXYIN DOLEACETATE [MASS/VOLUM E] IN URINE 7.8 - 6.0 09/24 H Specimen Type: URINE Comment: This test was developed and its analytical performance characteris tics have been determined by [facility] . It has not been cleared or approved by FDA. This assay has been validated pursuant to the CLIA regulations and is used for clinical purposes. Test performed by [facility] [place] [address] Phone: Bag Machine Tender: Taylor Colon MD,PHD,[place]UB[place]AM Test Reported by [facility] [place], [address] [place] [address] Nacho De Leon M.D., Ph.D., Director of Laboratorie s , CLIA [id number] Ordering Provider: KAT LUCERO Report Released Date/Time: Sep 17, 2023 03:56 PM Reporting Lab: [facility] [address] Performing Lab: [address] [place] [facility] 5-HIAA-UR INE, TIMED VOLUME OF URINE 1200 mL 09/24 Specimen Type: URINE Comment: This test was developed and its analytical performance characteris tics have been determined by [facility] . It has not been cleared or approved by FDA. This assay has been validated pursuant to the CLIA regulations and is used for clinical purposes. Test performed by [facility] [address] [place] [address] Phone: Bag Machine Tender: Taylor Colon MD,PHD,SHUBHAM Test Reported by [facility], [address] [place] [address] Nacho De Leon M.D., Ph.D., Director of Laboratorie s , CLIA [id number] Ordering Provider: KAT LUCERO Report Released Date/Time: Sep 17, 2023 03:56 PM Reporting Lab: [facility] [address] Performing Lab: [address] [place] [facility] 5-HIAA-UR INE, TIMED CREATININE [MASS/TIME] IN 24 HOUR URINE 1.10 0.50 - 2.15 09/24 Specimen Type: URINE Comment: This test was developed and its analytical performance characteris tics have been determined by [facility] . It has not been cleared or approved by FDA. This assay has been validated pursuant to the CLIA regulations and is used for clinical purposes. Test [place] [address] Phone: Bag Machine Tender: Taylor Colon MD,PHD,SHUBHAM Test Reported by [facility], [address] [place] [address] Nacho De Leon M.D., Ph.D., Director of Laboratorie s , CLIA [id number] Ordering Provider: KAT LUCERO Report Released Date/Time: Sep 17, 2023 03:56 PM Reporting Lab: [facility] [address] Performing Lab: [address] [place] [facility] 5-HIAA-UR INE, TIMED 5-HYDROXYIN DOLEACETATE [MASS/VOLUM E] IN URINE 8.3 - 6.0 08/30 H Specimen Type: URINE Comment: This test was developed and its analytical performance characteris tics have been determined by [facility] . It has not been cleared or approved by FDA. This assay has been validated pursuant to the CLIA regulations and is used for clinical purposes. Test performed by [facility] [address] [place] [address] Phone: Bag Machine Tender: Taylor Colon MD,PHD,SHUBHAM Test Reported by [facility] [place], [address] [place] [address] Nacho De Leon M.D., Ph.D., Director of Laboratorie s , CLIA [id number] Ordering Provider: MILADIS GALINDO Report Released Date/Time: Aug 21, 2023 11:32 AM Reporting Lab: [facility] [address] Performing Lab: [address] [place] [facility] 5-HIAA-UR INE, TIMED VOLUME OF URINE 1100 mL 08/30 Specimen Type: URINE Comment: This test was developed and its analytical performance characteris tics have been determined by [facility] . It has not been cleared or approved by FDA. This assay has been validated pursuant to the CLIA regulations and is used for clinical purposes. Test performed by [facility] [address] [place] [address] Phone: Bag Machine Tender: Taylor Colon MD,PHD,SHUBHAM Test Reported by [facility], [address] [place] [address] Nacho De Leon M.D., Ph.D., Director of Laboratorie s , CLIA [id number] Ordering Provider: MILADIS GALINDO Report Released Date/Time: Aug 21, 2023 11:32 AM Reporting Lab: [facility] [address] Performing Lab: [address] [place] [facility] 5-HIAA-UR INE, TIMED CREATININE [MASS/TIME] IN 24 HOUR URINE 1.13 0.50 - 2.15 08/30 Specimen Type: URINE Comment: This test was developed and its analytical performance characteris tics have been determined by [facility] . It has not been cleared or approved by FDA. This assay has been validated pursuant to the CLIA regulations and is used for clinical purposes. Test performed by [facility] [address] [place] [address] Phone: Bag Machine Tender: Taylor Colon MD,PHD,SHUBHAM Test Reported by [facility] [place], [address] [place] [address] Nacho De Leon M.D., Ph.D., Director of Laboratorie s , CLIA [id number] Ordering Provider: MILADIS GALINDO Report Released Date/Time: Aug 21, 2023 11:32 AM Reporting Lab: [facility] [address] Performing Lab: [address] [facility] METANEPHR JATIN FRACTIONA LINDEN URINE NORMETANEPH RINE [MASS/TIME] IN 24 HOUR URINE 375 511 - 817 08/30 Specimen Type: URINE, TIMED Comment: This test was developed and its analytical performance characteris tics have been determined by [facility] [place]. It has not been cleared or approved by the U.S. Food and Drug Administrat ion. This assay has been validated pursuant to the CLIA regulations and is used for clinical purposes. This test was developed and its analytical performance characteris tics have been determined by [facility] [place]. It has not been cleared or approved by the U.S. Food and Drug Administrat ion. This assay has been validated pursuant to the CLIA regulations and is used for clinical purposes. A four fold elevation of urinary normetaneph rines is extremely likely to be due to a tumor, while a four fold elevation of urinary metanephrin es is highly suggestive, but not diagnostic of the tumor. Measurement of plasma Metanephrin es and Chromograni n A is recommended for confirmatio n. Test Performed by [facility], [facility] [place], [address] [place], [place] Nacho De Leon M.D., Ph.D., Director of Laboratorie s , CLIA [id number] Ordering Provider: MILADIS GALINDO Report Released Date/Time: Aug 21, 2023 11:32 AM Reporting Lab: [facility] [id number] Performing Lab: [address] [place] [facility] METANEPHR JATIN FRACTIONA LINDEN URINE METANEPHRIN E [MASS/TIME] IN 24 HOUR URINE 37 90 - 315 08/30 L Specimen Type: URINE, TIMED Comment: This test was developed and its analytical performance characteris tics have been determined by [facility] [place]. It has not been cleared or approved by the U.S. Food and Drug Administrat ion. This assay has been validated pursuant to the CLIA regulations and is used for clinical purposes. This test was developed and its analytical performance characteris tics have been determined by [facility] [place]. It has not been cleared or approved by the U.S. Food and Drug Administrat ion. This assay has been validated pursuant to the CLIA regulations and is used for clinical purposes. A four fold elevation of urinary normetaneph rines is extremely likely to be due to a tumor, while a four fold elevation of urinary metanephrin es is highly suggestive, but not diagnostic of the tumor. Measurement of plasma Metanephrin es and Chromograni n A is recommended for confirmatio n. Test Performed by [facility], [facility], [address] [place] [address] Nacho De Leon M.D., Ph.D., Director of Laboratorie s , CLIA [id number] Ordering Provider: MILADIS GALINDO Report Released Date/Time: Aug 21, 2023 11:32 AM Reporting Lab: [facility] [id number] Performing Lab: [address] [place] [facility] METANEPHR JATIN FRACTIONA LINDEN URINE METANEPHRIN ES [MASS/TIME] IN 24 HOUR URINE 412 224 - 832 08/30 Specimen Type: URINE, TIMED Comment: This test was developed and its analytical performance characteris tics have been determined by [facility] [place]. It has not been cleared or approved by the U.S. Food and Drug Administrat ion. This assay has been validated pursuant to the CLIA regulations and is used for clinical purposes. This test was developed and its analytical performance characteris tics have been determined by [facility] [place]. It has not been cleared or approved by the U.S. Food and Drug Administrat ion. This assay has been validated pursuant to the CLIA regulations and is used for clinical purposes. A four fold elevation of urinary normetaneph rines is extremely likely to be due to a tumor, while a four fold elevation of urinary metanephrin es is highly suggestive, but not diagnostic of the tumor. Measurement of plasma Metanephrin es and Chromograni n A is recommended for confirmatio n. Test Performed by [facility], [address] [place] [address] Nacho De Leon M.D., Ph.D., Director of Laboratorie s , CLIA [id number] Ordering Provider: MILADIS GALINDO Report Released Date/Time: Aug 21, 2023 11:32 AM Reporting Lab: [facility] [id number] Performing Lab: [address] [facility] METANEPHR JATIN FRACTIONA LINDEN URINE .TOTAL VOLUME 1100 mL 08/30 Specimen Type: URINE, TIMED Comment: This test was developed and its analytical performance characteris tics have been determined by [facility] [place]. It has not been cleared or approved by the U.S. Food and Drug Administrat ion. This assay has been validated pursuant to the CLIA regulations and is used for clinical purposes. This test was developed and its analytical performance characteris tics have been determined by [facility] [place]. It has not been cleared or approved by the U.S. Food and Drug Administrat ion. This assay has been validated pursuant to the CLIA regulations and is used for clinical purposes. A four fold elevation of urinary normetaneph rines is extremely likely to be due to a tumor, while a four fold elevation of urinary metanephrin es is highly suggestive, but not diagnostic of the tumor. Measurement of plasma Metanephrin es and Chromograni n A is recommended for confirmatio n. Test Performed by [facility], [facility], [address] [place] [address] Nacho De Leon M.D., Ph.D., Director of Laboratorie s , [place] [id number] Ordering Provider: MILADIS GALINDO Report Released Date/Time: Aug 21, 2023 11:32 AM Reporting Lab: [facility] [id number] Performing Lab: [address] [facility] Vital Signs Combined list of inpatient and outpatient Vital Signs from Department of Defense and Veterans Affairs, ranging from 12 months to all on record, depending upon the facility. Vital Sign Value Date Comments Source SYSTOLIC BLOOD PRESSURE 121 12/04/2023 09:52:49 [facility] DIASTOLIC BLOOD PRESSURE 78 12/04/2023 09:52:49 [facility] PULSE OXIMETRY 94 12/04/2023 09:52:49 [facility] WEIGHT 192.4 12/04/2023 09:52:49 [facility] BMI 28 kg/m2 12/04/2023 09:52:49 [facility] PAIN 10 12/04/2023 09:52:49 [facility] HEIGHT 70 12/04/2023 09:52:49 [facility] TEMPERATURE 97.5 12/04/2023 09:52:49 [facility] PULSE 83 12/04/2023 09:52:49 [facility] RESPIRATION 16 12/04/2023 09:52:49 [facility] SYSTOLIC BLOOD PRESSURE 120 11/11/2023 15:19:56 [facility] DIASTOLIC BLOOD PRESSURE 71 11/11/2023 15:19:56 [facility] PULSE OXIMETRY 97 11/11/2023 15:19:56 [facility] PAIN 8 11/11/2023 15:19:56 [facility] TEMPERATURE 97.7 11/11/2023 15:19:56 [facility] PULSE 81 11/11/2023 15:19:56 [facility] RESPIRATION 16 11/11/2023 15:19:56 [facility] SYSTOLIC BLOOD PRESSURE 143 08/31/2023 13:57:21 [facility] DIASTOLIC BLOOD PRESSURE 86 08/31/2023 13:57:21 [facility] PULSE OXIMETRY 94 08/31/2023 13:57:21 [facility] PAIN 8 08/31/2023 13:57:21 [facility] TEMPERATURE 97.2 08/31/2023 13:57:21 [facility] PULSE 75 08/31/2023 13:57:21 [facility] RESPIRATION 18 08/31/2023 13:57:21 [facility] SYSTOLIC BLOOD PRESSURE 155 08/21/2023 10:09:[address] [place] [facility] DIASTOLIC BLOOD PRESSURE 76 08/21/2023 10:09:[address] [place] PULSE OXIMETRY 92 08/21/2023 10:09:47 [facility] WEIGHT 192.6 08/21/2023 10:09:47 [facility] BMI 27 kg/m2 08/21/2023 10:09:47 [facility] PAIN 7 08/21/2023 10:09:47 [facility] TEMPERATURE 98.7 08/21/2023 10:09:47 [facility] PULSE 72 08/21/2023 10:09:47 [facility] RESPIRATION 16 08/21/2023 10:09:47 [facility] SYSTOLIC BLOOD PRESSURE 151 08/05/2023 14:16:37 [facility] DIASTOLIC BLOOD PRESSURE 79 08/05/2023 14:16:37 [facility] PULSE OXIMETRY 92 08/05/2023 14:16:37 [facility] TEMPERATURE 97.3 08/05/2023 14:16:37 [facility] PULSE 79 08/05/2023 14:16:37 [facility] RESPIRATION 16 08/05/2023 14:16:[address] [facility] Encounters Combined list of: 1) Encounters from Department of Veterans Affairs facilities going backup to the last 18 months, not all VA inpatient encounters are included; 2) Encounters from the Department of Defense facilities going backup to 280 months. Location Location Details Encounter Type Encounter Number Reason For Visit Attending Provider ADM Date DC Date Status Disposition Source [employer], [place] [employer](F amily Practice Team 2) TELE CONSULT [id number] Medicat ion refill EMMA ODONNELL 11/12 [facility] [employer] [employer] (Family Practic e Team 2) IVY Hager([facility]) OUTPATIENT [id number] INITIAL APPT WITH NEW PCM, MED MAKENNA ATKINSON V 04/07 Released w/o Limitations IVY Hager([facility] IVY Hager([facility]) TELE CONSULT [id number] ERNESTO TINOCO 04/15 [facility]) IVY Hager([facility]) OUTPATIENT [id number] general MAKENNA Kebede V 06/19 Released w/o Limitations [facility]) [facility]) TELE CONSULT [id number] needs referra l to cardiol ogist LAUREN ESTRADA 06/30 [facility]) [facility]y Clinic) OUTPATIENT [id number] lesion upper back KLEBER SHAH Nadya 07/01 Released w/o Limitations [facility](Derm atology Clinic) IV[facility]) OUTPATIENT [id number] needs cardiol ogy consult KEYLA MAS 07/01 Released w/o Limitations [facility]) [facility]at [facility]logy Clinic) TELE CONSULT [id number] TISSUE EXAM RESULTS TISSUE COLLECT ED ON JUN 21 KLEBER SHAH 07/13 [facility] [place] [facility] [place] OUTPATIENT [id number] TEST RESULTS ON LUNG MAKENNA GOLDSMITH V 07/20 Released w/o Limitations [facility] [place] [facility] [place] TELE CONSULT [id number] med JORGE BRIAN 09/17 [facility] [place] [facility] [place] OUTPATIENT [id number] f/u sinuses MAKENNA GOLDSMITH V 09/22 Released w/o Limitations [facility] [place] [facility]) OUTPATIENT [id number] bowel movemen t KLEBER TAMAYO 04/27 Released w/o Limitations [facility] Primary Care) [facility] Immunizat ion) OUTPATIENT [id number] flu shot and pneumov ax CARROLL BARRERAA F 04/27 Released w/o Limitations [facility] Immuniz ation) [facility] [place] TELE CONSULT [id number] refills ALTHEA, OLEGARIO A 05/14 [facility] [place] [facility] TELE CONSULT [id number] rf ERNESTO TINOCO 06/11 [facility] [place] [facility] [place] OUTPATIENT [id number] CELESTE Naik 06/29 Released w/o Limitations [place] [facility] [facility] [place] TELE CONSULT [id number] med refills CELESTE NINA 07/07 [facility] [place] TELE CONSULT [id number] Pt. request ing refill on medicat ions. 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 Ortega L 04/21 [facility] [place] [facility] Outpatient Encounter [id number] ROSA PEREZ 05/06 [facility] [place] [facility] Outpatient Encounter [id number] CHASE DAVIS 05/06 [place] [facility] [place] [facility] Outpatient Encounter [id number] 05/14 [facility] [place] [facility] OFFICE O/P EST MOD 30-39 MIN [id number] Diagnos is: ICD-10- CM 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 06/01 [facility] [place] [facility] HC PRO PHONE CALL 5-10 MIN [id number] Diagnos is: ICD-10- CM I10 Essenti al (primar y) hyperte nsion DAVIS,AND BIGG A 06/01 [facility] [place] [facility] OFFICE O/P EST LOW 20-29 MIN [id number] Diagnos is: ICD-10- CM 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 JAQUIPatJulius HRISTOPHER 06/05 [facility] [place] [facility] Outpatient Encounter [id number] 06/18 [place] [facility] [place] [facility] Outpatient Encounter [id number] MANUEL OLVERA SA 06/19 [facility] OFFICE O/P NEW HI 60 MIN [id number] Diagnos is: ICD-10- CM 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 OFFICE O/P EST SF 10 MIN [id number] Diagnos is: ICD-10- CM D24.9 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 KLEBER FOURNIER 08/20 [facility] [place] [facility] Outpatient Encounter [id number] 08/23 [facility] [place] [facility] Outpatient Encounter [id number] 08/26 [facility] [place] [facility] Outpatient Encounter [id number] 08/30 [facility] NRV CNDJ TEST 7-8 STUDIES [id number] Diagnos is: ICD-10- CM R20.2 Paresth esia of skin JAI HENLEY CA M 08/30 [facility] OFFICE O/P EST MOD 30 MIN [id number] Diagnos is: ICD-10- CM D48.5 Neoplas m of uncerta in behavio r of skin SKIBNESS,L ORIE A 09/07 [facility] Outpatient Encounter [id number] NATHANIEL SQUIRES MAKENNA 09/10 [facility] Outpatient Encounter [id number] Diagnos is: ICD-10- CM 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 PABLITOSETPat,C HRISTOPHER 09/21 [facility] OFFICE O/P EST MOD 30 MIN [id number] Diagnos is: ICD-10- CM R94.7 Abnorma l results of other endocri ne functio n studies DIAZ GILBERT 11/10 [facility] OFF[facility] O/P EST MOD 30 MIN [id number] Diagnos is: ICD-10- CM F32.A Depress ion, unspeci fied SANDROC HRISTOPHER 12/03 [facility] Outpatient Encounter [id number] 12/07 [facility] Outpatient Encounter [id number] Diagnos is: ICD-10- CM K86.9 Disease of pancrea s, unspeci fied Mirella PRESCOTT ANTIONETTE R 12/09 [facility] Outpatient Encounter [id number] 12/30 [facility] Outpatient Encounter [id number] Diagnos is: ICD-10- CM K86.2 Cyst of pancrea s Mirella PRESCOTT ANTIONETTE R 01/03 [facility] OFF[facility] O/P EST MOD 30 MIN [id number] Diagnos is: ICD-10- CM K86.2 Cyst of pancrea s JOSE CAMPOS MMAD 02/09 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 Outpatient Encounter [id number] 04/29 [facility] Outpatient Encounter [id number] 04/29 [facility] Procedures Combined list of: 1) Procedures from Department of [facility] Affairs facilities going back up to thelast 18 months, not all CT non-surgical procedures are included; 2) All procedures from the Department of [facility] facilities. Procedure Procedure Type Code Date Perfomer Comments Sourc e PNEUMOCOCCAL POLYSACCHARIDE VACCINE, 23-VALENT (PPSV23), ADULT OR IMMUNOSUPPRESSED PATIENT DOSAGE, WHEN ADMINISTERED TO INDIVIDUALS 2 YEARS OR OLDER, FOR SUBCUTANEOUS OR INTRAMUSCULAR USE 04/27/20 07 [facility] INJECTION, PROMETHAZINE HCL, UP TO 50 MG 04/27/20 07 [facility] SCREENING TEST OF VISUAL ACUITY, QUANTITATIVE, BILATERAL 07/26/19 05 [facility] MEDICAL NUTRITION THERAPY; GROUP (2 OR MORE INDIVIDUAL(S)), EACH 30 MINUTES 09/11/19 04 [facility] BLOOD, OCCULT, BY PEROXIDASE ACTIVITY (EG, GUAIAC), QUALITATIVE, FECES, 1-3 SIMULT DETERM, PERF FOR OTH THAN COLOREC NEOPLASM SCREEN 06/29/19 08 [facility] CARDIOVASCULAR STRESS TEST USING MAXIMAL OR SUBMAXIMAL TREADMILL OR BICYCLE EXERCISE,CONTINUOUS ELECTROCARDIOGRAPHIC MONITORING,AND/OR PHARMACOLOGICAL STRESS;W SUPERVISION,INTERPRETATI ON AND REPORT 07/29/19 07 [facility] DESTRUCT (EG, LASER SURGERY, ELECTROSURGERY, CRYOSURGERY, CHEMOSURGERY, SURGICAL CURETTEMENT), PREMALIGNANT LESIONS (EG, ACTINIC KERATOSES); 2ND THRU 14 LESIONS, EA (LIST SEP ADDITION CD, 1ST LESION) 07/01/19 [facility] ECG 12-Lead ECG 12-Lead [id number] 06/29/19 08 STARR NINAMY Isreal [facility] Fecal Analysis - Occult Blood From Digital Rectal Exam 06/29/19 08 CELESTE NINA [facility] Automated Urinalysis Without Microscopic Exam Automated Urinalysis Without Microscopic Exam [id number] 06/29/19 08 CELESTE NINA [facility] Pneumococcal Polysaccharide Vaccine (Age 2Y+) Pneumococcal Polysaccharide Vaccine (Age 2Y+) 42029 05/04/20 [facility] Influ[facility] Split Virus Vaccine 0.5mL Dosage Intramuscular 05/04/20 07 [facility] Immunization Administration By Injection, One Vaccine Immunization Administration By Injection, One Vaccine 75718 05/04/20 07 [facility] Immunization Administration By Injection, Each Additional Vaccine 05/04/20 07 [facility] Parenteral Fluids IV Infusion 04/27/20 07 KLEBER TAMAYO [facility] Intravenous Catheter Placement Intravenous Catheter Placement 71900 04/27/20 07 KLEBER TAMAYO Destruct Of Benign Lesion By Any Method Second Through 14 07/01/19 07 KLEBER SHAH Destruction Of Benign Lesion By Cryosurgery 07/01/19 07 KLEBER SHAH Social History Combined list of available smoking, tobacco, and other social history from Department of Defense and Veterans Affairs facilities. Social History Type Response Date Comment Source Tobacco smoking status [facility] VA-TOBACCO FORMER USER 05/19/2023 [facility] History of tobacco use VA-TOBACCO QUIT 15 YRS OR MORE 05/19/2023 [facility] History of tobacco use VA-TOBACCO FORMER USER 05/13/2022 [facility] History of tobacco use VA-TOBACCO NEVER USED 06/17/2021 [facility] History of tobacco use VA-TOBACCO QUIT 15 YRS OR MORE 07/04/2020 [facility] History of tobacco use VA-TOBACCO QUIT 15 YRS OR MORE 05/17/2019 [facility] History of tobacco use VA-TOBACCO FORMER USER 06/01/2018 [facility] History of tobacco use LIFETIME NON TOBACCO USER 12/14/2013 [facility] History of tobacco use EX-TOBACCO USER > 7Y 12/14/2013 [facility] History of tobacco use HF V9 QUIT SMOKING > 1YR 06/01/2013 >10 years, none since 1983 [facility] History of tobacco use HF V9 QUIT SMOKING > 1YR 05/24/2012 >20 years [facility] History of tobacco use HF V9 QUIT SMOKING > 1YR 10/11/2009 >20 years [facility] History of tobacco use HF V9 QUIT SMOKING > 1YR 03/16/2008 >20 years [facility]O [facility] History of tobacco use HF V9 QUIT SMOKING > 1YR [facility]22/[facility] of tobacco use HF V9 CURRENT [id number] 01/21/2006 >20 years [facility] History of tobacco use NON-TOBACCO USER 11/20/2005 quit JOSE EDUARDO QUINT[facility]ILLA [facility] History of tobacco use NON-TOBACCO USER 11/12/2005 JOSE EDUARDO QUINT[facility]ILLA [facility] History of tobacco use NON-TOBACCO USER 06/04/2005 JOSE EDUARDO QUINT[facility]ILLA [facility] History of tobacco use NON-TOBACCO USER 06/24/2004 quit in 1983 JOSE EDUARDO QUINTANILLA [facility] This section is an empty social history section. DoD Advance Directives List of completed, amended, or rescinded Advance Directives on record at Department of Veterans Affairs facilities. An actual copy of the Directive is not included. Date Advance Directive Provider Source 12/19/2022 ADVANCE DIRECTIVE ABRIL BURCH [facility]
--- OUTSIDE RECORDS SUMMARY | 2024-08-05 04:36 | XMS_ITS | Encounter Summary ---
Author Name [facility] [place] [facility] [place] Address [address] [place] [address] Care Team Providers Care Change Over Name Role Phone DARIN BURGESS Primary Care Provider Unav ailable FRIDA GARRETT Primary Care Provider Unav ailable Insurance Providers: [...] PRESCRIPT ION DODA Nov 13, 2004 DODA [id number] NAZARIO,DA JUAN PATIENT [employer] (WNR) PRESCRIPT ION TRICA RE (WNR) Nov 13, 2004 (WNR) [id number] NAZARIOPARRISH JUAN PATIENT MEDICARE (WNR) MEDICARE (M) PART A Sep 14, 2007 PART A [id number] NAZARIO,DA JUAN PATIENT MEDICARE (WNR) MEDICARE (M) PART B Sep 14, 2007 PART B [id number] NAZARIO,DA JUAN PATIENT MEDICARE (WNR) MEDICARE (M) PART A Sep 14, 2007 PART A [id number] NAZARIO,DA JUAN PATIENT MEDICARE (WNR) MEDICARE (M) PART B Sep 14, 2007 PART B [id number] NAZARIO,DA JUAN PATIENT MEDICARE (WNR) MEDICARE (M) PART A Sep 14, 2007 PART A [id number] NAZARIO,DA JUAN PATIENT MEDICARE (WNR) MEDICARE (M) PART B Sep 14, 2007 PART B [id number] NAZARIO,DA JUAN PATIENT MEDICARE (WNR) MEDICARE (M) PART A Sep 14, 2007 PART A [id number] NAZARIO,DA JUAN PATIENT MEDICARE (WNR) MEDICARE (M) PART B Sep 14, 2007 PART B [id number] NAZARIO,DA JUAN PATIENT MEDICARE (WNR) MEDICARE (M) PART A Sep 14, 2007 PART A [id number] NAZARIO,DA JUAN PATIENT MEDICARE (WNR) MEDICARE () PART B Sep 14, 2007 PART B [id number] NAZARIO,DA JUAN PATIENT FOR LIFE TRICA RE FOR LIFE Mar 15, 2004 FOR LIFE [id number] NAZARIO,DA JUAN PATIENT [facility] 2024 SELEC T WNR Jun 15, 2024 [facility] [id number] KOEING,DA JUAN PATIENT -FO R-LIFE TRICA RE FOR LIFE WNR Nov 27, 2015 FOR LIFE [id number] NAZARIO,DA JUAN PATIENT -FO R-LIFE TRICA RE FOR LIFE WNR Nov 23, 2015 FOR LIFE [id number] NAZARIO,DA JUAN PATIENT Selected Encounter This section includes the information on record at [place] for the Encounter. Date/Time Encounter Type Encounter Description Reason Pro vider Source Apr 29, 2024 12:46 PM Outpatient Encounter PRIMARY CARE/MEDICINE IHE Encounter Template Text not used by [place] Lab Results: +/- 30 days of the [...] Range Comment Apr 19, 2024 02:09 PM [facility] POC CREATININE Specimen Type: BLOOD No comment entered. Ordering Provider: DENG GARRETT Report Released Date/Time: Apr 19, 2024 02:14 PM Reporting Lab: [facility] [id number] Performing Lab: [facility] [id number] POC CREATININE 1.2 mg/dL 0.6-1.3 Social History: Smoking Status (Most current) and Tobacco Use (All prior to encounter date) This section includes the most current, and the historical, smoking and tobacco- related health factors from the [place] facility where the Encounter took place. Current Smoking Status This section includes the most current smoking, or tobacco-related health factor, from the [place] facility where the Encounter took place. Date/Time Current Smoking Status Comment Jack ity May 19, 2023 02:30 PM VA-TOBACCO QUIT 15 YRS OR MORE [facility] Tobacco Use History This section includes a history of the smoking, or tobacco-related health factors, that were collected on or before the date of the Encounter. The data comes from the [place] facility where the Encounter took place. Date/Time Smoking Status/Tobacco Use Comment F acility May 19, 2023 02:30 PM VA-TOBACCO QUIT 15 YRS OR MORE [facility] May 13, 2022 11:30 AM VA-TOBACCO FORMER USER [facility] May 13, 2022 11:30 AM VA-TOBACCO QUIT 15 YRS OR MORE [facility] Jun 17, 2021 02:00 PM VA-TOBACCO NEVER USED [facility] Advance Directives: All historical and current [...] Dec 19, 2022 ADVANCE DIRECTIVE ABRIL BURCH [facility] Dec 19, 2022 ADVANCE DIRECTIVE DISCUSSION TIFF BURCH [facility] Radiology Reports: +/- 30 days [...] the Encounter. The data comes from all [place] treatment facilities. Date/Time Radiology Report Provider Source Apr 26, 2024 03:25 PM MRI-L-SPINE (P): NENA LANGE [id number] -[id number] M Exm Date: APR 26, 2024@15:25 Req Phys: FRIDA GARRETT Loc: [facility] PACT FLAME 4D (Req'g Loc) Img Loc: MRI IMAGING Service: [place] [address] (Case [id number] COMPLETE) MRI SPINE LUMBAR W & WITHOUT CONT(MRI Detailed) CPT:25734 Contrast Media : Gadolinium Reason for Study: [...] pager listed below: User placing orders pager: [phone] KRISTI Garrett [phone] LAST CREATININE 1.2 (12/04/23) Allergies: AMLODIPINE (Jun 17, 2021) Report Status: Verified Date Reported: APR 27, 2024 Date Verified: APR 27, 2024 Executive Vice President And Chief Operating Officer E-Sig:/ES/VERNA TAYLOR MD Report: MRI Lumbar Spine [...] Primary Interpreting Staff: VERNA TAYLOR MD, RADIOLOGIST (Executive Vice President And Chief Operating Officer) /VERNA ACEVEDO [facility] Apr 19, 2024 01:52 PM CTA (AP) ABDOMEN & PELVIS (P): NENA LANGE [id number] -[id number] M Exm Date: APR 19, 2024@13:52 Req Phys: NINA CR [facility] Loc: [facility] NEFF (Req'g Loc) Img Loc: CT IMAGING Service: [place] [address] (Case [id number] COMPLETE) CTA (AP) ABDOMEN/PELVIS W/ & W/O (CT Detailed) CPT:96618 Contrast Media : Non-ionic Iodinated Reason for [...] regarding this exam or notification of critical findings.Edvin Neff MD Note -If ordering provider is a trainee, enter the name and contact information of the responsible staff pysician below. If not, type in N/A.Nina Cr [...] ESTIMATED GFR(eGF 49 L Ref: >=60 Allergies: (Orr only) AMLODIPINE (Jun 17, 2021) Report Status: Verified Date Reported: APR 19, 2024 Date Verified: APR 19, 2024 Executive Vice President And Chief Operating Officer E-Sig:/ES/JIM ORTEGA MD Report: ABDOMINAL and PELVIC CTA History: [...] basilar rounded atelectasis, fibrotic changes, and bronchiectasis. IJim, have reviewed the images and report. Primary Interpreting Staff: JIM ORTEGA MD, RADIOLOGIST (Executive Vice President And Chief Operating Officer) Primary Interpreting Resident: FRDIA COLEMAN, , CLINICAL INVESTIGATOR /CJL JIM ORTEGA [facility] Encounter Notes: All associated encounter notes This section contains the clinical notes associated to the Encounter. Date/Time Encounter Note(s) Provider Source Apr 29, 2024 12:46 PM LETTERS: LOCAL TITLE: FOLLOW UP RESULTS LETTER STANDARD TITLE: LETTERS DATE OF NOTE: APR 29, 2024@12:46 ENTRY DATE: APR 29, 2024@12:47:06 AUTHOR: ISABELLA GARRETT COSIGNER: URGENCY: STATUS: COMPLETED [facility] [address] [place] [address] Apr NENA LANGE [facility] [address] Dear [place]: I am writing to inform you of the results of testing that you had done recently at the [facility]. Report: MRI Lumbar Spine without Contrast 04/26/2024 [...] other interval change. Stable widespread lumbar spondylosis. Additional Comments: The L5 abnormality on previous MRI seems to have progressed which is reassuring. 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 If you have any further questions or problems, please contact our nursing staff or provider at the following number: [phone]. Sincerely, Lamont Garrett APRN, [employer] Family Nurse Practitioner ISABELLA GARRETT [facility]
[2024-08-05 05:10] LABS: HCO3 VBG 26 mmol/L (21-28); PCO2 VBG 33 mmHG (40-50); PO2 VBG 37.4 mmHG (25-47); pH VBG 7.501 (7.32-7.43)
[2024-08-05 05:14] LABS: Basophils Absolute Auto 0.03 K/uL (0.00-0.30); Basophils Percent Auto 0.6 % (0.0-3.0); Eosinophils Absolute Auto 0.07 K/uL (0.00-0.50); Eosinophils Percent Auto 1.5 % (0.0-7.0); Hematocrit 45.2 % (37.0-53.0); Hemoglobin* 14.5 gm/dL (13.5-17.5); Lymphocytes Percent Auto 16.2 % (20-44); Mean Corpuscular HGB Conc 32 gm/dL (32-36); Mean Corpuscular Hemoglobin 30 pg (26-34); Mean Corpuscular Volume 92 fL (80-100); Monocytes Percent Auto 8.8 % (0.0-11.0); Neutrophils Percent Auto 72.9 % (42.0-72.0); Platelet Count* 174 K/uL (140-440); RDW Coefficient of Variation % 14.2 % (11.5-15.5); White Blood Count* 4.68 K/uL (4.50-11.00)
[2024-08-05 05:17] LABS: Slide Review Reflex No
[2024-08-05 05:22] LABS: Appearance Urine Clear (Clear); Bilirubin Urine Negative (Negative); Blood Urine Trace-lysed (Negative); Color Urine Yellow (Yellow); Glucose Urine Negative (Negative); Ketones Urine Negative (Negative); Leukocyte Esterase Urine Negative (Negative); Nitrite Urine Negative (Negative); Protein Urine 2+ (Negative); Specific Gravity Urine 1.025 (1.000-1.030); Urobilinogen Urine 0.2 (0.2-1.0); pH Urine 7.5 (5.0-8.5)
[2024-08-05 05:29] LABS: Chloride* 105 mmol/L (96-114); Potassium* 3.9 mmol/L (3.6-5.1); Sodium* 137 mmol/L (135-149)
[2024-08-05 05:31] LABS: Creatinine* 0.9 mg/dL (0.5-1.5); Est. Creatinine Clearance* 63.59; Estimated Glomerular Filt Rate 86 ml/min
[2024-08-05 05:32] LABS: Anion Gap 8 mEq/L (7-15); Blood Urea Nitrogen* 19 mg/dL (7-30); Calcium* 9.5 mg/dL (8.4-10.6); Carbon Dioxide* 24 mmol/L (20-32); Glucose* 105 mg/dL (60-115)
[2024-08-05 05:35] LABS: Ethanol* < 0.00 % (0.01-0.03)
--- OUTSIDE RECORDS SUMMARY | 2024-08-05 05:39 | XMS_ITS | Clinical Summary ---
Author Organization [place] Address [address] [place] [id number] Care Team Providers Care Missile Tracking Technician Name Role Phone Unavailable Primary Care Provider [...] patient's age to complete this topic Insurance [facility]
--- OUTSIDE RECORDS SUMMARY | 2024-08-05 05:39 | XMS_ITS | Continuity of Care Document ---
Author Name [facility] Organization [facility] Care Team Providers Care Hazardous Substances Engineer Name Role Phone [facility] Unavailable Unavailable Problems Combined list of problems from Department of Defense and Veterans Affairs facilities. It does not include entries that were removed or entered in error. Problem Status Onset Date Problem Type Date of Resolution Comments Source Prostate Cancer Active 005 Condition Feb 24, 2005 Entered By: AMEYA COBB Comment: s/p RT, completed on 02/13/05 JOSE EDUARDO QUINTANILLA [facility] joint pain, localized in the knee Active Condition DoD osteoarthritis Active Condition DoD aortic regurgitation Active Condition DoD allergic rhinitis Active Condition DoD prostate cancer Active Condition DoD routine history and physical adult (18 - 64 yrs) Active Condition DoD Need For Vaccination Influenza + Streptococcus Pneumoniae Active Condition Influenza 0.5ml IM given to L Deltoid. Blow Molding Machine Operator: [employer], Lot# [id number], Exp: 2007.Pnuemovax 0.5ml IM placed to L Deltoid. Blow Molding Machine Operator: [employer], Lot# [id number], Exp: 03/27/08. DoD volume depletion Inactive Condition BP and hx c/w hypovolemia secondary to volume depletion from diarrhea and vomiting. Will Start IV and give LR along with medication for vomiting. 2 1/5 L LR holiness of BP to 128/84 P 81 Throat culture taken results pending. F/U in AM.Problem list and medications reconcilled. Medication list printed out. Patient not primary to [facility] CXR Lungs Solitary Pulmonary Nodule (___ cm) Inactive Condition DoD abnormal electrocardiogram Active Condition WILL REFER TO CARDIOLOGY FOR ABNL EKG AND H/O LEAVITT. POSSIBLE UNDERLYING OCCULT CV DISEASE. RTC NEEDED. [facility] seborrheic keratosis Active Condition [facility] visit for: administrative purpose Active Condition [facility] Physical Examination Inactive Condition [facility] Laboratory Studies Inactive Condition Do D skin disorders Inactive Condition [facility] Administrative Evaluation Services Inactive Condition Nursing [...] Active Condition DoD hypertension systemic Active Condition [facility] Abdominal aortic aneurysm Active Condition May 10, 2014 Entered By: ELVIS CHAPPELL Comment: Bifurcation <3cm [facility] Abdominal aortic aneurysm Active Condition [facility] Allergy * (ICD-9-CM 995.3) Active Condition [facility] 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, 2014 Entered By: ELVIS CHAPPELL Comment: Small reeval in 1 year [facility] Anxiety State Active Condition TETO R EX [facility] Benign hypertension Active Condition [facility] Benign hypertension Active Condition [facility] CAD - Coronary Artery Disease (SCT [id number]) Active Condition [facility] Cancer, prostate, primary Active Condition [facility] Carcinoma of prostate Active Condition [facility] Cerebral aneurysm, nonruptured (ICD-9-CM 437.3) Active Condition [facility] Cervical Radiculopathy (ICD-9-CM 723.4) Active Condition JOSE EDUARDO Isreal Julienne QUINTANILLA [facility] Chronic Back Pain (ICD-9-CM 724.5) Active Condition TETO R EX [facility] Chronic diarrhea Active Condition [facility] [place] [facility] Chronic kidney disease stage 3A Active Condition [facility] COPD - Chronic obstructive pulmonary disease Active Condition Jun 02 Entered By: JIE JO Comment: Moderately severe 05/2022 PFTs [facility] Depression (SCT [id number]) Active Condition [facility] Depression * (ICD-9-CM 311.) Active Condition TETO MATHEWS X [facility] Depressive disorder Active Condition [facility] Diarrhea Active Condition [facility] Exposure to potentially hazardous substance Active Condition [facility] Exposure to potentially hazardous substance (SCT [id number]) Active Condition Sep 15 4 Entered By: KIT FARRELL Comment: Entered automatically through SONYA Problem List documentation program [facility] Gastroesophageal Reflux Disease Active Condition [facility] Gastroesophageal Reflux Disorder * (ICD-9-CM 530.81) Active Condition JOSE EDUARDO IsrealJulienne QUINTANILLA [facility] GERD - Gastro-Esophageal Reflux Disease (SCT [id number]) Active Condition [facility] Gout Active Condition [facility] Gout ([facility] [id number]) Active Condition [place] [facility] Hemospermia Active Condition [facility] History of myocardial infarction Active Condition October 17, 2022 Entered By: JIE JO Comment: STEMI [facility] HTN - Hypertension ([facility] [id number]) Active [facility] Hyperlipidemia Active Condition [facility] Hyperlipidemia ([facility] [id number]) Active Condition [facility] Hyperlipidemia * (ICD-9-CM 272.4) Active Condition JOSE EDUARDO Bach [facility] Hyperplasia of Prostate, unspecified, with Urinary obstruction (ICD-9-CM 600.91) Active Condition [place]MA[place] Birgit [facility] Insomnia Active Condition [facility] Intracranial aneurysm Active Condition [facility] Intracranial aneurysm Active Condition Jun 18, 2021 Entered By: JIE JO Comment: s/p stent/coil proceedure [facility] Low back pain Active Condition [place] [facility] Low Back Pain * (ICD-9-CM 724.2) Active Condition JOSE EDUARDO QUINTANILLA [facility] MDD, Single, Moderate Active Condition [facility] MDD, Single, Part Remiss Active Condition [facility] Muscle Spasm (ICD-9-CM 728.85) Active Condition [facility] Neck pain Active Condition [facility] Osteoarthritis * (ICD-9-CM 715.90) Active Condition [facility] Pain in male perineum Active Condition [facility] Primary malignant neoplasm of prostate Active Condition [facility] RE - Retrograde ejaculation Active Condition [facility] Solitary nodule of lung Active Condition May 10, 2014 Entered By: ELVIS CHAPPELL Comment: Left Lower Lobe [facility] Solitary nodule of lung Active Condition [facility] Tinnitus * (ICD-9-CM 388.30) Active Condition [facility] Tremor * (ICD-9-CM 781.0) Active Condition [facility] Hearing loss Inactive Condition 02/26/2017 [facility] Hematuria, Gross Inactive Condition 02/26/2017 R [facility] [place] - Lower urinary tract symptoms Inactive Condition 02/26/2017 [facility] Male perineal pain Inactive Condition 02/26/2017 [facility] Shoulder pain Inactive Condition 02/26/2017 [facility] Diagnosis: ICD-10-CM I72.8 Aneurysm of other specified arteries Active Diagnosis REBECCA RAMIREZ [facility] Diagnosis: ICD-10-CM 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 [facility] Diagnosis: ICD-10-CM K86.9 Disease of pancreas, unspecified Active Diagnosis [facility] Diagnosis: ICD-10-CM F32.A Depression, unspecified Active Diagnosis [facility] Diagnosis: ICD-10-CM R94.7 Abnormal results of other endocrine function studies Active Diagnosis [facility] Diagnosis: ICD-10-CM 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 [facility] Diagnosis: ICD-10-CM D48.5 Neoplasm of uncertain behavior of skin Active Diagnosis [facility] Diagnosis: ICD-10-CM R20.2 Paresthesia of skin Active Diagnosis [facility] SHLOMO [facility] Diagnosis: ICD-10-CM D24.9 Benign neoplasm of unspecified breast Active Diagnosis [facility] RAM[facility] Diagnosis: ICD-10-CM I10 Essential (primary) hypertension Active Diagnosis [facility] Diagnosis: ICD-10-CM Z23 Encounter for immunization Active Diagnosis [facility] Diagnosis: ICD-10-CM 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 Medication Details Route Status Patient Instructions Prescription Expires Prescription Number Last Dispense Date Ordering Provider Order Date Order Qty Source ACETAMINOPH EN 500MG TAB TAKE TWO TABLETS BY MOUTH THREE TIMES A DAY NEEDED FOR PAIN ORAL ACTIVE 11/30/2024 [id number] BETTINA JO ER 2023 200 [facility] ACETAMINOPH EN 500MG TAB TAKE TWO TABLETS BY MOUTH THREE TIMES A DAY NEEDED FOR PAIN ORAL DISCONT INUED 09/23/2023 [id number] BETTINA JO ER 2022 200 [facility] OLIS [facility] ALBUTEROL 90MCG/ACTUA T (CFC-F) INHL,ORAL,8 .5GM DOSE COUNTER INHALE 2 PUFFS BY INHALATI ON EVERY 4 HOURS NEEDED FOR SHORTNES S OF BREATH RESPIR ATORY (INHAL ATION) ACTIVE 12/04/[id number] [facility] 2023 2 [facility] ALBUTEROL 90MCG/ACTUA T (CFC-F) INHL,ORAL,8 .5GM DOSE COUNTER INHALE 2 PUFFS BY INHALATI ON EVERY 4 HOURS NEEDED FOR SHORTNES S OF BREATH RESPIR ATORY (INHAL ATION) DISCONT INUED 11/18/2023 [id number] [facility] 2022 2 [facility] ALLOPURINOL 100MG TAB TAKE ONE TABLET BY MOUTH DAILY ORAL ACTIVE MATHEW JOSE 2011 [facility] ALLOPURINOL 100MG TAB TAKE ONE [...] MOUTH DAILY ORAL ACTIVE MATHEW JOSE 2011 [facility] ASPIRIN 81MG TAB,EC TAKE ONE TABLET BY MOUTH DAILY ORAL ACTIVE SOCKOL- EST,FELIC IA 2015 [facility] ASPIRIN 81MG TAB,EC TAKE ONE TABLET BY MOUTH EVERY DAY ORAL ACTIVE BETTINA JO 2021 [facility] CAMPHOR 0.5%/MENTHO L 0.5% LOTION APPLY THIN LAYER TOPICALL Y THREE TIMES A DAY NEEDED FOR ITCHING TOPICA L ACTIVE 12/04/2024 [id number] 4 BETTINA JO 2023 450 [facility] CAMPHOR 0.5%/MENTHO L 0.5% LOTION APPLY THIN LAYER TOPICALL Y THREE TIMES A DAY NEEDED FOR ITCHING TOPICA L [facility] 06/05/2024 [id number] BETTINA JO 2022 450 [facility] CHOLECALCIF MARCUS (VITAMIN D3) TAB TAKE 1000UNIT BY MOUTH TWICE A DAY ORAL ACTIVE MATHEW JOSE 2011 [facility] CHOLECALCIF MARCUS 25MCG (1,000UNIT) TAB TAKE ONE TABLET BY MOUTH DAILY ORAL ACTIVE ELVIS GUSMAN 2013 [facility] COLESTIPOL HCL 1GM TAB TAKE THREE TABLETS BY MOUTH TWICE A DAY ORAL ACTIVE SOCKOL- EST,FELIC IA 2019 [facility] CURCUMA CAP/TAB TAKE 1 CAPSULE BY MOUTH PRN ORAL ACTIVE ANUSHA CURRAN E 2022 [facility] CYANOCOBALA MIN 1000MCG TAB TAKE ONE TABLET BY MOUTH DAILY ORAL ACTIVE ELVIS GUSMAN 2013 [facility] DOXAZOSIN MESYLATE 2MG TAB TAKE ONE TABLET BY MOUTH AT BEDTIME ORAL ACTIVE MATHEW JOSE 2011 [facility] ESOMEPRAZOL E MAGNESIUM 40MG CAP,EC TAKE 1 CAPSULE BY MOUTH TWICE A DAY ORAL ACTIVE MATHEW JOSE 2011 [facility] FAMOTIDINE 20MG TAB TAKE ONE TABLET BY MOUTH EVERY DAY FOR HEARTBUR N ORAL ACTIVE 10/08/2024 [id number] 5 BETTINA JO 2023 90 [facility] FAMOTIDINE 20MG TAB TAKE ONE TABLET BY MOUTH EVERY DAY FOR HEARTBUR N ORAL DISCONT INUED 11/18/2023 [id number] 4 BETTINA JO 2022 90 [facility] FAMOTIDINE 40MG TAB TAKE ONE TABLET [...] OR TWO 300 MG CAPS ORAL 07/05/2023 [id number] BETTINA JO 2022 27 [facility] GABAPENTIN 300MG CAP TAKE TWO CAPSULES BY MOUTH THREE TIMES A DAY FOR PAIN AND NUMBNESS MAXIMU M DOSE WITH CURRENT KIDNEY FUNCTION ORAL ACTIVE 12/04/2024 [id number] 5 BETTINA JO 2023 540 [facility] GABAPENTIN 300MG CAP TAKE TWO CAPSULES BY MOUTH THREE TIMES A DAY FOR PAIN AND NUMBNESS MAXIMU M DOSE WITH CURRENT KIDNEY FUNCTION ORAL DISCONT INUED 09/22/2024 [id number] BETTINA JO 2023 540 [facility] GABAPENTIN 300MG CAP TAKE TWO CAPSULES BY MOUTH THREE TIMES A DAY FOR PAIN AND NUMBNESS AFTER GRADUAL DOSE AUGMENTA TION ORAL DISCONT INUED BY PROVIDE R 06/05/2024 [id number] BETTINA JO 2022 180 [facility] GABAPENTIN 300MG CAP TAKE ONE CAPSULE BY MOUTH EVERY DAY FOR 1 DAY, THEN TAKE ONE CAPSULE TWICE A DAY FOR 1 DAY, THEN TAKE ONE CAPSULE THREE TIMES A DAY FOR PAIN ORAL DISCONT INUED (EDIT) 06/18/2023 [id number] ANUSHA CURRAN 2022 87 [facility] HYDROCHLORO THIAZIDE 25MG TAB TAKE ONE-HALF TABLET BY MOUTH EVERY DAY BLOOD PRESSURE MEDICATI ON ORAL 11/18/2023 [id number] BETTINA OJ 2022 45 [place] [facility] KETOCONAZOL E 2% SHAMPOO SHAMPOO SCALP TOPICALL Y 3 TIMES EVERY WEEK *LATHER FOR 5 MINUTES THEN RINSE* FOR SEBORRHE IC DERMATIT IS TOPICA L ACTIVE 09/08/2024 [id number] JUSTYNA WelchISAIAH J 2023 120 [place] [facility] LEVOCETIRIZ INE DIHYDROCHLO RIDE 5MG TAB TAKE ONE TABLET BY MOUTH DAILY ORAL ACTIVE MATHEW JOSE 2011 [facility] LISINOPRIL 40MG TAB TAKE ONE TABLET BY MOUTH DAILY ORAL ACTIVE PATEL ELMORE 2019 [facility] LOPERAMIDE HCL 2MG CAP TAKE ONE CAPSULE BY MOUTH THREE TIMES A DAY FOR DIARRHEA ORAL ACTIVE 04/30/2025 [id number] 5 JAQUIBETTINA ER 2023 90 [facility] LOPERAMIDE HCL 2MG CAP TAKE ONE CAPSULE BY MOUTH THREE TIMES A DAY FOR DIARRHEA ORAL DISCONT INUED 09/16/2024 [id number] 4 JAQUIBETTINA 2023 90 [place] [facility] LOPERAMIDE HCL 2MG CAP TAKE ONE CAPSULE BY MOUTH THREE TIMES A DAY FOR DIARRHEA ORAL DISCONT INUED 11/18/2023 [id number] JAQUIBETTINA ER 2022 90 [facility] LORATADINE 10MG TAB TAKE ONE TABLET BY MOUTH EVERY DAY NEEDED FOR ALLERGIE S ORAL ACTIVE 12/04/2024 [id number] 4 JAQUIBETTINA ER 2023 30 [place] [facility] LORATADINE 10MG TAB TAKE ONE TABLET BY MOUTH EVERY DAY NEEDED FOR ALLERGIE S ORAL DISCONT INUED 03/30/2024 [id number] 4 JAQUIBETTINA ER 2022 30 [facility] MELOXICAM 15MG TAB TAKE ONE TABLET BY MOUTH DAILY ORAL ACTIVE MATHEW JOSE 2011 [facility] METOPROLOL SUCCINATE 50MG TAB,SA TAKE ONE-HALF TABLET BY MOUTH DAILY ORAL ACTIVE SOCKOL- EST,FELIC IA 2016 [facility] MONTELUKAST NA 10MG TAB TAKE ONE TABLET BY MOUTH DAILY ORAL ACTIVE MATHEW JOSE 2011 [facility] MONTELUKAST NA 10MG TAB TAKE ONE [...] JUDITHIU M SUPPLEME NT ORAL ACTIVE 10/08/2024 [id number] BETTINA JO ER 2023 90 [place] [facility] POTASSIUM CHLORIDE 20MEQ TAB,SA (DISPERSIBL E) TAKE ONE TABLET BY MOUTH EVERY DAY JUDITHYuriU M SUPPLEME NT ORAL DISCONT INUED 07/23/2023 [id number] PABLITOSETBETTINA Stewart ER 2022 90 [place] [facility] PRAMOXINE HCL 1% LOTION APPLY THIN LAYER TOPICALL Y THREE TIMES A DAY NEEDED FOR ITCHING TOPICA L ACTIVE 09/08/2024 [id number] ISAIAH GALVEZ 2023 240 [facility] PRAZOSIN HCL 1MG CAP TAKE 1 CAPSULE BY MOUTH ORAL ACTIVE SOCKOL- EST,FELIC IA 2019 [facility] ROSUVASTATI N CA 40MG TAB TAKE ONE TABLET BY MOUTH AT BEDTIME CHOLESTE ROL MEDICATI ON ORAL ACTIVE 12/04/2024 [id number] 5 STENSETBETTINA Stewart ER 2023 90 [place] [facility] ROSUVASTATI N CA 40MG TAB TAKE ONE TABLET BY MOUTH AT BEDTIME CHOLESTE ROL MEDICATI ON ORAL DISCONT INUED 10/08/2024 [id number] BETTINA JO 2023 90 [facility] ROSUVASTATI N CA 40MG TAB TAKE ONE TABLET BY MOUTH AT BEDTIME CHOLESTE ROL MEDICATI ON ORAL DISCONT INUED 07/23/2023 [id number] BETTINA JO 2022 90 [facility] ROSUVASTATI N CA 40MG TAB TAKE ONE TABLET BY MOUTH AT BEDTIME ORAL ACTIVE ELVIS GUSMAN 2013 [facility] ROSUVASTATI N CA 40MG TAB TAKE ONE TABLET BY MOUTH DAILY ORAL ACTIVE DURANDINGMATHEW SOSA 2011 [facility] [facility] SERTRALINE HCL 100MG TAB TAKE ONE TABLET [...] INTO ITCHY SCARS TOPICA L ACTIVE 12/04/2024 [id number] BETTINA JO 2023 80 [facility] TRIAMCINOLO NE ACETONIDE 0.1% CREAM,TOP APPLY A THIN LAYER TOPICALL Y TWICE A DAY RUB A SMALL AMOUNT INTO ITCHY SCARS TWICE DAILY NEEDED TOPICA L DISCONT INUED (EDIT) 09/08/2024 [id number] ISAIAH GALVEZ 2023 30 [facility] VANICREAM APPLY THIN LAYER TOPICALL Y TWICE A DAY FOR DRY SKIN TOPICA L 06/05/2024 [id number] PABLITOJENNIFERPat BETTINA ER 2022 454 [facility] VITAMIN E 200UNT CAP TAKE 2 CAPSULES BY MOUTH TWICE A DAY ORAL ACTIVE MATHEW JOSE S 2011 [facility] Allergies, Adverse Reactions, Alerts Combined list of allergies from Department of Defense and Veterans Affairs facilities. It does not include entries that were removed or entered in error. Substance Category Reaction Severity Reaction type Status Date Reported Comments Source AMLODIPINE Propensity to adverse reactions to drug (finding) Edema active 2 [facility] No Known Allergies Drug allergy (disorder) active 8 22 Med Gp Lissett ISABEL ([facility]) Immunizations Combined list of available immunizations from the Department of [facility] and Veterans Affairs facilities. Immunization Series Date Given Administered By Site Reaction Lot Number CVX Code Drug Blow Molding Machine Operator Status Comments Source COVID-19 (PFIZER), MRNA, LNP-S, PF, KIMBER-SUCROSE, 30 MCG/0.3 ML (AGES 12+ YEARS) 2023 BUD MERIDA LEFT DELTO ID [id number] complet ed [facility] COVID-19 (PFIZER), MRNA, LNP-S, PF, KIMBER-SUCROSE, 30 MCG/0.3 ML (AGES 12+ YEARS) 1 2022 RICA LEWIS SE E LEFT DELTO ID [id number] 309 complet ed [facility] INFLUENZA, HIGH-DOSE, QUADRIVALENT 2022 RICA LEWIS SE E LEFT DELTO ID [id number] 197 complet ed [facility] PNEUMOCOCCAL CONJUGATE PCV20, POLYSACCHARID E [id number] CONJUGATE, ADJUVANT, PF 2022 STEPAN ESPINOZA TH M LEFT DELTO ID [id number] 216 complet ed [facility] TDAP 2022 GELA BEARD E LEFT DELTO ID [id number] complet ed [facility] COVID-19 (MODERNA), MRNA, LNP-S, BIVALENT BOOSTER, PF, 50 MCG/0.5 ML OR 25MCG/0.25 ML DOSE 1 2021 229 complet [facility] INFLUENZA, UNSPECIFIED FORMULATION 2021 88 complet [facility] COVID-19 (MODERNA), MRNA, LNP-S, BIVALENT, PF, 50 MCG/0.5 ML OR 25MCG/0.25 ML DOSE 2021 229 complet [facility] INFLUENZA, HIGH-DOSE, QUADRIVALENT 2021 197 complet [facility] ZOSTER RECOMBINANT 1 2021 187 complet [facility] ZOSTER RECOMBINANT 2 2021 187 complet [facility] INFLUENZA VACCINE, QUADRIVALENT, ADJUVANTED 2020 205 complet [facility] COVID-19 (PFIZER), MRNA, LNP-S, PF, 30 MCG/0.3 ML DOSE 3 2020 208 complet [facility] INFLUENZA, UNSPECIFIED FORMULATION 2020 88 complet [facility] COVID-19 (PFIZER), MRNA, LNP-S, PF, 30 MCG/0.3 ML DOSE 2 2020 208 complet [facility] COVID-19 (PFIZER), MRNA, LNP-S, PF, 30 MCG/0.3 ML DOSE 1 2020 208 complet [facility] INFLUENZA, UNSPECIFIED FORMULATION 2019 88 complet [facility] PNEUMOCOCCAL POLYSACCHARID E [id number] 2019 33 complet [facility] Influenza vaccine, quadrivalent, adjuvanted 2019 JUANA CHU, () Not Given Influenza vaccine, quadrival ent, adjuvante d [facility] influenza, trivalent, adjuvanted 2018 JUANA CHU, () Not Given influenza , trivalent , adjuvante d [facility] INFLUENZA, SEASONAL, INJECTABLE 2018 141 complet [facility] zoster recombinant 2018 GERMÁN, () Not Given zoster recombina nt [facility] zoster recombinant 2018 SHILPA AREVALO, () Not Given zoster recombina nt [facility] INFLUENZA, SEASONAL, INJECTABLE 2017 141 complet [facility] INFLUENZA, SEASONAL, INJECTABLE 2016 141 complet ed MEL Terell AKILQUENTIN [facility] INFLUENZA, UNSPECIFIED FORMULATION 2015 88 complet ed His outside provider. [facility] INFLUENZA, UNSPECIFIED FORMULATION 2013 88 complet ed MEL PaytonJulienne AKILQUENTIN [facility] INFLUENZA, UNSPECIFIED FORMULATION 2012 88 complet ed [facility] INFLUENZA, UNSPECIFIED FORMULATION 2012 88 complet ed [facility] INFLUENZA, UNSPECIFIED FORMULATION 2011 88 complet ed [facility] PNEUMOVAX (HISTORICAL) 2011 33 complet ed [facility] ZOSTER LIVE 2010 JACINTA NIEVES 121 complet ed [facility] INFLUENZA, UNSPECIFIED FORMULATION 2009 88 complet ed [facility] INFLUENZA, UNSPECIFIED FORMULATION 2008 88 complet ed [facility] INFLUENZA, UNSPECIFIED FORMULATION 2008 88 complet ed [facility] TD (ADULT) 2008 138 complet ed [facility] TD(ADULT) UNSPECIFIED FORMULATION 2008 139 complet ed [facility] INFLUENZA, UNSPECIFIED FORMULATION 2006 88 complet ed [facility] TD(ADULT) UNSPECIFIED FORMULATION 2005 139 complet ed [facility] PNEUMOCOCCAL, UNSPECIFIED FORMULATION 2005 109 complet ed [facility] INFLUENZA, UNSPECIFIED FORMULATION 2004 88 complet ed [facility]SE ED[facility]ARDO [facility] INFLUENZA, UNSPECIFIED FORMULATION 2004 88 complet ed [facility] INFLUENZA, UNSPECIFIED FORMULATION 2004 88 complet ed KERRIE [employer] tetanus and diphtheria toxoids, adsorbed, preservative free, for adult use (2 Lf of tetanus toxoid and 2 Lf of diphtheria toxoid) 1 2002 Unknown, Provider [id number] Sanofi Pasteur ([facility]) complet ed tetanus and diphtheri a toxoids, adsorbed, preservat gary free, for adult use (2 Lf of tetanus toxoid and 2 Lf of diphtheri a toxoid) [facility] influenza virus vaccine, whole virus 1 2002 Unknown, Provider [id number] [employer] ([employer]) complet ed influenza virus vaccine, whole virus DoD pneumococcal polysaccharid e vaccine, 23 valent 1 2002 Unknown, Provider 33 Merck (MSD) complet ed pneumococ elly polysacch aride vaccine, 23 valent DoD TD(ADULT) UNSPECIFIED FORMULATION 2002 139 complet ed [employer] Results Combined list of recent [...] Apr 19, 2024 02:14 PM Reporting Lab: [facility] [id number] Performing Lab: [facility] [facility] [address] [facility] CBC LEUKOCYTES [#/VOLUME] IN BLOOD BY AUTOMATED COUNT 5.89 10*3/u L 4.0 - 11.0 12/03 Specimen Type: BLOOD No comment entered. Ordering Provider: DEBBIE JO Report Released Date/Time: Nov 17, 2022 02:50 PM Reporting Lab: [facility] [address] Performing Lab: [facility] [address] [place] [facility] CBC ERYTHROCYTE S [#/VOLUME] IN BLOOD BY AUTOMATED COUNT 4.66 10*6/u L 4.6 - 6.2 12/03 Specimen Type: BLOOD No comment entered. Ordering Provider: DEBBIE JO Report Released Date/Time: Nov 17, 2022 02:50 PM Reporting Lab: [facility] [address] Performing Lab: [facility] [address] [place] [facility] CBC HEMOGLOBIN [MASS/VOLUM E] IN BLOOD 13.4 g/dL 13.5 - 17.9 12/03 L Specimen Type: BLOOD No comment entered. Ordering Provider: DEBBIE JO Report Released Date/Time: Nov 17, 2022 02:50 PM Reporting Lab: [facility] [address] Performing Lab: [facility] [address] [place] [facility] CBC HEMATOCRIT [VOLUME FRACTION] OF BLOOD BY AUTOMATED COUNT 42.5 41 - 54 12/03 Specimen Type: BLOOD No comment entered. Ordering Provider: DEBBIE JO Report Released Date/Time: Nov 17, 2022 02:50 PM Reporting Lab: [facility] [address] Performing Lab: [facility] [address] [place] [facility] CBC MCV [ENTITIC VOLUME] BY AUTOMATED COUNT 91.2 fL 80 - 100 12/03 Specimen Type: BLOOD No comment entered. Ordering Provider: DEBBIE JO Report Released Date/Time: Nov 17, 2022 02:50 PM Reporting Lab: [facility] [address] Performing Lab: [facility] [address] [place] [facility] CBC MCH [ENTITIC MASS] BY AUTOMATED COUNT 28.8 pg 27 - 33 12/03 Specimen Type: BLOOD No comment entered. Ordering Provider: DEBBIE JO Report Released Date/Time: Nov 17, 2022 02:50 PM Reporting Lab: [facility] [address] Performing Lab: [facility] [address] [place] [facility] CBC MCHC [MASS/VOLUM E] BY AUTOMATED COUNT 31.5 g/dL 32.0 - 37.5 12/03 L Specimen Type: BLOOD No comment entered. Ordering Provider: DEBBIE JO Report Released Date/Time: Nov 17, 2022 02:50 PM Reporting Lab: [facility] [address] Performing Lab: [facility] [address] [place] [facility] CBC PLATELETS [#/VOLUME] IN BLOOD BY AUTOMATED COUNT 205 10*3/u L 150 - 400 12/03 Specimen Type: BLOOD No comment entered. Ordering Provider: DEBBIE JO Report Released Date/Time: Nov 17, 2022 02:50 PM Reporting Lab: [facility] [address] Performing Lab: [facility] [address] [place] [facility] CBC PLATELET MEAN VOLUME [ENTITIC VOLUME] IN BLOOD BY AUTOMATED COUNT 8.6 fL 7.4 - 10.4 12/03 Specimen Type: BLOOD No comment entered. Ordering Provider: DEBBIE JO Report Released Date/Time: Nov 17, 2022 02:50 PM Reporting Lab: [facility] [address] Performing Lab: [facility] [address] [place] [facility] CBC ERYTHROCYTE DISTRIBUTIO N WIDTH [RATIO] BY AUTOMATED COUNT 15.3 11.5 - 14.5 12/03 H Specimen Type: BLOOD No comment entered. Ordering Provider: DEBBIE JO Report Released Date/Time: Nov 17, 2022 02:50 PM Reporting Lab: [facility] [address] Performing Lab: [facility] [address] [place] [facility] COMPREHEN SIVE METABOLIC PANEL+MG CREATININE [MASS/VOLUM E] IN SERUM OR PLASMA 1.2 mg/dL 0.7 - 1.2 12/03 Specimen Type: PLASMA No comment entered. Ordering Provider: DEBBIE JO Report Released Date/Time: Nov 17, 2022 02:50 PM Reporting Lab: [facility] [address] Performing Lab: [facility] [address] [place] [facility] COMPREHEN SIVE METABOLIC PANEL+MG UREA NITROGEN [MASS/VOLUM E] IN SERUM OR PLASMA 21 mg/dL 8 - 26 12/03 Specimen Type: PLASMA No comment entered. Ordering Provider: DEBBIE JO Report Released Date/Time: Nov 17, 2022 02:50 PM Reporting Lab: [facility] [address] Performing Lab: [facility] [address] [place] [facility] COMPREHEN SIVE METABOLIC PANEL+MG GLUCOSE [MASS/VOLUM E] IN SERUM OR PLASMA 86 mg/dL 70 - 100 12/03 Specimen Type: PLASMA No comment entered. Ordering Provider: DEBBIE JO Report Released Date/Time: Nov 17, 2022 02:50 PM Reporting Lab: [facility] [address] Performing Lab: [facility] [address] [place] [facility] COMPREHEN SIVE METABOLIC PANEL+MG SODIUM [MOLES/VOLU ME] IN SERUM OR PLASMA 142 mmol/L 136 - 145 12/03 Specimen Type: PLASMA No comment entered. Ordering Provider: DEBBIE JO Report Released Date/Time: Nov 17, 2022 02:50 PM Reporting Lab: [facility] [address] Performing Lab: [facility] [address] [place] [facility] COMPREHEN SIVE METABOLIC PANEL+MG POTASSIUM [MOLES/VOLU ME] IN SERUM OR PLASMA 4.0 mmol/L 3.5 - 5.1 12/03 Specimen Type: PLASMA No comment entered. Ordering Provider: DEBBIE JO Report Released Date/Time: Nov 17, 2022 02:50 PM Reporting Lab: [facility] [address] Performing Lab: [facility] [address] [place] [facility] COMPREHEN SIVE METABOLIC PANEL+MG CHLORIDE [MOLES/VOLU ME] IN SERUM OR PLASMA 109 mmol/L 98 - 107 12/03 H Specimen Type: PLASMA No comment entered. Ordering Provider: DEBBIE JO Report Released Date/Time: Nov 17, 2022 02:50 PM Reporting Lab: [facility] [address] Performing Lab: [facility] [address] [place] [facility] COMPREHEN SIVE METABOLIC PANEL+MG CARBON DIOXIDE, TOTAL [MOLES/VOLU ME] IN SERUM OR PLASMA 27 mmol/L 22 - 29 12/03 Specimen Type: PLASMA No comment entered. Ordering Provider: DEBBIE JO Report Released Date/Time: Nov 17, 2022 02:50 PM Reporting Lab: [facility] [address] Performing Lab: [facility] [address] [place] [facility] COMPREHEN SIVE METABOLIC PANEL+MG CALCIUM [MASS/VOLUM E] IN SERUM OR PLASMA 9.2 mg/dL 8.4 - 10.2 12/03 Specimen Type: PLASMA No comment entered. Ordering Provider: DEBBIE JO Report Released Date/Time: Nov 17, 2022 02:50 PM Reporting Lab: [facility] [address] Performing Lab: [facility] [address] [place] [facility] COMPREHEN SIVE METABOLIC PANEL+MG PROTEIN [MASS/VOLUM E] IN SERUM OR PLASMA 7.5 g/dL 6.0 - 8.3 12/03 Specimen Type: PLASMA No comment entered. Ordering Provider: DEBBIE JO Report Released Date/Time: Nov 17, 2022 02:50 PM Reporting Lab: [facility] [address] Performing Lab: [facility] [address] [place] [facility] COMPREHEN SIVE METABOLIC PANEL+MG ALBUMIN [MASS/VOLUM E] IN SERUM OR PLASMA 3.7 g/dL 3.5 - 5.2 12/03 Specimen Type: PLASMA No comment entered. Ordering Provider: DEBBIE JO Report Released Date/Time: Nov 17, 2022 02:50 PM Reporting Lab: [facility] [address] Performing Lab: [facility] [address] [place] [facility] COMPREHEN SIVE METABOLIC PANEL+MG BILIRUBIN.T OTAL [MASS/VOLUM E] IN SERUM OR PLASMA 0.6 mg/dL 0.2 - 1.2 12/03 Specimen Type: PLASMA No comment entered. Ordering Provider: DEBBIE JO Report Released Date/Time: Nov 17, 2022 02:50 PM Reporting Lab: [facility] [address] Performing Lab: [facility] [address] [place] [facility] COMPREHEN SIVE METABOLIC PANEL+MG MAGNESIUM [MASS/VOLUM E] IN SERUM OR PLASMA 2.0 mg/dL 1.6 - 2.6 12/03 Specimen Type: PLASMA No comment entered. Ordering Provider: DEBBIE JO Report Released Date/Time: Nov 17, 2022 02:50 PM Reporting Lab: [facility] [address] Performing Lab: [facility] [address] [place] [facility] COMPREHEN SIVE METABOLIC PANEL+MG ANION GAP IN SERUM OR PLASMA 6 mmol/L 5 - 15 12/03 Specimen Type: PLASMA No comment entered. Ordering Provider: DEBBIE JO Report Released Date/Time: Nov 17, 2022 02:50 PM Reporting Lab: [facility] [address] Performing Lab: [facility] [address] [place] [facility] COMPREHEN SIVE METABOLIC PANEL+MG ALKALINE PHOSPHATASE [ENZYMATIC ACTIVITY/VO LUME] IN SERUM OR PLASMA 179 U/L 40 - 150 12/03 H Specimen Type: PLASMA No comment entered. Ordering Provider: DEBBIE JO Report Released Date/Time: Nov 17, 2022 02:50 PM Reporting Lab: [facility] [address] Performing Lab: [facility] [address] [place] [facility] COMPREHEN SIVE METABOLIC PANEL+MG ALANINE AMINOTRANSF ERASE [ENZYMATIC ACTIVITY/VO LUME] IN SERUM OR PLASMA 18 U/L <55 - 55 12/03 Specimen Type: PLASMA No comment entered. Ordering Provider: DEBBIE JO Report Released Date/Time: Nov 17, 2022 02:50 PM Reporting Lab: [facility] [address] Performing Lab: [facility] [address] [place] [facility] COMPREHEN SIVE METABOLIC PANEL+MG ASPARTATE AMINOTRANSF ERASE [ENZYMATIC ACTIVITY/VO LUME] IN SERUM OR PLASMA 24 U/L <34 - 34 12/03 Specimen Type: PLASMA No comment entered. Ordering Provider: DEBBIE JO Report Released Date/Time: Nov 17, 2022 02:50 PM Reporting Lab: [facility] [address] Performing Lab: [facility] [address] [place] [facility] COMPREHEN SIVE METABOLIC PANEL+MG GLOMERULAR FILTRATION RATE/1.73 SQ M.PREDICTED [VOLUME RATE/AREA] IN SERUM, PLASMA OR BLOOD BY CREATININE- BASED FORMULA (CKD-EPI 2020) 61 60 12/03 Specimen Type: PLASMA No comment entered. Ordering Provider: DEBBIE JO Report Released Date/Time: Nov 17, 2022 02:50 PM Reporting Lab: [facility] [address] Performing Lab: [facility] [address] [place] [facility] LIPID PANEL,NON -FASTING CHOLESTEROL [MASS/VOLUM E] IN SERUM OR PLASMA 129 mg/dL <199 - 199 12/03 Specimen Type: PLASMA No comment entered. Ordering Provider: DEBBIE JO Report Released Date/Time: Nov 17, 2022 02:50 PM Reporting Lab: [facility] [address] Performing Lab: [facility] [address] [place] [facility] LIPID PANEL,NON -FASTING CHOLESTEROL IN HDL [MASS/VOLUM E] IN SERUM OR PLASMA 47 mg/dL 40 12/03 Specimen Type: PLASMA No comment entered. Ordering Provider: DEBBIE JO Report Released Date/Time: Nov 17, 2022 02:50 PM Reporting Lab: [facility] [address] Performing Lab: [facility] [address] [place] [facility] LIPID PANEL,NON -FASTING CHOLESTEROL IN LDL [MASS/VOLUM E] IN SERUM OR PLASMA BY CALCULATION 59 mg/dL <99 - 99 12/03 Specimen Type: PLASMA No comment entered. Ordering Provider: DEBBIE JO Report Released Date/Time: Nov 17, 2022 02:50 PM Reporting Lab: [facility] [address] Performing Lab: [facility] [address] [place] [facility] LIPID PANEL,NON -FASTING CHOLESTEROL IN VLDL [MASS/VOLUM E] IN SERUM OR PLASMA BY CALCULATION 23 mg/dL <29 - 29 12/03 Specimen Type: PLASMA No comment entered. Ordering Provider: DEBBIE JO Report Released Date/Time: Nov 17, 2022 02:50 PM Reporting Lab: [facility] [address] Performing Lab: [facility] [address] [place] [facility] LIPID PANEL,NON -FASTING CHOLESTEROL NON HDL [MASS/VOLUM E] IN SERUM OR PLASMA 82 mg/dL <129 - 129 12/03 Specimen Type: PLASMA No comment entered. Ordering Provider: DEBBIE JO Report Released Date/Time: Nov 17, 2022 02:50 PM Reporting Lab: [facility] [address] Performing Lab: [facility] [address] [place] [facility] LIPID PANEL,NON -FASTING TRIGLYCERID E [MASS/VOLUM E] IN SERUM OR PLASMA 114 mg/dL <149 - 149 12/03 Specimen Type: PLASMA No comment entered. Ordering Provider: DEBBIE JO Report Released Date/Time: Nov 17, 2022 02:50 PM Reporting Lab: [facility] [address] Performing Lab: [facility] [address] [place] [facility] PSA PROSTATE SPECIFIC AG [MASS/VOLUM E] IN SERUM OR PLASMA 1.09 ng/mL <4.00 - 4.00 12/03 Specimen Type: SERUM No comment entered. Ordering Provider: DEBBIE JO Report Released Date/Time: Nov 17, 2022 02:50 PM Reporting Lab: [facility] [address] Performing Lab: [facility] [address] [place] [facility] TSH W/REFLEX TO FREE T4 THYROTROPIN [UNITS/VOLU ME] IN SERUM OR PLASMA 3.26 u[IU]/ mL 0.35 - 4.94 12/03 Specimen Type: PLASMA No comment entered. Ordering Provider: DEBBIE JO Report Released Date/Time: Nov 17, 2022 02:50 PM Reporting Lab: [facility] [address] Performing Lab: [facility] [address] [place] [facility] URIC ACID URATE [MASS/VOLUM E] IN SERUM OR PLASMA 4.9 mg/dL 3.5 - 7.2 12/03 Specimen Type: PLASMA No comment entered. Ordering Provider: DEBBIE JO Report Released Date/Time: Nov 17, 2022 02:50 PM Reporting Lab: [facility] [address] Performing Lab: [facility] [address] [place] [facility] 5-HIAA-UR INE, TIMED 5-HYDROXYIN DOLEACETATE [MASS/VOLUM E] IN URINE 7.8 - 6.0 09/24 H Specimen Type: URINE Comment: This test was developed and its analytical performance characteris tics have been determined by [employer] . It has not been cleared or approved by FDA. This assay has been validated pursuant to the CLIA regulations and is used for clinical purposes. Test performed by [facility] [place] [address] Phone: Web Merchandiser: Taylor Colon MD,PHD,SHUBHAM Test Reported by [facility], [address] [place] [address] Nacho De Leon M.D., Ph.D., Director of Laboratorie s , CLIA [id number] Ordering Provider: KAT LUCERO Report Released Date/Time: Sep 17, 2023 03:56 PM Reporting Lab: [facility] [address] Performing Lab: [address] [facility] 5-HIAA-UR INE, TIMED VOLUME OF URINE 1200 mL 09/24 Specimen Type: URINE Comment: This test was developed and its analytical performance characteris tics have been determined by [employer] . It has not been cleared or approved by FDA. This assay has been validated pursuant to the CLIA regulations and is used for clinical purposes. Test performed by [facility] [id number] [place] [address] Phone: Web Merchandiser: Taylor Colon MD,PHD,SHUBHAM Test Reported by [facility], [address] [place] [address] Nacho De Leon M.D., Ph.D., Director of Laboratorie s , CLIA [id number] Ordering Provider: KAT LUCERO Report Released Date/Time: Sep 17, 2023 03:56 PM Reporting Lab: [facility] [address] Performing Lab: [address] [place] [facility] 5-HIAA-UR INE, TIMED CREATININE [MASS/TIME] IN 24 HOUR URINE 1.10 0.50 - 2.15 09/24 Specimen Type: URINE Comment: This test was developed and its analytical performance characteris tics have been determined by [employer] . It has not been cleared or approved by FDA. This assay has been validated pursuant to the CLIA regulations and is used for clinical purposes. [place] [address] Phone: Web Merchandiser: Taylor Colon MD,PHD,SHUBHAM Test Reported by [facility], [address] [place] [address] Nacho De Leon M.D., Ph.D., Director of Laboratorie s , CLIA [id number] Ordering Provider: KAT LUCERO Report Released Date/Time: Sep 17, 2023 03:56 PM Reporting Lab: [facility] [address] Performing Lab: [address] [place] [facility] 5-HIAA-UR INE, TIMED 5-HYDROXYIN DOLEACETATE [MASS/VOLUM E] IN URINE 8.3 - 6.0 08/30 H Specimen Type: URINE Comment: This test was developed and its analytical performance characteris tics have been determined by [employer] . It has not been cleared or approved by FDA. This assay has been validated pursuant to the CLIA regulations and is used for clinical purposes. Test performed by [facility] [id number] [place] [address] Phone: Web Merchandiser: Taylor Colon MD,PHD,SHUBHAM Test Reported by [facility], [address] [place] [address] Nacho De Leon M.D., Ph.D., Director of Laboratorie s , CLIA [id number] Ordering Provider: MILADIS GALINDO Report Released Date/Time: Aug 21, 2023 11:32 AM Reporting Lab: [facility] [address] Performing Lab: [address] [place] [facility] 5-HIAA-UR INE, TIMED VOLUME OF URINE 1100 mL 08/30 Specimen Type: URINE Comment: This test was developed and its analytical performance characteris tics have been determined by [employer] . It has not been cleared or approved by FDA. This assay has been validated pursuant to the CLIA regulations and is used for clinical purposes. Test performed by [facility] [id number] [place] [address] Phone: Web Merchandiser: Taylor Colon MD,PHD,SHUBHAM Test Reported by [facility], [address] [place] [address] Nacho De Leon M.D., Ph.D., Director of Laboratorie s , CLIA [id number] Ordering Provider: MILADIS GALINDO Report Released Date/Time: Aug 21, 2023 11:32 AM Reporting Lab: [facility] [address] Performing Lab: [address] [place] [facility] 5-HIAA-UR INE, TIMED CREATININE [MASS/TIME] IN 24 HOUR URINE 1.13 0.50 - 2.15 08/30 Specimen Type: URINE Comment: This test was developed and its analytical performance characteris tics have been determined by [employer] . It has not been cleared or approved by FDA. This assay has been validated pursuant to the CLIA regulations and is used for clinical purposes. Test performed by [facility] [address] [place] [address] Phone: Web Merchandiser: Taylor Colon MD,PHD,SHUBHAM Test Reported by [facility], [address] [place] [address] Nacho De Leon M.D., Ph.D., Director of Laboratorie s , CLIA [id number] Ordering Provider: MILADIS GALINDO Report Released Date/Time: Aug 21, 2023 11:32 AM Reporting Lab: [facility] [address] Performing Lab: [address] [facility] METANEPHR JATIN FRACTIONA LINDEN URINE NORMETANEPH RINE [MASS/TIME] IN 24 HOUR URINE 375 518 - 304 08/30 Specimen Type: URINE, TIMED Comment: This test was developed and its analytical performance characteris tics have been determined by [employer] [place]. It has not been cleared or approved by the U.S. Food and Drug Administrat ion. This assay has been validated pursuant to the CLIA regulations and is used for clinical purposes. This test was developed and its analytical performance characteris tics have been determined by [employer] [place]. It has not been cleared or [...] recommended for confirmatio n. Test Performed by [facility], [facility], [address] [place], [place] Nacho De Leon M.D., Ph.D., Director of Laboratorie s , CLIA [id number] Ordering Provider: MILADIS GALINDO Report Released Date/Time: Aug 21, 2023 11:32 AM Reporting Lab: [facility] [address] Performing Lab: [address] [place] [facility] METANEPHR JATIN FRACTIONA LINDEN URINE METANEPHRIN E [MASS/TIME] IN 24 HOUR URINE 37 90 - 315 08/30 L Specimen Type: URINE, TIMED Comment: This test was developed and its analytical performance characteris tics have been determined by [employer] [place]. It has not been cleared or approved by the U.S. Food and Drug Administrat ion. This assay has been validated pursuant to the CLIA regulations and is used for clinical purposes. This test was developed and its analytical performance characteris tics have been determined by [employer] [place]. It has not been cleared or [...] recommended for confirmatio n. Test Performed by [employer] [place], [employer] [facility], [address] [place] [address] Nacho De Leon M.D., Ph.D., Director of Laboratorie s , CLIA [id number] Ordering Provider: MILADIS GALINDO Report Released Date/Time: Aug 21, 2023 11:32 AM Reporting Lab: [facility] [address] Performing Lab: [address] [facility] METANEPHR JATIN FRACTIONA LINDEN URINE METANEPHRIN ES [MASS/TIME] IN 24 HOUR URINE 412 224 - 832 08/30 Specimen Type: URINE, TIMED Comment: This test was developed and its analytical performance characteris tics have been determined by [employer] [place]. It has not been cleared or approved by the U.S. Food and Drug Administrat ion. This assay has been validated pursuant to the CLIA regulations and is used for clinical purposes. This test was developed and its analytical performance characteris tics have been determined by [employer] [place]. It has not been cleared or [...] recommended for confirmatio n. Test Performed by [facility], [facility], [address] [place] [address] Nacho De Leon M.D., Ph.D., Director of Laboratorie s , CLIA [id number] Ordering Provider: MILADIS GALINDO Report Released Date/Time: Aug 21, 2023 11:32 AM Reporting Lab: [facility] [address] Performing Lab: [address] [facility] METANEPHR JATIN FRACTIONA LINDEN URINE .TOTAL VOLUME 1100 mL 08/30 Specimen Type: URINE, TIMED Comment: This test was developed and its analytical performance characteris tics have been determined by [employer] [place]. It has not been cleared or approved by the U.S. Food and Drug Administrat ion. This assay has been validated pursuant to the CLIA regulations and is used for clinical purposes. This test was developed and its analytical performance characteris tics have been determined by [employer] [place]. It has not been cleared or [...] recommended for confirmatio n. Test Performed by [facility], [facility], [id number] [place] [address] Nacho De Leon M.D., Ph.D., Director of Laboratorie s , [place] [id number] Ordering Provider: MILADIS GALINDO Report Released Date/Time: Aug 21, 2023 11:32 AM Reporting Lab: [facility] [address] Performing Lab: [address] [facility] Vital Signs Combined list of inpatient and outpatient Vital Signs from Department of Defense and Veterans Affairs, ranging from 12 months to all on record, depending upon the facility. Vital Sign Value Date Comments Source SYSTOLIC BLOOD PRESSURE 121 12/04/2023 09:52:49 [facility] DIASTOLIC BLOOD PRESSURE 78 12/04/2023 09:52:49 [facility] PULSE OXIMETRY 94 12/04/2023 09:52:49 [facility] WEIGHT 192.4 12/04/2023 09:52:49 [facility] BMI 28 kg/m2 12/04/2023 09:52:49 [facility] PAIN 10 12/04/2023 09:52:49 [facility] HEIGHT 70 12/04/2023 09:52:49 [facility] TEMPERATURE 97.5 12/04/2023 09:52:49 [facility] PULSE 83 12/04/2023 09:52:49 [facility] RESPIRATION 16 12/04/2023 09:52:49 [facility] SYSTOLIC BLOOD PRESSURE 120 11/11/2023 15:19:56 [facility] DIASTOLIC BLOOD PRESSURE 71 11/11/2023 15:19:56 [facility] PULSE OXIMETRY 97 11/11/2023 15:19:56 [facility] PAIN 8 11/11/2023 15:19:56 [facility] TEMPERATURE 97.7 11/11/2023 15:19:56 [facility] PULSE 81 11/11/2023 15:19:56 [facility] RESPIRATION 16 11/11/2023 15:19:56 [facility] SYSTOLIC BLOOD PRESSURE 143 08/31/2023 13:57:21 [facility] DIASTOLIC BLOOD PRESSURE 86 08/31/2023 13:57:21 [facility] PULSE OXIMETRY 94 08/31/2023 13:57:21 [facility] PAIN 8 08/31/2023 13:57:21 [facility] TEMPERATURE 97.2 08/31/2023 13:57:21 [facility] PULSE 75 08/31/2023 13:57:21 [facility] RESPIRATION 18 08/31/2023 13:57:21 [facility] SYSTOLIC BLOOD PRESSURE 155 08/21/2023 10:09:47 [facility] DIASTOLIC BLOOD PRESSURE 76 08/21/2023 10:09:47 [facility] PULSE OXIMETRY 92 08/21/2023 10:09:47 M [...] HCS RESPIRATION 16 08/05/2023 14:16:37 [facility] Encounters Combined list of: 1) Encounters [...] Command(F amily Practice Team 2) TELE CONSULT [id number] Medicat ion refill EMMA ODONNELL 11/12 [employer] [place] [employer] Command (Family Practic e Team 2) IVY Hager([facility]) OUTPATIENT [id number] INITIAL APPT WITH NEW PCM, MED MAKENNA ATKINSON V 04/07 Released w/o Limitations IVY Hager([facility]) IYV Hager([facility]) TELE CONSULT [id number] ERNESTO TINOCO 04/15 IVY Hager([facility]) IVY Hager([facility]) OUTPATIENT [id number] general MAKENNA Kebede V 06/19 Released w/o Limitations IVY Hager([facility]) IVY Hager([facility]) TELE CONSULT [id number] needs referra l to cardiol ogist LAUREN ESTRADA 06/30 IVY Hager([facility]) [facility]Y Hager([facility]) OUTPATIENT [id number] lesion upper back KLEBER SHAH Nadya 07/01 Released w/o Limitations [facility] H[facility](Derm atology Clinic) IVY Hager([facility]) OUTPATIENT [id number] needs cardiol ogy consult KEYLA MAS 07/01 Released w/o Limitations IVY Hager([facility]) IVY Hager([facility]at [facility]logy Clinic) TELE CONSULT [id number] TISSUE EXAM RESULTS TISSUE COLLECT ED ON JUN 21 KLEBER SHAH 07/13 [facility] [place] [facility] [place] OUTPATIENT [id number] TEST RESULTS ON LUNG MAKENNA GOLDSMITH V 07/20 Released w/o Limitations [facility] [place] [facility] [place] TELE CONSULT [id number] med JORGE BRIAN 09/17 [facility] [place] [facility] [place] OUTPATIENT [id number] f/u sinuses MAKENNA GOLDSMITH V 09/22 Released w/o Limitations [facility] [place] [facility] Primary Care) OUTPATIENT [id number] bowel movemen t KLEBER TAMAYO 04/27 Released w/o Limitations [facility] Primary Care) [facility] Immunizat ion) OUTPATIENT [id number] flu shot and pneumov ax CARROLL BARRERAA F 04/27 Released w/o Limitations [facility] Immuniz ation) [facility] [place] TELE CONSULT [id number] refills ALTHEA, OLEGARIO A 05/14 [facility] [place] [facility] [place] TELE CONSULT [id number] rf ERNESTO TINOCO 06/11 [facility] [place] [facility] [place] OUTPATIENT [id number] CELESTE Naik 06/29 Released w/o Limitations [place] [facility] [place] [facility] [place] TELE CONSULT [id number] med refills CELESTE NINA 07/07 [facility] [place] TELE CONSULT [id number] Pt. request ing refill on medicat ions. 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 Aneurys m of other specifi ed BRII Ortega L 04/21 [facility] [place] [facility] Outpatient Encounter [id number] ROSA PEREZ 05/06 [facility] [place] [facility] Outpatient Encounter [id number] CHASE DAVIS 05/06 [place] [facility] [place] [facility] Outpatient Encounter [id number] 05/14 [facility] [place] [facility] OFF[place] O/P EST MOD 30-39 MIN [id number] Diagnos is: ICD-10- CM 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 ELY CURRAN 05/19 [facility] [place] [facility] Outpatient Encounter [id number] 05/19 [facility] [place] [facility] IMMUNIZATI ON ADMIN [id number] Diagnos is: ICD-10- CM Z23 Encount er for immuniz ation Teto LEWIS E 05/19 [facility] [place] [facility] Outpatient Encounter [id number] 06/01 [facility] [place] [facility] HC PRO PHONE CALL 5-10 MIN [id number] Diagnos is: ICD-10- CM I10 Essenti al (primar y) hyperte nsion DAVIS,AND BIGG A 06/01 [facility] [place] [facility] OFF[place] O/P EST LOW 20-29 MIN [id number] Diagnos is: ICD-10- CM 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 JAQUIPatJulius HRISTOPHER 06/05 [facility] [place] [facility] Outpatient Encounter [id number] 06/18 [place] [facility] [place] [facility] Outpatient Encounter [id number] MANUEL OLVERA SA 06/19 [facility] OFFICE O/P NEW HI 60 MIN [id number] Diagnos is: ICD-10- CM 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 DIAZ GILBERT 08/05 [facility] [place] [facility] Outpatient Encounter [id number] DIAZ HODGSON 08/06 [facility] OFFICE O/P EST SF 10 MIN [id number] Diagnos is: ICD-10- CM D24.9 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 KLEBER FOURNIER 08/20 [facility] [place] [facility] Outpatient Encounter [id number] 08/23 [facility] [place] [facility] Outpatient Encounter [id number] 08/26 [facility] [place] [facility] Outpatient Encounter [id number] 08/30 [facility] NRV CNDJ TEST 7-8 STUDIES [id number] Diagnos is: ICD-10- CM R20.2 Paresth esia of skin JAI HENLEY CA M 08/30 [facility] OFFICE O/P EST MOD 30 MIN [id number] Diagnos is: ICD-10- CM D48.5 Neoplas m of uncerta in behavio r of skin SKIBNESS,L ORIE A 09/07 [facility] Outpatient Encounter [id number] NATHANIEL SQUIRES MAKENNA 09/10 [facility] Outpatient Encounter [id number] Diagnos is: ICD-10- CM 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 PABLITOSETPat,C HRISTOPHER 09/21 [facility] OFFICE O/P EST MOD 30 MIN [id number] Diagnos is: ICD-10- CM R94.7 Abnorma l results of other endocri ne functio n studies DIAZ GILBERT 11/10 [facility] OFFICE O/P EST MOD 30 MIN [id number] Diagnos is: ICD-10- CM F32.A Depress ion, unspeci fied SANDROC HRISTOPHER 12/03 [facility] Outpatient Encounter [id number] 12/07 [facility] Outpatient Encounter [id number] Diagnos is: ICD-10- CM K86.9 Disease of pancrea s, unspeci fied Mirella PRESCOTT ANTIONETTE R 12/09 [facility] Outpatient Encounter [id number] 12/30 [facility] Outpatient Encounter [id number] Diagnos is: ICD-10- CM K86.2 Cyst of pancrea s Mirella PRESCOTT ANTIONETTE R 01/03 [facility] [place] [facility] OFF[facility] O/P EST MOD 30 MIN [id number] Diagnos is: ICD-10- CM K86.2 Cyst of pancrea s JOSE CAMPOS MMAD 02/09 [facility] OFFICE O/P EST SF 10 MIN [id number] Diagnos is: ICD-10- CM I72.8 Aneurys m of other specifi ed arterie s AISHWARYA,BRII ICK L 04/26 [facility] Outpatient Encounter [id number] 04/29 [facility] Outpatient Encounter [id number] 04/29 [facility] Procedures Combined list of: 1) Procedures from Department [facility] facilities going back up to thelast 18 months, not all [place] non-surgical procedures are included; 2) All procedures from the Department of [facility] facilities. Procedure Procedure Type Code Date Perfomer Comments Sourc e PNEUMOCOCCAL POLYSACCHARIDE VACCINE, 23-VALENT (PPSV23), ADULT OR IMMUNOSUPPRESSED PATIENT DOSAGE, WHEN ADMINISTERED TO INDIVIDUALS 2 YEARS OR OLDER, FOR SUBCUTANEOUS OR INTRAMUSCULAR USE 04/27/20 07 [facility] INJECTION, PROMETHAZINE HCL, UP TO 50 MG 04/27/20 07 [facility] SCREENING TEST OF VISUAL ACUITY, QUANTITATIVE, BILATERAL 07/26/19 05 [facility] MEDICAL NUTRITION THERAPY; GROUP (2 OR MORE INDIVIDUAL(S)), EACH 30 MINUTES 09/11/19 04 [facility] BLOOD, OCCULT, BY PEROXIDASE ACTIVITY (EG, GUAIAC), QUALITATIVE, FECES, 1-3 SIMULT DETERM, PERF FOR OTH THAN COLOR[place] NEOPLASM SCREEN 06/29/19 08 [facility] CARDIOVASCULAR STRESS TEST USING MAXIMAL OR SUBMAXIMAL TREADMILL OR BICYCLE EXERCISE,CONTINUOUS ELECTROCARDIOGRAPHIC MONITORING,AND/OR PHARMACOLOGICAL STRESS;W SUPERVISION,INTERPRETATI ON AND REPORT 07/29/19 07 [facility] DESTRUCT (EG, LASER SURGERY, ELECTROSURGERY, CRYOSURGERY, CHEMOSURGERY, SURGICAL CURETTEMENT), PREMALIGNANT LESIONS (EG, ACTINIC KERATOSES); 2ND THRU 14 LESIONS, EA (LIST SEP ADDITION CD, 1ST LESION) 07/01/19 [facility] ECG 12-Lead ECG 12-Lead [id number] 06/29/19 08 STARR NINAMY Isreal [facility] Fecal Analysis - Occult Blood From Digital Rectal Exam 06/29/19 08 CELESTE NINA [facility] Automated Urinalysis Without Microscopic Exam Automated Urinalysis Without Microscopic Exam [id number] 06/29/19 08 CELESTE NINA [facility] Pneumococcal Polysaccharide Vaccine (Age 2Y+) Pneumococcal Polysaccharide Vaccine (Age 2Y+) 50244 05/04/20 [facility] Split Virus Vaccine 0.5mL Dosage Intramuscular 05/04/20 07 [facility] Immunization Administration By Injection, One Vaccine Immunization Administration By Injection, One Vaccine 86420 05/04/20 07 [facility] Immunization Administration By Injection, Each Additional Vaccine 05/04/20 07 [facility] Parenteral Fluids IV Infusion 04/27/20 07 KLEBER TAMAYO [facility] Intravenous Catheter Placement Intravenous Catheter Placement 17404 04/27/20 07 KLEBER TAMAYO Destruct Of Benign Lesion By Any Method Second Through 14 07/01/19 07 KLEBER SHAH Destruction Of Benign Lesion By Cryosurgery 07/01/19 07 KLEBER SHAH Social History Combined list of available smoking, tobacco, and other social history from Department of Defense and Veterans Affairs facilities. Social History Type Response Date Comment Source Tobacco smoking status [facility] VA-TOBACCO FORMER USER 05/19/2023 [facility] History of tobacco use VA-TOBACCO QUIT 15 YRS OR MORE 05/19/2023 [facility] History of tobacco use VA-TOBACCO FORMER USER 05/13/2022 [facility] History of tobacco use VA-TOBACCO NEVER USED 06/17/2021 [facility] History of tobacco use VA-TOBACCO QUIT 15 YRS OR MORE 07/04/2020 [facility] History of tobacco use VA-TOBACCO QUIT 15 YRS OR MORE 05/17/2019 [facility] History of tobacco use VA-TOBACCO FORMER USER 06/01/2018 [facility] History of tobacco use LIFETIME NON TOBACCO USER 12/14/2013 [facility] History of tobacco use EX-TOBACCO USER > 7Y 12/14/2013 [facility] History of tobacco use HF V9 QUIT SMOKING > 1YR 06/01/2013 >10 years, none since 1983 [facility] History of tobacco use HF V9 QUIT SMOKING > 1YR 05/24/2012 >20 years [facility] History of tobacco use HF V9 QUIT SMOKING > 1YR 10/11/2009 >20 years [facility] History of tobacco use HF V9 QUIT SMOKING > 1YR 03/16/2008 >20 years [facility] History of tobacco use HF V9 QUIT SMOKING > 1YR [facility]22[facility] History of tobacco use HF V9 CURRENT [id number] 01/21/2006 >20 years [facility] History of tobacco use NON-TOBACCO USER 11/20/2005 quit [facility] History of tobacco use NON-TOBACCO USER 11/12/2005 [facility] History of tobacco use NON-TOBACCO USER 06/04/2005 [facility] History of tobacco use NON-TOBACCO USER 06/24/2004 quit in 1983 [facility] This section is an empty social history section. DoD Advance Directives List of completed, amended, or rescinded Advance Directives on record at Department of Veterans Affairs facilities. An actual copy of the Directive is not included. Date Advance Directive Provider Source 12/19/2022 ADVANCE DIRECTIVE ABRIL BURCH [facility]
--- OUTSIDE RECORDS SUMMARY | 2024-08-05 05:39 | XMS_ITS ---
Author Organization [facility] Address [address] [place] [address] Care Team Providers Care Treasury Management Sales Consultant Name Role Phone Unavailable Primary Care Provider [...]
--- OUTSIDE RECORDS SUMMARY | 2024-08-05 05:39 | XMS_ITS | Clinical Summary ---
Author Organization [facility] Address [address] [place] [address] Care Team Providers Care Healthcare Risk Control Consultant Name Role Phone Unavailable Primary Care Provider Unavailabl e Source Comments Patient records contain information from all sites at [facility]. For routine questions regarding patient records, call [phone] during business hours, M-F 8:00 AM - 5:00 PM Central Time. Record requests for emergency care only can be directed to [phone] at any time.[facility] Allergies Active Allergy Reactions Criticality Noted Date [...] with black pepper 10 mg Active vit C,I-Fn-nyvno-emory tein-zeaxan (PreserVision AREDS-2) 250-90-40-1 mg per capsule [...] week 08/13/2022 How often do you attend [facility]? Never 08/13/2022 Do you belong to any clubs o r organizations such as alevism groups, unions, fraternal or athletic groups, or [...] Answer Date Recorded PHQ-2 Score 0 10/02/2022 [facility] of Occupat ional Health - Occupational Stress [...] place to sleep or slept in a half-way (including now)? 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 Pins/Screws/R ods Hardware e.g. pins/screws/ rods Right: Mouth Stent Other Stent Other Brain Procedures Procedure Name Priority Date/Time Associated Diagnosis Comments COMPREHENSIVE METABOLIC PANEL, S/P Routine 08/15/2022 7:05 AM CHEMICAL PLANT OPERATOR SUPERVISOR Loss Memory Diarrhea from Last 3 Months or Most Recently Relevant to Health Maintenance Results * (ABNORMAL) Comprehensive Metabolic Panel (08/15/2022 7:05 AM CHEMICAL PLANT OPERATOR SUPERVISOR) Potassium, S 4.2 3.6 - 5.2 mmol/L 08/15/2022 8:11 AM CHEMICAL PLANT OPERATOR SUPERVISOR DTL Sodium, S 143 135 - 145 mmol/L 08/15/2022 8:11 AM CHEMICAL PLANT OPERATOR SUPERVISOR DTL Chloride, S 106 98 - 107 mmol/L 08/15/2022 8:11 AM CHEMICAL PLANT OPERATOR SUPERVISOR DTL Bicarbonate, S 28 22 - 29 mmol/L 08/15/2022 8:11 AM CHEMICAL PLANT OPERATOR SUPERVISOR DTL Anion Gap 9 7 - 15 08/15/2022 8:11 AM CHEMICAL PLANT OPERATOR SUPERVISOR DTL BUN (Blood Urea Nitrogen), S 26(H) 8 - 24 mg/dL 08/15/2022 8:11 AM CHEMICAL PLANT OPERATOR SUPERVISOR DTL Creatinine 1.39(H) 0.74 - 1.35 mg/dL 08/15/2022 8:11 AM CHEMICAL PLANT OPERATOR SUPERVISOR DTL Estimated GFR (eGFR) 52(L) >=60 mL/min/BS A 08/15/2022 8:11 AM CHEMICAL PLANT OPERATOR SUPERVISOR DTL Comment: Estimated GFR calculated using the 2020 CKD_EPI creatinine equation. Calcium, Total, S 9.4 8.8 - 10.2 mg/dL 08/15/2022 8:11 AM CHEMICAL PLANT OPERATOR SUPERVISOR DTL Glucose, S 101 70 - 140 mg/dL 08/15/2022 8:11 AM CHEMICAL PLANT OPERATOR SUPERVISOR DTL Protein, Total, S 7.3 6.3 - 7.9 g/dL 08/15/2022 8:11 AM CHEMICAL PLANT OPERATOR SUPERVISOR DTL Albumin, S 3.9 3.5 - 5.0 g/dL 08/15/2022 8:11 AM CHEMICAL PLANT OPERATOR SUPERVISOR DTL Aspartate Aminotransferase (AST), S 23 8 - 48 U/L 08/15/2022 8:11 AM CHEMICAL PLANT OPERATOR SUPERVISOR DTL Alkaline Phosphatase, S 162(H) 40 - 129 U/L 08/15/2022 8:11 AM CHEMICAL PLANT OPERATOR SUPERVISOR DTL Alanine Aminotransferase (ALT), S 21 7 - 55 U/L 08/15/2022 8:11 AM CHEMICAL PLANT OPERATOR SUPERVISOR DTL Bilirubin, Total, S 0.4 <=1.2 mg/dL 08/15/2022 8:11 AM CHEMICAL PLANT OPERATOR SUPERVISOR DTL Blood (Blood, Venous) 08/15/2022 7:05 AM CHEMICAL PLANT OPERATOR SUPERVISOR 08/15/2022 7:47 AM CHEMICAL PLANT OPERATOR SUPERVISOR Santosh Dunn M.D., M.S. LAB BLOOD ADD-ON F inal Result [facility] [address] [place] [address], [facility] DTL [facility] [address] [place] [address] from Last 3 Months or Most Recently Relevant to Health Maintenance Insurance MEDICARE [facility]
[2024-08-05 05:40] LABS: NT Pro B Type NatriureticPept* 246 pg/mL
[2024-08-05 05:48] LABS: PCR FLU A Negative PCR FLU A (Negative); PCR FLU B Negative PCR FLU B (Negative); PCR RSV Negative PCR RSV (Negative); SARS PCR* POSITIVE SARS-CoV-2 (Negative)
[2024-08-05 06:11] LABS: RBC Urine 0-2 (0-2); Squamous Epithelial Cell Urine Few (None-Few); WBC Urine 0-2 (0-5)
== END 2024-08-05 06:37 | disposition home or self-care (01) ==
PROVIDERS: Emergency Provider Family Medicine
DX: U07.1 COVID-19 (principal); F43.21 Adjustment disorder with depressed mood
CPT/HCPCS: 36415; 70450; 71046; 80048; 81001; 82077; 82803; 83735; 83880; 84484; 85025; 87631; 93005; 94761; 99284; 99285